=== PATIENT | female | born 1945 | race Caucasian/White ===

== ENCOUNTER → 2016-07-29 | Outpatient (CLI) | payer MEDICARE, OTHER ==
[~2016-07-29] MED LIST: AGM875T PO; ALN70T PO; ASP81TEC PO; BISO5TAB8 PO; CALC1CAP21 PO; CALC600T19 PO; CARB25TA2 PO; CEFU500T5 PO; CHOL400C8 PO; CHOL400T43 GT; CLOP75TA PO; CYAN100053 IJ; FLDR.1T PO; GABA-488 PO; HCT25T PO; HCTZ12.5T PO; HYDR-1231 PO; HYDR-34 PO; HYDR30CR87 RC; IBUP-15 PO; IRB150T PO; KCL20TCR PO; LD2JL30 EXT; LVT.05T PO; METO-270 PO; METO-272 PO; METO25TA PO; OMEP20CA12 PO; OMEP20TA7 PO; PANT20TA3 PO; PANT40TA2 PO; POTASSIUM PO; PRAV10TA23 PO; SERT50TA9 PO; TRAM50TA2 PO; VIT B12; provastatin
--- OUTSIDE RECORDS SUMMARY | 2016-07-29 13:55 | XMS REPORT | Continuity of Care Document ---
Author Author [facility] Organization [facility] Address Unknown Phone Unavailable Care Team Providers Care Pharmacist'S Aide Name Role Phone NO, LOCAL PHYSICIAN PCP Unavailable Insurance Providers Payer Name Policy Number Subscriber Name Relationship Wps Medicare [id number] Darrin Roe 18 Self / Same As Patient [employer] [id number] Darrin Roe 18 Self / Same As Patient Advance Directives Directive Response Recorded Date/Time Advance Directives No 10/26/14 3:15pm Health Care Power of [place] No 10/26/14 3:15pm Organ Donor No 10/26/14 3:15pm Resuscitation Status Full Code 10/26/14 3:15pm Problems Medical Problems Problem Onset Date Status Near syncope Unknown Active Near syncope Unknown Active Medications Medication Dose Route Sig Days/Qty Instructions Order Date Discontinued Date Status Irbesartan 150 Mg PO DAILY 01/06/12 10/26/14 Discontinued Hydrochlorothiazide 25 Mg PO DAILY 01/06/12 01/15/13 Discontinued Levothyroxine Sodium (Levothroid) 50 Mcg PO DAILY 01/06/12 Active Omeprazole 20 Mg PO BEDTIME 01/06/12 Active [provastatin] 10 01/06/12 12/21/12 Discontinued Clopidogrel Bisulfate 75 Mg PO ROCIO TIM FR @ 0600 01/06/12 Active Aspirin 81 Mg PO DAILY 01/06/12 Active Calcium Carbonate/Vitamin D3 1 Cap PO DAILY 01/06/12 10/26/14 Discontinued Cholecalciferol (Vitamin D3) 400 Unit PO DAILY 12/21/12 Active Pravastatin Sodium 10 Mg PO DAILY 12/21/12 Active Alendronate Sodium 70 Mg PO EVERY FRIDAY MORNING 12/21/12 Active Fludrocortisone Acetate 0.1 Mg PO EVERY OTHER DAY 12/22/12 Active [Potassium] 1 Tab PO DAILY 01/10/13 01/15/13 Discontinued Potassium Chloride 20 Mg PO DAILY 01/15/13 10/26/14 Discontinued Bisoprolol Fumarate 2.5 Mg PO BEDTIME 01/15/13 10/26/14 Discontinued Hydrochlorothiazide 12.5 Mg PO DAILY 01/15/13 10/26/14 Discontinued Ibuprofen 600 Mg PO TID WITH MEALS 02/10/13 10/26/14 Discontinued [Vit B12] TWICE MONTHLY 10/26/14 10/26/14 Discontinued Calcium Carbonate 600 Mg PO DAILY 10/26/14 Active Metoprolol Succinate (Toprol Xl) 25 Mg PO TWICE A DAY 10/26/14 Active Cyanocobalamin (Vitamin B 12 Injecting) 1,000 Mcg IJ Q2W @ 1700 10/26 Active Sertraline Hcl 50 Mg PO DAILY 10/26/14 Active Pantoprazole Sod 40 Mg PO DAILY 30 Days 10/27/14 Active Hc Acetate/Pramoxine Hcl 30 Gm RC DAILY PRN HEMORRHOIDS 10 Days Active Social History Social History Problem Response Recorded Date/Time Alcohol Use Denies Use 10/26/2014 3:15pm Recreational Drug Use No 10/26/2014 3:15pm Recent Foreign Travel No 02/10/2013 8:44pm Recent Infectious Disease Exposure No 02/10/2013 8:44pm Hospitalization with Isolation Denies 02/10/2013 8:44pm Smoking Status Never a Smoker 10/26/2014 3:15pm Do you dip or chew tobacco? No 10/26/2014 3:15pm Query Response Start Date Stop Date Smoking Status Never a Smoker Hospital Discharge Instructions Patient Instructions Physician Instructions Plan of Care/Instructions/FU: fu with tn in 4-5 days [phone] Activity as Tolerated: Yes Discharge Diet: Low Sodium Diet Return to The Hospital For: severe bleeding Plan of Care/Instructions/FU: fu at clinic 4-[address] Robertson 1 week Activity as Tolerated: Yes Discharge Diet: No Restrictions, Low Sodium Diet Return to The Hospital For: severe bleeding Care Plan Patient Instructions:: fu at clinic 4-[address] Robertson 1 week Plan of Care Discharge Date 10/27/14 4:10pm Disposition 30 STILL A PATIENT Instructions/Education Provided EGD-ESOPHAGOGASTRODUODENOSCOPY Colonoscopy (DC) Hemorrhoids (GEN) Prescriptions See Medications Section Referrals (Unspecified) Reason(s) for Referral: Status changed from Active to Cancelled. ROSENDO ROBERTSON MD (Unspecified) 11/01/14 Address: [address] [place] [phone] Reason(s) for Referral: 4:00 NIKKI HDZ (Unspecified) 11/01/14 Address: [place] [address] Reason(s) for Referral: 2:00 Additional Instructions/Education FOLLOW UP FRIDAY WITH NELDA ON SATURDAY NOVEMBER 01, 2014 AT 2:[address] ROBERTSON NOVEMBER 01Friday AT 4:00 CHANGE OMEPRAZOLE TO 40MG DAILY INSTEAD OF PROTONIX Functional Status Query Response Date Recorded Comprehension Ability Understands Concepts October 27, 2014 9:00am Allergies, Adverse Reactions, Alerts Allergen Type Severity Reaction Status Last Updated Levofloxacin Allergy Unknown Active 10/26/14 Immunizations Name Given Type Date of Pneumonia Vaccine 03/19/10 Historical Date of Influenza Vaccine 03/16/14 Historical Hepatitis A No Historical Hepatitis B No Historical Tetanus Booster (TDap) Unknown Historical Vital Signs Acute Vital Signs Vital Response Date/Time Temperature (Fahrenheit) 97.6 degrees F (97.6 - 99.5) Temperature (Calculated Celsius) 36.53171 degrees C (36.4 - 37.5) Temperature Source Tympanic Pulse Rate (adult) 67 bpm (60 - 90) Respiratory Rate 18 bpm (12 - 24) O2 Sat by Pulse Oximetry 97 % (88 - 100) Blood Pressure 147/76 mm Hg Pain Pain Intensity 0 Height (Feet) 5 feet Height (Inches) 3.00 inches Height (Calculated Centimeters) 160.073949 cm Weight (Pounds) 174 pounds Weight (Ounces) 6.0 oz Weight (Calculated Grams) 34680.170 gm Weight (Calculated Kilograms) 79.093665 kilograms Calculated BMI 30.82 Results Laboratory Results Test Name Result Units Flags Reference Collection Date/Time Result Date/ Time Comments White Blood Count 5.1 10^3/uL 4.3-11.0 10/27/2014 4:40am 10/27/2014 4: 54am Red Blood Count 4.58 10^6/uL 4.35-5.85 10/27/2014 4:4010/27/2014 4: 54am Hemoglobin 13.5 G/DL 11.5-16.0 10/27/2014 4:4010/27/2014 4:54am Hematocrit 42 % 35-52 10/27/2014 4:4010/27/2014 4:54am Mean Corpuscular Volume 91 FL 80-99 10/27/2014 4:4010/27/2014 4: 54am Mean Corpuscular Hemoglobin 30 PG 25-34 10/27/2014 4:4010/27/2014 4: 54am Mean Corpuscular Hemoglobin Concent 32 G/DL 32-36 10/27/2014 4:40 4:54am Red Cell Distribution Width 13.3 % 10.0-14.5 10/27/2014 4:402014 4:54am Platelet Count 211 10^3/uL 130-400 10/27/2014 4:4010/27/2014 4:54am Mean Platelet Volume 10.0 FL 7.4-10.4 10/27/2014 4:4010/27/2014 4: 54am Neutrophils (%) (Auto) 51 % 42-75 10/27/2014 4:4010/27/2014 4:54am Lymphocytes (%) (Auto) 28 % 12-44 10/27/2014 4:4010/27/2014 4:54am Monocytes (%) (Auto) 14 % H 0-12 10/27/2014 4:4010/27/2014 4:54am Eosinophils (%) (Auto) 6 % 0-10 10/27/2014 4:4010/27/2014 4:54am Basophils (%) (Auto) 1 % 0-10 10/27/2014 4:4010/27/2014 4:54am Neutrophils # (Auto) 2.6 X 10^3 1.8-7.8 10/27/2014 4:40am 10/27/2014 4: 54am Lymphocytes # (Auto) 1.4 X 10^3 1.0-4.0 10/27/2014 4:40am 10/27/2014 4: 54am Monocytes # (Auto) 0.7 X 10^3 0.0-1.0 10/27/2014 4:40am 10/27/2014 4: 54am Eosinophils # (Auto) 0.3 10^3/uL 0.0-0.3 10/27/2014 4:40am 10/27/2014 4 :54am Basophils # (Auto) 0.1 10^3/uL 0.0-0.1 10/27/2014 4:40am 10/27/2014 4: 54am Prothrombin Time 11.9 SEC L 12.2-14.7 10/26/2014 11:30am 10/26/2014 11: 54am INR Comment 0.9 0.8-1.4 10/26/2014 11:30am 10/26/2014 11:54am INTERPRETIVE DATA SUGGESTED THERAPEUTIC RANGE FOR INR'S: VENOUS THROMBOSIS, PULMONARY EMBOLISM, OR PREVENTION OF SYSTEMIC EMBOLISM (EG. IN ATRIAL FIBRILLATION): 2.0 - 3.0 MECHANICAL PROSTHETIC HEART VALVES: 2.5 - 3.5* *NOTE: INR'S UP TO 4.5 MAY BE NECESSARY IN SELECTED GROUPS OF HIGH RISK PATIENTS. [employer] [place] [employer] PH[employer]ICIANS CONSENSUS CONFERENCE ON ANTITHROMBOTIC THERAPY (2000). Activated Partial Thromboplast Time 27 SEC 24-35 10/26/2014 11:30am 11:54am Sodium Level 142 MMOL/L 135-145 10/27/2014 4:40am 10/27/2014 5:14am Potassium Level 4.1 MMOL/L 3.6-5.0 10/27/2014 4:40am 10/27/2014 5:14am Chloride Level 108 MMOL/L H 98-107 10/27/2014 4:40am 10/27/2014 5:14am Carbon Dioxide Level 25 MMOL/L 21-32 10/27/2014 4:40am 10/27/2014 5: 14am Blood Urea Nitrogen 12 MG/DL 7-18 10/27/2014 4:40am 10/27/2014 5:14am Creatinine 1.00 MG/DL 0.60-1.30 10/27/2014 4:40am 10/27/2014 5:14am BUN/Creatinine Ratio 12 10/27/2014 4:40am 10/27/2014 5:14am Estimat Glomerular Filtration Rate 55 10/27/2014 4:40am 10/27/2014 5:14am GFR INTERPRETIVE DATA UNITS FOR ESTIMATED GFR (eGFR): mL/min/1.73 M2 REFERENCE RANGE FOR ESTIMATED GFR (eGFR) eGFR NORMAL eGFR >60 MODERATELY DECREASED eGFR 30-59 SEVERLY DECREASED eGFR 15-29 KIDNEY FAILURE <15 (OR DIALYSIS) Glucose Level 105 MG/DL 70-105 10/27/2014 4:40am 10/27/2014 5:14am Calcium Level 8.5 MG/DL 8.5-10.1 10/27/2014 4:40am 10/27/2014 5:14am Magnesium Level 2.0 MG/DL 1.8-2.4 10/26/2014 11:30am 10/26/2014 12: 03pm Total Bilirubin 0.7 MG/DL 0.1-1.0 10/27/2014 4:40am 10/27/2014 5:14am Alkaline Phosphatase 69 U/L 40-136 10/27/2014 4:40am 10/27/2014 5:14am Aspartate Amino Transf (AST/SGOT) 18 U/L 5-34 10/27/2014 4:40am 2014 5:14am Alanine Aminotransferase (ALT/SGPT) 19 U/L 0-55 10/27/2014 4:40am 10/27 5:14am Total Protein 6.0 G/DL L 6.4-8.2 10/27/2014 4:40am 10/27/2014 5:14am Albumin 3.7 G/DL 3.2-4.5 10/27/2014 4:40am 10/27/2014 5:14am Amylase Level 90 U/L 25-125 10/26/2014 11:30am 10/26/2014 12:03pm Lipase 41 U/L 8-78 10/26/2014 11:30am 10/26/2014 12:03pm Procedures Procedure Status Date Provider(s) Esophagogastroduodenoscopy (EGD) with dilation completed 10/27/14 ROSENDO ROBERTSON MD Proctoscopy completed 10/27/14 ROSENDO ROBERTSON MD Encounters Encounter Location Date/Time Discharged Inpatient Via [facility] 10/26/14 2:29pm Registered Recurring Via [facility] 10/21/14 9:49am
--- NOTE | 2016-07-29 14:40 | Diagnostic Imaging Report ---
PA and lateral views of the chest. INDICATION: Cough. Dyspnea. COMPARISON: 03/21/2014. FINDINGS: The lungs are hyperinflated and clear. The heart size is normal. No effusion or pneumothorax. The mediastinum and floyd appear unremarkable. Pacemaker is seen with two cardiac leads. IMPRESSION: Hyperinflated clear lungs. Dictated by: Dictated on workstation # [id number]
== END ==
LOC: RAD 13:50
PROVIDERS: ATTEND Nurse Practitioner Family
DX: R05 Cough (principal); R06.00 Dyspnea, unspecified
CPT/HCPCS: 71020

== ENCOUNTER → 2016-08-21 | Outpatient (CLI) | payer MEDICARE, OTHER ==
[~2016-08-21] MED LIST changes: +RT-ALBUTEROL SULF 2.5 MG/3 ML PRE-MIX VIAL INH ONE
--- OUTSIDE RECORDS SUMMARY | 2016-08-21 14:05 | XMS REPORT | Continuity of Care Document ---
Author Author [facility] Organization [facility] Address Unknown Phone Unavailable Care Team Providers Care Director Of Admissions Name Role Phone NO, LOCAL PHYSICIAN PCP Unavailable Insurance Providers Payer Name Policy Number Subscriber Name Relationship Wps Medicare [id number] Darrin Roe 18 Self / Same As Patient [employer] [id number] Darrin Roe 18 Self / Same As Patient Advance Directives Directive Response Recorded Date/Time Advance Directives No 10/26/14 3:15pm Health Care Power of Technician Support Engineer No 10/26/14 3:15pm Organ Donor No 10/26/14 [...] Physician Instructions Plan of Care/Instructions/FU: fu with dc in 4-5 days [phone] Activity as Tolerated: Yes Discharge Diet: Low [...] ROSENDO ROBERTSON MD (Unspecified) 11/01/14 Address: [address] [place] [phone] Reason(s) for Referral: 4:00 NIKKI HDZ (Unspecified) 11/01/14 Address: [place] [address] Reason(s) for Referral: 2:00 Additional Instructions/Education FOLLOW [...] F (97.6 - 99.5) Temperature (Calculated Celsius) 36.71519 degrees C (36.4 - 37.5) Temperature Source Tympanic Pulse Rate (adult) 67 bpm (60 - 90) Respiratory Rate 18 bpm (12 - 24) O2 Sat by Pulse Oximetry 97 % (88 - 100) Blood Pressure 147/76 mm Hg Pain Pain Intensity 0 Height (Feet) 5 feet Height (Inches) 3.00 inches Height (Calculated Centimeters) 160.005249 cm Weight (Pounds) 174 pounds Weight (Ounces) 6.0 oz Weight (Calculated Grams) 76576.170 gm Weight (Calculated Kilograms) 79.856816 kilograms Calculated BMI 30.82 Results Laboratory Results [...] SELECTED GROUPS OF HIGH RISK PATIENTS. [employer] [place] [employer] CONSENSUS CONFERENCE ON [...] Encounters Encounter Location Date/Time Discharged Inpatient Via [facility] 10/26/14 2:29pm Registered Recurring Via [facility] 10/21/14 9:49am
== END ==
LOC: RT 14:01
PROVIDERS: ATTEND Family Medicine
DX: R06.02 Shortness of breath (principal); R05 Cough
CPT/HCPCS: 94060; 94640; 94726; 94729

== ENCOUNTER 2016-09-24 05:44 | Outpatient (CLI) | payer MEDICARE, OTHER ==
[~2016-09-24] VITALS: Ht 160 cm; Wt 82.6 kg
[~2016-09-24 05:44] MED LIST changes: -CARB25TA2 PO; -METO-272 PO; -PANT20TA3 PO; -RT-ALBUTEROL SULF 2.5 MG/3 ML PRE-MIX VIAL INH ONE
[2016-09-24] MEDS ORDERED: METO-272 PO (13:01)
[2016-09-24] MEDS ORDERED: CARB25TA2 PO (13:01)
[2016-09-24] MEDS ORDERED: PANT20TA3 PO (13:01)
== END 2016-09-24 13:04 ==
LOC: PREOP 05:44
PROVIDERS: ATTEND Internal Medicine
DX: Z01.818 Encounter for other preprocedural examination (principal); Z12.11 Encounter for screening for malignant neoplasm of colon

== ENCOUNTER 2016-09-27 07:22 | Day surgery (SDC) | payer MEDICARE, OTHER ==
[~2016-09-27] VITALS: Ht 160 cm; Wt 82.6 kg
[~2016-09-27 07:22] MED LIST changes: +CARB25TA2 PO; +METO-272 PO; +PANT20TA3 PO
[2016-09-27 07:40] VITALS: BP 159/73
--- NOTE | 2016-09-27 07:51 | HISTORY AND PHYSICAL ---
DICTATING PHYSICIAN: Dr. Dahl DATE OF ADMISSION: 09/27/2016 Mrs. Kate is a 70-year-old white female referred by Dr. Gaines for colonoscopy for evaluation of diarrhea. She reports a 3 week history of rather abrupt onset diarrhea. She reports 7 to 8 watery stools per day. She has had some lower abdominal cramping with this. She denies any associated blood. She has not been on any associated antibiotics. She reportedly had stool cultures obtain and C. difficile studies that were negative. She has finished 6 days of a 10 day course of Flagyl 500 mg t.i.d. and has not noted any improvement. She denies chills or fever. She initially had some nocturnal stool, but as of late it has been predominantly daytime and worse after meals. She does not have a past history of diarrhea. She is not aware of any family history for inflammatory bowel disease. She believes she has lost several pounds of weight over the last 3 weeks. She denies any travel history. Her comes with her and he has not had any similar problems. She is not aware of any one else that she has been exposed to with history of diarrhea. PAST MEDICAL HISTORY: 1. Significant for coronary artery disease. She underwent a right coronary stent placement in 2003. She underwent repeat cardiac catheterization for syncope evaluation in 2012. Coronary arteries and right coronary stent were all widely patent. 2. Her syncope was felt to be vasodepressor in etiology with a positive tilt table test. 3. She has a history of hypothyroidism on replacement. 4. Has a history of reflux on PPI therapy in the form of pantoprazole. 5. She also has a history of osteoporosis. 6. Hyperlipidemia. 7. She also has a pacemaker placement for bradyarrhythmia. This predated metoprolol. MEDICATIONS ON ADMISSION INCLUDE: 1. L-thyroxine 50 mcg daily. 2. Pantoprazole 20 mg daily. 3. Sertraline 50 mg daily. 4. Alendronate 70 mg weekly. 5. B12 100 mcg every other week. 6. Pravastatin 10 mg daily. 7. Clopidogrel 75 mg 3 times weekly. 8. 81 mg aspirin daily. 9. Vitamin D 4000 units daily. 10. Calcium 600 mg daily. 11. She had recently tried hyoscyamine, which did not help her diarrhea. SOCIAL HISTORY: She is retired with no past smoking or drinking history. FAMILY HISTORY: Noncontributory. PHYSICAL EXAMINATION: Reveals an overweight white female, who appears fatigued. Her blood pressure was 156/84 with a heart rate is 72 and regular. HEENT EXAMINATION: Unremarkable. NECK: Revealed no JVD, adenopathy or bruits. CHEST: Clear. CV: Revealed a regular rate and rhythm without murmur, S3 or S4. ABDOMEN: Soft, supple without masses, organomegaly. She had some mild epigastric and left lower quadrant discomfort to palpation without rebound or guarding. The abdomen was soft. No abdominal bruits are noted. EXTREMITIES: Reveal no cyanosis, clubbing, or edema. ASSESSMENT: For further evaluation of a 3 week history of diarrhea the patient is set-up for colonoscopy on the . She will hold aspirin and Plavix. She was given Lomotil 2.5 mg to take on a p.r.n. basis in the interim, considering negative stool cultures including C. diff. toxin. Her electronic medical record was reviewed. 45 minutes of care time was spent by myself today, with another 15 to 20 minutes of staff time in setting up colonoscopy and discussing prep instructions with split dose Colyte with the patient today. I thank you for the referral of this pleasant lady. Sincerely, Jabari Dahl Job ID: [id number] Dictated Date: 09/19/2016 20:30:00 Operations Lead Date: 09/20/2016 07:42:26/za
[2016-09-27] MEDS ORDERED: LIDOCAINE JELLY 2% (XYLOCAINE) 5 ML TUBE MM PRN (08:00)
[2016-09-27] MEDS ORDERED: FLUMAZENIL (ROMAZICON) 0.1 MG/ML 5 ML VIAL INJ PRN (08:00)
[2016-09-27] MEDS ORDERED: 1/2 NS IV SOLUTION 1,000 ML IV PRN (08:00)
[2016-09-27] MEDS ORDERED: NALOXONE 0.4 MG/ML 1 ML (NARCAN) VIAL IVP PRN (08:00)
--- NOTE | 2016-09-27 08:01 | Pre-Op Note & Conscious Sedat ---
Pre-Operative Progress Note H&P Reviewed The H&P was reviewed, patient examined and no changes noted. Date H&P Reviewed: Sep 27, 2016 Time H&P Reviewed: 08:00 Conscious Sedation Pre-Proced ASA Class: 2 Airway Mallampati Classification: (grand traverse appropriate class) I. II. III, IV Lungs Heart ASA score ASA 1: a normal healthy patient ASA 2: a patient with a mild systemic disease (mid diabetes, controlled hypertension, obesity ASA 3: a patient with a severe systemic disease that limits activity (angina , COPD, prior Myocardial infarction) ASA 4: a patient with an incapacitating disease that is a constant threat to life (CHF, renal failure) ASA 5: a moribund patient not expected to survive 24 hrs. (ruptured aneurysm) ASA 6: a declared brain patient whose organs are being harvested. For emergent operations, add the letter E after the classification Grade 2 Sedation Plan: Analgesia, Amnesia, Plan communicated to team members, Discussed options with patient/fam, Discussed risks with patient/fam Note The patient is an appropriate candidate to undergo the planned procedure, sedation, and anesthesia. The patient immediately re-assessed prior to indication. MARKUS PALUMBO MD Sep 27, 2016 08:01
[2016-09-27] MEDS ORDERED: fentaNYL INJECTION 100 MCG/2 ML AMP ONE ×2 (09:14→09:15)
[2016-09-27] MEDS ORDERED: MIDAZOLAM 2 MG/2 ML (VERSED) VIAL ONE ×2 (09:15)
[2016-09-27] MEDS ORDERED: LIDOCAINE JELLY 2% (XYLOCAINE) 5 ML TUBE ONE (09:16)
[2016-09-27] MEDS: fentaNYL INJECTION 100 MCG/2 ML AMP IVP PRN ×4 (09:19→09:33)
[2016-09-27] MEDS: MIDAZOLAM 2 MG/2 ML (VERSED) VIAL IVP PRN ×2 (09:20→09:31)
[2016-09-27 10:20] VITALS: BP 147/79
[2016-09-27 10:50] VITALS: BP 157/75
[2016-09-27 11:00] VITALS: BP 157/75
--- NOTE | 2016-09-30 12:51 | OPERATIVE REPORT ---
PROCEDURE PHYSICIAN: MARKUS PALUMBO DATE OF PROCEDURE: 09/27/2016 INDICATION FOR THE PROCEDURE: Screening colonoscopy. The patient has been experiencing some diarrhea over the past 3 weeks but had been set up for screening colonoscopy. PROCEDURE: The patient was placed in the left lateral decubitus position. Prior to undergoing colonoscopy, digital rectal evaluation was performed. Anal sphincter tone was normal and the perianal reflex was intact. Digital evaluation was compatible with an anterior rectocele. No other abnormalities were noted to digital inspection of the anal canal or distal rectal vault. The colonoscope was then inserted into the rectum and direct visualization, advanced to be cecum. Photographic documentation was obtained. A careful inspection was made as the colonoscope was withdrawn. FINDINGS: The patient exhibited evidence for pancolitis. There was no involvement of the terminal ileum. No skip areas were noted in the colon. There was no evidence for diverticular disease and no evidence for neoplasia was present. Patchy areas of whitish mucus was noted on top of diffusely edematous, erythematous base with loss of vascular markings throughout the entire colon. Biopsies from the ascending colon and several rectal biopsies were obtained. A/P pancolitis was present, with rather abrupt onset would favor an infectious etiology. Stool affluent was sent for enteric pathogen and C. difficile toxin studies. If stool cultures and C. difficile studies are negative and pathology is consistent with inflammatory bowel disease, we will initiate prednisone and recommend GI referral to discuss and initiate prednisone sparing medication. If infectious disease is apparent, we will initiate appropriate antibiotic therapy. I thank you for the referral of this pleasant lady. Currently she denies chills, fever, arthralgia, or myalgia. She has been having some occasional mild night sweats. She does not appear to be septic and has been maintaining adequate fluid and nutritional status. Job ID: [id number] Dictated Date: 09/27/2016 11:13:07 Diving Judge Date: 09/30/2016 12:42:48 / ilemilie
== END 2016-09-27 11:00 | disposition home or self-care (01) ==
LOC: ENDO 07:22
PROVIDERS: ATTEND Internal Medicine
DX: Z12.11 Encounter for screening for malignant neoplasm of colon (principal); K52.9 Noninfective gastroenteritis and colitis, unspecified
CPT/HCPCS: 87045; 87046; 87324; 87449; 88305

== ENCOUNTER 2016-10-11 08:50 | Outpatient (RCR) | payer MEDICARE, OTHER | END 2017-01-08 | disposition home or self-care (01) | LOC: LAB 08:50 | PROVIDERS: ATTEND Internal Medicine | DX: R19.7 Diarrhea, unspecified (principal) | CPT/HCPCS: 87045; 87046; 87324; 87449 ==

== ENCOUNTER → 2017-12-22 | Outpatient (CLI) | payer MEDICARE, OTHER ==
[~2017-12-22] MED LIST changes: +ALEN70TA47 PO; +ASPI-983 PO; +BETA15CR37 TP; +CALC600T80 PO; +CHOL400C9 PO; +CLOP75TA69 PO; +CNC1KV IJ; +IPRA30SP NS; +LEVO50TA6 PO; -METO-270 PO; -METO-272 PO; +METO-370 PO; +METO-387 PO; +METO-395 PO; +PRAV10TA PO; +PRD10T PO
--- NOTE | 2017-12-22 14:10 | Diagnostic Imaging Report ---
PROCEDURE: US left lower extremity venous. TECHNIQUE: Multiple real-time grayscale images were obtained over the left lower extremity in various projections. Additional duplex Doppler and color Doppler images were also obtained. INDICATION: Left leg edema. FINDINGS: There is no evidence of a left lower extremity DVT. Left lower extremity deep venous system shows normal compressibility with normal response to augmentation and Valsalva. No fluid collection or mass is seen. IMPRESSION: No evidence of left lower extremity DVT. Dictated by: Dictated on workstation # [id number]
== END ==
LOC: RAD 13:35
PROVIDERS: ATTEND Internal Medicine Cardiovascular Disease
DX: I25.10 Atherosclerotic heart disease of native coronary artery without angina pectoris (principal); I10 Essential (primary) hypertension; R55 Syncope and collapse; R60.0 Localized edema; M79.662 Pain in left lower leg; Z95.0 Presence of cardiac pacemaker

== ENCOUNTER → 2018-04-28 | Outpatient (CLI) | payer MEDICARE, OTHER ==
--- NOTE | 2018-04-28 14:05 | Diagnostic Imaging Report ---
INDICATION: Routine screening. COMPARISON: 04/25/2017 and 03/18/2016. TECHNIQUE: 2D and 3D bilateral screening mammography was performed with CAD. FINDINGS: Both breasts are heterogeneously dense, limiting the sensitivity of mammography. No dominant mass or malignant appearing microcalcifications are seen. The axillae are unremarkable. Benign calcifications are identified bilaterally. IMPRESSION: No mammographic features suspicious for malignancy are identified. ACR BI-RADS Category 2: Benign findings. Result letter will be mailed to the patient. Note: At least 10% of breast cancer is not imaged by mammography. Dictated by: Dictated on workstation # [id number]
== END ==
LOC: RAD 10:39
PROVIDERS: ATTEND Nurse Practitioner Family
DX: Z12.31 Encounter for screening mammogram for malignant neoplasm of breast (principal)
CPT/HCPCS: 77067

== ENCOUNTER → 2018-08-31 | Outpatient (CLI) | payer MEDICARE, OTHER ==
[~2018-08-31] MED LIST changes: -ALEN70TA47 PO; +ALEN70TA5 PO
--- NOTE | 2018-08-31 16:52 | Diagnostic Imaging Report ---
INDICATION: Low back pain. Possible injury. COMPARISON: 05/27/2016. FINDINGS: Frontal and lateral radiographic views of the lumbar spine were obtained. Evaluation of the static alignment demonstrates slight, stable grade 1 anterolisthesis at L3-L4. There is no evidence of jumped facets. The vertebral body heights are maintained. There is no evidence of acute fracture. Mild multilevel degenerative changes are noted. Note is also made of moderate calcified aortic atherosclerosis. The included small bowel loops are nondistended. IMPRESSION: 1. No radiographic evidence of acute fracture or dislocation in the lumbar spine. 2. Slight grade 1 anterolisthesis at L3-4 with mild multilevel degenerative changes. Dictated by: Dictated on workstation # [id number]
== END ==
LOC: RAD 16:26
PROVIDERS: ATTEND Nurse Practitioner Family
DX: M47.816 Spondylosis without myelopathy or radiculopathy, lumbar region (principal)
CPT/HCPCS: 72100

== ENCOUNTER 2018-12-24 13:37 | Outpatient (RCR) | payer MEDICARE, OTHER | END 2019-02-02 12:55 | disposition home or self-care (01) | PROVIDERS: ATTEND Nurse Practitioner Family | DX: M79.89 Other specified soft tissue disorders (principal) ==

== ENCOUNTER → 2019-01-28 | Outpatient (CLI) | payer MEDICARE, OTHER ==
--- NOTE | 2019-01-28 10:55 | Diagnostic Imaging Report ---
PROCEDURE: US Renal Bilateral. TECHNIQUE: Multiple real-time grayscale images were obtained over the kidneys in various projections bilaterally. INDICATION: Left renal mass on outside CT. COMPARISON: No prior CT or prior report is available for comparison. FINDINGS: Right kidney measures 7.4 x 4.5 x 4.4 cm and the left kidney measures 8.2 x 4.6 x 4.5 cm. Cortical thickness and echogenicity appears normal. There is a cyst in the left kidney superiorly and laterally measuring 2.8 x 2.5 x 2.0 cm. No internal vascularity is seen. There are no calculi or hydronephrosis identified. Urinary bladder is unremarkable. IMPRESSION: Left renal cyst. No other significant abnormality is detected. Dictated by: Dictated on workstation # [id number]
== END ==
LOC: RAD 09:31
PROVIDERS: ATTEND Nurse Practitioner Family
DX: N28.1 Cyst of kidney, acquired (principal)
CPT/HCPCS: 76770

== ENCOUNTER → 2019-05-21 | Outpatient (CLI) | payer MEDICARE, OTHER ==
[~2019-05-21] MED LIST changes: +BETA15CR14 TP; -BETA15CR37 TP; -METO-370 PO; -METO-387 PO; -METO-395 PO; +METO50TA7 PO; +MTP100TCR PO; +MTP25TSR PO; -TRAM50TA2 PO; +TRM50T PO
--- NOTE | 2019-05-24 08:49 | Diagnostic Imaging Report ---
INDICATION: Screening The current study was also evaluated with a Computer Aided Detection (CAD) system. 3-D Tomographic imaging was also performed. Comparison made with prior examination 04/28/2018, 04/25/2017 and 03/18/2016. FINDINGS: There are scattered fibroglandular densities bilaterally. There are vascular and benign type calcifications. There is no new dominant mass, spiculated lesion or suspicious calcination identified. Skin and nipples and axilla are unremarkable. IMPRESSION: Category 2 benign. ACR BI-RADS Category 2: Benign findings. Result letter will be mailed to the patient. Note: At least 10% of breast cancer is not imaged by mammography. Dictated by: Dictated on workstation # [id number]
== END ==
LOC: RAD 07:36
PROVIDERS: ATTEND Nurse Practitioner Family
DX: Z12.31 Encounter for screening mammogram for malignant neoplasm of breast (principal)
CPT/HCPCS: 77067

== ENCOUNTER → 2020-03-07 | Outpatient (CLI) | payer MEDICARE, OTHER ==
[~2020-03-07] VITALS: Ht 160 cm; Wt 85.0 kg
[~2020-03-07] MED LIST changes: +ASPI-1238 PO; -ASPI-983 PO; +CATHETER FLUSH 10 ML SYR IV PRN; +PANT20TA18 PO; -PANT20TA3 PO; +REGADENOSON 0.4 MG/5 ML SYR (LEXISCAN) IV ONE
[2020-03-07 08:54] VITALS: BP 151/91
--- NOTE | 2020-03-07 13:07 | STRESS TEST ---
DATE OF SERVICE: 03/07/2020 RESTING AND POST REGADENOSON TECHNETIUM-99M TETROFOSMIN SPECT CT IMAGING ORDERING PHYSICIAN: Dr. Anthony. PRIMARY PHYSICIAN: Dr. Gaines. CLINICAL DIAGNOSIS: Coronary artery disease. Baseline images were carried out after injection of 10.22 mCi of technetium-99m Tetrofosmin. This was followed by 0.4 mg regadenoson and 33 mCi of technetium-99m Tetrofosmin for stress imaging. The patient tolerated the procedure well. The electrocardiogram showed sinus rhythm at baseline and it did not change significantly with regadenoson infusion. The patient noted mild shortness of breath following regadenoson infusion, which resolved in a few minutes. Review of images at rest and following stress does not indicate any distinct perfusion defects consistent with significant myocardial ischemia or infarction. Gated images show normal global left ventricular systolic function with normal regional wall motion. Left ventricular ejection fraction is calculated to be 73%. Left ventricular end diastolic volume is 46 mL. TID is absent (0.99). CONCLUSIONS: 1. No evidence of any significant myocardial ischemia or infarction on this study. 2. Normal regional wall motion. 3. Normal global left ventricular systolic function with a calculated ejection fraction of 73%. Job ID: [id number] DocumentID: [id number] Dictated Date: 03/07/2020 11:36:13 Locker Room Clerk Date: 03/07/2020 13:07:33 Dictated By: ANA ANTHONY MD, MA, FACP, FACC,
== END ==
LOC: CARD 08:15
PROVIDERS: ATTEND Internal Medicine Cardiovascular Disease
DX: I25.10 Atherosclerotic heart disease of native coronary artery without angina pectoris (principal); I65.29 Occlusion and stenosis of unspecified carotid artery; E78.5 Hyperlipidemia, unspecified; I10 Essential (primary) hypertension; G47.33 Obstructive sleep apnea (adult) (pediatric); R73.01 Impaired fasting glucose; R51 Headache; Z95.0 Presence of cardiac pacemaker
CPT/HCPCS: 78452; 93017; A9502

== ENCOUNTER → 2020-05-25 | Outpatient (CLI) | payer MEDICARE, OTHER ==
[~2020-05-25] MED LIST changes: -ALEN70TA5 PO; +ALEN70TA69 PO; -CATHETER FLUSH 10 ML SYR IV PRN; -REGADENOSON 0.4 MG/5 ML SYR (LEXISCAN) IV ONE
--- NOTE | 2020-05-25 11:57 | Diagnostic Imaging Report ---
INDICATION: Routine screening. Comparison is made with prior mammogram from 05/21/2019 and 04/28/2018. 2-D and 3-D bilateral screening mammography was performed with CAD. Both breasts are heterogeneously dense, limiting the sensitivity of mammography. Scattered benign parenchymal and vascular calcifications are noted. No mass or malignant appearing microcalcifications are seen. Axillae are unremarkable. IMPRESSION: BI-RADS Category 2 No mammographic features suspicious for malignancy are identified. ACR BI-RADS Category 2: Benign findings. Result letter will be mailed to the patient. Note: At least 10% of breast cancer is not imaged by mammography. Dictated by: Dictated on workstation # [id number]
== END ==
LOC: RAD 10:30
PROVIDERS: ATTEND Nurse Practitioner Family
DX: Z12.31 Encounter for screening mammogram for malignant neoplasm of breast (principal)
CPT/HCPCS: 77063; 77067

== ENCOUNTER 2020-07-04 22:16 | Observation (INO) | payer MEDICARE, OTHER ==
[~2020-07-04] VITALS: Ht 160 cm; Wt 86.9 kg
[~2020-07-04 22:16] MED LIST changes: -ALEN70TA69 PO; +ALEN70TA80 PO
[2020-07-04] MEDS ORDERED: ASPIRIN 81 MG CHEW (CHILDREN'S ASA) PO ONE (22:30)
[2020-07-04] MEDS ORDERED: NITROGLYCERIN 0.4 MG SL TABS BTL 25'S SL PRN (22:30)
--- NOTE | 2020-07-04 22:33 | ED Chest Pain ---
General Chief Complaint: Chest Pain Stated Complaint: SEVERE CHEST PAIN Nursing Triage Note: TO ED VIA POV AND TO ROOM 5 WITH C/O LEFT SIDE CP THAT STARTED APPROX 1H PATTERN FILER WHILE LAYING DOWN. Nursing Sepsis Screen: No Definite Risk Source: patient Exam Limitations: no limitations History of Present Illness Date Seen by Provider: Jul 04, 2020 Time Seen by Provider: 22:16 Initial Comments Patient presents ER by private conveyance from home with her significant other and daughter in chief complaint she is having severe chest pain that is now rati ng a 2 out of 10 substernal with paresthesias in her right arm. She has never had pain like this before. She has stents in her heart. She is had to have stents in her biliary tree that were removed years ago. She quit smoking over a decade ago. She has high blood pressure, high cholesterol and borderline diabetes. She is followed by Dr. Gaines's office and Dr. Anthony is her data conversion operator. She has a pacemaker. She denies any palpitations or syncope. She is not having any nausea fever chills cough, diarrhea, loss of sense of taste and/or smell. Symptoms started approximately 9:00, 1 hour prior to arrival while she was laying in bed doing nothing exertional. They are not made worse by laying flat or sitting up. They are not made worse by exertion. She does have a history of GERD and takes medicines for it. She has had her gallbladder out. Cardiac catheterization by Dr. Blevins in 2017 demonstrating mild coronary artery disease with widely patent stent in the mid right coronary artery, EF of 65% Allergies and Home Medications Allergies Coded Allergies: levofloxacin (Verified Allergy, Unknown, 10/26/14) Home Medications Alendronate Sodium 70 Mg Tablet, 70 MG PO Landin, (Reported) Aspirin 81 Mg Tablet.dr, 81 MG PO DAILY, (Reported) Betamethasone/Propylene Glyc 15 Gm Cream..g., TP BID, (Reported) Calcium Carbonate 600 Mg Tablet, 600 MG PO DAILY, (Reported) Cholecalciferol (Vitamin D3) 400 Unit Capsule, 400 UNIT PO DAILY, (Reported) Clopidogrel Bisulfate 75 Mg Tablet, 75 MG PO MoWeFr, (Reported) Cyanocobalamin 1,000 Mcg/Ml Inj, 1,000 MCG IJ EVERY 2 WEEKS, (Reported) Ipratropium [place] 30 Ml [place], 1-2 SPRAYS NS TID PRN for DRAINAGE, (Reported) Levothyroxine Sodium 50 Mcg Tablet, 50 MCG PO DAILY, (Reported) Metoprolol Succinate 100 Mg Tab.er.24h, 100 MG PO BID, (Reported) Pantoprazole Sodium 20 Mg Tablet.dr, 20 MG PO HS, (Reported) Pravastatin Sodium 10 Mg Tablet, 10 MG PO DAILY, (Reported) Prednisone 10 Mg Tab, PO UD, (Reported) 60MG DAY 1 50MG DAY 2 40MG DAY 3 30MG DAY 4 20MG DAY 5 10MG DAY 6 LAST DAY TODAY 04-08-17 Sertraline HCl 50 Mg Tablet, 50 MG PO DAILY, (Reported) Patient Home Medication List Home Medication List Reviewed: Yes Review of Systems Review of Systems Constitutional: No chills, No diaphoresis EENTM: No Blurred Vision, No Double Vision Respiratory: Denies Cough, Denies Orthopnea Cardiovascular: See HPI, Chest Pain; Denies Palpitations Gastrointestinal: Denies Abdominal Pain, Denies Nausea Genitourinary: Denies Burning, Denies Discharge Musculoskeletal: No back pain, No joint pain All Other Systems Reviewed Negative Unless Noted: Yes Past Aqxlcol-Totspu-Dkfzew Hx Patient Social History Alcohol Use: Denies Use Smoking Status: Former Smoker Former Smoker, Quit: Sep 24, 1986 Recent Infectious Disease Expo: No Recent Hopitalizations: No Immunizations Up To Date Tetanus Booster (TDap): Unknown Date of Pneumonia Vaccine: Mar 19, 2010 Date of Influenza Vaccine: Feb 24, 2017 Seasonal Allergies Seasonal Allergies: No Past Medical History Surgeries: Yes (HEMORRHOID SURGERY, LEFT KNEE REPLACEMENT) Cardiac, Coronary Stent, Gallbladder, Hysterectomy, Joint Replacement, Orthopedic, Pacemaker Respiratory: Yes Sleep Apnea, COPD Currently Using CPAP: Yes Cardiac: Yes ( STENT, [employer] PACEMAKER) Coronary Artery Disease, High Cholesterol, Hypertension, Syncope Neurological: No 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 Disorders: No Female 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 Disorders: Endometriosis [employer] History: Hysterectomy Gastrointestinal: Yes Gastroesophageal Reflux Musculoskeletal: Yes (dropped foot) Degenerate Disk Disease, Osteoporosis, Arthritis, Chronic Back Pain Endocrine: Yes Hypothyroidsim, Diabetes, Non-Insulin dep Cancer: No Psychosocial: No Integumentary: No Blood Disorders: No Adverse Reaction/Blood Tranf: No Physical Exam Vital Signs Vital Signs - First Documented 07/04/20 22:21 Temp 36.5 Pulse 83 Resp 22 B/P (MAP) 154/76 (102) O2 Delivery Room Air Capillary Refill : Less Than 3 Seconds Height, Weight, BMI Height: 5'3.00" Weight: 182lbs. 0.0oz. 82.384995at; 33.00 BMI Method:Stated General Appearance: No Apparent Distress, WD/WN HEENT: PERRL/EOMI, Pharynx Normal, Moist Mucous Membranes Neck: Full Range of Motion, Normal Inspection Respiratory: Chest Non Tender, Lungs Clear, Normal Breath Sounds, No Accessory Muscle Use, No Respiratory Distress Cardiovascular: Regular Rate, Rhythm, Normal Peripheral Pulses, Other (1+ bipedal edema) Gastrointestinal: Normal Bowel Sounds, No Organomegaly Extremity: Normal Capillary Refill, Normal Range of Motion, Non Tender, No Calf Tenderness Neurologic/Psychiatric: Alert, Oriented x3, Other (Anxious affect) Skin: Normal Color, Warm/Dry Progress/Results/Core Measures Results/Orders Lab Results Laboratory Tests Test 07/04/20 22:25 Range/Units White Blood Count 8.0 4.3-11.0 10^3/uL Red Blood Count 4.46 3.80-5.11 10^6/uL Hemoglobin 13.4 11.5-16.0 g/dL Hematocrit 42 35-52 % Mean Corpuscular Volume 94 80-99 fL Mean Corpuscular Hemoglobin 30 25-34 pg Mean Corpuscular Hemoglobin Concent 32 32-36 g/dL Red Cell Distribution Width 12.7 10.0-14.5 % Platelet Count 246 130-400 10^3/uL Mean Platelet Volume 10.2 9.0-12.2 fL Immature Granulocyte % (Auto) 0 % Neutrophils (%) (Auto) 53 42-75 % Lymphocytes (%) (Auto) 29 12-44 % Monocytes (%) (Auto) 13 H 0-12 % Eosinophils (%) (Auto) 4 0-10 % Basophils (%) (Auto) 1 0-10 % Neutrophils # (Auto) 4.2 1.8-7.8 10^3/uL Lymphocytes # (Auto) 2.3 1.0-4.0 10^3/uL Monocytes # (Auto) 1.1 H 0.0-1.0 10^3/uL Eosinophils # (Auto) 0.3 0.0-0.3 10^3/uL Basophils # (Auto) 0.1 0.0-0.1 10^3/uL Immature Granulocyte # (Auto) 0.0 0.0-0.1 10^3/uL Prothrombin Time 12.3 12.2-14.7 SEC INR Comment 0.9 0.8-1.4 Activated Partial Thromboplast Time 27 24-35 SEC Sodium Level 139 135-145 MMOL/L Potassium Level 4.2 3.6-5.0 MMOL/L Chloride Level 103 98-107 MMOL/L Carbon Dioxide Level 23 21-32 MMOL/L Anion Gap 13 5-14 MMOL/L Blood Urea Nitrogen 23 H 7-18 MG/DL Creatinine 1.24 0.60-1.30 MG/DL Estimat Glomerular Filtration Rate 42 BUN/Creatinine Ratio 19 Glucose Level 120 H 70-105 MG/DL Calcium Level 8.9 8.5-10.1 MG/DL Corrected Calcium 8.8 8.5-10.1 MG/DL Magnesium Level 2.2 1.6-2.4 MG/DL Total Bilirubin 0.3 0.1-1.0 MG/DL Aspartate Amino Transf (AST/SGOT) 18 5-34 U/L Alanine Aminotransferase (ALT/SGPT) 21 0-55 U/L Alkaline Phosphatase 91 40-136 U/L Myoglobin 67.2 10.0-92.0 NG/ML Troponin I < 0.028 <0.028 NG/ML B-Type Natriuretic Peptide 33.0 <100.0 PG/ML Total Protein 7.0 6.4-8.2 GM/DL Albumin 4.1 3.2-4.5 GM/DL Lipase 50 8-78 U/L My Orders Orders - TYSHAWN MOCK Ekg Tracing (07/04/20 22:19) Continuous Ekg Monitoring (07/04/20 22:19) Cbc With Automated Diff (07/04/20 22:30) Magnesium (07/04/20 22:30) Chest 1 View, Ap/Pa Only (07/04/20 22:30) Comprehensive Metabolic Panel (07/04/20 22:30) Myoglobin Serum (07/04/20 22:30) Protime With Inr (07/04/20 22:30) Partial Thromboplastin Time (07/04/20 22:30) O2 (07/04/20 22:30) Lipid Panel (07/05/20 06:00) Ed Iv/Invasive Line Start (07/04/20 22:30) Lipase (07/04/20 22:30) BNP (07/04/20 22:30) Nitroglycerin 0.4 Mg Btl 25's (Nitrostat (07/04/20 22:30) Aspirin Chewable Tablet (Baby Aspirin Ch (07/04/20 22:30) Troponin I (07/04/20 22:25) Medications Given in ED Current Medications Medications Dose Ordered Sig/Kofi Route Start Time Stop Time Status Last Admin Dose Admin Aspirin 324 mg ONCE ONCE PO 07/04/20 22:30 07/04/20 22:31 DC 07/04/20 22:36 324 MG Nitroglycerin 0.4 mg UD PRN SL 07/04/20 22:30 07/04/20 22:38 0.4 MG Vital Signs/I&O 07/04/20 22:21 Temp 36.5 Pulse 83 Resp 22 B/P (MAP) 154/76 (102) O2 Delivery Room Air Blood Pressure Mean: 102 Progress Progress Note #1: Time: 22:41 Progress Note Aspirin and nitroglycerin. Initial EKG normal sinus rhythm. Could be GERD versus coronary disease versus other. No evidence of infection on history or clinical exam Progress Note #2: Time: 23:11 Progress Note Patient still has anxious affect but is claiming her pain has resolved with a single dose of nitroglycerin. Heart score is 5 points with a negative troponin and normal EKG but because of her age and risk factors we recommend observation stay. Initial ECG Impression Date: Jul 04, 2020 Initial ECG Impression Time: 22:20 Initial ECG Rate: 84 Initial ECG Rhythm: Normal Sinus Initial ECG Intervals: Normal Initial ECG Impression: Normal Initial ECG Comparisson: No Previous ECG Available Comment Normal sinus rhythm without clinically relevant ST elevation or depression. Diagnostic Imaging Diagonstic Imaging: Xray Plain Films/CT/US/NM/MRI: chest Reviewed: Reviewed by Me Departure Communication (Admissions) Time/Spoke to Admitting Phy: 23:20 Dr. Gaines agrees to observe the patient for unstable angina with consultation to cardiology. Time/Spoke to Consulting Phy: 23:20 Discussed the case with Dr. Blevins and he agrees to consult on the case. Impression Primary Impression: Unstable angina Disposition: ADMITTED INPATIENT Condition: Stable Admissions Decision to Admit Reason: Admit from ER (General) Decision to Admit/Date: Jul 04, 2020 Time/Decision to Admit Time: 23:02 Departure-Patient Inst. Referrals: LANIE GAINES MD (PCP/Family) Primary Care Physician TYSHAWN MOCK Jul 04, 2020 22:33
[2020-07-04 22:36] LABS: BASOPHILS # (AUTO) 0.1 10^3/uL (0.0-0.1); BASOPHILS % (AUTO) 1 % (0-10); EOSINOPHILS # (AUTO) 0.3 10^3/uL (0.0-0.3); EOSINOPHILS % (AUTO) 4 % (0-10); HEMATOCRIT 42 % (35-52); HEMOGLOBIN 13.4 g/dL (11.5-16.0); LYMPHOCYTES # (AUTO) 2.3 10^3/uL (1.0-4.0); LYMPHOCYTES % (AUTO) 29 % (12-44); MEAN CORPUSCULAR HEMOGLOBIN 30 pg (25-34); MEAN CORPUSCULAR HGB CONC 32 g/dL (32-36); MEAN CORPUSCULAR VOLUME 94 fL (80-99); MEAN PLATELET VOLUME 10.2 fL (9.0-12.2); MONOCYTES # (AUTO) 1.1 10^3/uL (0.0-1.0); MONOCYTES % (AUTO) 13 % (0-12); NEUTROPHILS # (AUTO) 4.2 10^3/uL (1.8-7.8); NEUTROPHILS % (AUTO) 53 % (42-75); PLATELET COUNT 246 10^3/uL (130-400)
[2020-07-04 22:41] LABS: ALBUMIN 4.1 GM/DL (3.2-4.5)
[2020-07-04 22:42] LABS: CHLORIDE 103 MMOL/L (98-107); POTASSIUM 4.2 MMOL/L (3.6-5.0); SODIUM 139 MMOL/L (135-145)
[2020-07-04 22:43] LABS: CALCIUM 8.9 MG/DL (8.5-10.1)
[2020-07-04 22:44] LABS: GLUCOSE 120 MG/DL (70-105)
[2020-07-04 22:45] LABS: CARBON DIOXIDE 23 MMOL/L (21-32); INR 0.9 (0.8-1.4); PROTHROMBIN TIME PATIENT 12.3 SEC (12.2-14.7)
[2020-07-04 22:46] LABS: BILIRUBIN,TOTAL 0.3 MG/DL (0.1-1.0)
[2020-07-04 22:47] LABS: ALKALINE PHOSPHATASE 91 U/L (40-136); CREATININE SERUM 1.24 MG/DL (0.60-1.30); GFR ESTIMATED 42
[2020-07-04 22:48] LABS: BUN/CREATININE RATIO 19
[2020-07-04 22:50] LABS: ALANINE AMINOTRANSFERASE 21 U/L (0-55); MAGNESIUM 2.2 MG/DL (1.6-2.4)
[2020-07-04 22:51] LABS: LIPASE 50 U/L (8-78)
--- NOTE | 2020-07-04 23:25 | NUR ---
DR. MOCK SPOKE WITH PT DAUGHTER AND UPDATED ON STATUS AND PENDING ADMIT TO MEDICAL UNIT. DAUGHTER JERRY ([phone]) WILL BE POINT OF CONTACT.
[2020-07-05] VITALS (11 sets, daily range): BP systolic 83–138; BP diastolic 42–75
[2020-07-05] MEDS ORDERED: ANTACID SUSP 30 ML UDC (MYLANTA) PO PRN (01:00)
[2020-07-05] MEDS ORDERED: morphine INJ 4 MG/ML 1 ML (VIAL/SYRINGE) IV PRN (01:00)
[2020-07-05] MEDS ORDERED: ACETAMINOPHEN 500 MG TAB (TYLENOL) PO PRN (01:00)
[2020-07-05] MEDS ORDERED: NITROGLYCERIN 0.4 MG SL TABS BTL 25'S SL PRN (01:00)
[2020-07-05] MEDS ORDERED: ONDANSETRON 4 MG/2 ML (SDV) Z0FRAN IVP PRN (01:00)
--- NOTE | 2020-07-05 03:58 | NUR ---
At 12:55, DARRIN TABARES admitted to room 421-1, with an admitting diagnosis of angia/chest pain , on 07/04/20 from [facility] ED via stretcher, accompanied by staff.DARRIN TABARES introduced to surroundings, call light, bed controls, phone, TV, temperature control, lights, meal times, smoking policy, visitor policy, side rail policy, bathrooms and showers. Patient Rights given to patient in the handbook. DARRIN TABARES verbalizes understanding that [facility] is not responsible for the loss or damage to any personal effects or valuables that are kept in the patients posession during their hospitalization.
--- NOTE | 2020-07-05 05:16 | Diagnostic Imaging Report ---
CHEST 1 VIEW, AP/PA ONLY Indication: Chest pain. Comparison: 07/29/2016 Findings: No focal airspace disease in the visualized lungs. Please note that the posterior lower lobes are poorly evaluated by portable radiography. Hazy opacities in the medial aspect right lung base are stable and likely due to prominent mediastinal fat. No pleural effusion or pneumothorax. Normal cardiomediastinal silhouette. Stable left pectoral transvenous pacemaker. Impression: 1. No acute cardiopulmonary process by portable radiography. Dictated by: Dictated on workstation # [id number]
[2020-07-05 05:19] LABS: BASOPHILS # (AUTO) 0.1 10^3/uL (0.0-0.1); BASOPHILS % (AUTO) 1 % (0-10); EOSINOPHILS # (AUTO) 0.3 10^3/uL (0.0-0.3); EOSINOPHILS % (AUTO) 4 % (0-10); HEMATOCRIT 40 % (35-52); HEMOGLOBIN 12.6 g/dL (11.5-16.0); LYMPHOCYTES # (AUTO) 2.3 10^3/uL (1.0-4.0); LYMPHOCYTES % (AUTO) 31 % (12-44); MEAN CORPUSCULAR HEMOGLOBIN 30 pg (25-34); MEAN CORPUSCULAR HGB CONC 32 g/dL (32-36); MEAN CORPUSCULAR VOLUME 93 fL (80-99); MEAN PLATELET VOLUME 10.5 fL (9.0-12.2); MONOCYTES # (AUTO) 1.1 10^3/uL (0.0-1.0); MONOCYTES % (AUTO) 14 % (0-12); NEUTROPHILS # (AUTO) 3.6 10^3/uL (1.8-7.8); NEUTROPHILS % (AUTO) 50 % (42-75); PLATELET COUNT 221 10^3/uL (130-400); WHITE BLOOD COUNT 7.3 10^3/uL (4.3-11.0)
[2020-07-05 05:41] LABS: ALBUMIN 3.8 GM/DL (3.2-4.5); CHLORIDE 106 MMOL/L (98-107); POTASSIUM 4.1 MMOL/L (3.6-5.0); SODIUM 138 MMOL/L (135-145)
[2020-07-05 05:42] LABS: CALCIUM 8.5 MG/DL (8.5-10.1)
[2020-07-05 05:43] LABS: TOTAL PROTEIN 6.3 GM/DL (6.4-8.2); TRIGLYCERIDES 141 MG/DL (<150); VLDL CHOLESTEROL 28 MG/DL (5-40)
[2020-07-05 05:44] LABS: CARBON DIOXIDE 22 MMOL/L (21-32); GLUCOSE 119 MG/DL (70-105)
[2020-07-05 05:45] LABS: BILIRUBIN,TOTAL 0.3 MG/DL (0.1-1.0)
[2020-07-05 05:47] LABS: ALKALINE PHOSPHATASE 75 U/L (40-136); CREATININE SERUM 1.11 MG/DL (0.60-1.30); GFR ESTIMATED 48
[2020-07-05 05:48] LABS: BUN/CREATININE RATIO 21; CHOLESTEROL 156 MG/DL (< 200)
[2020-07-05 05:49] LABS: HDL CHOLESTEROL 43 MG/DL (40-60)
[2020-07-05 05:50] LABS: ALANINE AMINOTRANSFERASE 20 U/L (0-55)
--- NOTE | 2020-07-05 07:59 | Consultation-Cardiology ---
HPI-Cardiology Cardiology Consultation: Date of Consultation 07/05/20 Date of Admission Attending Physician Lanie Gaines MD Admitting Physician Lanie Gaines MD Consulting Physician ALIE CELAYA Review of Systems-Cardiology All Other Systems Reviewed Negative Unless Noted: Yes IRQ-Wmkgov-Zatjsj Hx Patient Social History Smoking Status: Former Smoker Former smoker/When Quit: Jan 14, 1995 Have you traveled recently?: No Alcohol Use?: No Pt feels they are or have been: No Immunizations Up To Date Tetanus Booster (TDap): Unknown Date of Pneumonia Vaccine: Mar 19, 2010 Date of Influenza Vaccine: May 05, 2020 Past Medical History PMH As described under Assessment. Allergies and Home Medications Allergies Coded Allergies: levofloxacin (Verified Allergy, Unknown, 10/26/14) Home Medications Alendronate Sodium 70 Mg Tablet, 70 MG PO Landin, (Reported) Aspirin 81 Mg Tablet.dr, 81 MG PO DAILY, (Reported) Calcium Carbonate/Vitamin D3 1 Each Tablet, 1 EACH PO DAILY, (Reported) Clopidogrel Bisulfate 75 Mg Tablet, 75 MG PO MoWeFr, (Reported) Cyanocobalamin 1,000 Mcg/Ml Inj, 1,000 MCG IJ EVERY 2 WEEKS, (Reported) TAKES EVERY OTHER WEEK ON MONDAYS Doxazosin Mesylate 4 Mg Tablet, 8 MG PO DAILY, (Reported) TAKES 2 (4MG) TABLETS Doxazosin Mesylate 4 Mg Tablet, 4 MG PO HS, (Reported) Furosemide 40 Mg Tablet, 40 MG PO DAILY PRN for FLUID RETENTION, (Reported) Ipratropium [place] 30 Ml [place], 1-2 SPRAYS NS TID PRN for DRAINAGE, (Reported) Levothyroxine Sodium 50 Mcg Tablet, 50 MCG PO DAILY, (Reported) Metoprolol Succinate 100 Mg Tab.er.24h, 100 MG PO BID, (Reported) Nitroglycerin 0.4 Mg Tab.subl, 0.4 MG SL UD PRN for CHEST PAIN (ANGINA) Prescribed by: LANIE GAINES on 07/05/20 1304 Pantoprazole Sodium 20 Mg Tablet.dr, 20 MG PO HS, (Reported) Peg 400/Hypromellose/Glycerin 15 Ml Drops, 1 DROP OU BID, (Reported) Potassium Chloride 10 Meq Capsule.er, 10 MEQ PO DAILY, (Reported) Pravastatin Sodium 10 Mg Tablet, 10 MG PO DAILY, (Reported) Sertraline HCl 50 Mg Tablet, 50 MG PO DAILY, (Reported) Physical Exam-Cardiology Physical Exam Vital Signs/I&O Capillary Refill : Less Than 3 Seconds Data Review Labs Radiology NAME: DARRIN TABARES MED REC#: [id number] PT STATUS: ADM Jayleen : 1945 PHYSICIAN: TYSHAWN MOCK MD ADMIT DATE: 07/04/20 Signed Date of Exam:07/04/20 CHEST 1 VIEW, AP/PA ONLY CHEST 1 VIEW, AP/PA ONLY Indication: Chest pain. Comparison: 07/29/2016 Findings: No focal airspace disease in the visualized lungs. Please note that the posterior lower lobes are poorly evaluated by portable radiography. Hazy opacities in the medial aspect right lung base are stable and likely due to prominent mediastinal fat. No pleural effusion or pneumothorax. Normal cardiomediastinal silhouette. Stable left pectoral transvenous pacemaker. Impression: 1. No acute cardiopulmonary process by portable radiography. Dictated by: Dictated on workstation # [id number] Dict: 07/05/2014 Trans: 07/05/20 0515 [facility] [id number] Interpreted by: STEPHANI GAXIOLA MD Electronically signed by: STEPHANI GAXIOLA MD 07/05/20 0515 A/P-Cardiology Assessment/Admission Diagnosis Chest pain of undetermined etiology Ac diastolic CHF in Mar 2020, currently controlled Labile hypertension Neurocardiogenic syncope, as determined by a positive tilt table study. Rate drop response on her pacemaker did not prevent symptoms; it was turned off on 04/04/17 and base rate raised to 70 ppm; no near-syncope since One brief episode of WCT on recent pacemaker interrogation of 03/25/17 that led to card cath of 04/08/17 (see below) Intermittent advanced atrio-ventricular block leading to syncope, treated with dual chamber pacemaker implantation with no subsequent recurrence of eda syncope. Pacemaker functioning normally on interrogation of 05/26/19 Coronary artery disease with a history of right coronary stenting in 2004. - Card cath of 04/08/17 showed ,mod CAD and a widely patent stent in the mid RCA, LVEF 65%, mild to mod elev of LVEDP. MPI of Mar 07, 2020 show no evidence of ischemia or infarction. Normal regional wall motion abnormality. LVEF 73% Less than 40% R ICA stenosis and approx 60% L ICA stenosis, per carotid u/s of 02/28/[address] Rcoha in [place] and evaluation with a neurologist at [facility] and testing at [facility] at [place] did not indicate any significant neurologic issues Borderline diabetes mellitus, diet controlled. Borderline hyperlipidemia being treated with statin therapy. 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 This has resulted in chronic intermittent mild liver enzyme elevation Endoscopy (Dr Calix in [place], [place]) of 01/09/18: gastic polyps (resected), normal duodenal bulb and 2nd part of duodenum, diverticulosis of the colon. In Mar 2019, she underwent ERCP and biliary/pancreatic sphincterotomies (temporary stenting was removed a few days later) Sleep apnea syndrome for which she has been on C-PAP therapy. Hypothyroidism being treated with thyroid replacement therapy Chronic back pain Chronic bilateral leg swelling, likely due to venous insuff, stable, more on L. Venous Duplex of L leg on 12.22.17 negative for DVT L knee replacement and surgery x 3 in or around [address] [place]; L tarsal bone fracture managed by Dr Serafin Lopez renal cyst on renal u/s of 01/28/19, followed by PCP Panendoscopy by Dr Yasmany Calix at [facility] in Jan 2019, details unavailable, pt states she was told she had gastroparesis Intolerance to hydralazine ALIE REYES Jul 05, 2020 07:59
--- NOTE | 2020-07-05 08:52 | History & Physical ---
History of Present Illness History of Present Illness Reason for visit/HPI cancel - see short stay summary Date of Admission Jul 04, 2020 at 23:25 Time Seen by a Provider: 08:50 I consulted on this patient on 07/05/20 08:52 Attending Physician Lanie Gaines MD Admitting Physician Lanie Gaines MD Consult Allergies and Home Medications Allergies Coded Allergies: levofloxacin (Verified Allergy, Unknown, 10/26/14) Home Medications Alendronate Sodium 70 Mg Tablet, 70 MG PO Landin, (Reported) Aspirin 81 Mg Tablet.dr, 81 MG PO DAILY, (Reported) Calcium Carbonate/Vitamin D3 1 Each Tablet, 1 EACH PO DAILY, (Reported) Clopidogrel Bisulfate 75 Mg Tablet, 75 MG PO MoWeFr, (Reported) Cyanocobalamin 1,000 Mcg/Ml Inj, 1,000 MCG IJ EVERY 2 WEEKS, (Reported) TAKES EVERY OTHER WEEK ON MONDAYS Doxazosin Mesylate 4 Mg Tablet, 8 MG PO DAILY, (Reported) TAKES 2 (4MG) TABLETS Doxazosin Mesylate 4 Mg Tablet, 4 MG PO HS, (Reported) Furosemide 40 Mg Tablet, 40 MG PO DAILY PRN for FLUID RETENTION, (Reported) Ipratropium [place] 30 Ml [place], 1-2 SPRAYS NS TID PRN for DRAINAGE, (Reported) Levothyroxine Sodium 50 Mcg Tablet, 50 MCG PO DAILY, (Reported) Metoprolol Succinate 100 Mg Tab.er.24h, 100 MG PO BID, (Reported) Nitroglycerin 0.4 Mg Tab.subl, 0.4 MG SL UD PRN for CHEST PAIN (ANGINA) Prescribed by: LANIE GAINES on 07/05/20 1304 Pantoprazole Sodium 20 Mg Tablet.dr, 20 MG PO HS, (Reported) Peg 400/Hypromellose/Glycerin 15 Ml Drops, 1 DROP OU BID, (Reported) Potassium Chloride 10 Meq Capsule.er, 10 MEQ PO DAILY, (Reported) Pravastatin Sodium 10 Mg Tablet, 10 MG PO DAILY, (Reported) Sertraline HCl 50 Mg Tablet, 50 MG PO DAILY, (Reported) Patient Home Medication List Home Medication List Reviewed: Yes Past Jzbnfjg-Kdptzo-Scjaxg Hx Past Med/Social Hx: Reviewed Nursing Past Med/Soc Hx Patient Social History Alcohol Use: Denies Use Recreational Drug Use: No Smoking Status: Former Smoker Former Smoker, Quit: Sep 24, 1986 Recent Foreign Travel: No Contact w/other who traveled: No Recent Hopitalizations: No Recent Infectious Disease Expo: No Immunizations Up To Date Tetanus Booster (TDap): Unknown Date of Pneumonia Vaccine: Mar 19, 2010 Date of Influenza Vaccine: May 05, 2020 Seasonal Allergies Seasonal Allergies: No Past Medical History Surgeries: Cardiac, Coronary Stent, Gallbladder, Hysterectomy, Joint Replacement, Orthopedic, Pacemaker Currently Using CPAP: Yes Cardiac: Coronary Artery Disease, High Cholesterol, Hypertension, Syncope 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: No Female 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 Disorders: Endometriosis Hysterectomy Gastrointestinal: Gastroesophageal Reflux Musculoskeletal: Degenerate Disk Disease, Osteoporosis, Arthritis, Chronic Back Pain Endocrine: Hypothyroidsim, Diabetes, Non-Insulin dep History of Blood Disorders: No Adverse Reaction to Blood Claire: No Review of Systems ROS-Unable to Obtain: cancel - see short stay summary Constitutional: see HPI Physical Exam Vital Signs Vital Signs - First Documented 07/04/20 07/05/20 22:21 00:28 Temp 36.5 Pulse 83 Resp 22 B/P (MAP) 154/76 (102) Pulse Ox 93 O2 Delivery Room Air Capillary Refill : Less Than 3 Seconds Height, Weight, BMI Height: 5'3.00" Weight: 182lbs. 0.0oz. 82.357082nt; 33.82 BMI Method:Stated General Appearance: No Apparent Distress, WD/WN Assessment/Plan Assessment and Plan cancel - see short stay summary Admission Diagnosis cancel - see short stay summary Admission Status: Observation LANIE GAINES MD Jul 05, 2020 08:52
[2020-07-05] MEDS ORDERED: ASPIRIN E.C. 81 MG (ECOTRIN) TAB PO SCH (09:00)
[2020-07-05] MEDS ORDERED: ENOXAPARIN 40 MG/0.4 ML (LOVENOX) SYR SC SCH (09:00)
--- NOTE | 2020-07-05 09:27 | Consultation-Cardiology ---
HPI-Cardiology Cardiology Consultation: Date of Consultation 07/05/20 Time Seen by a Provider: 08:45 Date of Admission Attending Physician Lanie Gaines MD Admitting Physician Lanie Gaines MD Consulting Physician Dr. 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 Patient states she was laying down while watching the news and falling asleep when she felt a sudden sharp L sided chest pain rated at 10/10. Patient states the pain originated just under the breast and radiated to her L shoulder blade prompting her to the ER. Chest pain coincided with tingling in the R arm and mild shortness of breath; denies noticing any dizziness/lightheadedness, nausea, abdominal pain, palpitations or vision changes. She states the pain reduced to a 2/10 by the time they arrived at the ER and again lowered to 0/10 upon administration of Aspirin and NTG (total tie of episode about 20-25 mins). EKG and troponin were both negative on arrival. No exacerbating or alleviating factors reported, no recent travel or sick contacts, patient states she has been taking all her medication for her HTN, HLD, GERD as well as her Aspirin and Metoprolol. Patient denies any pain currently. She also states she has been feeling more out of breath over the last few months, as also noted by her physical therapist but otherwise no other recent changes. Last cardiac catherization on 04/08/17 showed moderate CAD, patent stent in RCA (placed 2004), mild-mod elevation of LVEDP, normal LVEF. Carotid US on 02/28/20 showed R ICA with <40% stenosis and L ICA with approximately 60% stenosis. MPI of 03/07/20 showed no ischemia or infarction. Review of Systems-Cardiology Review of Systems Constitutional: No fever, No lightheadedness Eyes: No blurred vision, No photophobia Ears/Nose/Throat: No chronic hearing loss, No epistaxis Respiratory: shortness of breath (resolved); No wheezing Cardiovascular: chest pain (resolved), edema (chronic, mild, nonpitting over both lower extremities); No lightheadedness, No palpitations, No syncope Gastrointestinal: No abdomen distended, No abdominal pain, No nausea/vomiting/diarrhea Genitourinary: No dysuria, No hematuria, No incontinence, No pain Musculoskeletal: back pain (chronic); No neck pain Skin: No dryness; other (chronic skin changes over lower extremities, likely from edema) Psychiatric/Neurological: tingling (in right arm during episode, resolved); No headache, No focal weakness, No syncope Hematologic: No anemia, No swollen glands All Other Systems Reviewed Negative Unless Noted: Yes [id number] Hx Patient Social History Marrital Status: Smoking Status: Former Smoker Former smoker/When Quit: Jan 14, 1995 Have you traveled recently?: No Alcohol Use?: No Pt feels they are or have been: No Immunizations Up To Date Tetanus Booster (TDap): Unknown Date of Pneumonia Vaccine: Mar 19, 2010 Date of Influenza Vaccine: May 05, 2020 Past Medical History PMH As described under Assessment. Family Medical History Family Medical History: extensive history of varios cancers on mother's side, father had lung CA. Allergies and Home Medications Allergies Coded Allergies: levofloxacin (Verified Allergy, Unknown, 10/26/14) Home Medications Alendronate Sodium 70 Mg Tablet, 70 MG PO [place], (Reported) Aspirin 81 Mg Tablet.dr, 81 MG PO DAILY, (Reported) Calcium Carbonate/Vitamin D3 1 Each Tablet, 1 EACH PO DAILY, (Reported) Clopidogrel Bisulfate 75 Mg Tablet, 75 MG PO MoWeFr, (Reported) Cyanocobalamin 1,000 Mcg/Ml Inj, 1,000 MCG IJ EVERY 2 WEEKS, (Reported) TAKES EVERY OTHER WEEK ON MONDAYS Doxazosin Mesylate 4 Mg Tablet, 8 MG PO DAILY, (Reported) TAKES 2 (4MG) TABLETS Doxazosin Mesylate 4 Mg Tablet, 4 MG PO HS, (Reported) Furosemide 40 Mg Tablet, 40 MG PO DAILY PRN for FLUID RETENTION, (Reported) Ipratropium [place] 30 Ml [place], 1-2 SPRAYS NS TID PRN for DRAINAGE, (Reported) Levothyroxine Sodium 50 Mcg Tablet, 50 MCG PO DAILY, (Reported) Metoprolol Succinate 100 Mg Tab.er.24h, 100 MG PO BID, (Reported) Nitroglycerin 0.4 Mg Tab.subl, 0.4 MG SL UD PRN for CHEST PAIN (ANG[place]) Prescribed by: LANIE GAINES on 07/05/20 1304 Pantoprazole Sodium 20 Mg Tablet.dr, 20 MG PO HS, (Reported) Peg 400/Hypromellose/Glycerin 15 Ml Drops, 1 DROP OU BID, (Reported) Potassium Chloride 10 Meq Capsule.er, 10 MEQ PO DAILY, (Reported) Pravastatin Sodium 10 Mg Tablet, 10 MG PO DAILY, (Reported) Sertraline HCl 50 Mg Tablet, 50 MG PO DAILY, (Reported) Patient Home Medication List Home Medication List Reviewed: Yes Physical Exam-Cardiology Physical Exam Vital Signs/I&O 07/05/20 07/05/20 07/05/20 07/05/20 02:54 03:40 04:40 08:00 Temp 36.6 Pulse 74 76 75 77 Resp 18 18 18 20 B/P (MAP) 83/42 (56) 97/52 (67) 111/75 (87) 127/58 (81) Pulse Ox 92 93 94 95 O2 Delivery Room Air Room Air Room Air Room Air 07/05/20 08:29 Pulse Ox 91 O2 Delivery Room Air Capillary Refill : Less Than 3 Seconds Constitutional: appears stated age, AAO x 3; No apparent distress; well- developed, well-nourished HEENT: No scleral icterus (R), No scleral icterus (L), No photophobia; hearing is well preserved, oral hygience is good Neck: non-tender, full range of motion, normal inspection; No lymphadenopathy (R), No lymphadenopathy (L); carotid pulses are 2 + bilaterally Respiratory: No accessory muscle use, No respiratory distress, No chest tender; chest expansion is symmetric, lungs clear to auscultation; No rhonchi, No wheezing Cardiovascular: regular rate-rhythm; No diastolic murmur, No systolic murmur; other (moderate tenderness to palpation over upper sternum, though patient says this is different from the pain yesterday) Gastrointestinal: tender (mild tenderness on deep palpation of epigastric region), soft, round; No distended, No pulsatile mass Extremities: normal range of motion, non-tender, pedal edema; No calf ten derness Neurologic/Psychiatric: alert, normal mood/affect, oriented x 3; No aphasia, No facial droop Skin: No damp, No ecchymosis; other (chronic changes over bilateral lower extremities) Data Review Labs Laboratory Tests 07/04/20 22:25: White Blood Count 8.0, Red Blood Count 4.46, Hemoglobin 13.4, Hematocrit 42, Mean Corpuscular Volume 94, Mean Corpuscular Hemoglobin 30, Mean Corpuscular Hemoglobin Concent 32, Red Cell Distribution Width 12.7, Platelet Count 246, Mean Platelet Volume 10.2, Immature Granulocyte % (Auto) 0, Neutrophils (%) (Auto) 53, Lymphocytes (%) (Auto) 29, Monocytes (%) (Auto) 13H, Eosinophils (%) (Auto) 4, Basophils (%) (Auto) 1, Neutrophils # (Auto) 4.2, Lymphocytes # (Auto) 2.3, Monocytes # (Auto) 1.1H, Eosinophils # (Auto) 0.3, Basophils # (Auto) 0.1, Immature Granulocyte # (Auto) 0.0, Prothrombin Time 12.3, INR Comment 0.9, Activated Partial Thromboplast Time 27, Sodium Level 139, Potassium Level 4.2, Chloride Level 103, Carbon Dioxide Level 23, Anion Gap 13, Blood Urea Nitrogen 23H, Creatinine 1.24, Estimat Glomerular Filtration Rate 42, BUN/Creatinine Ratio 19, Glucose Level 120H, Calcium Level 8.9, Corrected Calcium 8.8, Magnesium Level 2.2, Total Bilirubin 0.3, Aspartate Amino Transf (AST/SGOT) 18, Alanine Aminotransferase (ALT/SGPT) 21, Alkaline Phosphatase 91, Myoglobin 67.2, Troponin I < 0.028, B-Type Natriuretic Peptide 33.0, Total Protein 7.0, Albumin 4.1, Lipase 50 07/05/20 05:00: White Blood Count 7.3, Red Blood Count 4.27, Hemoglobin 12.6, Hematocrit 40, Mean Corpuscular Volume 93, Mean Corpuscular Hemoglobin 30, Mean Corpuscular Hemoglobin Concent 32, Red Cell Distribution Width 12.7, Platelet Count 221, Mean Platelet Volume 10.5, Immature Granulocyte % (Auto) 0, Neutrophils (%) (Auto) 50, Lymphocytes (%) (Auto) 31, Monocytes (%) (Auto) 14H, Eosinophils (%) (Auto) 4, Basophils (%) (Auto) 1, Neutrophils # (Auto) 3.6, Lymphocytes # (Auto) 2.3, Monocytes # (Auto) 1.1H, Eosinophils # (Auto) 0.3, Basophils # (Auto) 0.1, Immature Granulocyte # (Auto) 0.0, Sodium Level 138, Potassium Level 4.1, Chloride Level 106, Carbon Dioxide Level 22, Anion Gap 10, Blood Urea Nitrogen 23H, Creatinine 1.11, Estimat Glomerular Filtration Rate 48, BUN/Creatinine Ratio 21, Glucose Level 119H, Calcium Level 8.5, Corrected Calcium 8.7, Total Bilirubin 0.3, Aspartate Amino Transf (AST/SGOT) 20, Alanine Aminotransferase (ALT/SGPT) 20, Alkaline Phosphatase 75, Troponin I < 0.028, Total Protein 6.3L, Albumin 3.8, Triglycerides Level 141, Cholesterol Level 156, LDL Cholesterol Direct 90, VLDL Cholesterol 28, HDL Cholesterol 43 07/05/20 05:17: Glucometer 112H 07/05/20 11:03: Troponin I < 0.028 A/P-Cardiology Assessment/Admission Diagnosis Acute -L sided Chest pain of undetermined etiology Chronic -CAD -CHF -HTN -DM -hypothyroidism -sleep apnea -Hx Neurocardiogenic syncope with cardioinhibitory response -Hx Intermittent advanced atrio-ventricular block leading to syncope -Carotid artery disease (US on 02/27) --L ICA <40% stenosis --R ICA 60% stenosis -LE venous insufficiency -Chronic idiopathic granulomatous hepatitis -gastric polyps -Chronic back pain -L knee replacement -L tarsal bone fracture managed by Dr Betancourt -L renal cyst on renal u/s of 01/28/19, followed by PCP -Panendoscopy by Dr Yasmany Calix at [facility] in Jan 2019, details unavailable, pt states she was told she had gastroparesis -Intolerance to hydralazine Discussion and Recomendations -Cardiac workup for acute L sided Chest pain of undetermined etiology -negative ECG -negative troponin -total duration of chest pain (constant) greater then 20 mins -repeat troponins negative -currently resolved -normal recent stress test in February 2020 -nonpathologic cardiac catheterization in 2016 -Maintain outpatient medications -follow up outpatient with Dr. Anthony -return for persisting or worsening symptoms -Chronic Cardiac management --CAD --CHF --HTN --Carotid artery disease (US on 02/27) -continue with current medication -Neurocardiogenic syncope with cardioinhibitory response -intermittent advanced atrio-ventricular block leading to syncope -stable with pacemaker -Other Chronic issues --DM -diet controlled --hypothyroidism -on Levothyroxine --sleep apnea -on CPAP --One brief episode of WCT on recent pacemaker interrogation --venous insufficiency --Chronic idiopathic granulomatous hepatitis --gastric polyps --Chronic back pain, receiving PT --L knee replacement by Dr Betancourt --L tarsal bone fracture managed by Dr Betancourt --L renal cyst on renal u/s of 01/28/19, followed by PCP Physician Assessment Physician Assessment I interviewed and examined the patient Our findings are outlined above Our plan is outline above Outpt f/u is advised ABY PATRICK MED STUDENT Jul 05, 2020 09:27 ESTEBAN ANTHONY MD FACP FAC CCDS Jul 05, 2020 14:01
[2020-07-05] MEDS ORDERED: LEVO-129 PO (12:23)
[2020-07-05] MEDS ORDERED: POTA10CA43 PO (12:23)
[2020-07-05] MEDS ORDERED: PEG15DRO9 OU (12:23)
[2020-07-05] MEDS ORDERED: DOXA4TAB2 PO ×2 (12:23)
[2020-07-05] MEDS ORDERED: FURO40TA4 PO (12:23)
[2020-07-05] MEDS ORDERED: CALC-880 PO (12:23)
--- NOTE | 2020-07-05 12:27 | NUR ---
I SPOKE WITH THE PATIENT AND WENT THROUGH THE EXTERNAL MED HISTORY TO COMPLETE THIS MED REC. OTC: ASPIRIN CALCIUM WITH VITAMIN D VISINE EYE DROPS
[2020-07-05] MEDS ORDERED: NITR0.4T42 SL (13:04)
--- NOTE | 2020-07-05 13:07 | Discharge Inst-Simple/Standard ---
Discharge Inst-Standard Reconcile Patient Problems Problems Reviewed?: Yes Discharge Medications New, Converted or Re-Newed RX: Transmitted to Pharmacy Patient Instructions/Follow Up Plan of Care/Instructions/FU: 1-2 wk follow up with [address]. burgos 1 wk follow up with [facility] Activity as Tolerated: Yes Discharge Diet: Avoid Fatty Foods Health Concerns: hypertension, hyperlipidemia, coronary artery disease Return to The Hospital For: any recurrent chest pain, shortness of breath, or concern for lifethreatening illness or injury Medication List: Active Scripts Active Nitroglycerin 0.4 Mg Tab.subl 0.4 Mg SL UD PRN Reported Calcium 500 + Vit D 400 Tablet (Calcium Carbonate/Vitamin D3) 1 Each Tablet 1 Each PO DAILY Visine Dry Eye Relief Drop (Peg 400/Hypromellose/Glycerin) 15 Ml Drops 1 Drop OU BID Euthyrox (Levothyroxine Sodium) 50 Mcg Tablet 50 Mcg PO DAILY Furosemide 40 Mg Tablet 40 Mg PO DAILY PRN Potassium Chloride 10 Meq Capsule.er 10 Meq PO DAILY Doxazosin Mesylate 4 Mg Tablet 4 Mg PO HS Doxazosin Mesylate 4 Mg Tablet 8 Mg PO DAILY TAKES 2 (4MG) TABLETS Ipratropium [place] 30 Ml [place] 1-2 Sprays NS TID PRN Aspirin EC (Aspirin) 81 Mg Tablet.dr 81 Mg PO DAILY Plavix (Clopidogrel Bisulfate) 75 Mg Tablet 75 Mg PO MOWEFR Metoprolol Succinate 100 Mg Tab.er.24h 100 Mg PO BID Sertraline HCl 50 Mg Tablet 50 Mg PO DAILY Cyanocobalamin Injection (Cyanocobalamin) 1,000 Mcg/Ml Inj 1,000 Mcg IJ EVERY 2 WEEKS TAKES EVERY OTHER WEEK ON MONDAYS Alendronate Sodium 70 Mg Tablet 70 Mg PO [place] Pravastatin Sodium 10 Mg Tablet 10 Mg PO DAILY Pantoprazole Sodium 20 Mg Tablet.dr 20 Mg PO HS Lab results: Laboratory Tests Test 07/04/20 22:25 07/05/20 05:00 07/05/20 05:17 07/05/20 11:03 Range/Units White Blood Count 8.0 7.3 4.3-11.0 10^3/uL Red Blood Count 4.46 4.27 3.80-5.11 10^6/uL Hemoglobin 13.4 12.6 11.5-16.0 g/dL Hematocrit 42 40 35-52 % Mean Corpuscular Volume 94 93 80-99 fL Mean Corpuscular Hemoglobin 30 30 25-34 pg Mean Corpuscular Hemoglobin Concent 32 32 32-36 g/dL Red Cell Distribution Width 12.7 12.7 10.0-14.5 % Platelet Count 246 221 130-400 10^3/uL Mean Platelet Volume 10.2 10.5 9.0-12.2 fL Immature Granulocyte % (Auto) 0 0 % Neutrophils (%) (Auto) 53 50 42-75 % Lymphocytes (%) (Auto) 29 31 12-44 % Monocytes (%) (Auto) 13 H 14 H 0-12 % Eosinophils (%) (Auto) 4 4 0-10 % Basophils (%) (Auto) 1 1 0-10 % Neutrophils # (Auto) 4.2 3.6 1.8-7.8 10^3/uL Lymphocytes # (Auto) 2.3 2.3 1.0-4.0 10^3/uL Monocytes # (Auto) 1.1 H 1.1 H 0.0-1.0 10^3/uL Eosinophils # (Auto) 0.3 0.3 0.0-0.3 10^3/uL Basophils # (Auto) 0.1 0.1 0.0-0.1 10^3/uL Immature Granulocyte # (Auto) 0.0 0.0 0.0-0.1 10^3/uL Prothrombin Time 12.3 12.2-14.7 SEC INR Comment 0.9 0.8-1.4 Activated Partial Thromboplast Time 27 24-35 SEC Sodium Level 139 138 135-145 MMOL/L Potassium Level 4.2 4.1 3.6-5.0 MMOL/L Chloride Level 103 106 98-107 MMOL/L Carbon Dioxide Level 23 22 21-32 MMOL/L Anion Gap 13 10 5-14 MMOL/L Blood Urea Nitrogen 23 H 23 H 7-18 MG/DL Creatinine 1.24 1.11 0.60-1.30 MG/DL Estimat Glomerular Filtration Rate 42 48 BUN/Creatinine Ratio 19 21 Glucose Level 120 H 119 H 70-105 MG/DL Calcium Level 8.9 8.5 8.5-10.1 MG/DL Corrected Calcium 8.8 8.7 8.5-10.1 MG/DL Magnesium Level 2.2 1.6-2.4 MG/DL Total Bilirubin 0.3 0.3 0.1-1.0 MG/DL Aspartate Amino Transf (AST/SGOT) 18 20 5-34 U/L Alanine Aminotransferase (ALT/SGPT) 21 20 0-55 U/L Alkaline Phosphatase 91 75 40-136 U/L Myoglobin 67.2 10.0-92.0 NG/ML Troponin I < 0.028 < 0.028 < 0.028 <0.028 NG/ML B-Type Natriuretic Peptide 33.0 <100.0 PG/ML Total Protein 7.0 6.3 L 6.4-8.2 GM/DL Albumin 4.1 3.8 3.2-4.5 GM/DL Lipase 50 8-78 U/L Triglycerides Level 141 <150 MG/DL Cholesterol Level 156 < 200 MG/DL LDL Cholesterol Direct 90 1-129 MG/DL VLDL Cholesterol 28 5-40 MG/DL HDL Cholesterol 43 40-60 MG/DL Glucometer 112 H 70-110 MG/DL My orders: Orders - LANIE JACKSON MD Aspirin Enteric Coated Tablet (Ecotrin T (07/05/20 09:00) Nitroglycerin 0.4 Mg Btl 25's (Nitrostat (07/05/20 01:00) Morphine Injection (Morphine Injection (07/05/20 01:00) Ondansetron Injection (Zofran Injectio (07/05/20 01:00) Acetaminophen Tablet (Tylenol Tablet) (07/05/20 01:00) Antacid Suspension (Mylanta Suspension (07/05/20 01:00) Enoxaparin Injection (Lovenox Injection) (07/05/20 09:00) Admission Order(Inpt,Obs,Sdc) (07/05/20 00:50) Code/Resuscitation (07/05/20 00:50) Sequential Compression Device Q4H (07/05/20 00:50) Initiate Admission Nursing Pro .admission (07/05/20 00:50) Isolation Central Supply Req (07/05/20 00:50) Telemetry (07/05/20 00:50) Telemetry Nursing Assessment ( (07/05/20 00:50) Vital Signs: Every 4 Hours (Or (07/05/20 00:50) Nothing By Mouth (07/05/20 Breakfast) Activity As Ordered (07/05/20 00:50) Cbc With Automated Diff (07/05/20 05:00) Comprehensive Metabolic Panel (07/05/20 05:00) Troponin I (07/05/20 05:00) Troponin I (07/05/20 11:00) Vital Signs: Chest Pain ([place] (07/05/20 00:50) Notify Physician: Vital Signs (07/05/20 00:50) Bedrest For 3 Hours (07/05/20 00:50) Rt Request For Service (07/05/20 00:50) Accucheck Achs ACHS (07/05/20 00:50) Bipap (Bilevel) Set Up (07/05/20 00:50) Consult Cardiology (07/05/20 00:50) Ekg-Prn For Chest Pain Or Rhyt (07/05/20 01:20) Ekg Tracing (07/05/20 06:00) Ekg Tracing (07/06/20 06:00) Ekg Tracing (07/07/20 06:00) Ekg Tracing (07/08/20 06:00) Ekg Tracing (07/09/20 06:00) Ekg Tracing (07/10/20 06:00) Ekg Tracing (07/05/20 01:45) Lipid Panel (07/05/20 05:00) Heart Healthy (07/05/20 Lunch) Attending Discharge Inpt/Inobs (07/05/20 13:05) LANIE JACKSON MD Jul 05, 2020 13:07
--- NOTE | 2020-07-05 13:08 | Short Stay Summary ---
History of Present Illness History of Present Illness Reason for visit/HPI PT IS A 74 Y/O FEMALE WITH ACUTE ONSET OF CHEST PAIN STARTING IN LEFT CHEST AND RADIATING TO LEFT SHOULDER AND THEN HAVING TINGLING IN RIGHT ARM WITH SHORTNESS OF BREATH. SHE PRESENTED TO THE ER, AND WAS HAVING 0/10 PAIN AFTER TAKING ASA AND NITRO. SHE ALSO NOTES PROGRESSIVE SHORTNESS OF BREATH OVER THE PAST FEW MONTHS. SHE HAS AN EXTENSIVE HX OF CHF, HTN, CORONARY ARTERY DISEASE, CAROTID DISEASE, AND AV BLOCK. 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 Date of Admission Jul 04, 2020 at 23:25 Date of Discharge 07/05/2020 Time Seen by Provider: 13:00 Attending Physician Lanie Gaines MD Admitting Physician Lanie Gaines MD Consult cardiology Allergies and Home Medications Allergies Coded Allergies: levofloxacin (Verified Allergy, Unknown, 10/26/14) Home Medications Alendronate Sodium 70 Mg Tablet, 70 MG PO [place], (Reported) Aspirin 81 Mg Tablet.dr, 81 MG PO DAILY, (Reported) Calcium Carbonate/Vitamin D3 1 Each Tablet, 1 EACH PO DAILY, (Reported) Clopidogrel Bisulfate 75 Mg Tablet, 75 MG PO MoWeFr, (Reported) Cyanocobalamin 1,000 Mcg/Ml Inj, 1,000 MCG IJ EVERY 2 WEEKS, (Reported) TAKES EVERY OTHER WEEK ON MONDAYS Doxazosin Mesylate 4 Mg Tablet, 8 MG PO DAILY, (Reported) TAKES 2 (4MG) TABLETS Doxazosin Mesylate 4 Mg Tablet, 4 MG PO HS, (Reported) Furosemide 40 Mg Tablet, 40 MG PO DAILY PRN for FLUID RETENTION, (Reported) Ipratropium [place] 30 Ml [place], 1-2 SPRAYS NS TID PRN for DRAINAGE, (Reported) Levothyroxine Sodium 50 Mcg Tablet, 50 MCG PO DAILY, (Reported) Metoprolol Succinate 100 Mg Tab.er.24h, 100 MG PO BID, (Reported) Nitroglycerin 0.4 Mg Tab.subl, 0.4 MG SL UD PRN for CHEST PAIN (ANGINA) Prescribed by: LANIE GAINES on 07/05/20 1304 Pantoprazole Sodium 20 Mg Tablet.dr, 20 MG PO HS, (Reported) Peg 400/Hypromellose/Glycerin 15 Ml Drops, 1 DROP OU BID, (Reported) Potassium Chloride 10 Meq Capsule.er, 10 MEQ PO DAILY, (Reported) Pravastatin Sodium 10 Mg Tablet, 10 MG PO DAILY, (Reported) Sertraline HCl 50 Mg Tablet, 50 MG PO DAILY, (Reported) Patient Home Medication List Home Medication List Reviewed: Yes Past Cdzmnsa-Egnzsk-Yigjhz Hx Patient Social History Marrital Status: Living Status: LIVES AT HOME WITH SPOUSE Employed/Student: retired Smoking Status: Former Smoker Former Smoker, Quit: Sep 24, 1986 2nd Hand Smoke Exposure: No Recent Hopitalizations: No Have you traveled recently?: No Alcohol Use?: No Pt feels they are or have been: No Immunizations Up To Date Tetanus Booster (TDap): Unknown Date of Pneumonia Vaccine: Mar 19, 2010 Date of Influenza Vaccine: May 05, 2020 Seasonal Allergies Seasonal Allergies: No Surgeries Yes (HEMORRHOID SURGERY, LEFT KNEE REPLACEMENT) Cardiac, Coronary Stent, Gallbladder, Hysterectomy, Joint Replacement, Orthopedic, Pacemaker Respiratory Yes Currently Using CPAP: Yes Cardiovascular Yes ( STENT, [employer] PACEMAKER) Coronary Artery Disease, High Cholesterol, Hypertension, Syncope Neurological No 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 System : No Hx 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 Disorders: No 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 Disorders: 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 Genitourinary No Gastrointestinal Yes Gastroesophageal Reflux Musculoskeletal Yes (dropped foot) Degenerate Disk Disease, Osteoporosis, Arthritis, Chronic Back Pain Endocrine History of Endocrine Disorders: Yes Endocrine Disorders: Hypothyroidsim, Diabetes, Non-Insulin dep HEENT History of HEENT Disorders: No Loss of Vision: Denies Hearing Impairment: Hard of Hearing Cancer No Psychosocial History of Psychiatric Problem: No Integumentary History of Skin or Integumenta: No Blood Transfusions History of Blood Disorders: No Adverse Reaction to a Blood Tr: No Reviewed Nursing Assessment Reviewed/Agree w Nursing PMH: Yes Family Medical History Significant Family History: Heart Disease, Hypertension Review of Systems Constitutional: No chills, No fever, No malaise, No weakness EENTM: No hoarseness, No throat pain Respiratory: No cough; dyspnea on exertion, short of breath Cardiovascular: chest pain, Hx of Intervention, vascular heart diseas Gastrointestinal: No abdominal pain, No constipation, No diarrhea, No nausea, No vomiting Genitourinary: no symptoms reported Musculoskeletal: muscle weakness Skin: no symptoms reported Psychiatric/Neurological: Denies Anxiety, Denies Depressed All Other Systems Reviewed Negative Unless Noted: Yes Physical Exam Vital Signs Vital Signs - First Documented 07/04/20 07/05/20 22:21 00:28 Temp 36.5 Pulse 83 Resp 22 B/P (MAP) 154/76 (102) Pulse Ox 93 O2 Delivery Room Air Capillary Refill : Less Than 3 Seconds Height, Weight, BMI Height: 5'3.00" Weight: 182lbs. 0.0oz. 82.986130om; 33.82 BMI Method:Stated General Appearance: No Apparent Distress, WD/WN Eyes: Bilateral Eye Normal Inspection, Bilateral Eye PERRL, Bilateral Eye EOMI HEENT: PERRL/EOMI, Normal ENT Inspection, Pharynx Normal Neck: Full Range of Motion, Normal Inspection, Non Tender, Supple Respiratory: Chest Non Tender, Lungs Clear, Normal Breath Sounds, No Accessory Muscle Use, No Respiratory Distress Cardiovascular: Regular Rate, Rhythm, Normal Peripheral Pulses Gastrointestinal: Normal Bowel Sounds, No Organomegaly, No Pulsatile Mass, Non Tender, Soft Rectal: Deferred Back: Normal Inspection Extremity: Normal Capillary Refill, Normal Range of Motion, Non Tender, No Calf Tenderness Neurologic/Psychiatric: Alert, Oriented x3, No Motor/Sensory Deficits, Normal 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, 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 Norm as Tested Skin: Normal Color, Warm/Dry Lymphatic: No Adenopathy Short Stay Diagnosis Discharge Diagnosis-Short Stay Admission Diagnosis: CHEST PAIN HYPERTENSION HYPERLIPIDEMIA CORONARY ARTERY DISEASE CONGESTIVE HEART FAILURE - CHRONIC SYSTOLIC DIABETES MELLITUS HYPOTHRYOIDISM GERD Final Discharge Diagnosis: CHEST PAIN HYPERTENSION HYPERLIPIDEMIA CORONARY ARTERY DISEASE CONGESTIVE HEART FAILURE - CHRONIC SYSTOLIC DIABETES MELLITUS HYPOTHRYOIDISM GERD Conclusion Labs Laboratory Tests 07/04/20 22:25: White Blood Count 8.0, Red Blood Count 4.46, Hemoglobin 13.4, Hematocrit 42, Mean Corpuscular Volume 94, Mean Corpuscular Hemoglobin 30, Mean Corpuscular Hemoglobin Concent 32, Red Cell Distribution Width 12.7, Platelet Count 246, Mean Platelet Volume 10.2, Immature Granulocyte % (Auto) 0, Neutrophils (%) (Auto) 53, Lymphocytes (%) (Auto) 29, Monocytes (%) (Auto) 13H, Eosinophils (%) (Auto) 4, Basophils (%) (Auto) 1, Neutrophils # (Auto) 4.2, Lymphocytes # (Auto) 2.3, Monocytes # (Auto) 1.1H, Eosinophils # (Auto) 0.3, Basophils # (Auto) 0.1, Immature Granulocyte # (Auto) 0.0, Prothrombin Time 12.3, INR Comment 0.9, Activated Partial Thromboplast Time 27, Sodium Level 139, Potassium Level 4.2, Chloride Level 103, Carbon Dioxide Level 23, Anion Gap 13, Blood Urea Nitrogen 23H, Creatinine 1.24, Estimat Glomerular Filtration Rate 42, BUN/Creatinine Ratio 19, Glucose Level 120H, Calcium Level 8.9, Corrected Calcium 8.8, Magnesium Level 2.2, Total Bilirubin 0.3, Aspartate Amino Transf (AST/SGOT) 18, Alanine Aminotransferase (ALT/SGPT) 21, Alkaline Phosphatase 91, Myoglobin 67.2, Troponin I < 0.028, B-Type Natriuretic Peptide 33.0, Total Protein 7.0, Albumin 4.1, Lipase 50 07/05/20 05:00: White Blood Count 7.3, Red Blood Count 4.27, Hemoglobin 12.6, Hematocrit 40, Mean Corpuscular Volume 93, Mean Corpuscular Hemoglobin 30, Mean Corpuscular Hemoglobin Concent 32, Red Cell Distribution Width 12.7, Platelet Count 221, Mean Platelet Volume 10.5, Immature Granulocyte % (Auto) 0, Neutrophils (%) (Auto) 50, Lymphocytes (%) (Auto) 31, Monocytes (%) (Auto) 14H, Eosinophils (%) (Auto) 4, Basophils (%) (Auto) 1, Neutrophils # (Auto) 3.6, Lymphocytes # (Auto) 2.3, Monocytes # (Auto) 1.1H, Eosinophils # (Auto) 0.3, Basophils # (Auto) 0.1, Immature Granulocyte # (Auto) 0.0, Sodium Level 138, Potassium Level 4.1, Chloride Level 106, Carbon Dioxide Level 22, Anion Gap 10, Blood Urea Nitrogen 23H, Creatinine 1.11, Estimat Glomerular Filtration Rate 48, BUN/Creatinine Ratio 21, Glucose Level 119H, Calcium Level 8.5, Corrected Calcium 8.7, Total Bilirubin 0.3, Aspartate Amino Transf (AST/SGOT) 20, Alanine Aminotransferase (ALT/SGPT) 20, Alkaline Phosphatase 75, Troponin I < 0.028, Total Protein 6.3L, Albumin 3.8, Triglycerides Level 141, Cholesterol Level 156, LDL Cholesterol Direct 90, VLDL Cholesterol 28, HDL Cholesterol 43 07/05/20 05:17: Glucometer 112H 07/05/20 11:03: Troponin I < 0.028 Conclusion/Plan CHEST PAIN - NONCARDIAC CARDIAC WORK-UP NEGATIVE, 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 HYPERTENSION - STABLE, MONITOR SYMPTOMS OUTPATIENT. HYPERLIPIDEMIA - STABLE, CONTINUE HOME REGIMEN CORONARY ARTERY DISEASE CONGESTIVE HEART FAILURE - CHRONIC SYSTOLIC DIABETES MELLITUS - RESUME HOME REGIMEN HYPOTHRYOIDISM - RESUMED HOME REGIMEN GERD - AVOID ACIDIC FOODS, RESUME PANTOPRAZOLE. LANIE GAINES MD Jul 05, 2020 13:08
--- NOTE | 2020-07-05 13:51 | NUR ---
RD ASSESSMENT PMHx: COPD; CAD; hypercholesterolemia; HTN; GERD; hypothyroidism; DM; PT INTERACTION: Pt was awake and pleasant during nutrition consult for MST score. Pt states current appetite is so-so. Note no meals have been recorded per chart review. Pt states following a regular diet at home, and has no issues with chewing/swallowing food. Pt states no recent issues with n/v/c/d, and that her last BM was 07/03. Note pt not currently on bowel regimen per chart review. Pt states current DM management is pretty good, and that she has been told she is borderline DM. Note unable to determine recent HbA1c, per chart review. Pt states some recent wt gain: "It's been a steady incline recently." Note recent 4# wt gain x4mon, per chart review. Upon visual assessment, pt appears to be well-nourished with no visible signs of muscle/fat wasting, and a BMI of 33.9 (obese class I BMI for age). Given wt hx, PO intake, and visual assessment, pt does not meet criteria for malnutrition per ASPEN guidelines. Est. kcal needs: 1085-6688 kcal | 15-20 kcal/kg Est. Pro needs: 70-87 g Pro | 0.8-1.0 g Pro/kg PES STATEMENT: Inadequate oral intake (NI-2.1) related to loss of appetite, as evidenced by pt interview. INTERVENTION: Continue with current diet order of Heart Healthy diet. Pt may benefit from nutrition supplementation if PO intake declines. Offered diet education on DM management, but pt declined at this time. May attempt to offer again prior to discharge. Will continue to follow and reassess as pt needs, intake, and status change. Deandre HOLLOWAY, MS RD LD [phone] cell
== END 2020-07-05 13:05 | disposition home or self-care (01) ==
LOC: EDUNIT# 22:16 → ER 22:18 → 4TH 23:25
PROVIDERS: ADMIT Family Medicine; ATTEND Family Medicine
DX: R07.9 Chest pain, unspecified (principal); I25.110 Atherosclerotic heart disease of native coronary artery with unstable angina pectoris; I11.0 Hypertensive heart disease with heart failure; I50.22 Chronic systolic (congestive) heart failure; E11.9 Type 2 diabetes mellitus without complications; E03.9 Hypothyroidism, unspecified; K21.9 Gastro-esophageal reflux disease without esophagitis; E78.00 Pure hypercholesterolemia, unspecified; G89.29 Other chronic pain; M19.90 Unspecified osteoarthritis, unspecified site; J45.909 Unspecified asthma, uncomplicated; G47.30 Sleep apnea, unspecified; Z79.82 Long term (current) use of aspirin; Z79.899 Other long term (current) drug therapy; Z88.1 Allergy status to other antibiotic agents; Z87.891 Personal history of nicotine dependence; Z90.710 Acquired absence of both cervix and uterus; Z95.0 Presence of cardiac pacemaker
CPT/HCPCS: 71045; 80053 ×2; 80061; 82962; 83690; 83735; 83874; 83880; 84484 ×2; 85025 ×2; 85610; 85730; 93005 ×2; 94760; 99284; G0378; 36415

== ENCOUNTER → 2020-07-25 | Outpatient (CLI) | payer MEDICARE, OTHER ==
[~2020-07-25] MED LIST changes: +CALC-880 PO; +DOXA4TAB2 PO; +FURO40TA4 PO; +LEVO-129 PO; +NITR0.4T42 SL; +PEG15DRO9 OU; +POTA10CA43 PO
--- NOTE | 2020-07-25 10:07 | Diagnostic Imaging Report ---
INDICATION: Pain COMPARISON: Imaging from the same date and radiographs of the chest dated 07/29/2016 TECHNIQUE: 3 radiographs of the thoracic spine dated 07/25/2020. FINDINGS: Surgical clips are present overlying the right upper quadrant of the abdomen. Pacer leads are partially visualized with the battery pack overlying the left chest. Alignment of the thoracic spine is well maintained. Vertebral body heights are well-maintained. Mild multilevel disc space height loss without severe disc space height loss. Multilevel small anterior osteophytes. No acute fracture. No large volume pleural effusion. IMPRESSION: No acute osseous abnormality with mild degenerative changes throughout the thoracic spine. Dictated by: Dictated on workstation # [id number]
--- NOTE | 2020-07-25 10:07 | Diagnostic Imaging Report ---
INDICATION: Back pain. COMPARISON: Imaging from the same date as well as from 08/31/2018. TECHNIQUE: Three radiographs of the lumbar spine dated 07/25/2020. FINDINGS: Surgical clips are present overlying the right upper quadrant of the abdomen. Five lumbar type vertebral bodies are present. The sacroiliac joints are intact. Mild degenerative changes of the pubic symphysis. Stable 4 mm anterolisthesis of L3 on L4. No new anterolisthesis or retrolisthesis. Besides endplate degenerative changes, vertebral body heights are well-maintained. Mild disc space height loss at L3-L4 and L5-S1. Multilevel small anterior osteophytes. No acute fracture. Advanced vascular calcifications. Scattered facet joint degenerative changes. Pacer leads are partially visualized. IMPRESSION: No acute osseous abnormality with mild multilevel degenerative changes as described above. Additional postsurgical and chronic findings. Dictated by: Dictated on workstation # [id number]
--- NOTE | 2020-07-25 10:08 | Diagnostic Imaging Report ---
INDICATION: Pain COMPARISON: Imaging from the same date as well as 08/31/2018 TECHNIQUE: 3 radiographs of the sacroiliac joints dated 07/25/2020 FINDINGS: No acute fracture. Bilateral sacroiliac joints are intact. No significant erosive changes. No suspicious radiopaque foreign body. IMPRESSION: No acute osseous abnormality. Dictated by: Dictated on workstation # [id number]
--- NOTE | 2020-07-25 10:34 | Diagnostic Imaging Report ---
INDICATION: Neck pain. COMPARISON: None FINDINGS: Frontal, lateral, and open-mouth radiographic views of the cervical spine were obtained. Evaluation of the static alignment shows slight grade 1 anterolisthesis at C4-C5 and C6-C7. There is also slight grade 1 retrolisthesis at C5-C6. There is no evidence of jumped facets. Open-mouth view demonstrates normal C1-C2 alignment. Vertebral body heights are maintained. There is no acute fracture. There are [id number] multilevel degenerative changes consistent with intervertebral disc height loss with endplate sclerosis as well as anterior and posterior osteophyte formations, greatest at C5-C6 and C6-C7. There is also multilevel facet arthropathy. Included soft tissue structures are unremarkable. No unexpected radiopaque foreign bodies are seen. IMPRESSION: 1. No acute fracture or dislocation of the cervical spine. 2. [id number]-[id number] multilevel degenerative changes. Dictated by: Dictated on workstation # [id number]
== END ==
LOC: RAD 09:14
PROVIDERS: ATTEND Family Medicine
DX: M47.812 Spondylosis without myelopathy or radiculopathy, cervical region (principal); M47.814 Spondylosis without myelopathy or radiculopathy, thoracic region; M47.816 Spondylosis without myelopathy or radiculopathy, lumbar region; M47.817 Spondylosis without myelopathy or radiculopathy, lumbosacral region; M25.78 Osteophyte, vertebrae; M43.16 Spondylolisthesis, lumbar region
CPT/HCPCS: 72040; 72072; 72100; 72202

== ENCOUNTER → 2020-07-28 | Outpatient (CLI) | payer MEDICARE, OTHER ==
[~2020-07-28] MED LIST changes: +SERT-413 PO
--- NOTE | 2020-07-28 10:19 | Diagnostic Imaging Report ---
PROCEDURE: CT head and neck without contrast. TECHNIQUE: Contiguous axial images were obtained from the skull base through the vertex. Noncontrast axial images were then obtained of the soft tissue of the neck. Auto Exposure Controls were utilized during the CT exam to meet ALARA standards for radiation dose reduction. INDICATION: Headache, left-sided neck pain. CT HEAD: There is no mass, shift of the midline or hemorrhage to suggest an acute intracranial abnormality. The ventricles are not abnormally dilated and stable in size when compared to the prior exam of 01/18/2015. The left middle cerebral artery does seem somewhat hyperdense compared to the right but this finding is no different than on the prior exam. The mild cortical atrophy seen previously is again evident and has not progressed. The bone windows show no sign of a fracture or for destructive lesion. The orbits are symmetrical and within normal limits. There is mucosal thickening of the right ethmoid and sphenoid sinuses consistent with sinusitis. The sinuses are otherwise generally clear. IMPRESSION: 1. There is no evidence for an acute intracranial abnormality. 2. If clinical concern regarding an underlying abnormality persists, then a short-term (24-hour) follow-up CT head exam would be recommended. The patient does have a pacemaker in place and this would preclude further evaluation by MRI. CT of the neck: The previous CT cervical spine exam of 01/18/2017 noted fairly severe degenerative disc and bony disease at C5-C6. There did appear to be mild central stenosis at this level as well as narrowing of the neural foramen on the right. Those findings are again evident on this exam and do not seem to have changed significantly. However, there has been some further worsening of the degenerative disc and bony disease at the C6-C7 level. There is still no evidence for a high-grade central stenosis or any significant neural foraminal narrowing at C6-C7, however. There is no high-grade stenosis at the C4-C5 level but there is neural foraminal narrowing on the right at this level also. There is no fracture or acute bony abnormality appreciated. There is no sign of retropharyngeal edema. The parotid and submandibular glands are generally unremarkable. The thyroid gland was partially obscured by streak artifact and difficult to assess. There is no definite abnormality noted. There is no mass or abscess involving the neck. There is atherosclerotic plaque involving both carotid bifurcations, particularly on the left. There may be a hemodynamically significant stenosis in this area. I would recommend carotid Doppler exam be performed for further study. There is scar formation in both lung apices but there is no acute abnormality identified. IMPRESSION: 1. There is no mass or adenopathy identified. There is no sign of an acute abnormality of either. 2. The degenerative disc and bony disease at C6-C7 has progressed somewhat since the prior exam. However, there is still no sign of a high-grade central stenosis at this level. There is no acute bony abnormality noted either. 3. There is atherosclerotic disease involving both carotid systems and there may be a hemodynamically significant stenosis of the carotid bifurcation on the left. Ultrasound would be recommended for further study. Dictated by: Dictated on workstation # [id number]
--- NOTE | 2020-07-28 10:19 | Diagnostic Imaging Report ---
INDICATION: Renal cyst follow-up. EXAMINATION: Bilateral renal sonography performed in routine fashion and compared to the prior study of 01/28/2019. FINDINGS: The right kidney measured 8.9 x 5.1 x 4.7 cm. The right kidney showed no hydronephrosis or focal lesion. The left kidney measured 8.7 x 4.2 x 5.1 cm. The left kidney showed a cyst in the superior pole exophytically measuring 2.8 x 2.4 x 2.5 cm. There is a smaller cyst in the inferior pole measuring 1.1 x 1.1 x 0.8 cm. The urinary bladder appeared unremarkable. Ureteral jets could not be visualized. IMPRESSION: There are two cysts in the left kidney as described above, the largest cyst is stable in size compared to the prior study. The smaller cyst was not appreciated on the prior study. The study is otherwise unremarkable. Dictated by: Dictated on workstation # [id number]
== END ==
LOC: RAD 08:47
PROVIDERS: ATTEND Family Medicine
DX: N28.1 Cyst of kidney, acquired (principal); M21.371 Foot drop, right foot; M50.323 Other cervical disc degeneration at C6-C7 level; I65.23 Occlusion and stenosis of bilateral carotid arteries
CPT/HCPCS: 70450; 70490; 76770

== ENCOUNTER 2020-08-10 08:31 | Outpatient (RCR) | payer MEDICARE, OTHER | END 2020-08-31 | disposition home or self-care (01) | PROVIDERS: ATTEND Nurse Practitioner Family | DX: M54.16 Radiculopathy, lumbar region (principal); Z95.0 Presence of cardiac pacemaker ==

== ENCOUNTER 2020-10-03 11:00 | Day surgery (SDC) | payer MEDICARE, OTHER ==
[~2020-10-03] VITALS: Ht 160 cm; Wt 88.8 kg
[2020-10-03] VITALS (13 sets, daily range): BP systolic 99–158; BP diastolic 50–77
[2020-10-03 09:25] LABS: HEMOGLOBIN 13.9 g/dL (11.5-16.0); MEAN PLATELET VOLUME 9.9 fL (9.0-12.2); WHITE BLOOD COUNT 7.3 10^3/uL (4.3-11.0)
[2020-10-03 09:42] LABS: ALBUMIN 4.3 GM/DL (3.2-4.5); BILIRUBIN,TOTAL 0.6 MG/DL (0.1-1.0); CREATININE SERUM 1.03 MG/DL (0.60-1.30); INR 0.9 (0.8-1.4); POTASSIUM 4.2 MMOL/L (3.6-5.0)
[~2020-10-03 11:00] MED LIST changes: +CPAP; +HEParin (CATH LAB) 2,000 ML IV ONE; +LIDOCAINE 1% INJ 20 ML 20 ML VIAL ONE; +NS IV 1000 ML 1,000 ML IV SCH; +PANT40TA52 PO
[2020-10-03] MEDS ORDERED: fentaNYL INJ 100 MCG/2 ML AMP ONE ×2 (11:53→16:14)
[2020-10-03] MEDS ORDERED: MIDAZOLAM 5 MG/5 ML (VERSED) VIAL ONE (11:53)
[2020-10-03] MEDS ORDERED: HEParin 1000 UNIT/ML (10ML VIAL) FOR BOLUS ONE (12:39)
[2020-10-03] MEDS ORDERED: NITRO DRIP 25000 MCG/D5W 250 ML IV ONE (13:01)
[2020-10-03] MEDS ORDERED: ASPIRIN 81 MG CHEW (CHILDREN'S ASA) ONE (13:19)
[2020-10-03] MEDS ORDERED: CLOPIDOGREL 300 MG (PLAVIX) TABLET PO ONE (13:19)
--- NOTE | 2020-10-03 13:37 | Cardiac Procedure Note-CS/ASA ---
Pre-Procedure Note Pre-Op Procedure Note H&P Reviewed The H&P was reviewed, patient examined and no changes noted. Date H&P Reviewed: Oct 03, 2020 Time H&P Reviewed: 11:45 Conscious Sedation Pre-Proced Time 11:45 ASA Score 3 For ASA 3 and 4: Consider anesthesia and medical clearance. Also, for patients with a history of failed moderate sedation consider anesthesia. Airway Lungs Heart ASA score ASA 1: a normal healthy patient ASA 2: a patient with a mild systemic disease (mid diabetes, controlled hypertension, obesity ASA 3: a patient with a severe systemic disease that limits activity (angina, COPD, prior Myocardial infarction) ASA 4: a patient with an incapacitating disease that is a constant threat to life (CHF, renal failure) ASA 5: a moribund patient not expected to survive 24 hrs. (ruptured aneurysm) ASA 6: a declared brain- patient whose organs are being harvested. For emergent operations, add the letter E after the classification Mallampati Classification Grade 3 Sedation Plan Analgesia, Amnesia, Plan communicated to team members, Discussed options with patient/fam, Discussed risks with patient/fam The patient is an appropriate candidate to undergo the planned procedure, sedation, and anesthesia. The patient immediately re-assessed prior to indication. ANA NEBWY MD FACP FAC CCDS Oct 03, 2020 13:37
[2020-10-03] MEDS ORDERED: FUROSEMIDE 40 MG (LASIX) TAB PO PRN (13:45)
[2020-10-03] MEDS ORDERED: PATIENT MAY USE OWN MEDS, ALL PO SCH (13:45)
[2020-10-03] MEDS ORDERED: NITROGLYCERIN 0.4 MG SL TABS BTL 25'S SL PRN (13:45)
[2020-10-03] MEDS ORDERED: IPRATROPIUM BROMIDE NS PRN (13:45)
[2020-10-03] MEDS ORDERED: ACETAMINOPHEN 325 MG TABLET PO PRN (13:45)
[2020-10-03] MEDS ORDERED: NS IV 1000 ML 1,000 ML IV SCH (13:45)
[2020-10-03] MEDS ORDERED: ATROPINE INJECTION 1 MG/10 ML SYR (ABBOTT) ONE (16:14)
[2020-10-03] MEDS ORDERED: ATROPINE INJ 0.4 MG/ML SDV ONE (16:17)
--- NOTE | 2020-10-03 18:16 | OPERATIVE REPORT ---
DATE OF SERVICE: 10/03/2020 PERIPHERAL ANGIOGRAPHY AND INTERVENTION REPORT HISTORY OF PRESENT ILLNESS: The patient is a 74-year-old lady, who has been experiencing right leg claudication. Noninvasive workup indicated significant disease in the right leg. Accordingly, peripheral angiography and possible ad hoc intervention were recommended and informed consent was obtained. DESCRIPTION OF PROCEDURE: She was brought to the cardiac catheterization laboratory in a fasting state. The left groin was prepared and draped in the usual sterile fashion. Lidocaine 1% was used for local anesthesia. Modified Seldinger technique was used to advance a 5-Malawian sheath into the left femoral artery. We used a pigtail catheter placed at the level of L1 to carry out abdominal aortic angiography. The pigtail was then pulled back to just above the aortoiliac bifurcation and bilateral leg artery angiography was performed down to the level of the ankles. Subsequently, we carried out selective angiography of the left superficial femoral artery. We used a crossover catheter to advance a 0.035 inch wire into the right superficial femoral and then exchanged the catheter and the sheath for a long 6-Malawian sheath, the tip of which was placed in the right common femoral. This allowed selective angiography of the right superficial femoral vein. We then advanced a Storq wire across the lesions in the right superficial femoral and the tip was placed in the distal vessel in the leg. We then carried out balloon angioplasty with [place] 35 balloon (4 x 250 mm). This improved multiple stenoses in the right superficial femoral from up to 90% to less than 50%. Flow throughout the vessel was normal. She tolerated the procedure well. She received 6000 units of intravenous heparin during the procedure. At the end of the procedure, the long sheath was replaced with a 6-Malawian short sheath and sutured in place and the patient was transferred to the floor for manual sheath removal. ABDOMINAL AORTIC ANGIOGRAPHY: Abdominal aortic angiography did not indicate abdominal aortic stenosis or aneurysm. Renal arteries are identified and do not exhibit significant stenosis. The aortoiliac bifurcation is intact. BILATERAL LEG ARTERY ANGIOGRAPHY: Bilateral leg artery angiography indicates that the arterial caliber is generally small on the right side down than the left side. The right superficial femoral artery had multiple stenoses up to 90%, to which successful balloon angioplasty was carried out. Other than this, there did not appear to be significant disease of the arterial system of either leg. There is a 3-vessel runoff in both legs. CONCLUSIONS: Multiple up to 90% stenosis of the right superficial femoral artery to which successful balloon angioplasty was carried out. Job ID: [id number] DocumentID: [id number] Dictated Date: 10/03/2020 13:26:40 Wallet Assembler Date: 10/03/2020 18:15:58 Dictated By: ANA NEWBY MD, MA, FACP, FACC,
[2020-10-03] MEDS ORDERED: doxAzosin 4 MG (CARDURA) TAB PO SCH (21:00)
[2020-10-03] MEDS ORDERED: SIMvastatin 10 MG (ZOCOR) TAB PO SCH (21:00)
[2020-10-03] MEDS: meTOprolol SUCCINATE 100 MG (TOPROL XL) TAB PO SCH (21:17)
[2020-10-03] MEDS: ARTIFICAL TEARS 0.4 ML UNIT DOSE (REFRESH PLUS) OU SCH (21:18)
[2020-10-04 02:55] LABS: HEMOGLOBIN 12.4 g/dL (11.5-16.0); WHITE BLOOD COUNT 7.5 10^3/uL (4.3-11.0)
[2020-10-04 03:10] LABS: POTASSIUM 3.7 MMOL/L (3.6-5.0)
[2020-10-04 03:12] LABS: CALCIUM 7.8 MG/DL (8.5-10.1)
[2020-10-04 03:16] LABS: CREATININE SERUM 0.94 MG/DL (0.60-1.30)
[2020-10-04 04:31] VITALS: BP 147/77
[2020-10-04] MEDS ORDERED: CALCIUM CARB + VIT D 600 MG (CALCARB + D) TAB PO SCH (08:00)
[2020-10-04] MEDS ORDERED: KCL 10 MEQ TAB (MICRO K) PO SCH (08:00)
--- NOTE | 2020-10-04 08:02 | Progress Note - Cardiology ---
Cardiology SOAP Progress Note Objective: I&O/Vital Signs 10/03/20 10/03/20 10/04/20 10/04/20 22:44 23:00 00:00 01:00 Pulse 70 76 70 Resp 10 11 B/P (MAP) 128/53 (78) Pulse Ox 97 95 95 O2 Delivery Room Air Room Air Room Air 10/04/20 10/04/20 10/04/20 10/04/20 01:10 02:44 04:31 06:33 Pulse 70 72 74 Resp 11 11 B/P (MAP) 147/77 (100) Pulse Ox 95 97 95 O2 Delivery Room Air Room Air O2 Flow Rate 21.00 10/04/20 10/04/20 10/04/20 07:40 08:00 08:00 Temp 36.9 Pulse 81 Resp 20 B/P (MAP) Pulse Ox 95 O2 Delivery Room Air Room Air Weight (Pounds): 182 Weight (Ounces): 0.0 Weight (Calculated Kilograms): 82.616393 Constitutional: AAO x 3, well-developed, well-nourished Respiratory: No accessory muscle use, No respiratory distress; chest expansion is symmetric, chest is bilaterally symmetric, lungs clear to auscultation Cardiovascular: regular rate-rhythm; No JVD; S1 and S2 Gastrointestional: No tender; soft, round Extremities: no lower extremity edema bilateral Neurologic/Psychiatric: grossly intact (moves all extremities) Skin: No rash on exposed areas, No ulcerations on exposed areas Results/Procedures: Labs Laboratory Tests 10/04/20 02:20: White Blood Count 7.5, Red Blood Count 4.33, Hemoglobin 12.4, Hematocrit 40, Mean Corpuscular Volume 92, Mean Corpuscular Hemoglobin 29, Mean Corpuscular Hemoglobin Concent 31L, Red Cell Distribution Width 12.5, Platelet Count 216, Mean Platelet Volume 10.0, Sodium Level 139, Potassium Level 3.7, Chloride Level 108H, Carbon Dioxide Level 19L, Anion Gap 12, Blood Urea Nitrogen 18, Creatinine 0.94, Estimat Glomerular Filtration Rate 58, BUN/Creatinine Ratio 19, Glucose Level 98, Calcium Level 7.8L Microbiology 10/03/20 MRSA Screen - Final, Complete MRSA not isolated A/P: Assessment: Severe PAD on the right and mild on the left per segmental pressures of 3-- - Multiple up to 90% stenosis of the right superficial femoral artery to which successful balloon angioplasty was carried ou on 10-03-20 Bilateral leg swelling, more on R, likely related to venous insufficiency; w/o any evidence DVT on venous duplex at [facility] on 08/22/20, per patient report. Has prior h/o more swelling on the L and there was no DVT in it on testing in 2017 Symptoms of leg claudication Ac diastolic CHF in Mar 2020, currently controlled Labile hypertension Neurocardiogenic syncope, as determined by a positive tilt table study. Rate drop response on her pacemaker did not prevent symptoms; it was turned off on 04/04/17 and base rate raised to 70 ppm; no near-syncope since One brief episode of WCT on recent pacemaker interrogation of 03/25/17 that led to card cath of 04/08/17 (see below) Intermittent advanced atrio-ventricular block leading to syncope, treated with dual chamber pacemaker implantation with no subsequent recurrence of eda syncope. Pacemaker functioning normally on interrogation of 05/26/19 Coronary artery disease - history of right coronary stenting in 2004. - Card cath of 04/08/17 showed ,mod CAD and a widely patent stent in the mid RCA, LVEF 65%, mild to mod elev of LVEDP. - MPI of Mar 07, 2020 show no evidence of ischemia or infarction. Normal regional wall motion abnormality. LVEF 73% Less than 40% R ICA stenosis and approx 60% L ICA stenosis, per carotid u/s of 02/28/[address] Aj reyes Siler and evaluation with a neurologist at [facility] and testing at [facility] at [place] did not indicate any significant neurologic issues Borderline diabetes mellitus, diet controlled. Borderline hyperlipidemia being treated with statin therapy. 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 This has resulted in chronic intermittent mild liver enzyme elevation Endoscopy (Dr Calix in [place], [place]) of 01/09/18: gastic polyps (resected), normal duodenal bulb and 2nd part of duodenum, diverticulosis of the colon. In Mar 2019, she underwent ERCP and biliary/pancreatic sphincterotomies (temporary stenting was removed a few days later) Sleep apnea syndrome for which she has been on C-PAP therapy. Hypothyroidism being treated with thyroid replacement therapy Chronic back pain L knee replacement and surgery x 3 in or around [address] Mansfield; L tarsal bone fracture managed by Dr Serafin Lopez renal cyst on renal u/s of 01/28/19, followed by PCP Panendoscopy by Dr Yasmany Calix at [facility] in Jan 2019, details unavailable, pt states she was told she had gastroparesis Intolerance to hydralazine Plan: S/P successful peripheral intervention OK to discharge home today Increase Plavix to daily Continue other home medications Out pt f/u appt in 3-4 weeks ALIE REYES [facility] Oct 04, 2020 08:02
[2020-10-04] MEDS: ARTIFICAL TEARS 0.4 ML UNIT DOSE (REFRESH PLUS) OU SCH (08:53)
[2020-10-04] MEDS: meTOprolol SUCCINATE 100 MG (TOPROL XL) TAB PO SCH (08:55)
[2020-10-04] MEDS ORDERED: SERTRALINE 50 MG (ZOLOFT) TABLET PO SCH (09:00)
[2020-10-04] MEDS ORDERED: doxAzosin 4 MG (CARDURA) TAB PO SCH (09:00)
[2020-10-04] MEDS ORDERED: LEVOTHYROXINE 50 MCG (LEVOTHROID) TAB PO SCH (09:00)
[2020-10-04] MEDS ORDERED: PANTOPRAZOLE 40 MG (PROTONIX) TAB PO SCH (09:00)
[2020-10-04] MEDS ORDERED: ASPIRIN E.C. 81 MG (ECOTRIN) TAB PO SCH (09:00)
[2020-10-04] MEDS ORDERED: CLOPIDOGREL 75 MG (PLAVIX) TABLET PO SCH (09:00)
--- NOTE | 2020-10-04 09:17 | Discharge Inst-Cardiology ---
Discharge Inst-Cardiac Discharge Medications New Medications: Clopidogrel Bisulfate (Clopidogrel) 75 Mg Tablet 75 MG PO DAILY, #90 TAB 3 Refills Continued Medications: Alendronate Sodium (Alendronate Sodium) 70 Mg Tablet 70 MG PO [place], TAB Aspirin (Aspirin EC) 81 Mg Tablet.dr 81 MG PO DAILY, TAB Calcium Carbonate/Vitamin D3 (Calcium 500 + Vit D 400 Tablet) 1 Each Tablet 1 EACH PO DAILY, TAB [Cpap] () HS Cyanocobalamin (Cyanocobalamin Injection) 1,000 Mcg/Ml Inj 1000 MCG IJ EVERY 2 WEEKS, VIAL TAKES EVERY OTHER WEEK ON MONDAYS Doxazosin Mesylate (Doxazosin Mesylate) 4 Mg Tablet 8 MG PO DAILY, TAB TAKES 2 (4MG) TABLETS Doxazosin Mesylate (Doxazosin Mesylate) 4 Mg Tablet 4 MG PO HS, TAB Furosemide (Furosemide) 40 Mg Tablet 40 MG PO DAILY PRN for FLUID RETENTION Ipratropium [place] (Ipratropium [place]) 30 Ml [place] 1-2 SPRAYS NS TID PRN for DRAINAGE, SPRAY Levothyroxine Sodium (Euthyrox) 50 Mcg Tablet 50 MCG PO DAILY, TAB Metoprolol Succinate (Metoprolol Succinate) 100 Mg Tab.er.24h 100 MG PO BID, TAB Nitroglycerin (Nitroglycerin) 0.4 Mg Tab.subl 0.4 MG SL UD PRN for CHEST PAIN (ANGINA), #1 B 3 Refills Pantoprazole Sodium (Pantoprazole Sodium) 40 Mg Tablet.dr 40 MG PO DAILY, TAB Peg 400/Hypromellose/Glycerin (Visine Dry Eye Relief Drop) 15 Ml Drops 1 DROP OU BID, DROPS Potassium Chloride (Potassium Chloride) 10 Meq Capsule.er 10 MEQ PO DAILY, CAP Pravastatin Sodium (Pravastatin Sodium) 10 Mg Tablet 10 MG PO DAILY, TAB Sertraline HCl (Sertraline HCl) 50 Mg Tablet 50 MG PO DAILY, TAB Discontinued Medications: Clopidogrel Bisulfate (Plavix) 75 Mg Tablet 75 MG PO MoWeFr, TAB Patient Instructions Patient Instructions: Please schedule follow up appointment to see Dr. Anthony in 2-3 weeks ALIE REYES Oct 04, 2020 09:17
[2020-10-04] MEDS ORDERED: CLOP75TA28 PO (09:37)
--- NOTE | 2020-10-04 16:43 | Progress Note - Cardiology ---
Cardiology SOAP Progress Note Subjective: No cp or palp or syncope No shortness of breath at rest No n/v/d No groin or leg discomfort Objective: I&O/Vital Signs 10/04/20 10/04/20 10/04/20 10/04/20 06:33 07:40 08:00 08:00 Temp 36.9 Pulse 74 81 Resp 20 B/P (MAP) Pulse Ox 95 O2 Delivery Room Air Room Air 10/04/20 10:40 B/P (MAP) Weight (Pounds): 182 Weight (Ounces): 0.0 Weight (Calculated Kilograms): 82.095242 Constitutional: AAO x 3, well-developed, well-nourished Respiratory: No accessory muscle use, No respiratory distress; chest expansion is symmetric, chest is bilaterally symmetric, lungs clear to auscultation Cardiovascular: regular rate-rhythm; No JVD; S1 and S2 Gastrointestional: No tender; soft, round Extremities: no lower extremity edema bilateral Neurologic/Psychiatric: grossly intact (moves all extremities) Skin: No rash on exposed areas, No ulcerations on exposed areas Results/Procedures: Labs Laboratory Tests 10/04/20 02:20: White Blood Count 7.5, Red Blood Count 4.33, Hemoglobin 12.4, Hematocrit 40, Mean Corpuscular Volume 92, Mean Corpuscular Hemoglobin 29, Mean Corpuscular Hemoglobin Concent 31L, Red Cell Distribution Width 12.5, Platelet Count 216, Mean Platelet Volume 10.0, Sodium Level 139, Potassium Level 3.7, Chloride Level 108H, Carbon Dioxide Level 19L, Anion Gap 12, Blood Urea Nitrogen 18, Creatinine 0.94, Estimat Glomerular Filtration Rate 58, BUN/Creatinine Ratio 19, Glucose Level 98, Calcium Level 7.8L Microbiology 10/03/20 MRSA Screen - Final, Complete MRSA not isolated Laboratory Tests 10/03/20 09:14 10/04/20 02:20 A/P: Assessment: PAD - Segmental pressures of 09-04-20: severe PAD on the right and mild on the left - Multiple up to 90% stenosis of the right superficial femoral artery to which successful balloon angioplasty was carried ou on 10-03-20 Bilateral leg swelling, more on R, likely related to venous insufficiency; w/o any evidence DVT on venous duplex at [facility] on 08/22/20, per patient report. Has prior h/o more swelling on the L and there was no DVT in it on testing in 2018 Ac diastolic CHF in Mar 2020, currently controlled Labile hypertension Neurocardiogenic syncope, as determined by a positive tilt table study. Rate drop response on her pacemaker did not prevent symptoms; it was turned off on 04/04/17 and base rate raised to 70 ppm; no near-syncope since One brief episode of WCT on recent pacemaker interrogation of 03/25/17 that led to card cath of 04/08/17 (see below) Intermittent advanced atrio-ventricular block leading to syncope, treated with dual chamber pacemaker implantation with no subsequent recurrence of eda syncope. Pacemaker functioning normally on interrogation of 05/26/19 Coronary artery disease - history of right coronary stenting in 2004. - Card cath of 04/08/17 showed ,mod CAD and a widely patent stent in the mid RCA, LVEF 65%, mild to mod elev of LVEDP. - MPI of Mar 07, 2020 show no evidence of ischemia or infarction. Normal regional wall motion abnormality. LVEF 73% Less than 40% R ICA stenosis and approx 60% L ICA stenosis, per carotid u/s of 02/28/[address] Rocha in [place] and evaluation with a neurologist at [facility] and testing at [facility] at [place] did not indicate any significant neurologic issues Borderline diabetes mellitus, diet controlled. Borderline hyperlipidemia being treated with statin therapy. 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 This has resulted in chronic intermittent mild liver enzyme elevation Endoscopy (Dr Calix in [place], [place]) of 01/09/18: gastic polyps (resected), normal duodenal bulb and 2nd part of duodenum, diverticulosis of the colon. In Mar 2019, she underwent ERCP and biliary/pancreatic sphincterotomies (temporary stenting was removed a few days later) Sleep apnea syndrome for which she has been on C-PAP therapy. Hypothyroidism being treated with thyroid replacement therapy Chronic back pain L knee replacement and surgery x 3 in or around [address] Mansfield; L tarsal yu ne fracture managed by Dr Betancourt L renal cyst on renal u/s of 01/28/19, followed by PCP Panendoscopy by Dr Yasmany Calix at [facility] in Jan 2019, details unavailable, pt states she was told she had gastroparesis Intolerance to hydralazine Plan: I discussed with her in detail the finding of peripheral angio and the interventions undertaken OK to discharge home today Increase Plavix to daily Continue other home medications Out pt f/u appt in 3-4 weeks ANA NEWBY MD FACP FAC [facility] Oct 04, 2020 16:43
[2020-10-08] MEDS ORDERED: NON-FORMULARY MEDICATION 1 EA EA (Alendronate Sodium 70 MG) PO SCH (13:45)
== END 2020-10-04 10:43 | disposition home or self-care (01) ==
LOC: CATH 11:00 → ICU 13:48 → CATH 10-04 10:43
PROVIDERS: ATTEND Internal Medicine Cardiovascular Disease
DX: I70.201 Unspecified atherosclerosis of native arteries of extremities, right leg (principal); E03.9 Hypothyroidism, unspecified; G47.33 Obstructive sleep apnea (adult) (pediatric); I65.23 Occlusion and stenosis of bilateral carotid arteries; E78.2 Mixed hyperlipidemia; I11.0 Hypertensive heart disease with heart failure; I50.30 Unspecified diastolic (congestive) heart failure; G89.29 Other chronic pain; M54.9 Dorsalgia, unspecified; E66.9 Obesity, unspecified; Z68.34 Body mass index [BMI] 34.0-34.9, adult; Z79.82 Long term (current) use of aspirin; Z79.899 Other long term (current) drug therapy; Z88.8 Allergy status to other drugs, medicaments and biological substances; Z88.1 Allergy status to other antibiotic agents; Z79.890 Hormone replacement therapy; Z87.891 Personal history of nicotine dependence; Z80.9 Family history of malignant neoplasm, unspecified; Z83.3 Family history of diabetes mellitus
CPT/HCPCS: 36415; 75625; 75716; 80048; 80053; 80061; 85027; 85610; 85730; 87081; 93005; 94660

== ENCOUNTER → 2021-06-05 | Outpatient (CLI) | payer MEDICARE, OTHER ==
[~2021-06-05] MED LIST changes: +CLOP75TA28 PO; -HEParin (CATH LAB) 2,000 ML IV ONE; -LIDOCAINE 1% INJ 20 ML 20 ML VIAL ONE; -NS IV 1000 ML 1,000 ML IV SCH
--- NOTE | 2021-06-05 13:19 | Diagnostic Imaging Report ---
INDICATION: Routine screening. Comparison is made with prior mammogram from 05/25/2020 and 05/21/2019. 2-D and 3-D bilateral screening mammography was performed with CAD. Both breasts are heterogeneously dense, limiting the sensitivity of mammography. Both breasts demonstrate a fibronodular parenchymal pattern. This appears stable. No dominant mass or malignant-appearing microcalcifications are seen. Axillae are unremarkable. IMPRESSION: No mammographic features suspicious for malignancy are identified. BI-RADS Category 2 ACR BI-RADS Category 2: Benign findings. Result letter will be mailed to the patient. Note: At least 10% of breast cancer is not imaged by mammography. Dictated by: Dictated on workstation # [id number]
== END ==
LOC: RAD 10:30
PROVIDERS: ATTEND Family Medicine
DX: Z12.31 Encounter for screening mammogram for malignant neoplasm of breast (principal)
CPT/HCPCS: 77063; 77067

== ENCOUNTER → 2021-08-06 | Outpatient (CLI) | payer MEDICARE, OTHER ==
--- NOTE | 2021-08-06 19:14 | Diagnostic Imaging Report ---
CLINICAL INDICATION: Follow-up renal cysts. EXAM: Ultrasound of both kidneys. COMPARISON: Ultrasound of both kidneys dated 07/28/2020. FINDINGS: There is a 3.0 cm x 3.0 cm x 2.9 cm simple-appearing cyst involving the upper portion of the left kidney. Previously, this cyst measured 2.8 cm x 2.4 cm x 2.5 cm. There is a 1.8 cm x 0.8 cm x 1.4 cm cystic structure involving the inferior aspect of left kidney. Previously, this cystic structure measured 1.1 cm x 1.1 cm x 0.8 cm. Both kidneys are normal in size, shape, echogenicity and cortical thickness without hydronephrosis, stones, or focal lesions with the right and left kidneys measuring 7.4 cm and 8.9 cm in their craniocaudal dimensions, respectively. The right and left kidneys previously measured 8.9 cm and 8.7 cm. The bladder is decompressed with no gross abnormalities visualized. The right ureteral jet is seen. The left ureteral jet is not visualized. IMPRESSION: 1: There is interval increased size of the left renal cystic structures. 2: There is no hydronephrosis. Dictated by: Dictated on workstation # [id number]
== END ==
LOC: RAD 11:45
PROVIDERS: ATTEND Family Medicine
DX: N28.1 Cyst of kidney, acquired (principal)
CPT/HCPCS: 76770

== ENCOUNTER → 2021-08-23 | Outpatient (CLI) | payer MEDICARE, OTHER ==
--- NOTE | 2021-08-23 16:39 | Diagnostic Imaging Report ---
INDICATION: Right leg pain. Right leg venous Doppler study was performed in the routine fashion with color flow Doppler and waveform analysis. FINDINGS: The right common femoral vein, superficial femoral vein, popliteal vein and visualized portion of the tibial veins show normal compressibility and venous flow patterns. There is normal augmentation. IMPRESSION: No evidence of deep vein thrombosis of the major veins of the right leg. Dictated by: Dictated on workstation # [id number]
== END ==
LOC: RAD 15:15
PROVIDERS: ATTEND Nurse Practitioner Family
DX: M79.604 Pain in right leg (principal); R22.41 Localized swelling, mass and lump, right lower limb

== ENCOUNTER → 2021-08-28 | Outpatient (CLI) | payer MEDICARE, OTHER ==
[~2021-08-28] MED LIST changes: +CATHETER FLUSH 10 ML SYR IV PRN; +HOLD METFORMIN - RECEIVED CONTRAST 20 ML VIAL IV SCH; +IOHEXOL 350 MG/ML 150 ML (OMNIPAQUE 350) VIAL IV ONE; +NS 100 ML (IVPB) BAG IV ONE
[2021-08-28 09:21] LABS: CALCIUM 8.9 MG/DL (8.5-10.1); CREATININE SERUM 1.13 MG/DL (0.60-1.30); POTASSIUM 4.3 MMOL/L (3.6-5.0)
--- NOTE | 2021-08-28 13:29 | Diagnostic Imaging Report ---
INDICATION: Atherosclerotic vascular disease with intermittent claudication of the bilateral lower extremities. FINDINGS: There is diffuse calcified greater than soft plaque throughout the abdominal aorta without focal aortic stenosis. There is moderate calcified plaque in the short right common iliac which probably bifurcates. The left common iliac shows mild non-stenosing calcified plaque. The bilateral external iliacs show mild distal calcified plaques without hemodynamically significant stenosis. The major hypogastric branch is unremarkable. Right leg: Mixed soft and hard plaque in the right common femoral artery narrow the lumen by about 50%. The right SFA is severely diseased and occludes proximally with multiple short segment reconstitutions throughout its length. There is good flow in the widely patent right popliteal artery. There is patent three-vessel runoff on the right through the ankle. Left leg: Mild non-stenosing plaque in the left common femoral is present. The profunda is widely patent. The left SFA shows very minimal scattered plaque without significant stenosis. The distal SFA and popliteal proximally are obscured from visualization by knee replacement artifact. The common tibioperoneal trunk is widely patent. There is two-vessel runoff through the ankle via the peroneal and posterior tibial. The celiac, superior mesenteric, and inferior mesenteric arteries are patent and show mild non-stenosing calcified plaques. The renal arteries bilaterally are patent. There are no findings of abdominopelvic solid or hollow visceral end organ ischemia. There are simple renal cortical cysts. There is no hydronephrosis. There is a ventral supraumbilical fatty abdominal wall hernia, noninflamed. The liver, spleen, adrenals, and pancreas are unremarkable. There is no bowel, biliary, or urinary tract obstruction. There is no ascites, abscess, hematoma, or acute fluid collection. No aneurysm, adenopathy, or mass. IMPRESSION: 1. Severe disease with multiple segmental occlusions throughout the right SFA; however, widely patent three-vessel runoff to the right ankle is present. 2. Partially obscured distal left SFA and popliteal with two-vessel runoff to the ankle. 3. Diffuse aortic atherosclerosis without abdominopelvic hemodynamically significant stenosis, aneurysm, or mesenteric end organ ischemia. 4. Noninflamed diverticulosis, benign hepatic cyst, and supraumbilical fatty abdominal wall hernia. Dictated by: Dictated on workstation # [id number]
== END ==
LOC: RAD 09:45
PROVIDERS: ATTEND Nurse Practitioner Family
DX: I70.213 Atherosclerosis of native arteries of extremities with intermittent claudication, bilateral legs (principal); K57.30 Diverticulosis of large intestine without perforation or abscess without bleeding; K76.89 Other specified diseases of liver; K43.9 Ventral hernia without obstruction or gangrene
CPT/HCPCS: 36415; 75635; 80048

== ENCOUNTER → 2021-09-10 | Outpatient (CLI) | payer MEDICARE, OTHER ==
[~2021-09-10] MED LIST changes: +CALC-823 PO; -CATHETER FLUSH 10 ML SYR IV PRN; -HOLD METFORMIN - RECEIVED CONTRAST 20 ML VIAL IV SCH; -IOHEXOL 350 MG/ML 150 ML (OMNIPAQUE 350) VIAL IV ONE; -NS 100 ML (IVPB) BAG IV ONE; +POLY30DR6 OU; +ROHTO EYE OU
--- NOTE | 2021-09-10 14:16 | Diagnostic Imaging Report ---
PROCEDURE: US right lower extremity venous. TECHNIQUE: Multiple real-time grayscale images were obtained over the right lower extremity in various projections. Additional spectral analysis and color Doppler duplex images were also obtained. INDICATION: Right large extremity swelling. There is no evidence of right lower extremity DVT. Right lower extremity deep venous system shows normal compressibility with normal response to augmentation and Valsalva. No fluid collection or mass is detected. IMPRESSION: No evidence of right lower extremity DVT. Dictated by: Dictated on workstation # [id number]
== END ==
LOC: RAD 13:30
PROVIDERS: ATTEND Nurse Practitioner Family
DX: M79.89 Other specified soft tissue disorders (principal)

== ENCOUNTER 2021-10-13 20:55 | Emergency (ER) | payer MEDICARE, OTHER ==
[~2021-10-13 20:55] MED LIST changes: +OMEP20TA56 PO; -OMEP20TA7 PO
--- NOTE | 2021-10-13 21:26 | ED Fall/Injury ---
General Chief Complaint: Trauma-Non Activation Stated Complaint: FALL/NECK AND HEAD PAIN Source: patient History of Present Illness Date Seen by Provider: Oct 13, 2021 Time Seen by Provider: 21:09 Initial Comments Patient to the ER by private conveyance with her significant other and chief complaint that just prior to arrival she had a fall walking across the threshold she tripped. She struck the right frontal forehead and is now having pain in the left neck apply. No tingling or numbness weakness. No pain in her foot. She did take 800 of ibuprofen prior to coming in. She is on Plavix but no blood thinners. She has a history of peripheral arterial disease known to cardiology. Last oral intake was 0 tonight fluids and she ate at noon. Pertinent history of hypertension, hyperlipidemia, GERD with coronary catheterization in 2016 demonstrating moderate CAD and a stent in the RCA from 2004. Mild to moderate elevation of the left ventricular end-diastolic pressure and normal EF. Hypothyroidism, sleep apnea, chronic idiopathic granulomatous hepatitis, gastric polyps, history of heart failure. Allergies and Home Medications Allergies Coded Allergies: levofloxacin (Verified Allergy, Unknown, 10/26/14) ramipril (Verified Allergy, Unknown, 09/04/21) Patient Home Medication List Home Medication List Reviewed: Yes Alendronate Sodium (Alendronate Sodium) 70 Mg Tablet, 70 MG PO [place], (Reported) Entered as Reported by: ELLIS FLORES on 04/08/17 0832 Aspirin (Aspirin EC) 81 Mg Tablet.dr, 81 MG PO DAILY, (Reported) Entered as Reported by: ELLIS FLORES on 04/08/17 0841 Calcium Carbonate (Calcium) 500 Mg Tablet, 500 MG PO DAILY, (Reported) Entered as Reported by: SHAY KING on 09/04/21 0843 Clopidogrel Bisulfate (Clopidogrel) 75 Mg Tablet, 75 MG PO DAILY, (Reported) Entered as Reported by: SHAY KING on 09/04/21 0843 Cyanocobalamin (Cyanocobalamin Injection) 1,000 Mcg/Ml Inj, 1,000 MCG IJ EVERY 2 WEEKS, (Reported) Entered as Reported by: ELLIS FLORES on 04/08/17 0832 Doxazosin Mesylate (Doxazosin Mesylate) 4 Mg Tablet, 4 MG PO BID, (Reported) Entered as Reported by: SHAY KING on 07/05/20 1223 Furosemide (Furosemide) 40 Mg Tablet, 40 MG PO DAILY, (Reported) Entered as Reported by: SHAY KING on 07/05/20 1223 Ipratropium [place] (Ipratropium [place]) 30 Ml [place], 1-2 SPRAYS NS TID PRN for CONGESTION, (Reported) Entered as Reported by: ELLIS FLORES on 04/08/17 0859 Levothyroxine Sodium (Euthyrox) 50 Mcg Tablet, 50 MCG PO DAILY, (Reported) Entered as Reported by: SHAY KING on 07/05/20 1223 Metoprolol Succinate (Metoprolol Succinate) 100 Mg Tab.er.24h, 100 MG PO BID, (Reported) Entered as Reported by: ELLIS FLORES on 04/08/17 0841 Pantoprazole Sodium (Pantoprazole Sodium) 20 Mg Tablet.dr, 20 MG PO DAILY, (Reported) Entered as Reported by: SHAY KING on 09/04/21 0843 Polyethylene Glycol 400 (Visine Dry Eye Relief) 30 Ml Drops, 1 DROP OU PRN PRN for DRY EYES, (Reported) Entered as Reported by: SHAY KING on 09/04/21 0843 Potassium Chloride (Potassium Chloride) 10 Meq Capsule.er, 10 MEQ PO DAILY, (Reported) Entered as Reported by: SHAY KING on 07/05/20 1223 Pravastatin Sodium (Pravastatin Sodium) 10 Mg Tablet, 10 MG PO DAILY, (Reported) Entered as Reported by: ELLIS FLORES on 04/08/17 0832 Sertraline HCl (Sertraline HCl) 50 Mg Tablet, 50 MG PO DAILY, (Reported) Entered as Reported by: ELLIS FLORES on 04/08/17 0832 [[place] Eye Drops] , 1 DROP OU DAILY, (Reported) Entered as Reported by: SHAY KING on 09/04/21 0843 Review of Systems Review of Systems Constitutional: No chills, No diaphoresis Eyes: Denies Blindness, Denies Drainage Ears, Nose, Mouth, Throat: denies ear pain, denies ear discharge Respiratory: No cough, No short of breath Cardiovascular: No chest pain, No edema Gastrointestinal: No abdominal pain, No nausea Genitourinary: No discharge, No dysuria Musculoskeletal: No back pain, No joint pain Skin: No pruritus, No rash All Other Systems Reviewed Negative Unless Noted: Yes Past Hwgjdkq-Zpviaq-Wenxmo Hx Patient Social History Tobacco Use?: No Use of E-Cig and/or Vaping dev: No Substance use?: No Immunizations Up To Date Tetanus Booster (TDap): Unknown First/Initial COVID19 Vaccinat: UNKNOWN DATE BUT DID RECEIVE VACCINE Second COVID19 Vaccination Ruben: UNKNOWN DATE BUT DID RECEIVE VACCINE Seasonal Allergies Seasonal Allergies: No Past Medical History Surgeries: Yes (HEMORRHOID SURGERY, LEFT KNEE REPLACEMENT) Gallbladder, Hysterectomy, Orthopedic, Pacemaker Respiratory: Yes (SOA) Sleep Apnea Currently Using CPAP: Yes Currently Using BIPAP: No Cardiac: Yes High Cholesterol, Hypertension, Syncope Neurological: No 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 Disorders: No Female 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 Disorders: Endometriosis [employer] History: Hysterectomy Genitourinary: No Kidney Infection Gastrointestinal: Yes Diverticulosis, Hiatal Hernia Musculoskeletal: Yes (dropped foot) Degenerate Disk Disease, Osteoporosis, Arthritis, Chronic Back Pain Endocrine: Yes Hypothyroidsim, Diabetes, Non-Insulin dep Cancer: No Psychosocial: No Integumentary: No Blood Disorders: Yes Adverse Reaction/Blood Tranf: No Physical Exam Vital Signs Vital Signs - First Documented 10/13/21 21:09 Temp 36.4 Pulse 71 Resp 16 B/P (MAP) 162/81 (108) Pulse Ox 98 O2 Delivery Room Air Capillary Refill : Height, Weight, BMI Height: 5'3.00" Weight: 182lbs. 0.0oz. [id number]; 32.70 BMI Method:Stated General Appearance: WD/WN, mild distress HEENT: PERRL/EOMI, pharynx normal Neck: full range of motion, supple, normal inspection, tender midline (C1-C2-C3 tender to palpation) Cardiovascular: normal peripheral pulses, regular rate, rhythm Respiratory: no respiratory distress, no accessory muscle use Gastrointestinal: normal bowel sounds, non tender, soft Neurologic/Psychiatric: alert, normal mood/affect, oriented x 3 Progress/Results/Core Measures Results/Orders Lab Results Laboratory Tests Test 10/13/21 21:40 10/14/21 00:05 Range/Units White Blood Count 8.2 4.3-11.0 10^3/uL Red Blood Count 4.66 3.80-5.11 10^6/uL Hemoglobin 13.7 11.5-16.0 g/dL Hematocrit 42 35-52 % Mean Corpuscular Volume 91 80-99 fL Mean Corpuscular Hemoglobin 29 25-34 pg Mean Corpuscular Hemoglobin Concent 32 32-36 g/dL Red Cell Distribution Width 13.2 10.0-14.5 % Platelet Count 224 130-400 10^3/uL Mean Platelet Volume 10.0 9.0-12.2 fL Immature Granulocyte % (Auto) 1 % Neutrophils (%) (Auto) 62 42-75 % Lymphocytes (%) (Auto) 21 12-44 % Monocytes (%) (Auto) 11 0-12 % Eosinophils (%) (Auto) 4 0-10 % Basophils (%) (Auto) 1 0-10 % Neutrophils # (Auto) 5.1 1.8-7.8 10^3/uL Lymphocytes # (Auto) 1.7 1.0-4.0 10^3/uL Monocytes # (Auto) 0.9 0.0-1.0 10^3/uL Eosinophils # (Auto) 0.3 0.0-0.3 10^3/uL Basophils # (Auto) 0.1 0.0-0.1 10^3/uL Immature Granulocyte # (Auto) 0.0 0.0-0.1 10^3/uL Sodium Level 139 135-145 MMOL/L Potassium Level 3.6 3.6-5.0 MMOL/L Chloride Level 101 98-107 MMOL/L Carbon Dioxide Level 21 21-32 MMOL/L Anion Gap 17 H 5-14 MMOL/L Blood Urea Nitrogen 23 H 7-18 MG/DL Creatinine 1.16 0.60-1.30 MG/DL Estimat Glomerular Filtration Rate 49 BUN/Creatinine Ratio 20 Glucose Level 129 H 70-105 MG/DL Calcium Level 8.9 8.5-10.1 MG/DL Urine Color YELLOW Urine Clarity CLEAR Urine pH 5.0 5-9 Urine Specific [place] 1.025 H 1.016-1.022 Urine Protein NEGATIVE NEGATIVE Urine Glucose (UA) NEGATIVE NEGATIVE Urine Ketones NEGATIVE NEGATIVE Urine Nitrite NEGATIVE NEGATIVE Urine Bilirubin NEGATIVE NEGATIVE Urine Urobilinogen 0.2 < = 1.0 MG/DL Urine Leukocyte Esterase NEGATIVE NEGATIVE Urine RBC (Auto) NEGATIVE NEGATIVE Urine RBC NONE /HPF Urine WBC NONE /HPF Urine Squamous Epithelial Cells 2-5 /HPF Urine Crystals NONE /LPF Urine Bacteria NEGATIVE /HPF Urine Casts PRESENT /LPF Urine Hyaline Casts 0-2 H /LPF Urine Mucus SMALL H /LPF Urine Culture Indicated NO My Orders Orders - TYSHAWN MAXWELL Cbc With Automated Diff (10/13/21 21:19) Basic Metabolic Panel (10/13/21 21:19) Fentanyl Inj (Sublimaze Injection) (10/13/21 21:30) Ed Iv/Invasive Line Start (10/13/21 21:19) Ct Head/Cervical Spine Wo (10/13/21 21:19) Dipht,Pertuss(Acell),Tet Adult (Boostrix (10/13/21 23:00) Fentanyl Inj (Sublimaze Injection) (10/13/21 23:00) Ed Iv/Invasive Line Start (10/13/21 23:30) Ns Iv 1000 Ml (Sodium Chloride 0.9%) (10/13/21 23:30) [place] Cath (10/14/21 00:13) Ua Culture If Indicated (10/14/21 00:13) Morphine Injection (Morphine Injection (10/14/21 00:43) Medications Given in ED Current Medications Medications Dose Ordered Sig/Kofi Route Start Time Stop Time Status Last Admin Dose Admin Diphtheria/ Tetanus/Acell Pertussis 0.5 ml ONCE ONCE IM 10/13/21 23:00 10/13/21 23:01 DC 10/13/21 22:57 0.5 ML Fentanyl Citrate 25 mcg ONCE ONCE IVP 10/13/21 21:30 10/13/21 21:31 DC 10/13/21 21:41 25 MCG Fentanyl Citrate 50 mcg ONCE ONCE IVP 10/13/21 23:00 10/13/21 23:01 DC 10/13/21 22:56 50 MCG Vital Signs/I&O 10/13/21 21:09 Temp 36.4 Pulse 71 Resp 16 B/P (MAP) 162/81 (108) Pulse Ox 98 O2 Delivery Room Air Progress Progress Note #1: Time: 21:25 Progress Note C-collar placed promptly. CT of the head and C-spine. Basic labs and 25 mcg of fentanyl Progress Note #2: Time: 22:25 Progress Note Holding cervical spine and traction and alignment we rearranged the collar and this gave her more comfort. The 25 mg of fentanyl has helped as well. She does have fractures in the dens and a Angus fracture that are new not malaligned. We do not have MRI available at this time. We have called [facility] and paged the neurosurgeon on-call. Progress Note #3: Time: 23:30 Progress Note We will give the patient a liter of fluids and keep her n.p.o. or waiting to hear back from neurosurgery. She feels very parched. Progress Note #4: Time: 00:33 Progress Note We have called [facility] 3 times total and each time they say they have paged and called the neurosurgeon but she is not answering. Family really wants the patient to go to [place]. We will discuss the possibility of going to a different neurosurgeon. Progress Note #5: Time: 00:59 Progress Note Patient and family are willing to wait they really want to go to [place] if p ossible. We called and spoke to Annalise, automotive alignment specialist and she is trying the neurosurgeon again. Dr Morris: Discussed the case images were clouded over and she feels the case is too complex and that the patient should go to [place] given her age and complexity. The patient is only put out about 100 cc of clear yellow urine so we will put her on another liter through her IV. Diagnostic Imaging Diagonstic Imaging: CT Plain Films/CT/US/NM/MRI: c-spine, head Comments [facility], [place] NAME: DARRIN TABARES [facility] REC#: [id number] PT STATUS: REG ER : 1945 PHYSICIAN: TYSHAWN MAXWELL MD ADMIT DATE: 10/13/21/ER Signed Date of Exam:10/13/21 CT HEAD/CERVICAL SPINE WO PROCEDURE: CT head and CT cervical spine without contrast. TECHNIQUE: Multiple contiguous axial images were obtained through the brain and cervical spine without the use of intravenous contrast. Sagittal and coronal reformations through the cervical spine were then performed. Auto Exposure Controls were utilized during the CT exam to meet ALARA standards for radiation dose reduction. INDICATION: Fall. Head and neck pain. COMPARISON: 07/28/2020. FINDINGS: CT HEAD: No large acute territorial ischemia, mass or hemorrhage. No midline shift or mass effect. The ventricles, cortical sulci and basilar cisterns are patent and unremarkable. The calvarium is intact. The visualized paranasal sinuses are clear. CT CERVICAL SPINE: Acute fracture is seen involving the C1 vertebral body involving the anterior arch at the midline and two fractures involving the posterior arch just posterior to the lateral masses of C1. A type II dens fracture is also present. No significant malalignment is seen. No other acute fractures are seen in the cervical spine. The included lung apices are clear. Soft tissues of the neck are unremarkable. IMPRESSION: 1. No hemorrhage or focal intra-axial mass. No CT evidence of large acute territorial ischemia. 2. Angus fracture involving the C1 vertebral body and type II dens fracture at C2. No malalignment is identified. Consider MRI of the cervical spine to further evaluate. Findings were called to the emergency Department and discussed with Dr. Maxwell at 10:05 PM on 10/13/[address] Blaise Burrell. Dictated by: Dictated on workstation # [id number] Dict: 10/13/212199 Trans: 10/13/212209 [facility] [id number] Interpreted by: BLAISE BURRELL DO Electronically signed by: BLAISE BURRELL DO 10/13/212209 Reviewed: Reviewed by Me Departure Impression Primary Impression: Status post fall Additional Impressions: Closed dens fracture Qualified Codes: S12.100A - Unspecified displaced fracture of second cervical vertebra, initial encounter for closed fracture Closed Angus fracture Qualified Codes: S12.01XA - Stable burst fracture of first cervical vertebra, initial encounter for closed fracture Disposition: 02 XFER SHT-TRM HOSP Condition: Stable Transfer Transfer Reason: Exceeds level of care (No neurosurgery.) Time Spoke to Accepting Phy: 01:20 Transfer Progress Notes 0105: [facility]: Diamond triage. 0120: Dr. Soriano accepts the patient directly to the neuro unit at [facility]. Transfer Facility: [facility] Method of Transfer: EMS Departure-Patient Inst. Referrals: LANIE JACKSON MD (PCP/Family) Primary Care Physician Copy Copies To 1: LANIE JACKSON MD, TITUS J Oct 13, 2021 21:26
[2021-10-13] MEDS ORDERED: fentaNYL INJ 100 MCG/2 ML AMP IVP ONE ×2 (21:30→23:00)
[2021-10-13 21:53] LABS: BASOPHILS # (AUTO) 0.1 10^3/uL (0.0-0.1); BASOPHILS % (AUTO) 1 % (0-10); EOSINOPHILS # (AUTO) 0.3 10^3/uL (0.0-0.3); EOSINOPHILS % (AUTO) 4 % (0-10); HEMATOCRIT 42 % (35-52); HEMOGLOBIN 13.7 g/dL (11.5-16.0); LYMPHOCYTES # (AUTO) 1.7 10^3/uL (1.0-4.0); LYMPHOCYTES % (AUTO) 21 % (12-44); MEAN CORPUSCULAR HEMOGLOBIN 29 pg (25-34); MEAN CORPUSCULAR HGB CONC 32 g/dL (32-36); MEAN CORPUSCULAR VOLUME 91 fL (80-99); MONOCYTES # (AUTO) 0.9 10^3/uL (0.0-1.0); MONOCYTES % (AUTO) 11 % (0-12); NEUTROPHILS # (AUTO) 5.1 10^3/uL (1.8-7.8); NEUTROPHILS % (AUTO) 62 % (42-75); PLATELET COUNT 224 10^3/uL (130-400); WHITE BLOOD COUNT 8.2 10^3/uL (4.3-11.0)
[2021-10-13 22:08] LABS: POTASSIUM 3.6 MMOL/L (3.6-5.0)
[2021-10-13 22:09] LABS: CALCIUM 8.9 MG/DL (8.5-10.1)
--- NOTE | 2021-10-13 22:09 | Diagnostic Imaging Report ---
PROCEDURE: CT head and CT cervical spine without contrast. TECHNIQUE: Multiple contiguous axial images were obtained through the brain and cervical spine without the use of intravenous contrast. Sagittal and coronal reformations through the cervical spine were then performed. Auto Exposure Controls were utilized during the CT exam to meet ALARA standards for radiation dose reduction. INDICATION: Fall. Head and neck pain. COMPARISON: 07/28/2020. FINDINGS: CT HEAD: No large acute territorial ischemia, mass or hemorrhage. No midline shift or mass effect. The ventricles, cortical sulci and basilar cisterns are patent and unremarkable. The calvarium is intact. The visualized paranasal sinuses are clear. CT CERVICAL SPINE: Acute fracture is seen involving the C1 vertebral body involving the anterior arch at the midline and two fractures involving the posterior arch just posterior to the lateral masses of C1. A type II dens fracture is also present. No significant malalignment is seen. No other acute fractures are seen in the cervical spine. The included lung apices are clear. Soft tissues of the neck are unremarkable. IMPRESSION: 1. No hemorrhage or focal intra-axial mass. No CT evidence of large acute territorial ischemia. 2. Angus fracture involving the C1 vertebral body and type II dens fracture at C2. No malalignment is identified. Consider MRI of the cervical spine to further evaluate. Findings were called to the emergency Department and discussed with Dr. Maxwell at 10:05 PM on 10/13/[address] Mumtaz Burrell. Dictated by: Dictated on workstation # [id number]
[2021-10-13 22:14] LABS: CREATININE SERUM 1.16 MG/DL (0.60-1.30)
[2021-10-13] MEDS ORDERED: TETANUS,DIPTH,PERTUSS P/F (BOOSTRIX) 0.5 ML VIAL IM ONE (23:00)
[2021-10-13] MEDS ORDERED: NS IV 1000 ML 1,000 ML IV SCH (23:30)
[2021-10-14 00:20] LABS: BILIRUBIN,URINE NEGATIVE (NEGATIVE); CLARITY,URINE CLEAR; COLOR,URINE YELLOW; GLUCOSE, URINE (UA) NEGATIVE (NEGATIVE); KETONES,URINE NEGATIVE (NEGATIVE); LEUKOCYTE ESTERASE ,URINE NEGATIVE (NEGATIVE); NITRITE,URINE NEGATIVE (NEGATIVE); PROTEIN,URINE NEGATIVE (NEGATIVE)
[2021-10-14 00:30] LABS: BACTERIA,URINE NEGATIVE /HPF; HYALINE CASTS, URINE 0-2 /LPF
[2021-10-14] MEDS ORDERED: morphine INJ 10 MG/ML 1ML (SYR OR VIAL) IVP STA ×2 (00:43→02:05)
[2021-10-14] MEDS ORDERED: NS IV 1000 ML 1,000 ML IV SCH (01:45)
[2021-10-14 02:20] VITALS: BP 149/75
== END 2021-10-14 02:20 | disposition short-term general hospital (02) ==
LOC: EDUNIT# 20:55 → ER 20:56
DX: S12.01XA Stable burst fracture of first cervical vertebra, initial encounter for closed fracture (principal); S12.110A Anterior displaced Type II dens fracture, initial encounter for closed fracture; I25.10 Atherosclerotic heart disease of native coronary artery without angina pectoris; Z23 Encounter for immunization; Z79.02 Long term (current) use of antithrombotics/antiplatelets; W01.0XXA Fall on same level from slipping, tripping and stumbling without subsequent striking against object, initial encounter
CPT/HCPCS: 36415; 51702; 70450; 72125; 80048; 81000; 85025; 90715

== ENCOUNTER 2021-10-19 12:35 | Inpatient (IN) | payer MEDICARE, OTHER ==
[~2021-10-19] VITALS: Ht 160 cm; Wt 87.6 kg
[~2021-10-19 12:35] MED LIST changes: +ACET-2267 PO; +ACETAMINOPHEN 325 MG TABLET PO PRN; +ALPRAZolam 0.25 MG (XANAX) TAB PO PRN; +BISA10SU8 RC; +BISACODYL 10 MG SUPP (DULCOLAX) PR PRN; +BISACODYL 10 MG SUPP (DULCOLAX) RC PRN; +CALCIUM CARBONATE 500 MG (TUMS) TAB.CHEW PO PRN; +CYCL1DRO OU; +DOCU100C37 PO; +DOCUSATE SODIUM 100 MG (COLACE) CAP PO PRN; +FLEET ENEMA ADULT 1 EA BTL PR PRN; +GABA-486 PO; +LACTULOSE SYRUP 10GM/15ML (ENULOSE) 30ML UDC PO PRN; +LOPERAMIDE 2 MG (IMODIUM) TABLET PO PRN; +MAGNESIUM HYDROXIDE PO PRN; +MELATONIN 3 MG TABLET PO PRN; +METH-732 PO; +MOM10U PO; +NALO4SPR NS; +NALOXONE HCL 4 MG NS PRN; +NON-FORMULARY MEDICATION 1 EA EA (Cyclosporine (Restasis) 1 EACH) OU PRN; +NON-FORMULARY MEDICATION 1 EA EA (Ipratropium Bromide 2 SPRAYS) NS PRN; +ONDANSETRON 4 MG (ZOFRAN) ORAL DISSOLVE TAB PO PRN; +OXYC-473 PO; +POLY17PO6 PO; +PROP10DR3 OP; +SENN-109 PO; +SENNA W/DOCUSATE (SENOKOT S) TABLET PO PRN; +diphenhydrAMINE 25 MG TAB (BENADRYL) PO PRN; +guaiFENesin/CODEINE (ROBITUSSIN AC) 10ML UDC PO PRN
--- NOTE | 2021-10-19 12:39 | PM&R Post Admission Assessment ---
PM&R HP Date of Visit: October 19, 2021 Time of Visit: 13:00 History of Present Illness CC: Debility following C1, C2 cervical spine fracture HPI: This is a 75 yr old female with a history of peripheral artery disease on Aspirin and Plavix. She has CAD and DAVID. With syncope status post ICD placement in the past. A pt of Dr. Anthony and Dr. Gaines as primary. She presented to the in-patient rehab from following cervical spine surgery due to instability of Angus and dens fracture, after suffering that from a fall. She had an uncomplicated surgery on 10/17/21. Which stabilized the fracture of the second cervical spine vertebrae. She has a history of pacemaker placement with ICD 9. Had peripheral artery disease status post endovascular reperfusion, 8 days prior to the fall. She is currently doing well. She is stable. Goal will be to initiate aggressive therapy in order to return back home. She does remain in a halo cervical spine brace. Past Knjiggo-Sawanb-Eojgny Hx Past Med/Social Hx: Reviewed Nursing Past Med/Soc Hx, Reviewed and Corrections made Patient Social History Marrital Status: Employed/Student: retired Smoking Status: Former Smoker Former Smoker, Quit: Sep 24, 1986 Type Used: Cigarettes Recent Hopitalizations: No Immunizations Up To Date Tetanus Booster (TDap): Unknown Date of Pneumonia Vaccine: Oct 03, 2014 Date of Influenza Vaccine: Mar 06, 2020 Seasonal Allergies Seasonal Allergies: No Past Medical History Surgeries: Gallbladder, Hysterectomy, Orthopedic, Pacemaker Respiratory: Sleep Apnea Currently Using CPAP: Yes Currently Using BIPAP: No Cardiac: Coronary Artery Disease, High Cholesterol, Hypertension, Irregular Heartbeat, Peripheral Vascular, Syncope 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: No Female 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 Disorders: Endometriosis Hysterectomy Genitourinary: Kidney Infection Gastrointestinal: Diverticulosis, Hiatal Hernia Musculoskeletal: Degenerate Disk Disease, Osteoporosis, Arthritis, Chronic Back Pain Endocrine: Hypothyroidsim, Diabetes, Non-Insulin dep History of Blood Disorders: Yes Adverse Reaction to Blood Claire: No PM&R Allergy/Meds/Data Review Allergies Coded Allergies: levofloxacin (Verified Allergy, Unknown, 10/26/14) ramipril (Verified Allergy, Unknown, 09/04/21) Home Medications Scheduled Acetaminophen (Tylenol Extra Strength), 1,000 MG PO Q6H, (Reported) Alendronate Sodium (Alendronate Sodium), 70 MG PO Landin, (Reported) Aspirin (Aspirin EC), 81 MG PO DAILY, (Reported) Calcium Carbonate/Vitamin D3 (Calcium 600 + Vit D 400 Softgl), 1 EACH PO DAILY, (Reported) Clopidogrel Bisulfate (Clopidogrel), 75 MG PO DAILY, (Reported) Cyanocobalamin (Cyanocobalamin Injection), 1,000 MCG IJ EVERY 2 WEEKS, (Reported) Docusate Sodium (Docusate Sodium), 100 MG PO BID, (Reported) Doxazosin Mesylate (Doxazosin Mesylate), 4 MG PO BID, (Reported) Furosemide (Furosemide), 40 MG PO DAILY, (Reported) Gabapentin (Gabapentin), 200 MG PO Q8H, (Reported) Levothyroxine Sodium (Euthyrox), 50 MCG PO DAILY, (Reported) Methocarbamol (Methocarbamol), 750 MG PO BID, (Reported) Metoprolol Succinate (Metoprolol Succinate), 100 MG PO BID, (Reported) Pantoprazole Sodium (Pantoprazole Sodium), 20 MG PO DAILY, (Reported) Polyethylene Glycol 3350 (Miralax), 17 GM PO BID, (Reported) Potassium Chloride (Potassium Chloride), 10 MEQ PO DAILY, (Reported) Pravastatin Sodium (Pravastatin Sodium), 10 MG PO DAILY, (Reported) Propylene Glycol (Systane Balance), 1 DROP OP HS, (Reported) Sertraline HCl (Sertraline HCl), 50 MG PO DAILY, (Reported) [Rohto Eye Drops], 1 DROP OU DAILY, (Reported) Scheduled PRN Bisacodyl (Bisacodyl), 10 MG RC DAILY PRN for CONSTIPATION-5TH LINE, (Reported) Cyclosporine (Restasis), 1 EACH OU BID PRN for DRY EYES, (Reported) Ipratropium Prospect (Ipratropium Prospect), 1-2 SPRAYS NS TID PRN for CONGESTION, (Reported) Magnesium Hydroxide (Milk of Magnesia), 10 ML PO DAILY PRN for HEARTBURN, (Repo rted) Naloxone HCl (Narcan), 4 MG NS UD PRN for OD OVERDOSE, (Reported) Oxycodone HCl (Roxicodone), 5-10 MG PO Q4H PRN for PAIN-SEVERE (8-10), (Reported) Sennosides/Docusate Sodium (Senna-S Tablet), 1 EACH PO DAILY PRN for CONSTIPATION-1ST LINE, (Reported) Discontinued Medications Calcium Carbonate (Calcium), 500 MG PO DAILY, (Reported) Discontinued Reason: Prescription changed Polyethylene Glycol 400 (Visine Dry Eye Relief), 1 DROP OU PRN PRN for DRY EYES, (Reported) Discontinued Reason: Prescription changed Current Medications Current Medications Reviewed Review of Systems Constitutional: see HPI, malaise, weakness EENTM: no symptoms reported Respiratory: no symptoms reported Cardiovascular: no symptoms reported Gastrointestinal: no symptoms reported Genitourinary: no symptoms reported Musculoskeletal: neck pain Skin: no symptoms reported Psychiatric/Neurological: Anxiety All Other Systems Reviewed Negative Unless Noted: Yes Physical Exam Physical Exam Vital Signs Capillary Refill : Height, Weight, BMI Height: 5'3.00" Weight: 182lbs. 0.0oz. [id number]; 32.70 BMI Method:Stated General Appearance: No Apparent Distress, WD/WN, Chronically ill Eyes: Bilateral Eye Normal Inspection, Bilateral Eye PERRL HEENT: PERRL/EOMI, Normal ENT Inspection, Pharynx Normal Neck: Limited Range of Motion, Other (In halo neck brace) Respiratory: Chest Non Tender, Lungs Clear, Normal Breath Sounds, No Accessory Muscle Use, No Respiratory Distress Cardiovascular: Regular Rate, Rhythm, No Edema, No Gallop, No JVD, No Murmur, Normal Peripheral Pulses Gastrointestinal: Normal Bowel Sounds, No Organomegaly, No Pulsatile Mass, Non Tender, Soft Back: Normal Inspection, No CVA Tenderness, No Vertebral Tenderness Extremity: Normal Capillary Refill, Normal Inspection, Normal Range of Motion, Non Tender, No Calf Tenderness, No Pedal Edema Neurologic/Psychiatric: Alert, Oriented x3, No Motor/Sensory Deficits, Normal Mood/Affect, Abnormal Gait Skin: Normal Color, Warm/Dry Lymphatic: No Adenopathy PM&R Medical Assessment & Plan REHAB/MEDICAL ASSESSMENT AND PLAN: REHAB IMPAIRMENT GROUP: C1-C2 fracture ETIOLOGIC DIAGNOSIS: C1-C2 fracture The comorbidities that impact the patients function and/or functional outcome by: Halo neck brace limiting range of motion, fall risk REHAB PLAN: The patient is being admitted to our comprehensive inpatient rehabilitation fac ili and can tolerate the intensity of service consisting of at least: 180 minutes of therapy a day, 5 out of 7 days a week Rehab treatment will consist of: PT and OT will focus on regaining function with use of assistive devices during halo neck brace in order to regain independence to return back to independent living The patient/family has a good understanding of our discharge process and will benefit from an interdisciplinary inpatient rehabilitation program. The patient has potential to make improvement and is in need of at least two of the following multidisciplinary therapies including but not limited to physical, occupational, speech, and prosthetics and orthotics. Additionally the patient will need services from respiratory, nutritional services, wound care, psychology, etc. (Customize this to each patient). Given the patients complex condition and risk of further medical complications, rehabilitation services cannot be safely or effectively provided at a lower level of care such as a senior living facility. BARRIERS TO DISCHARGE: Halo neck brace ESTIMATED LOS: 7 days DISPOSITION: Home with RELEVANT CHANGES SINCE PREADMISSION SCREENING: I have compared the patients medical and functional status at the time of the preadmission screening and there are: no changes PROGNOSIS: Good REHABILITATION GOALS: 1. PT and OT will focus on regaining function with use of assistive devices during halo neck brace in order to regain independence to return back to inde pendent living All the above goals were reviewed with the patient and he/she is in agreement. By signing this document, I acknowledge that I have personally performed a full physical examination on this patient within 24 hours of [facility] and have determined the patient to be able to tolerate the above course of treatment at an intensive level for a reasonable period of time. I will be completing a detailed individualized Plan of Care for this patient by day #4 of the patients stay based upon the Preadmission Screen, the Post-Admission Evaluation, and the therapy evaluations. Admission Dx/Comorbidities: (1) Closed Angus fracture Status: Acute ICD Codes: S12.01XA - Stable burst fracture of first cervical vertebra, initial encounter for closed fracture (2) Closed dens fracture Status: Acute ICD Codes: S12.100A - Unspecified displaced fracture of second cervical vertebra, initial encounter for closed fracture (3) CAD (coronary artery disease) ICD Codes: I25.10 - Atherosclerotic heart disease of [place] coronary artery without angina pectoris (4) PVD (peripheral vascular disease) ICD Codes: I73.9 - Peripheral vascular disease, unspecified (5) Hypothyroidism ICD Codes: E03.9 - Hypothyroidism, unspecified (6) Diabetes ICD Codes: E11.9 - Type 2 diabetes mellitus without complications (7) ICD (implantable cardioverter-defibrillator) in place ICD Codes: Z95.810 - Presence of automatic (implantable) cardiac defibrillator (8) DAVID on CPAP ICD Codes: G47.33 - Obstructive sleep apnea (adult) (pediatric); Z99.89 - Dependence on other enabling machines and devices (9) Former smoker ICD Codes: Z87.891 - Personal history of nicotine dependence (10) Carotid stenosis ICD Codes: I65.29 - Occlusion and stenosis of unspecified carotid artery (11) Hypertension ICD Codes: I10 - Essential (primary) hypertension (12) Sick sinus syndrome ICD Codes: I49.5 - Sick sinus syndrome (13) Pacemaker ICD Codes: Z95.0 - Presence of cardiac pacemaker (14) B12 deficiency ICD Codes: E53.8 - Deficiency of other specified B group vitamins (15) GERD (gastroesophageal reflux disease) ICD Codes: K21.9 - Gastro-esophageal reflux disease without esophagitis (16) Emphysema lung ICD Codes: J43.9 - Emphysema, unspecified (17) Status post fall Status: Acute ICD Codes: Z91.89 - Other specified personal risk factors, not elsewhere classified (18) PVD (peripheral vascular disease) ICD Codes: I73.9 - Peripheral vascular disease, unspecified Assessment/Plan Assessment and Plan Assess & Plan/Chief Complaint Assessment: Closed C1-C2 fracture status post surgical stabilization now in halo neck brace Status post fall CAD PVD recent reperfusion ICD/pacemaker placement managed by Dr. Anthony Diabetes Hypothyroidism Hypertension B12 deficiency DAVID on CPAP GERD Emphysema Carotid stenosis Plan: Pain control Home meds Rehab protocol Cardiology consultation ITZEL MARRERO DO October 19, 2021 12:39
[2021-10-19 13:13] VITALS: BP 163/73
[2021-10-19] MEDS ORDERED: MILK OF MAGNESIA 400 MG/5 ML 30 ML UDC PO PRN (13:15)
[2021-10-19] MEDS ORDERED: ARTIFICAL TEARS 0.4 ML UNIT DOSE (REFRESH PLUS) OU PRN (13:15)
[2021-10-19] MEDS ORDERED: NALOXONE 0.4 MG/ML 1 ML (NARCAN) VIAL IV PRN (13:30)
--- NOTE | 2021-10-19 14:11 | ST Cognitive Linguistic Eval ---
Speech Evaluation-General Medical Diagnosis Cervical Spine Fracture Onset Date: October 19, 2021 Therapy Diagnosis Therapy Diagnosis: Intact Neurocognitive Skills Precautions Precautions: Fall Precautions/Isolations: Fall Prevention, Standard Precautions Referral Referring Physician: Dr. Billie Alcala Reason for Referral: Evaluation/Treatment Medical History Current History The patient is a 75 year-old female with a past medical history of high cholesterol, HTN, and diabetes, who presented to [facility] following a fall which resulted in a C1 anterior/posterior arch and type II odontoid fracture of the cervical spine. Reviewed History: Yes Speech PLF-Current Status Prior Level of Function The patient denied prior or current concerns with her speech, language or cognition. Subjective The patient was seated upright at the edge of bed, awake and alert upon entrance to her room by the clinician. The patient greeted the clinician appropriately and was agreeable to participation in the cognitive assessment. Language Eval: Auditory Comprehends Simple Yes/No Ques: Functional Indent/Objects Multiple Mcgarry: Functional Ident/Pics in Multiple Mcgarry: Functional Follows 1-Step Commands: Functional Follows Complex Directions: Functional Follows General Conversations: Functional Language Eval: Verbal Language Completes Spontaneous Greeting: Functional Produces Auto, Serial Info: Functional Imitates Simple Words/Phrases: Functional Word Finding: Functional Requests Basic Needs: Functional States Basic Personal Info: Functional Expresses Complex Ideas: Functional Language Evaluation: Reading Follows Simple Written Direct: Functional Language Evaluation: Writing Writes to Simple Dictation: Functional Cognitive Patient Orientation The patient was independently oriented to self, location, month, day of week, date, and year. Objective Cognitive Domain Attention: WNL Memory: WNL Problem Solving: Functional Executive Functions: WNL Visuospatial Skills: WNL Composite Severity Rating: WNL Clock Drawing Severity Rating: WNL Objective Formal/Standardized Tests [facility] Mental Status Exam Results The patient demonstrated a result of +30/30 on the SLUMS correlating to neurocognitive skills within normal limits. Oral Motor/Speech Production The patient does not display dysarthria or apraxia of speech at this time. The patient is 100% intelligible in known and unknown contexts. Impression The patient demonstrated neurocognitive skills within normal limits. Speech Patient Assess Expression of Ideas/Wants: Expression (4) Understanding Verbal Content: Understands (4) Brief Interview-Mental Status: Yes Repetition of Three Words: Three (3) Temporal Orientation: Year: Correct (3) Temporal Orientation: Month: Accurate within 5 days(2) Temporal Orientation: Day: Correct (1) Recall : Wear to say "Sock": Yes, no cue required (2) Recall : Color: Yes, no cue required (2) Recall : Bed: Yes, no cue required (2) Memory/Recall Ability: Current season, Location of own room, Staff names and faces, That he or she is in a hsp/hsp unit Speech-Plan Treatment Plan Speech Therapy Treatment Plan: Discontinue ST Treatment Duration: October 19, 2021 Frequency: 1 time per week Estimated Hrs Per Day: .5 hour per day Rehab Potential: Good Pt/Family Agrees to Plan: Yes Safety Risks/Education Teaching Recipient: Patient, Family Teaching Methods: Discussion Response to Teaching: Verbalize Understanding Education Topics Provided: Results of SLUMS Time Speech Therapy Time In: 12:40 Speech Therapy Time Out: 13:10 Total Billed Time: 30 Billed Treatment Time 1, AMBER MAGANA ELIZABETH ST October 19, 2021 14:11
[2021-10-19] MEDS: ENOXAPARIN 40 MG/0.4 ML (LOVENOX) SYR SC SCH (14:33)
[2021-10-19] MEDS: GABAPENTIN 100 MG (NEURONTIN) CAP PO SCH ×2 (14:33→21:21)
--- NOTE | 2021-10-19 14:36 | Occupational Therapy Eval ---
OT Evaluation-General/PLF Medical Diagnosis Admission Date October 19, 2021 at 12:35 Medical Diagnosis: Cervical Spine Fracture Onset Date: October 19, 2021 Therapy Diagnosis Therapy Diagnosis: reduced adl status Height/Weight Height (Feet): 5 Height (Inches): 3.00 Weight (Pounds): 182 Weight (Ounces): 0.0 Precautions Precautions/Isolations: Fall Prevention, Standard Precautions Weight Bear Status Weight Bearing Restriction: Non Weight Bearing (L 3rd finger, stack splint in place. ) Referral Physician: Fredrick Referral Reason: Evaluation/Treatment Medical History Pertinent Medical History: CAD, Fractures (pre-existing decreased ankle ROM from multiple fractures ), GERD, HTN Additional Medical History 10/17/21 pt underwent placement of HALO Current History Pt experienced a fall resulting in C1/2 fracture. placement of HALO performed on 10/17/21. Per patient, she lives with spouse in a single story home. Pt was indep with adls and her spouse performs the IADLs. She was using a cane prior to admission but also owns a FWW. Pt has an AFO for R ankle instability/foot drop but does not wear it. Foot catching is cause of fall. Reviewed History: Yes Social History Home: Single Level Current Living Status: Spouse ADL-Prior Level of Function SCALE: Activities may be completed with or without assistive devices. 4-Sxexdmmsma-dstzkmj completes the activity by him/herself with no assistance fr om a helper. 5-Set-up or Clean-up Assistance-helper sets up or cleans up; patient completes activity. Katy assists only prior to or following the activity. 4-Supervision or Touching Assistance-helper provides verbal cues and/or touching/steadying and/or contact guard assistance as patient completes activity. Assistance may be provided throughout the activity or intermittently. 3-Partial/Moderate Assistance-helper does LESS THAN HALF the effort. Katy lifts, holds or supports trunk or limbs, but provides less than half the effort. 2-Substantial/Maximal Assistance-helper does MORE THAN HALF the effort. Katy lifts or holds trunk or limbs and provides more than half the effort. 5-Gwhvxvwsl-ybpojs does ALL the effort. Patient does none of the effort to complete the activity. Or, the assistance of 2 or more helpers is required for the patient to complete the activity. If activity was not attempted, code reason: 7-Patient Refused. 9-Not Applicable-not attempted and the patient did not perform the activity before the current illness, exacerbation or injury. 10-Not Attempted due to Environmental Limitations-(lack of equipment, weather restraints, etc.). 88-Not Attempted due to Medical Conditions or Safety Concerns. Self Care: Independent Functional Cognition: Needed Some Help DME/Equipment: Bath Chair, Shower Drive Self: No OT Current Status Subjective Pt reports discomfort/fatigue in neck from weight of HALO. Agreeable to eval. Co-treat with PT for part of session secondary to high fall risk, poor ankle instability, poor balance, and fatigue. Appearance Pt left sitting in recliner, all needs within reach, family in the room. Mental Status/Objective Patient Orientation: Person, Place, Situation Current Glasses/Contacts: Yes Hearing Aids: No Hand Dominance: Right Upper Extremity ROM Bilateral shoulders to 90 degrees with HALO Elbow-distally WNL. L 3rd finger in stack splint Upper Extremity Strength Not tested due to recent cervical fracture. ADL-Treatment Eating (QC): 5 Oral Hygiene (QC): 7 Shower/Bathe Self (QC): 3 Upper Body Dressing (QC): 2 Lower Body Dressing (QC): 3 On/Off Footwear (QC): 3 Toileting Hygiene (QC): 3 Pt sitting EOB at therapy arrival. Good sitting balance exhibited. Sponge bath completed seated EOB. Assist needed to wash posterior shoulders due to reduced shoulder ROM secondary to HALO. Due to impaired COG with halo, pt unable to bend at waist without loosing balance. Due to weakness, pt needs assist to lift/cross foot over contralateral knee. Once in figure 4 position, pt able to maintain in order to wash foot. Cues for correct hand placement when transferring to standing. CGA-Min a to stand, steadying assist needed once upright as pt washed jennifer area and buttocks. Max a needed to don shirt over and around HALO. Education to family on clothing that may be more appropriate. Again, assist needed to lift LE's as pt threaded foot into clothing. She was able to stand and pull clothing up to waist with steadying assistance. Pt is very slow with all adls needing extensive amount of time to complete. Per family, pt usually takes a long time to get ready in the morning. Pt could benefit from instruction on adaptive equipment for energy conservation and to improve independence in task. Pt ambulated around unit with min a and use of walker. Pt often dragging R foot, needing cues to last picker at hip and to flex knee. Family reports that multiple falls have occurred because of pt's refusal to wear AFO. Pt has even reported a fall in the shower because of R foot drop. Family also states pt has a tendency to circumduct her RLE vs lifting at hip and flexing knee. Education OT Patient Education: Correct positioning, Energy conservation, Modified ADL techniques, Purpose of tx/functional activities, Reviewed precautions, Rehab process, Safety issues, Transfer techniques, Use of adapted equipment Teaching Recipient: Patient, Family Teaching Methods: Demonstration, Discussion Response to Teaching: Verbalize Understanding, Return Demonstration, Reinforcem ent Needed OT Short Term Goals Short Term Goals Time Frame: October 29, 2021 Eatin Oral hygiene: 5 Toileting hygiene: 4 Shower/bathe self: 4 Upper body dressin Lower body dressin Putting on/taking off footwear: 4 OT Stone Derrickman And Rigger Goals Long-Term Goals Time Frame: November 07, 2021 Eating (QC): 6 Oral Hygiene (QC): 6 Toileting Hygiene (QC): 6 Shower/Bathe Self (QC): 5 Upper Body Dressing (QC): 5 Lower Body Dressing (QC): 5 On/Off Footwear (QC): 6 1=Demonstrate adherence to instructed precautions during ADL tasks. 2=Patient will verbalize/demonstrate understanding of assistive devices/modifications for ADL. 3=Patient will improve strength/tolerance for activity to enable patient to perform ADL's. OT Education/Plan Problem List/Assessment Assessment: Decreased Activ Tolerance, Decreased Safety Aware, Decreased UE Strength Discharge Recommendations Plan/Recommendations: Continue POC Therapy Discharge Recommendati: Post Acute OT Treatment Plan/Plan of Care Treatment,Training & Education: Yes Patient would benefit from OT for education, treatment and training to promote independence in ADL's, mobility, safety and/or upper extremity function for ADL's. Plan of Care: ADL Retraining, Cognitive Retraining, Functional Mobility, Group Exercise/Act as Ind, Orthotic Fitting/Training, UE Funct Exercise/Act Treatment Duration: November 07, 2021 Frequency: At least 5 of 7 days/Wk (IRF) Estimated Hrs Per Day: 1.5 hours per day (75-90 min/day ) Agreement: Yes Rehab Potential: Good Time/GCodes Start Time: 13:20 Stop Time: 14:35 Total Time Billed (hr/min): 75 Billed Treatment Time 1 visit EVM (10 min) ADL x3 (50 min) FA (15 min) Sulema Samson OT October 19, 2021 14:36
--- NOTE | 2021-10-19 14:42 | Physical Therapy Evaluation ---
PT Evaluation-General Medical Diagnosis Admission Date October 19, 2021 at 12:35 Medical Diagnosis: Cervical Spine Fracture Onset Date: October 19, 2021 Therapy Diagnosis Therapy Diagnosis: impaired mobility, strength, endurance Height/Weight Height (Feet): 5 Height (Inches): 3.00 Weight (Pounds): 182 Weight (Ounces): 0.0 Precautions Precautions/Isolations: Fall Prevention, Standard Precautions Weight Bear Status Patient NWB on left 3rd digit Referral Physician: Billie Alcala DO Reason for Referral: Evaluation/Treatment Medical History Additional Medical History Past Medical History Surgeries: Gallbladder, Hysterectomy, Orthopedic, Pacemaker Currently Using CPAP: Yes Currently Using BIPAP: No Cardiac: High Cholesterol, Hypertension, Syncope 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: No Female 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 Disorders: Endometriosis Hysterectomy Genitourinary: Kidney Infection Gastrointestinal: Diverticulosis, Hiatal Hernia Musculoskeletal: Degenerate Disk Disease, Osteoporosis, Arthritis, Chronic Back Pain Endocrine: Hypothyroidsim, Diabetes, Non-Insulin dep Reviewed History: Yes Social History Home: Single Level Current Living Status: Spouse Entry Into Home: Stairs Without Railing PT Steps Into Home: 2 Prior Prior Level of Function SCALE: Activities may be completed with or without assistive devices. 1-Fbmmzkobgf-bpjvxqk completes the activity by him/herself with no assistance from a helper. 5-Set-up or Clean-up Assistance-helper sets up or cleans up; patient completes activity. [place] assists only prior to or following the activity. 4-Supervision or Touching Assistance-helper provides verbal cues and/or touching/steadying and/or contact guard assistance as patient completes activ ity. Assistance may be provided throughout the activity or intermittently. 3-Partial/Moderate Assistance-helper does LESS THAN HALF the effort. [place] lifts, holds or supports trunk or limbs, but provides less than half the effort. 2-Substantial/Maximal Assistance-helper does MORE THAN HALF the effort. [place] lifts or holds trunk or limbs and provides more than half the effort. 7-Mydclgxho-dmcdlx does ALL the effort. Patient does none of the effort to complete the activity. Or, the assistance of 2 or more helpers is required for the patient to complete the activity. If activity was not attempted, code reason: 7-Patient Refused. 9-Not Applicable-not attempted and the patient did not perform the activity before the current illness, exacerbation or injury. 10-Not Attempted due to Environmental Limitations-(lack of equipment, weather restraints, etc.). 88-Not Attempted due to Medical Conditions or Safety Concerns. Bed Mobility: 6 Transfers (B,C,W/C): 6 Gait: 6 Stairs: 6 Indoor Mobility (Ambulation): Independent Stairs: Independent Patient says she used a SPC occasionally. PT Evaluation-Current Subjective Patient sitting EOB pre tx, agrees to PT, has no complaints of pain. Will be co-treating with OT due to poor patient mobility, strength, endurance, pain with activity, coordinate UE and LE with activity, safety and reduce risk of falls. Pt/Family Goals to be independent at home Objective Patient Orientation: Person, Place, Situation halo ROM/Strength ROM Lower Extremities WNL Strength Lower Extremities LLE (hip flexion 3/5, knee flexion 4-/5, knee extension 4/5, dorsiflexion 4/5), RLE (hip flexion 3/5, knee flexion 3+/5, knee extension 4/5, dorsiflexion 1/5) Sensory Vision: Functional Hearing: Functional Sensation Right Lower Extremit: Intact Sensation Left Lower Extremity: Intact Transfers Roll Left & Right (QC): 3 Sit to Lying (QC): 3 Lying to Sitting/Side of Bed(Q: 3 Sit to Stand (QC): 4 Chair/Xyc-ep-Zmgav Xfer(QC): 4 Toilet Transfer (QC): 4 Car Transfer (QC): 4 Patient performs rolling and supine <-> sit with mod assist, sit <-> stand and transfers with CGA, car transfer CGA. Patient needs occasional cues for safety and positioning. Gait Does the Patient Walk?: Yes Mode of Locomotion: Walk Anticipated Mode of Locomotion: Walk Walk 10 feet (QC): 4 Walk 50 ft with 2 Turns(QC): 4 Walk 150 ft (QC): 88 Walking 10ft/uneven surface-QC: 4 Distance: 100'x2 Gait Assistive Device: FWW Comments/Gait Description Patient can ambulate 100' with a rolling walker with CGA (including 50' with at least 2 turns of 90 degrees and 10' over an uneven surface). Patient has a little unsteadiness but no LOB, she has right foot drop (used to wear an AFO but doesn't now), has a steppage gait, hip hike on the right side. Wheelchair Training Does the Pt Use a Wheelchair?: No Wheel 50 ft with 2 turns (QC): 9 Wheel 150 ft (QC): 9 Stairs #of Steps: 1 1 Step (curb) (QC): 4 4 Steps (QC): 88 12 Steps (QC): 88 Walking Assistive Device: Walker Patient can go up an down 1 step using a rolling walker with CGA, cues for foot placement, she can be a little impulsive with this. Balance Sitting Static: Normal Sitting Dynamic: Normal Standing Static: Good Standing Dynamic: Fair Picking up an Object (QC): 4 (CGA using grocery store bagger) Treatment PT performed bed mobility and transfers ambulation, stair training, standing and positioning during bathing and dressing, OT performed bathing, dressing, UE positioning and safety during activity. Assessment/Needs Patient in recliner post tx with nurse call, phone, tray, all needs met. Patient has impaired mobility, strength, endurance. She needs mod assist for supine <-> sit but is just CGA for ambulation and transfers. Rehab Potential: Fair PT Short Term Goals Short Term Goals Time Frame: October 26, 2021 Roll Left & Right: 3 (Jaxon) Sit to lyin (Jaxon) Lying to sitting on side of be: 3 (Jaxon) Sit to stand: 4 (SBA) Chair/zcj-xj-ewxfp transfer: 4 (SBA) Walk 10 feet: 4 (SBA) Walk 50 feet with two turns: 4 (SBA) Walk 150 feet: 4 (SBA) PT Senior Living Goals Senior Living Goals PT Senior Living Goals Time Frame: November 09, 2021 Roll Left & Right (QC): 4 Sit to Lying (QC): 4 Lying-Sitting on Side/Bed(QC): 4 Sit to Stand (QC): 6 Chair/Fim-lp-Uczdt Xfer(QC): 6 Toilet Transfer (QC): 6 Car Transfer (QC): 6 Does the Patient Walk: Yes Walk 10 feet (QC): 6 Walk 50ft with 2 Turns (QC): 6 Walk 150 ft (QC): 6 Walking 10ft on Uneven Surface: 6 1 Step (curb) (QC): 4 4 Steps (QC): 4 12 Steps (QC): 88 Picking up an Object (QC): 6 Wheel 50 feet with 2 turns (QC: 9 Wheel 150 feet: 9 PT Plan Problem List Problem List: Activity Tolerance, Functional Strength, Safety, Balance, Gait, Transfer, Bed Mobility, ROM Treatment/Plan Treatment Plan: Continue Plan of Care Treatment Plan: Bed Mobility, Education, Functional Activity Wolfgang, Functional Strength, Group Therapy, Gait, Safety, Therapeutic Exercise, Transfers Treatment Duration: November 09, 2021 Frequency: At least 5 of 7 days/Wk (IRF) Estimated Hrs Per Day: 1.5 hours per day Patient and/or Family Agrees t: Yes Safety Risks/Education Patient Education: Gait Training, Transfer Techniques, Steps, Correct Positio scottie, Safety Issues Teaching Recipient: Patient Teaching Methods: Demonstration, Discussion Response to Teaching: Reinforcement Needed Discharge Recommendations Plan Patient will perform bed mobility and transfer training, balance and endurance training, functional strengthening, stair training, gait training, and education, to improve functional mobility and independence at home. Therapy Discharge Recommendati: Home & Family, Post Acute PT Time/GCodes Time In: 1310 Time Out: 1435 Total Billed Treatment Time: 75 Total Billed Treatment 1 visit EVM 10' FA 65' PT eval from [id number], OT eval from [id number], co-treat from [id number] FLORIAN TOSCANO PT October 19, 2021 14:42
[2021-10-19] MEDS: DOCUSATE SODIUM 100 MG (COLACE) CAP PO SCH (19:56)
[2021-10-19] MEDS: polyethylene glycoL POWDER 17 GM (MIRALAX) PACK PO SCH (19:56)
[2021-10-19] MEDS: SENNA W/DOCUSATE (SENOKOT S) TABLET PO SCH (19:57)
[2021-10-19 20:04] VITALS: BP 166/86
[2021-10-19] MEDS: METHOCARBAMOL 750 MG (ROBAXIN) TAB PO SCH (20:55)
[2021-10-19] MEDS: doxAzosin 4 MG (CARDURA) TAB PO SCH (20:55)
[2021-10-19] MEDS: meTOprolol SUCCINATE 100 MG (TOPROL XL) TAB PO SCH (20:55)
[2021-10-19] MEDS: ARTIFICAL TEARS 0.4 ML UNIT DOSE (REFRESH PLUS) OU SCH (20:56)
[2021-10-19] MEDS ORDERED: DOCUSATE SODIUM 100 MG (COLACE) CAP PO SCH (21:00)
[2021-10-19] MEDS ORDERED: NON-FORMULARY MEDICATION 1 EA EA (Propylene Glycol (Systane Balance) 1 DROP) OP SCH (21:00)
[2021-10-19] MEDS ORDERED: polyethylene glycoL POWDER 17 GM (MIRALAX) PACK PO SCH (21:00)
[2021-10-20 06:22] LABS: BASOPHILS # (AUTO) 0.1 10^3/uL (0.0-0.1); BASOPHILS % (AUTO) 1 % (0-10); EOSINOPHILS # (AUTO) 0.3 10^3/uL (0.0-0.3); EOSINOPHILS % (AUTO) 5 % (0-10); HEMATOCRIT 42 % (35-52); HEMOGLOBIN 13.4 g/dL (11.5-16.0); LYMPHOCYTES # (AUTO) 1.6 10^3/uL (1.0-4.0); LYMPHOCYTES % (AUTO) 23 % (12-44); MEAN CORPUSCULAR HEMOGLOBIN 29 pg (25-34); MEAN CORPUSCULAR HGB CONC 32 g/dL (32-36); MEAN CORPUSCULAR VOLUME 91 fL (80-99); MONOCYTES # (AUTO) 0.8 10^3/uL (0.0-1.0); MONOCYTES % (AUTO) 12 % (0-12); NEUTROPHILS % (AUTO) 59 % (42-75); PLATELET COUNT 230 10^3/uL (130-400); WHITE BLOOD COUNT 6.8 10^3/uL (4.3-11.0)
[2021-10-20 06:26] LABS: CALCIUM 9.4 MG/DL (8.5-10.1)
[2021-10-20] MEDS: KCL 10 MEQ TAB (MICRO K) PO SCH (06:26)
[2021-10-20] MEDS: LEVOTHYROXINE 50 MCG (LEVOTHROID) TAB PO SCH (06:26)
[2021-10-20] MEDS: GABAPENTIN 100 MG (NEURONTIN) CAP PO SCH ×3 (06:26→22:14)
[2021-10-20 06:28] LABS: TOTAL PROTEIN 6.9 GM/DL (6.4-8.2)
[2021-10-20 06:30] LABS: BILIRUBIN,TOTAL 0.5 MG/DL (0.1-1.0)
[2021-10-20 06:31] LABS: CREATININE SERUM 1.03 MG/DL (0.60-1.30)
--- NOTE | 2021-10-20 06:41 | PM&R Progress Note ---
Subjective HPI/CC On Admission Date Seen by Provider: October 20, 2021 Time Seen by Provider: 11:00 Subjective/Events-last exam 10/20/2021: Patient doing well Pain is controlled Labs reviewed Eating and drinking well Bowel function normal Will be in a halo for total of 4 months Review of Systems Musculoskeletal: neck pain Objective Exam Vital Signs Vital Signs Date Time Temp Pulse Resp B/P (MAP) Pulse Ox O2 Delivery O2 Flow Rate FiO2 10/20/21 23:10 79 133/79 (97) 10/20/21 21:04 95 Room Air 10/20/21 19:34 36.8 16 Capillary Refill : General Appearance: No Apparent Distress, WD/WN, Chronically ill HEENT: PERRL/EOMI, Normal ENT Inspection, Pharynx Normal Neck: Limited Range of Motion, Other (In halo neck brace) Respiratory: Chest Non Tender, Lungs Clear, Normal Breath Sounds, No Accessory Muscle Use, No Respiratory Distress Cardiovascular: Regular Rate, Rhythm, No Edema, No Gallop, No JVD, No Murmur, Normal Peripheral Pulses Gastrointestinal: Normal Bowel Sounds, No Organomegaly, No Pulsatile Mass, Non Tender, Soft Back: Normal Inspection, No CVA Tenderness, No Vertebral Tenderness Extremity: Normal Capillary Refill, Normal Inspection, Normal Range of Motion, Non Tender, No Calf Tenderness, No Pedal Edema Neurologic/Psychiatric: Alert, Oriented x3, No Motor/Sensory Deficits, Normal Mood/Affect, Abnormal Gait Skin: Normal Color, Warm/Dry Lymphatic: No Adenopathy Results/Procedures Lab Patient resulted labs reviewed. FIM Transfers Therapy Code Descriptions/Definitions Functional [place] Measure: 0=Not Assessed/NA 4=Minimal Assistance 1=Total Assistance 5=Supervision or Setup 2=Maximal Assistance 6=Modified [place] 3=Moderate Assistance 7=Complete IndependenceSCALE: Activities may be completed with or without assistive devices. 3-Fybrmifbno-nzthtys completes the activity by him/herself with no assistance from a helper. 5-Set-up or Clean-up Assistance-helper sets up or cleans up; patient completes activity. [place] assists only prior to or following the activity. 4-Supervision or Touching Assistance-helper provides verbal cues and/or touching/steadying and/or contact guard assistance as patient completes activity. Assistance may be provided throughout the activity or intermittently. 3-Partial/Moderate Assistance-helper does LESS THAN HALF the effort. [place] lifts, holds or supports trunk or limbs, but provides less than half the effort. 2-Substantial/Maximal Assistance-helper does MORE THAN HALF the effort. [place] lifts or holds trunk or limbs and provides more than half the effort. 4-Yshiuprmy-khzfov does ALL the effort. Patient does none of the effort to complete the activity. Or, the assistance of 2 or more helpers is required for the patient to complete the activity. If activity was not attempted, code reason: 7-Patient Refused. 9-Not Applicable-not attempted and the patient did not perform the activity before the current illness, exacerbation or injury. 10-Not Attempted due to Environmental Limitations-(lack of equipment, weather restraints, etc.). 88-Not Attempted due to Medical Conditions or Safety Concerns. Roll Left to Right (QC): 3 Sit to Lying (QC): 3 Sit to Stand (QC): 4 Chair/Rmw-mx-Eqqdi Xfer(QC): 4 Car Transfer (QC): 4 Gait Training Does the Patient Walk?: Yes Walk 10 feet (QC): 4 Walk 50 ft with 2 Turns(QC): 4 Walk 150 ft (QC): 88 Walking 10ft/uneven surface-QC: 4 Gait Assistive Device: FWW Wheelchair Training Does the Pt Use a Wheelchair?: No Wheel 50 ft with 2 turns (QC): 9 Wheel 150 ft (QC): 9 Stair Training #of Steps: 1 1 Step (curb) (QC): 4 4 Steps (QC): 88 12 Steps (QC): 88 Balance Picking up an Object (QC): 4 (CGA using call center dispatcher) ADL-Treatment Eating (QC): 5 Oral Hygiene (QC): 7 Shower/Bathe Self (QC): 3 Upper Body Dressing (QC): 2 Lower Body Dressing (QC): 3 On/Off Footwear (QC): 3 Toileting Hygiene (QC): 3 Assessment/Plan Assessment and Plan Assess & Plan/Chief Complaint Assessment: Closed C1-C2 fracture status post surgical stabilization now in halo neck brace Status post fall CAD PVD recent reperfusion ICD/pacemaker placement managed by Dr. Anthony Diabetes Hypothyroidism Hypertension B12 deficiency DAVID on CPAP GERD Emphysema Carotid stenosis Plan: Pain control Home meds Rehab protocol Cardiology consultation 10/20/2021: Supportive care Pain control (1) Closed Angus fracture Status: Acute (2) Closed dens fracture Status: Acute (3) CAD (coronary artery disease) (4) PVD (peripheral vascular disease) (5) Hypothyroidism (6) Diabetes (7) ICD (implantable cardioverter-defibrillator) in place (8) DAVID on CPAP (9) Former smoker (10) Carotid stenosis (11) Hypertension (12) Sick sinus syndrome (13) Pacemaker (14) B12 deficiency (15) GERD (gastroesophageal reflux disease) (16) Emphysema lung (17) Status post fall Status: Acute (18) PVD (peripheral vascular disease) ITZEL MARRERO DO October 20, 2021 06:41
[2021-10-20 07:26] VITALS: BP 153/73
--- NOTE | 2021-10-20 08:25 | Physical Therapy Daily Note ---
PT Daily Note-Current Subjective Upon arrival, pt was seated in recliner. Pt agrees to PT. Pain Comment: Pt reports pain, but not rated. Mental Status Patient Orientation: Person, Place, Time, Situation, Normal For Age Transfers SCALE: Activities may be completed with or without assistive devices. 9-Yeofjlmviq-qnlmjzb completes the activity by him/herself with no assistance from a helper. 5-Set-up or Clean-up Assistance-helper sets up or cleans up; patient completes activity. [place] assists only prior to or following the activity. 4-Supervision or Touching Assistance-helper provides verbal cues and/or touc sukh/steadying and/or contact guard assistance as patient completes activity. Assistance may be provided throughout the activity or intermittently. 3-Partial/Moderate Assistance-helper does LESS THAN HALF the effort. [place] lifts, holds or supports trunk or limbs, but provides less than half the effort. 2-Substantial/Maximal Assistance-helper does MORE THAN HALF the effort. [place] lifts or holds trunk or limbs and provides more than half the effort. 2-Upxuzikkj-xhzzvb does ALL the effort. Patient does none of the effort to complete the activity. Or, the assistance of 2 or more helpers is required for the patient to complete the activity. If activity was not attempted, code reason: 7-Patient Refused. 9-Not Applicable-not attempted and the patient did not perform the activity before the current illness, exacerbation or injury. 10-Not Attempted due to Environmental Limitations-(lack of equipment, weather restraints, etc.). 88-Not Attempted due to Medical Conditions or Safety Concerns. Weight Bearing Patient NWB on left 3rd digit Gait Training Does the Patient Walk?: No and Walking Goal IS indicated Exercises Seated Therapy Exercises: Ankle pumps (2x 15 reps and 20 reps), Long arc quads (2x 20 rep & 15 rep), Hip flexion (15x), Hamstring Curls (15x), Hip abd/add (15x) Treatments Pt performed and completed all seated Exs as listed above. During tx session pts and dietary arrives. Pt was seated in recliner with call light and tray in reach, and all needs were met. As PT exits pts room, pts was still present. Assessment Current Status: Good Progress Pt would benefit from continued PT to improve on strength. PT Short Term Goals Short Term Goals Time Frame: October 26, 2021 Roll Left & Right: 3 (Jaxon) Sit to lyin (Jaxon) Lying to sitting on side of be: 3 (Jaxon) Sit to stand: 4 (SBA) Chair/yno-zh-lvqih transfer: 4 (SBA) Walk 10 feet: 4 (SBA) Walk 50 feet with two turns: 4 (SBA) Walk 150 feet: 4 (SBA) PT Veterinary Livestock Inspector Goals Veterinary Livestock Inspector Goals PT Mcfp Goals Time Frame: November 09, 2021 Roll Left & Right (QC): 4 Sit to Lying (QC): 4 Lying-Sitting on Side/Bed(QC): 4 Sit to Stand (QC): 6 Chair/Fss-ip-Jczjy Xfer(QC): 6 Toilet Transfer (QC): 6 Car Transfer (QC): 6 Does the Patient Walk: Yes Walk 10 feet (QC): 6 Walk 50ft with 2 Turns (QC): 6 Walk 150 ft (QC): 6 Walking 10ft on Uneven Surface: 6 1 Step (curb) (QC): 4 4 Steps (QC): 4 12 Steps (QC): 88 Picking up an Object (QC): 6 Wheel 50 feet with 2 turns (QC: 9 Wheel 150 feet: 9 PT Plan Problem List Problem List: Functional Strength Treatment/Plan Treatment Plan: Continue Plan of Care Treatment Plan: Bed Mobility, Education, Functional Activity Wolfgang, Functional Strength, Group Therapy, Gait, Safety, Therapeutic Exercise, Transfers Treatment Duration: November 09, 2021 Frequency: At least 5 of 7 days/Wk (IRF) Estimated Hrs Per Day: 1.5 hours per day Patient and/or Family Agrees t: Yes Time/GCodes Time In: 805 Time Out: 815 Total Billed Treatment Time: 15 Total Billed Treatment 1, EX (15) ODILON DONALD PTA October 20, 2021 08:25
[2021-10-20] MEDS: FUROSEMIDE 40 MG (LASIX) TAB PO SCH (08:28)
[2021-10-20] MEDS: CALCIUM CARB + VIT D 600 MG (CALCARB + D) TAB PO SCH (08:29)
[2021-10-20] MEDS: SERTRALINE 50 MG (ZOLOFT) TABLET PO SCH (08:29)
[2021-10-20] MEDS: PANTOPRAZOLE 20 MG TABLET (PROTONIX) PO SCH (08:29)
[2021-10-20] MEDS: ASPIRIN E.C. 81 MG (ECOTRIN) TAB PO SCH (08:29)
[2021-10-20] MEDS: CLOPIDOGREL 75 MG (PLAVIX) TABLET PO SCH (08:29)
[2021-10-20] MEDS: doxAzosin 4 MG (CARDURA) TAB PO SCH ×2 (08:29→21:01)
[2021-10-20] MEDS: METHOCARBAMOL 750 MG (ROBAXIN) TAB PO SCH ×2 (08:29→21:01)
[2021-10-20] MEDS: meTOprolol SUCCINATE 100 MG (TOPROL XL) TAB PO SCH ×2 (08:29→21:01)
[2021-10-20] MEDS: DOCUSATE SODIUM 100 MG (COLACE) CAP PO SCH ×2 (08:30→21:01)
[2021-10-20] MEDS: SENNA W/DOCUSATE (SENOKOT S) TABLET PO SCH ×2 (08:30→21:02)
[2021-10-20] MEDS: polyethylene glycoL POWDER 17 GM (MIRALAX) PACK PO SCH ×2 (08:30→21:02)
[2021-10-20] MEDS: AtorvaSTATin TABLET 10 MG TABLET PO SCH (08:30)
[2021-10-20] MEDS ORDERED: NON-FORMULARY MEDICATION 1 EA EA (Calcium Carbonate/Vitamin D3 (Calcium 600 + Vit D 400 So PO SCH (09:00)
[2021-10-20] MEDS ORDERED: NON-FORMULARY MEDICATION 1 EA EA (Potassium Chloride 10 MEQ) PO SCH (09:00)
[2021-10-20] MEDS ORDERED: ROHTO EYE OU SCH (09:00)
[2021-10-20] MEDS ORDERED: NON-FORMULARY MEDICATION 1 EA EA (Pravastatin Sodium 10 MG) PO SCH (09:00)
[2021-10-20] MEDS: ENOXAPARIN 40 MG/0.4 ML (LOVENOX) SYR SC SCH (12:43)
--- NOTE | 2021-10-20 12:48 | Consultation-Cardiology ---
HPI-Cardiology Cardiology Consultation: Date of Consultation 10/20/21 Date of Admission 10/19/21 Attending Physician Billie Alcala DO Admitting Physician Radha Gaines MD Consulting Physician ALEXANDRIA SANTANA JR, MD HPI: Time Seen by a Provider: 12:46 Chief Complaint: REASON FOR CONSULTATION: Cardiac evaluation due to extensive cardiac history. I had the pleasure of seeing Jocelyn on the inpatient physical rehabilitation unit at [facility] in [place], [place] today. She has an extensive past cardiac history including coronary artery disease with previous stents, peripheral arterial disease with previous interventions, chronic heart failure with preserved ejection fraction, complete heart block status post permanent pacemaker as well as several other issues. Last Friday she was walking into her house and tripped due to her right foot drop and fell to the floor. She hit her head on the wall on the way down and fractured her cervical spine. On the advice of her daughter who is an RN, she came to our emergency room for further evaluation. She was found to have the cervical fracture. She was transferred to [facility] where she underwent operative repair earlier this week. She was then transferred to our facility for inpatient rehabilitation. Because of her multiple cardiac conditions, a cardiology consultation was requested. She denies chest discomfort, dyspnea, paroxysmal nocturnal dyspnea, orthopnea, palpitations, syncope, or ankle edema. She does have chronic lightheaded spells. Certain portions of this document may have been dictated utilizing voice recognition technology. Inherent to this technology, typographical and grammatical errors may exist. As much as I am diligent to identify and correct these mistakes, some errors may remain in the document. Review of Systems-Cardiology Review of Systems Other comments Review of 10 organ systems is as per the history of present illness, otherwise negative. All Other Systems Reviewed Negative Unless Noted: Yes [id number]-[id number] Hx Patient Social History Marrital Status: Employed/Student: retired Smoking Status: Former Smoker Former smoker/When Quit: Jan 14, 1995 Have you traveled recently?: No Alcohol Use?: No Pt feels they are or have been: No Immunizations Up To Date Tetanus Booster (TDap): Unknown Date of Pneumonia Vaccine: Oct 03, 2014 Date of Influenza Vaccine: Mar 06, 2020 Past Medical History PMH As described under Assessment. Family Medical History Family Medical History: extensive history of varios cancers on mother's side, father had lung CA. Allergies and Home Medications Allergies Coded Allergies: levofloxacin (Verified Allergy, Unknown, 10/26/14) ramipril (Verified Allergy, Unknown, 09/04/21) Patient Home Medication List Home Medication List Reviewed: Yes Acetaminophen (Tylenol Extra Strength) 500 Mg Tablet, 1,000 MG PO Q6H, (Reported) Entered as Reported by: DENISE TORREZ on 10/19/211150 Last Action: Held Alendronate Sodium (Alendronate Sodium) 70 Mg Tablet, 70 MG PO [place], (Reported) Entered as Reported by: ELLIS FLORES on 04/08/17831 Last Action: Converted Aspirin (Aspirin EC) 81 Mg Tablet.dr, 81 MG PO DAILY, (Reported) Entered as Reported by: ELLIS FLORES on 04/08/17840 Last Action: Continued Bisacodyl (Bisacodyl) 10 Mg Supp.rect, 10 MG RC DAILY PRN for CONSTIPATION-5TH LINE, (Reported) Entered as Reported by: DENISE TORREZ on 10/19/211150 Last Action: Continued Calcium Carbonate/Vitamin D3 (Calcium 600 + Vit D 400 Softgl) 600 Mg Calcium-10 Mcg (400 Unit) Capsule, 1 EACH PO DAILY, (Reported) Entered as Reported by: DENISE TORREZ on 10/19/211150 Last Action: Converted Clopidogrel Bisulfate (Clopidogrel) 75 Mg Tablet, 75 MG PO DAILY, (Reported) Entered as Reported by: SHAY KING on 09/04/21 0843 Last Action: Continued Cyanocobalamin (Cyanocobalamin Injection) 1,000 Mcg/Ml Inj, 1,000 MCG IJ EVERY 2 WEEKS, (Reported) Entered as Reported by: ELLIS FLOERS on 04/08/17831 Last Action: Continued Cyclosporine (Restasis) 0.05 % [place], 1 EACH OU BID PRN for DRY EYES, (Reported) Entered as Reported by: DENISE TORREZ on 10/19/211150 Last Action: Converted Docusate Sodium (Docusate Sodium) 100 Mg Capsule, 100 MG PO BID, (Reported) Entered as Reported by: DENISE TORREZ on 10/19/211150 Last Action: Continued Doxazosin Mesylate (Doxazosin Mesylate) 4 Mg Tablet, 4 MG PO BID, (Reported) Entered as Reported by: SHAY KING on 07/05/201222 Last Action: Continued Furosemide (Furosemide) 40 Mg Tablet, 40 MG PO DAILY, (Reported) Entered as Reported by: SHAY KING on 07/05/201222 Last Action: Continued Gabapentin (Gabapentin) 100 Mg Capsule, 200 MG PO Q8H, (Reported) Entered as Reported by: DENISE TORREZ on 10/19/211150 Last Action: Continued Ipratropium [place] (Ipratropium [place]) 30 Ml [place], 1-2 SPRAYS NS TID PRN for CONGESTION, (Reported) Entered as Reported by: ELLIS FLORES on 04/08/17 0859 Last Action: Converted Levothyroxine Sodium (Euthyrox) 50 Mcg Tablet, 50 MCG PO DAILY, (Reported) Entered as Reported by: SHAY KING on 07/05/201222 Last Action: Continued Magnesium Hydroxide (Milk of Magnesia) 2,400 Mg/10 Ml Oral.susp, 10 ML PO DAILY PRN for HEARTBURN, (Reported) Entered as Reported by: DENISE TORREZ on 10/19/211150 Last Action: Converted Methocarbamol (Methocarbamol) 750 Mg Tablet, 750 MG PO BID, (Reported) Entered as Reported by: DENISE TORREZ on 10/19/211150 Last Action: Continued Metoprolol Succinate (Metoprolol Succinate) 100 Mg Tab.er.24h, 100 MG PO BID, (Reported) Entered as Reported by: ELLIS FLORES on 04/08/17 0841 Last Action: Continued Naloxone HCl (Narcan) 4 Mg/Actuation [place], 4 MG NS UD PRN for OD OVERDOSE, (Reported) Entered as Reported by: EDNISE TORREZ on 10/19/211150 Last Action: Converted Oxycodone HCl (Roxicodone) 5 Mg Tablet, 5-10 MG PO Q4H PRN for PAIN-SEVERE (8- 10), (Reported) Entered as Reported by: DENISE TORREZ on 10/19/211150 Last Action: Continued Pantoprazole Sodium (Pantoprazole Sodium) 20 Mg Tablet.dr, 20 MG PO DAILY, (Reported) Entered as Reported by: SHAY KING on 09/04/21 0843 Last Action: Continued Polyethylene Glycol 3350 (Miralax) 17 Gram Powd.pack, 17 GM PO BID, (Reported) Entered as Reported by: DENISE TORREZ on 10/19/211150 Last Action: Continued Potassium Chloride (Potassium Chloride) 10 Meq Capsule.er, 10 MEQ PO DAILY, (Reported) Entered as Reported by: SHAY KING on 07/05/20 1223 Last Action: Converted Pravastatin Sodium (Pravastatin Sodium) 10 Mg Tablet, 10 MG PO DAILY, (Reported) Entered as Reported by: ELLIS FLORES on 04/08/17831 Last Action: Converted Propylene Glycol (Systane Balance) 0.6 % Drops, 1 DROP OP HS, (Reported) Entered as Reported by: DENISE TORREZ on 10/19/211150 Last Action: Converted Sennosides/Docusate Sodium (Senna-S Tablet) 8.6 Mg-50 Mg Tablet, 1 EACH PO DAILY PRN for CONSTIPATION-1ST LINE, (Reported) Entered as Reported by: DENISE TORREZ on 10/19/211150 Last Action: Continued Sertraline HCl (Sertraline HCl) 50 Mg Tablet, 50 MG PO DAILY, (Reported) Entered as Reported by: ELLIS FLORES on 04/08/17831 Last Action: Continued [[place] Eye Drops] , 1 DROP OU DAILY, (Reported) Entered as Reported by: SHAY KING on 09/04/21842 Last Action: Converted Discontinued Medications Calcium Carbonate (Calcium) 500 Mg Tablet, 500 MG PO DAILY, (Reported) Discontinued Reason: Prescription changed Entered as Reported by: SHAY KING on 09/04/21842 Polyethylene Glycol 400 (Visine Dry Eye Relief) 30 Ml Drops, 1 DROP OU PRN PRN for DRY EYES, (Reported) Discontinued Reason: Prescription changed Entered as Reported by: SHAY KING on 09/04/21842 Exam Vital Signs Vital Signs Date Time Temp Pulse Resp B/P (MAP) Pulse Ox O2 Delivery O2 Flow Rate FiO2 10/20/21 08:33 Room Air 10/20/21 07:26 36.5 71 20 153/73 (99) 93 Physical Exam General: Alert. No acute distress. Well nourished and appears stated age. She is in a halo. Eye: Extraocular movements are intact. Conjunctivae are clear. There are no xanthelasma. HENT: Normocephalic. Atraumatic. Carotid pulsations 2/2 without bruits. Neck: Jugular venous pressure does not appear elevated. No thyromegaly appreciated. Respiratory: Lungs are clear to auscultation. Respirations are non-labored. Breath sounds are equal. Symmetrical chest wall expansion. Cardiovascular: Normal rate. Regular rhythm. No murmur. No gallop. Point of maximal impulse is not appear displaced. Good pulses equal in all extremities. No edema. Gastrointestinal: Soft. Normal bowel sounds. Skin: Skin turgor is normal. There is no pallor. Musculoskeletal: No kyphosis or scoliosis appreciated. Neurologic: Alert and oriented to person, place, time. Cranial nerves 3-12 appear grossly intact. The patient has good motor tone strength in the upper and lower extremities bilaterally. Psychiatric: Cooperative. Appropriate mood & affect. Labs Laboratory Tests Test 10/20/21 05:45 Range/Units White Blood Count 6.8 4.3-11.0 10^3/uL Red Blood Count 4.56 3.80-5.11 10^6/uL Hemoglobin 13.4 11.5-16.0 g/dL Hematocrit 42 35-52 % Mean Corpuscular Volume 91 80-99 fL Mean Corpuscular Hemoglobin 29 25-34 pg Mean Corpuscular Hemoglobin Concent 32 32-36 g/dL Red Cell Distribution Width 12.9 10.0-14.5 % Platelet Count 230 130-400 10^3/uL Mean Platelet Volume 10.0 9.0-12.2 fL Immature Granulocyte % (Auto) 0 % Neutrophils (%) (Auto) 59 42-75 % Lymphocytes (%) (Auto) 23 12-44 % Monocytes (%) (Auto) 12 0-12 % Eosinophils (%) (Auto) 5 0-10 % Basophils (%) (Auto) 1 0-10 % Neutrophils # (Auto) 4.0 1.8-7.8 10^3/uL Lymphocytes # (Auto) 1.6 1.0-4.0 10^3/uL Monocytes # (Auto) 0.8 0.0-1.0 10^3/uL Eosinophils # (Auto) 0.3 0.0-0.3 10^3/uL Basophils # (Auto) 0.1 0.0-0.1 10^3/uL Immature Granulocyte # (Auto) 0.0 0.0-0.1 10^3/uL Sodium Level 137 135-145 MMOL/L Potassium Level 4.0 3.6-5.0 MMOL/L Chloride Level 100 98-107 MMOL/L Carbon Dioxide Level 22 21-32 MMOL/L Anion Gap 15 H 5-14 MMOL/L Blood Urea Nitrogen 16 7-18 MG/DL Creatinine 1.03 0.60-1.30 MG/DL Estimat Glomerular Filtration Rate 56 BUN/Creatinine Ratio 16 Glucose Level 109 H 70-105 MG/DL Calcium Level 9.4 8.5-10.1 MG/DL Corrected Calcium 9.4 8.5-10.1 MG/DL Total Bilirubin 0.5 0.1-1.0 MG/DL Aspartate Amino Transf (AST/SGOT) 33 5-34 U/L Alanine Aminotransferase (ALT/SGPT) 45 0-55 U/L Alkaline Phosphatase 106 40-136 U/L Total Protein 6.9 6.4-8.2 GM/DL Albumin 4.0 3.2-4.5 GM/DL Diagnosis/Problems Diagnosis/Problems (1) Coronary artery disease without angina pectoris Assessment & Plan: She is not having any angina at this point in time. She should continue on aspirin, clopidogrel, beta-effie and statin medication. She is on extended duration dual antiplatelet therapy due to multiple previous coronary and peripheral interventions. (2) Chronic heart failure with preserved ejection fraction (HFpEF) Assessment & Plan: She seems to be euvolemic at this point in time. Continue oral furosemide. (3) Peripheral arterial disease Assessment & Plan: She had a recent peripheral intervention with balloon angioplasty to a subtotally occluded right superficial femoral artery. She is asymptomatic at this point in time although her mobility is somewhat limited due to her recent cervical fracture. (4) Complete heart block Assessment & Plan: She has a permanent pacemaker in place that appears to be functioning normally. She does not have a defibrillator. (5) Primary hypertension Assessment & Plan: Continue metoprolol and doxazosin. (6) Mixed hyperlipidemia Assessment & Plan: Continue atorvastatin. (7) Cardiac pacemaker in situ Assessment & Plan: The device appears to be functioning normally and she is monitored by her remote pacemaker monitoring team in the office. ALEXANDRIA SANTANA JR, MD October 20, 2021 12:48
[2021-10-20 19:34] VITALS: BP 174/80
[2021-10-20] MEDS: ARTIFICAL TEARS 0.4 ML UNIT DOSE (REFRESH PLUS) OU SCH (21:00)
[2021-10-20 23:10] VITALS: BP 133/79
[2021-10-21] MEDS: LEVOTHYROXINE 50 MCG (LEVOTHROID) TAB PO SCH (06:30)
[2021-10-21] MEDS: KCL 10 MEQ TAB (MICRO K) PO SCH (06:30)
[2021-10-21] MEDS: GABAPENTIN 100 MG (NEURONTIN) CAP PO SCH ×3 (06:30→22:14)
--- NOTE | 2021-10-21 07:03 | PM&R Progress Note ---
Subjective HPI/CC On Admission Date Seen by Provider: October 21, 2021 Time Seen by Provider: 11:00 Subjective/Events-last exam 10/21/2021: Patient doing well Pain is well controlled No falls Checked meds and labs 10/20/2021: Patient doing well Pain is controlled Labs reviewed Eating and drinking well Bowel function normal Will be in a halo for total of 4 months Review of Systems General: Fatigue, Malaise Musculoskeletal: neck pain Objective Exam Vital Signs Vital Signs Date Time Temp Pulse Resp B/P (MAP) Pulse Ox O2 Delivery O2 Flow Rate FiO2 10/21/21 20:53 94 Room Air 10/21/21 20:00 36.2 80 16 125/60 (81) Capillary Refill : General Appearance: No Apparent Distress, WD/WN, Chronically ill HEENT: PERRL/EOMI, Normal ENT Inspection, Pharynx Normal Neck: Limited Range of Motion, Other (In halo neck brace) Respiratory: Chest Non Tender, Lungs Clear, Normal Breath Sounds, No Accessory Muscle Use, No Respiratory Distress Cardiovascular: Regular Rate, Rhythm, No Edema, No Gallop, No JVD, No Murmur, Normal Peripheral Pulses Gastrointestinal: Normal Bowel Sounds, No Organomegaly, No Pulsatile Mass, Non Tender, Soft Back: Normal Inspection, No CVA Tenderness, No Vertebral Tenderness Extremity: Normal Capillary Refill, Normal Inspection, Normal Range of Motion, Non Tender, No Calf Tenderness, No Pedal Edema Neurologic/Psychiatric: Alert, Oriented x3, No Motor/Sensory Deficits, Normal Mood/Affect, Abnormal Gait Skin: Normal Color, Warm/Dry Lymphatic: No Adenopathy Results/Procedures Lab Patient resulted labs reviewed. FIM Transfers Therapy Code Descriptions/Definitions Functional [place] Measure: 0=Not Assessed/NA 4=Minimal Assistance 1=Total Assistance 5=Supervision or Setup 2=Maximal Assistance 6=Modified [place] 3=Moderate Assistance 7=Complete IndependenceSCALE: Activities may be completed with or without assistive devices. 4-Btxtkysmrh-fccpodl completes the activity by him/herself with no assistance from a helper. 5-Set-up or Clean-up Assistance-helper sets up or cleans up; patient completes activity. [place] assists only prior to or following the activity. 4-Supervision or Touching Assistance-helper provides verbal cues and/or touching/steadying and/or contact guard assistance as patient completes activity. Assistance may be provided throughout the activity or intermittently. 3-Partial/Moderate Assistance-helper does LESS THAN HALF the effort. [place] lifts, holds or supports trunk or limbs, but provides less than half the effort. 2-Substantial/Maximal Assistance-helper does MORE THAN HALF the effort. [place] lifts or holds trunk or limbs and provides more than half the effort. 1-Ppdjmzfra-ivkdhq does ALL the effort. Patient does none of the effort to co mplete the activity. Or, the assistance of 2 or more helpers is required for the patient to complete the activity. If activity was not attempted, code reason: 7-Patient Refused. 9-Not Applicable-not attempted and the patient did not perform the activity before the current illness, exacerbation or injury. 10-Not Attempted due to Environmental Limitations-(lack of equipment, weather restraints, etc.). 88-Not Attempted due to Medical Conditions or Safety Concerns. Roll Left to Right (QC): 3 Sit to Lying (QC): 3 Sit to Stand (QC): 4 Chair/Jnb-xz-Hhwwu Xfer(QC): 4 Car Transfer (QC): 4 Gait Training Does the Patient Walk?: No and Walking Goal IS indicated Walk 10 feet (QC): 4 Walk 50 ft with 2 Turns(QC): 4 Walk 150 ft (QC): 88 Walking 10ft/uneven surface-QC: 4 Gait Assistive Device: FWW Wheelchair Training Does the Pt Use a Wheelchair?: No Wheel 50 ft with 2 turns (QC): 9 Wheel 150 ft (QC): 9 Stair Training #of Steps: 1 1 Step (curb) (QC): 4 4 Steps (QC): 88 12 Steps (QC): 88 Balance Picking up an Object (QC): 4 (CGA using physical therapy professor) ADL-Treatment Eating (QC): 5 Oral Hygiene (QC): 7 Shower/Bathe Self (QC): 3 Upper Body Dressing (QC): 2 Lower Body Dressing (QC): 3 On/Off Footwear (QC): 3 Toileting Hygiene (QC): 3 Assessment/Plan Assessment and Plan Assess & Plan/Chief Complaint Assessment: Closed C1-C2 fracture status post surgical stabilization now in halo neck brace Status post fall CAD PVD recent reperfusion ICD/pacemaker placement managed by Dr. Anthony Diabetes Hypothyroidism Hypertension B12 deficiency DAVID on CPAP GERD Emphysema Carotid stenosis Plan: Pain control Home meds Rehab protocol Cardiology consultation 10/20/2021: Supportive care Pain control 10/21/2021: Supportive care Monitor closely (1) Coronary artery disease without angina pectoris Assessment & Plan: She is not having any angina at this point in time. She should continue on aspirin, clopidogrel, beta-effie and statin medication. She is on extended duration dual antiplatelet therapy due to multiple previous coronary and peripheral interventions. (2) Chronic heart failure with preserved ejection fraction (HFpEF) Assessment & Plan: She seems to be euvolemic at this point in time. Continue oral furosemide. (3) Peripheral arterial disease Assessment & Plan: She had a recent peripheral intervention with balloon angioplasty to a subtotally occluded right superficial femoral artery. She is asymptomatic at this point in time although her mobility is somewhat limited due to her recent cervical fracture. (4) Complete heart block Assessment & Plan: She has a permanent pacemaker in place that appears to be functioning normally. She does not have a defibrillator. (5) Primary hypertension Assessment & Plan: Continue metoprolol and doxazosin. (6) Mixed hyperlipidemia Assessment & Plan: Continue atorvastatin. (7) Cardiac pacemaker in situ Assessment & Plan: The device appears to be functioning normally and she is monitored by her remote pacemaker monitoring team in the office. ITZEL MARRERO DO October 21, 2021 07:03
--- NOTE | 2021-10-21 07:03 | Individualized Plan of Care ---
Individualized Plan of Care Rehab Nursing IPOC Order Admission Date October 19, 2021 at 12:35 Current Orders Orders Admission Order(Inpt,Obs,Sdc) (10/19/21 11:52) Vital Signs: Per Unit Policy ( 08,16,00 (10/19/21 11:52) Byron Auguste (10/19/21 11:52) Sequential Compression Device (10/19/21 11:52) Suture Gauger-Inpt Rehab Con (10/19/21 11:52) Rehab Nursing Orders-Ipoc (10/19/21 11:52) Physical Therapy Rehab Orders (10/19/21 11:52) Occupational Therapy Rehab Ord (10/19/21 11:52) Speech Therapy Rehab Orders (10/19/21:52) Cbc With Automated Diff (10/20/21 06:00) Comprehensive Metabolic Panel (10/20/21 06:00) Precautions (Aru) (10/19/21 11:52) Weekly Weight WEEK (10/19/21:52) Rehab-Intensity Of Therapy (10/19/21 11:52) Initiate Admission Nursing Pro .admission (10/19/21 11:52) Alprazolam Tablet (Xanax Tablet) (10/19/21 12:00) Calcium Carbonate Chew Tablet (Antacid C (10/19/21 12:00) Diphenhydramine Tablet (Benadryl Tablet) (10/19/21 12:00) Docusate Sodium Capsule (Colace Capsule) (10/19/21 21:00) Docusate Sodium Capsule (Colace Capsule) (10/19/21 12:00) Bisacodyl Suppository (Dulcolax Supposit (10/19/21 12:00) Lactulose Oral Solution (Enulose Oral So (10/19/21 12:00) Na Phos/Na Biphos Enema (Fleet Enema Percy (10/19/21 12:00) Guaifenesin/Codeine Syrup (Robitussin Ac (10/19/21 12:00) Loperamide Tablet (Imodium Tablet) (10/19/21 12:00) Melatonin Tablet (Melatonin Tablet) (10/19/21 12:00) Polyethylene Glycol Powder Pkt (Miralax (5/6/22 21:00) Ondansetron Oral Dissolve Tab (Zofran (10/19/21 12:00) Senna S Tablet (Senokot S Tablet) (10/19/21 21:00) Acetaminophen Tablet/Caplet (Tylenol T (10/19/21 12:00) Code/Resuscitation (10/19/21 11:52) Initiate Admission Nursing Pro .admission (10/19/21 11:52) Aspirin Enteric Coated Tablet (Ecotrin T (10/20/21 09:00) Bisacodyl Suppository (Dulcolax Supposit (10/19/21 12:30) Clopidogrel Tablet (Plavix Tablet) (10/20/21 09:00) Docusate Sodium Capsule (Colace Capsule) (10/19/21 21:00) Doxazosin Tablet (Cardura Tablet) (10/19/21 21:00) Furosemide Tablet (Lasix Tablet) (10/20/21 09:00) Gabapentin Capsule/Tablet (Neurontin Cap (10/19/21 14:00) Levothyroxine Tablet (Synthroid Tablet) (10/20/21 06:30) Methocarbamol Tablet (Robaxin Tablet) (10/19/21 21:00) Metoprolol Succinate (Xl) Tab (Toprol Xl (10/19/21 21:00) Oxycodone Immediate Rel Tablet (Oxyir Ta (10/19/21 12:30) Pantoprazole Tablet (Protonix Tablet) (10/20/21 09:00) Polyethylene Glycol Powder Pkt (Miralax (10/19/21 21:00) Senna S Tablet (Senokot S Tablet) (10/19/21 12:30) Sertraline Tablet (Zoloft Tablet) (10/20/21 09:00) (Nf) Alendronate Sodium (10/21/21 12:30) (Nf) Calcium Carbonate/Vitamin D3 (Calci (10/20/21 09:00) (Nf) Cyclosporine (Restasis) (10/19/21 12:30) (Nf) Ipratropium [place] (10/19/21 12:30) (Nf) Magnesium Hydroxide (Milk Of Magnes (10/19/21 12:30) (Nf) Naloxone Hcl (Narcan) (10/19/21 12:30) (Nf) Potassium Chloride (10/20/21 09:00) (Nf) Pravastatin Sodium (10/20/21 09:00) (Nf) Propylene Glycol (Systane Balance) (10/19/21 21:00) (Nf) [[place] Eye Drops] (10/20/21 09:00) Enoxaparin Injection (Lovenox Injection) (10/19/21 12:30) Admission Arrival Bed Request (10/19/21 12:40) Potassium Chloride (Tablet) (Klor Con Ta (10/20/21 07:00) Calcium Carbonate W/Vitamin D3 (Calcarb (10/20/21 08:00) Magnesium Hydroxide Oral Susp (Mom Oral (10/19/21 13:15) Atorvastatin Tablet (Lipitor Tablet) (10/20/21 09:00) Carboxymethylcell Ophth Soln (Refresh Pl (10/19/21 13:15) Carboxymethylcell Ophth Soln (Refresh Pl (10/19/21 21:00) Naloxone Injection (Narcan Injection) (10/19/21 13:30) Patient Visit (10/19/21 ) Speech Sound Lang Comp (10/19/21 ) Treat. Speech/Lang/Voice (10/19/21 ) Patient Visit (10/19/21 ) Pt Eval Moderate Complexity (10/19/21 ) Functional Activities, Ea 15 (10/19/21 ) Consult Cardiology (10/19/21 17:35) General/Regular (10/20/21 Breakfast) Patient Visit (10/20/21 ) Exercise Therap, Ea 15 Min (10/20/21 ) Cyanocobalamin Injection (Vitamin B-12 I (10/21/21 09:00) Rehab Nursing Orders: Ongoing Assess. of Cognitive Status, Ongoing Assess. of Function Status, Bladder Management, Bladder Scan, Bladder Training, Bowel Management, Bowel Training, Disease Management & Educaiton, DVT Prophylaxis, Fall Prevention, Fluid/Electrolyte/Nutrition Mgmt, Infection Prevention, Medication Management & Education, Management of Risks & Complications, Management of Skin Intergrity, Nutrition Management, Pain Management, Patient/Family Support, Safety Management, Wound Management Intensity of Therapy to be met Patient to be seen: Min.3h per day/5 of 7d PT IPOC Problem List: Functional Strength Treatment Plan: Continue Plan of Care Bed Mobility, Education, Functional Activity Wolfgang, Functional Strength, Group Therapy, Gait, Safety, Therapeutic Exercise, Transfers Treatment Duration: November 09, 2021 Frequency: At least 5 of 7 days/Wk (IRF) Estimated Hrs Per Day: 1.5 hours per day OT IPOC Problems: Decreased Activ Tolerance, Decreased Safety Aware, Decreased UE Strength OT Treatment, Training and Edu: Yes Plan of Care: ADL Retraining, Cognitive Retraining, Functional Mobility, Group Exercise/Act as Ind, Orthotic Fitting/Training, UE Funct Exercise/Act Treatment Duration: November 07, 2021 Frequency: At least 5 of 7 days/Wk (IRF) Estimated Hrs Per Day: 1.5 hours per day (75-90 min/day ) ST IPOC Speech Therapy Treatment Plan: Discontinue ST Treatment Duration: October 19, 2021 Frequency: 1 time per week Estimated Hrs Per Day: .5 hour per day Suture Gauger/Case Mgmt Suture Gauger/Case Managemen: Discharge Planning Dietitian/Physicist Acoustics Dietitian/Physicist Acoust[place] to monitor nutritional status and make changes and/or recommendations as needed and work with speech pathology on dietary upgrades as the occur. Physician IPOC Medical Issues being managed closely and that require the 24 hour availability of a physician: Recent C1-C2 cervical spine fracture requiring repair and halo neck brace will require close monitoring for any decompensation at high risk for neurological complication Medical Issues: Bowel/Bladder Function, DVT Prophylaxis, Falls Precautions, Fluid/Electrolyte/Nutrition Balance, Infection Protection, Pain Management, Wound Care Brief Synthesis of Preadmission Screen, Post-Admission Evaluation, and Therapy Evaluations: PT and OT will focus on regaining independent ADLs with use of assistive devices in order to accommodate halo neck brace in order to return back home Medical Prognosis: Good Anticipated Length of Stay: 10 days ITZEL MARRERO DO October 21, 2021 07:03
[2021-10-21 07:04] VITALS: BP 144/83
[2021-10-21] MEDS ORDERED: CYANOCOBALAMIN INJ 1000 MCG/ML IJ SCH (09:00)
[2021-10-21] MEDS: SERTRALINE 50 MG (ZOLOFT) TABLET PO SCH (09:39)
[2021-10-21] MEDS: CALCIUM CARB + VIT D 600 MG (CALCARB + D) TAB PO SCH (09:39)
[2021-10-21] MEDS: polyethylene glycoL POWDER 17 GM (MIRALAX) PACK PO SCH ×2 (09:39→21:21)
[2021-10-21] MEDS: ASPIRIN E.C. 81 MG (ECOTRIN) TAB PO SCH (09:39)
[2021-10-21] MEDS: PANTOPRAZOLE 20 MG TABLET (PROTONIX) PO SCH (09:39)
[2021-10-21] MEDS: CLOPIDOGREL 75 MG (PLAVIX) TABLET PO SCH (09:39)
[2021-10-21] MEDS: FUROSEMIDE 40 MG (LASIX) TAB PO SCH (09:40)
[2021-10-21] MEDS: doxAzosin 4 MG (CARDURA) TAB PO SCH ×2 (09:40→20:51)
[2021-10-21] MEDS: SENNA W/DOCUSATE (SENOKOT S) TABLET PO SCH ×2 (09:40→21:21)
[2021-10-21] MEDS: meTOprolol SUCCINATE 100 MG (TOPROL XL) TAB PO SCH ×2 (09:40→20:51)
[2021-10-21] MEDS: METHOCARBAMOL 750 MG (ROBAXIN) TAB PO SCH ×2 (09:40→20:52)
[2021-10-21] MEDS: AtorvaSTATin TABLET 10 MG TABLET PO SCH (09:40)
[2021-10-21] MEDS: DOCUSATE SODIUM 100 MG (COLACE) CAP PO SCH ×2 (09:44→20:52)
[2021-10-21] MEDS ORDERED: NON-FORMULARY MEDICATION 1 EA EA (Alendronate Sodium 70 MG) PO SCH (12:30)
[2021-10-21] MEDS: ENOXAPARIN 40 MG/0.4 ML (LOVENOX) SYR SC SCH (13:05)
[2021-10-21 20:00] VITALS: BP 125/60
[2021-10-21] MEDS: ARTIFICAL TEARS 0.4 ML UNIT DOSE (REFRESH PLUS) OU SCH (20:51)
--- NOTE | 2021-10-22 05:51 | PM&R Progress Note ---
Subjective HPI/CC On Admission Date Seen by Provider: October 22, 2021 Time Seen by Provider: 09:30 Subjective/Events-last exam 10/22/2021: Patient doing really well No concerns Pain is well controlled Checked meds and labs Right leg improved 10/21/2021: Patient doing well Pain is well controlled No falls Checked meds and labs 10/20/2021: Patient doing well Pain is controlled Labs reviewed Eating and drinking well Bowel function normal Will be in a halo for total of 4 months Review of Systems General: Fatigue, Malaise Musculoskeletal: leg pain Neurological: Weakness, Incoordination Objective Exam Vital Signs Vital Signs Date Time Temp Pulse Resp B/P (MAP) Pulse Ox O2 Delivery O2 Flow Rate FiO2 10/22/21 20:10 Room Air 10/22/21 19:48 36.4 89 16 145/72 (96) 95 Capillary Refill : General Appearance: No Apparent Distress, WD/WN, Chronically ill HEENT: PERRL/EOMI, Normal ENT Inspection, Pharynx Normal Neck: Limited Range of Motion, Other (In halo neck brace) Respiratory: Chest Non Tender, Lungs Clear, Normal Breath Sounds, No Accessory Muscle Use, No Respiratory Distress Cardiovascular: Regular Rate, Rhythm, No Edema, No Gallop, No JVD, No Murmur, Normal Peripheral Pulses Gastrointestinal: Normal Bowel Sounds, No Organomegaly, No Pulsatile Mass, Non Tender, Soft Back: Normal Inspection, No CVA Tenderness, No Vertebral Tenderness Extremity: Normal Capillary Refill, Normal Inspection, Normal Range of Motion, Non Tender, No Calf Tenderness, No Pedal Edema Neurologic/Psychiatric: Alert, Oriented x3, No Motor/Sensory Deficits, Normal Mood/Affect, Abnormal Gait Skin: Normal Color, Warm/Dry Lymphatic: No Adenopathy Results/Procedures Lab Patient resulted labs reviewed. FIM Transfers Therapy Code Descriptions/Definitions Functional [place] Measure: 0=Not Assessed/NA 4=Minimal Assistance 1=Total Assistance 5=Supervision or Setup 2=Maximal Assistance 6=Modified [place]ell 3=Moderate Assistance 7=Complete IndependenceSCALE: Activities may be completed with or without assistive devices. 5-Jorhsqxjek-fpmecfs completes the activity by him/herself with no assistance from a helper. 5-Set-up or Clean-up Assistance-helper sets up or cleans up; patient completes activity. [place] assists only prior to or following the activity. 4-Supervision or Touching Assistance-helper provides verbal cues and/or touching/steadying and/or contact guard assistance as patient completes activity. Assistance may be provided throughout the activity or intermittently. 3-Partial/Moderate Assistance-helper does LESS THAN HALF the effort. [place] lift s, holds or supports trunk or limbs, but provides less than half the effort. 2-Substantial/Maximal Assistance-helper does MORE THAN HALF the effort. [place] lifts or holds trunk or limbs and provides more than half the effort. 1-Urrbtlfhs-qkebus does ALL the effort. Patient does none of the effort to complete the activity. Or, the assistance of 2 or more helpers is required for the patient to complete the activity. If activity was not attempted, code reason: 7-Patient Refused. 9-Not Applicable-not attempted and the patient did not perform the activity before the current illness, exacerbation or injury. 10-Not Attempted due to Environmental Limitations-(lack of equipment, weather restraints, etc.). 88-Not Attempted due to Medical Conditions or Safety Concerns. Roll Left to Right (QC): 3 Sit to Lying (QC): 3 Sit to Stand (QC): 4 Chair/Bxl-ds-Nsjtx Xfer(QC): 4 Car Transfer (QC): 4 Gait Training Does the Patient Walk?: No and Walking Goal IS indicated Walk 10 feet (QC): 4 Walk 50 ft with 2 Turns(QC): 4 Walk 150 ft (QC): 88 Walking 10ft/uneven surface-QC: 4 Gait Assistive Device: FWW Wheelchair Training Does the Pt Use a Wheelchair?: No Wheel 50 ft with 2 turns (QC): 9 Wheel 150 ft (QC): 9 Stair Training #of Steps: 1 1 Step (curb) (QC): 4 4 Steps (QC): 88 12 Steps (QC): 88 Balance Picking up an Object (QC): 4 (CGA using newspaper stuffer) ADL-Treatment Eating (QC): 5 Oral Hygiene (QC): 7 Shower/Bathe Self (QC): 3 Upper Body Dressing (QC): 2 Lower Body Dressing (QC): 3 On/Off Footwear (QC): 3 Toileting Hygiene (QC): 3 Assessment/Plan Assessment and Plan Assess & Plan/Chief Complaint Assessment: Closed C1-C2 fracture status post surgical stabilization now in halo neck brace Status post fall CAD PVD recent reperfusion ICD/pacemaker placement managed by Dr. Anthony Diabetes Hypothyroidism Hypertension B12 deficiency DAVID on CPAP GERD Emphysema Carotid stenosis Plan: Pain control Home meds Rehab protocol Cardiology consultation 10/20/2021: Supportive care Pain control 10/21/2021: Supportive care Monitor closely 10/22/2021: Supportive care Pain control (1) Coronary artery disease without angina pectoris Assessment & Plan: She is not having any angina at this point in time. She should continue on aspirin, clopidogrel, beta-effie and statin medication. She is on extended duration dual antiplatelet therapy due to multiple previous coronary and peripheral interventions. (2) Chronic heart failure with preserved ejection fraction (HFpEF) Assessment & Plan: She seems to be euvolemic at this point in time. Continue oral furosemide. (3) Peripheral arterial disease Assessment & Plan: She had a recent peripheral intervention with balloon angioplasty to a subtotally occluded right superficial femoral artery. She is asymptomatic at this point in time although her mobility is somewhat limited due to her recent cervical fracture. (4) Complete heart block Assessment & Plan: She has a permanent pacemaker in place that appears to be functioning normally. She does not have a defibrillator. (5) Primary hypertension Assessment & Plan: Continue metoprolol and doxazosin. (6) Mixed hyperlipidemia Assessment & Plan: Continue atorvastatin. (7) Cardiac pacemaker in situ Assessment & Plan: The device appears to be functioning normally and she is monitored by her remote pacemaker monitoring team in the office. ITZEL MARRERO DO October 22, 2021 05:51
[2021-10-22] MEDS: LEVOTHYROXINE 50 MCG (LEVOTHROID) TAB PO SCH (06:11)
[2021-10-22] MEDS: GABAPENTIN 100 MG (NEURONTIN) CAP PO SCH ×3 (06:11→20:57)
[2021-10-22] MEDS: KCL 10 MEQ TAB (MICRO K) PO SCH (06:11)
[2021-10-22 07:25] VITALS: BP 139/63
[2021-10-22] MEDS: AtorvaSTATin TABLET 10 MG TABLET PO SCH (08:05)
[2021-10-22] MEDS: doxAzosin 4 MG (CARDURA) TAB PO SCH ×2 (08:05→20:57)
[2021-10-22] MEDS: PANTOPRAZOLE 20 MG TABLET (PROTONIX) PO SCH (08:05)
[2021-10-22] MEDS: SERTRALINE 50 MG (ZOLOFT) TABLET PO SCH (08:05)
[2021-10-22] MEDS: METHOCARBAMOL 750 MG (ROBAXIN) TAB PO SCH ×2 (08:05→20:57)
[2021-10-22] MEDS: meTOprolol SUCCINATE 100 MG (TOPROL XL) TAB PO SCH ×2 (08:05→20:57)
[2021-10-22] MEDS: FUROSEMIDE 40 MG (LASIX) TAB PO SCH (08:06)
[2021-10-22] MEDS: DOCUSATE SODIUM 100 MG (COLACE) CAP PO SCH ×2 (08:06→20:57)
[2021-10-22] MEDS: CALCIUM CARB + VIT D 600 MG (CALCARB + D) TAB PO SCH (08:06)
[2021-10-22] MEDS: CLOPIDOGREL 75 MG (PLAVIX) TABLET PO SCH (08:06)
[2021-10-22] MEDS: ASPIRIN E.C. 81 MG (ECOTRIN) TAB PO SCH (08:06)
[2021-10-22] MEDS: SENNA W/DOCUSATE (SENOKOT S) TABLET PO SCH ×2 (09:00→19:23)
[2021-10-22] MEDS: polyethylene glycoL POWDER 17 GM (MIRALAX) PACK PO SCH ×2 (09:00→19:21)
--- NOTE | 2021-10-22 10:30 | Occupational Ther Daily Note ---
OT Current Status-Daily Note Subjective Pt motivated to try and find the best method for donning clothing with a HALO. Appearance Pt left sitting in recliner, all needs within reach. Mental Status/Objective Patient Orientation: Person, Place, Situation Attachments: IV ADL-Treatment Therapy Code Descriptions/Definitions Functional Riley Measure: 0=Not Assessed/NA 4=Minimal Assistance 1=Total Assistance 5=Supervision or Setup 2=Maximal Assistance 6=Modified Riley 3=Moderate Assistance 7=Complete IndependenceSCALE: Activities may be completed with or without assistive devices. 0-Ayexbnosgs-glukgmz completes the activity by him/herself with no assistance from a helper. 5-Set-up or Clean-up Assistance-helper sets up or cleans up; patient completes activity. [place] assists only prior to or following the activity. 4-Supervision or Touching Assistance-helper provides verbal cues and/or touching/steadying and/or contact guard assistance as patient completes activity. Assistance may be provided throughout the activity or intermittently. 3-Partial/Moderate Assistance-helper does LESS THAN HALF the effort. [place] lifts, holds or supports trunk or limbs, but provides less than half the effort. 2-Substantial/Maximal Assistance-helper does MORE THAN HALF the effort. [place] lifts or holds trunk or limbs and provides more than half the effort. 8-Qgwnzwfcn-vhloyv does ALL the effort. Patient does none of the effort to complete the activity. Or, the assistance of 2 or more helpers is required for the patient to complete the activity. If activity was not attempted, code reason: 7-Patient Refused. 9-Not Applicable-not attempted and the patient did not perform the activity before the current illness, exacerbation or injury. 10-Not Attempted due to Environmental Limitations-(lack of equipment, weather restraints, etc.). 88-Not Attempted due to Medical Conditions or Safety Concerns. Eating (QC): 5 Oral Hygiene (QC): 4 Shower/Bathe Self (QC): 4 Upper Body Dressing (QC): 3 Lower Body Dressing (QC): 3 On/Off Footwear: 3 Toileting Hygiene (QC): 4 Toilet Transfer (QC): 4 Sponge bath/shower performed partially in sitting/standing. Pt sat to wash bilateral arms and breast.Due to difficulty reaching upper shoulders, OT issued and instructed pt on use of LHS to wash posterior shoulders and LE's to reduce bending and altering COG. Post instruction, pt able to complete without assist. Chest not addressed secondary to HALO brace. She stood to wash jennifer area/buttocks, intermittent single UE support on grab bar. Pt also utilized hand held shower to wash Lower body only in order to keep HALO dry. Clothing donned seated on shower bench. Initially, pt attempted to don shirt overhead but had difficulty getting shirt around HALO. OT instructed pt to don feet first and bring over hips similar to donning a dress. Pt was able to get it over her hips but then needed assist to slide arms into sleeves. Pt reports that she wants to learn a method so that she can don clothing overhead vs Legs first. Later in session, pt practiced donning shirt overhead x4. OT instructed pt on use of dressing stick to assist in pulling shirt over back of HALO bars as well as had pt sit in front of a full length mirror in order to see what she was doing. Initially, pt needed min a for correct use/problem solving of dressing stick. Last 3 attempts, pt able to don with SBA and extra time. Attempt at using securities teller to assist in donning LB clothing, yet pt having a difficult time due to inability to flex neck and look to see what she was doing. Min a needed to lift and cross R foot over contralateral knee in order to thread foot through clothing. Close supervision as she stood to don clothing up to waist. She stood to brush teeth, close supervision for safety with balance. Education OT Patient Education: Correct positioning, Energy conservation, Modified ADL techniques, Progress toward Goal/Update tx plan, Purpose of tx/functional activities, Rehab process, Safety issues, Transfer techniques, Use of adapted equipment Teaching Recipient: Patient Teaching Methods: Demonstration, Discussion Response to Teaching: Verbalize Understanding, Return Demonstration, Reinforcement Needed OT Short Term Goals Short Term Goals Time Frame: October 29, 2021 Eatin Oral hygiene: 5 Toileting hygiene: 4 Shower/bathe self: 4 Upper body dressin Lower body dressin Putting on/taking off footwear: 4 OT Chcf Goals Chcf Goals Time Frame: November 07, 2021 Eating (QC): 6 Oral Hygiene (QC): 6 Toileting Hygiene (QC): 6 Shower/Bathe Self (QC): 5 Upper Body Dressing (QC): 5 Lower Body Dressing (QC): 5 On/Off Footwear (QC): 6 1=Demonstrate adherence to instructed precautions during ADL tasks. 2=Patient will verbalize/demonstrate understanding of assistive devices/modifications for ADL. 3=Patient will improve strength/tolerance for activity to enable patient to perform ADL's. OT Education/Plan Problem List/Assessment Assessment: Decreased Activ Tolerance, Decreased Safety Aware, Decreased UE Strength, Impaired Funct Balance, Impaired I ADL's, Impaired Self-Care Skills, Restricted Funct UE ROM Discharge Recommendations Plan/Recommendations: Continue POC Treatment Plan/Plan of Care Treatment,Training & Education: Yes Patient would benefit from OT for education, treatment and training to promote independence in ADL's, mobility, safety and/or upper extremity function for ADL's. Plan of Care: ADL Retraining, Cognitive Retraining, Functional Mobility, Group Exercise/Act as Ind, Orthotic Fitting/Training, UE Funct Exercise/Act Treatment Duration: November 07, 2021 Frequency: At least 5 of 7 days/Wk (IRF) Estimated Hrs Per Day: 1.5 hours per day (75-90 min/day ) Agreement: Yes Rehab Potential: Fair Time/GCodes Start Time: 08:55 Stop Time: 10:25 Total Time Billed (hr/min): 90 Billed Treatment Time 1 visit ADL x5 (70 min) FA (20 min) Sulema Samson OT October 22, 2021 10:30
--- NOTE | 2021-10-22 12:15 | Physical Therapy Daily Note ---
PT Daily Note-Current Subjective Patient was in chair upon entry and agreeable to PT. Patient had no new complaints. Pain Numeric Pain Scale: 0-No Pain Mental Status Patient Orientation: Person, Place, Time, Situation Transfers SCALE: Activities may be completed with or without assistive devices. 3-Ztscgxfszc-pohufli completes the activity by him/herself with no assistance from a helper. 5-Set-up or Clean-up Assistance-helper sets up or cleans up; patient completes activity. [place] assists only prior to or following the activity. 4-Supervision or Touching Assistance-helper provides verbal cues and/or touch ing/steadying and/or contact guard assistance as patient completes activity. Assistance may be provided throughout the activity or intermittently. 3-Partial/Moderate Assistance-helper does LESS THAN HALF the effort. [place] lifts, holds or supports trunk or limbs, but provides less than half the effort. 2-Substantial/Maximal Assistance-helper does MORE THAN HALF the effort. [place] lifts or holds trunk or limbs and provides more than half the effort. 9-Mzbnthnpt-mlssqb does ALL the effort. Patient does none of the effort to complete the activity. Or, the assistance of 2 or more helpers is required for the patient to complete the activity. If activity was not attempted, code reason: 7-Patient Refused. 9-Not Applicable-not attempted and the patient did not perform the activity before the current illness, exacerbation or injury. 10-Not Attempted due to Environmental Limitations-(lack of equipment, weather restraints, etc.). 88-Not Attempted due to Medical Conditions or Safety Concerns. Sit to Stand (QC): 4 Weight Bearing Right Lower Extremity: Right Full Weight Bearing Left Lower Extremity: Left Full Weight Bearing Patient NWB on left 3rd digit Gait Training Does the Patient Walk?: Yes Distance: 400', 100' Walk 10 feet (QC): 4 Walk 50 ft with 2 Turns(QC): 4 Walk 150 ft (QC): 4 Gait Assistive Device: FWW Patient's gait was unsteady at first, secondary to foot drop on the R. Step through gait pattern. weight of halo may have made weight shifting slightly off balance. Exercises NuStep Minutes: 15 NuStep Workload: 5 Treatments Ambulation, LE strengthening and endurance. Assessment Current Status: Good Progress Patient would benefit with an AFO or foot orthotic to help with R foot drop. Patient's R foot had a tendency to roll outwards during Nustep, and could not keep heel on foot pad due to lack of DF. Towel rolls were used underneath foot to correct for these malalignments. Patient was left in recliner with call light, tray, and all needs met. PT Short Term Goals Short Term Goals Time Frame: October 26, 2021 Roll Left & Right: 3 (Jaxon) Sit to lyin (Jaxon) Lying to sitting on side of be: 3 (Jaxon) Sit to stand: 4 (SBA) Chair/brc-bx-fzser transfer: 4 (SBA) Walk 10 feet: 4 (SBA) Walk 50 feet with two turns: 4 (SBA) Walk 150 feet: 4 (SBA) PT Fisher Goals Fisher Goals PT Fisher Goals Time Frame: November 09, 2021 Roll Left & Right (QC): 4 Sit to Lying (QC): 4 Lying-Sitting on Side/Bed(QC): 4 Sit to Stand (QC): 6 Chair/Ukw-fr-Momqf Xfer(QC): 6 Toilet Transfer (QC): 6 Car Transfer (QC): 6 Does the Patient Walk: Yes Walk 10 feet (QC): 6 Walk 50ft with 2 Turns (QC): 6 Walk 150 ft (QC): 6 Walking 10ft on Uneven Surface: 6 1 Step (curb) (QC): 4 4 Steps (QC): 4 12 Steps (QC): 88 Picking up an Object (QC): 6 Wheel 50 feet with 2 turns (QC: 9 Wheel 150 feet: 9 PT Plan Problem List Problem List: Activity Tolerance, Functional Strength, Safety, Balance, Gait, Transfer, Bed Mobility, ROM Treatment/Plan Treatment Plan: Continue Plan of Care Treatment Plan: Bed Mobility, Education, Functional Activity Wolfgang, Functional Strength, Group Therapy, Gait, Safety, Therapeutic Exercise, Transfers Treatment Duration: November 09, 2021 Frequency: At least 5 of 7 days/Wk (IRF) Estimated Hrs Per Day: 1.5 hours per day Patient and/or Family Agrees t: Yes Safety Risks/Education Patient Education: Gait Training, Transfer Techniques, Reviewed Precautions, Correct Positioning, Safety Issues Teaching Recipient: Patient Teaching Methods: Discussion Response to Teaching: Verbalize Understanding, Return Demonstration Time/GCodes Time In: 1130 Time Out: 1215 Total Billed Treatment Time: 45 Total Billed Treatment 1 visit EX 15min GT 30min FLORIAN TOSCANO PT October 22, 2021 12:15
[2021-10-22] MEDS: ENOXAPARIN 40 MG/0.4 ML (LOVENOX) SYR SC SCH (13:20)
--- NOTE | 2021-10-22 13:25 | Progress Note - Cardiology ---
Cardiology SOAP Progress Note Subjective: Sitting up at the bedside No c/o CP, SOB, palpitations Cervical halo in place Objective: I&O/Vital Signs 10/22/21 10/22/21 10/23/21 19:48 20:10 07:42 Temp 36.4 36.2 Pulse 89 77 Resp 16 18 B/P (MAP) 145/72 (96) 157/70 (99) Pulse Ox 95 91 O2 Delivery Room Air Room Air Room Air Weight (Pounds): 182 Weight (Ounces): 0.0 Weight (Calculated Kilograms): 82.990654 Constitutional: AAO x 3, well-developed, well-nourished, other (Cervial halo brace in place) Respiratory: No accessory muscle use, No respiratory distress; chest expansion is symmetric, chest is bilaterally symmetric, lungs clear to auscultation Cardiovascular: regular rate-rhythm, S1 and S2 Gastrointestional: No tender; soft Extremities: no lower extremity edema bilateral Neurologic/Psychiatric: other (moves all extremities) Skin: No rash on exposed areas, No ulcerations on exposed areas A/P: Assessment: S/P non-syncopal fall in late September 2021 resulting in C1, C2 cervical spine fracture - S/P surgical intervention at [facility] currently in a cervical halo brace PAD - Segmental pressures of August 2020: severe PAD on the right and mild on the left - Multiple up to 90% stenosis of the right superficial femoral artery to which successful balloon angioplasty was carried out on 10-03-20 - Recurrent R leg claudication and seg pressure s of August 2021 showed considerable L lower limb disease - CTA with runoffs of 08-28-21 showed Severe disease with multiple segmental occlusions throughout the right SFA; however, widely patent three-vessel runoff to the right ankle is present. Partially obscured distal left SFA and popliteal with two-vessel runoff to the ankle. Diffuse aortic atherosclerosis without abdominopelvic hemodynamically significant stenosis, aneurysm, or mesenteric end organ ischemia. - Noninflamed diverticulosis, benign hepatic cyst, and supraumbilical fatty abdominal wall hernia - advised f/u with PCP - Peripheral angiogram of 09-04-21: Successful balloon angioplasty of the right superficial femoral artery with reduction of stenosis from 99% to less than 20% residual. Chronic, bilateral leg swelling likely related to venous insuff Ac diastolic CHF in Mar 2020 - currently controlled Labile hypertension Neurocardiogenic syncope - as determined by a positive tilt table study. - Rate drop response on her pacemaker did not prevent symptoms; it was turned off on 04/04/17 and base rate raised to 70 bpm - Symptoms of near syncope have returned in December 2020 Intermittent advanced atrio-ventricular block leading to syncope - treated with dual chamber pacemaker implantation with no subsequent recurrence of eda syncope - One brief episode of WCT on recent pacemaker interrogation of 03/25/17 that led to card cath of 04/08/17 (see below) - Pacemaker functioning normally on interrogation of 08-31-21 Coronary artery disease - history of right coronary stenting in 2004. - Card cath of 04/08/17 showed ,mod CAD and a widely patent stent in the mid RCA, LVEF 65%, mild to mod elev of LVEDP. - MPI of Mar 07, 2020 show no evidence of ischemia or infarction. Normal regional wall motion abnormality. LVEF 73% Carotid dz: - Less than 40% R ICA stenosis and approx 60% L ICA stenosis, per carotid u/s of 02/28/[address] Rocha in [place] and evaluation with a neurologist at [facility] and testing at [facility] at [place] did not indicate any significant neurologic issues Borderline diabetes mellitus, - diet controlled. Borderline hyperlipidemia - being treated with statin therapy.- followed by PCP Chronic idiopathic granulomatous hepatitis - on liver biopsy carried out at [facility] several years ago. - This has resulted in chronic intermittent mild liver enzyme elevation Sleep apnea syndrome - for which she has been on C-PAP therapy. Hypothyroidism - being treated with thyroid replacement therapy Chronic back pain - managed by PCP Orthopedic procedures: - L knee replacement and surgery x 3 in or around [address] Mans[place]; - L tarsal bone fracture managed by Dr Betancourt L renal cyst - on renal u/s of 01/28/19, - followed by PCP Gastric procedures: - Endoscopy (Dr Calix in [place], [place]) of 01/09/18: gastic polyps (resected), normal duodenal bulb and 2nd part of duodenum, diverticulosis of the colon. - In Mar 2019, she underwent ERCP and biliary/pancreatic sphincterotomies (temporary stenting was removed a few days later) - Panendoscopy by Dr Yasmany Calix at [facility] in Jan 2019, details unavailable, pt states she was told she had gastroparesis Medication intolerance: - Intolerance to hydralazine Plan: Management of cervical halo brace per Dr. Alcala Continue current medication regimen including ASA and Plavix Monitor lab from time to time We have reviewed Dr. Boothe note from the weekend ALIE REYES October 22, 2021 13:25
--- NOTE | 2021-10-22 14:39 | Physical Therapy Daily Note ---
PT Daily Note-Current Subjective Patient in recliner upon entering with no new complaints. Pain Numeric Pain Scale: 0-No Pain Mental Status Patient Orientation: Person, Place, Time, Situation HALO Transfers SCALE: Activities may be completed with or without assistive devices. 4-Immvspgmwp-znfvbgn completes the activity by him/herself with no assistance from a helper. 5-Set-up or Clean-up Assistance-helper sets up or cleans up; patient completes activity. [place] assists only prior to or following the activity. 4-Supervision or Touching Assistance-helper provides verbal cues and/or touching/steadying and/or contact guard assistance as patient completes activity. Assistance may be provided throughout the activity or intermittently. 3-Partial/Moderate Assistance-helper does LESS THAN HALF the effort. [place] lifts, holds or supports trunk or limbs, but provides less than half the effort. 2-Substantial/Maximal Assistance-helper does MORE THAN HALF the effort. [place] lifts or holds trunk or limbs and provides more than half the effort. 1-Amrfnpokr-bzkoua does ALL the effort. Patient does none of the effort to complete the activity. Or, the assistance of 2 or more helpers is required for the patient to complete the activity. If activity was not attempted, code reason: 7-Patient Refused. 9-Not Applicable-not attempted and the patient did not perform the activity before the current illness, exacerbation or injury. 10-Not Attempted due to Environmental Limitations-(lack of equipment, weather restraints, etc.). 88-Not Attempted due to Medical Conditions or Safety Concerns. Sit to Stand (QC): 4 Weight Bearing Right Lower Extremity: Right Full Weight Bearing Left Lower Extremity: Left Full Weight Bearing Patient NWB on left 3rd digit Gait Training Does the Patient Walk?: Yes Distance: 400', 100' Walk 10 feet (QC): 4 Walk 50 ft with 2 Turns(QC): 4 Walk 150 ft (QC): 4 Gait Assistive Device: FWW CGA. Patient had better foot clearance than this morning. Instructed family to bring proper shoes to fit AFO tomorrow. Exercises Standing: Heel/toe raises, Marching (Tap foot on 4inch block ), Mini squats, Side steps (25ftx2) Standing Reps: 30 Walking in parallel bars while holding a ball with both hands. Treatments Ambulation, walking balance, LE strengthening. Assessment Current Status: Good Progress Patients has decent strength with LE exercises, but R side presents weaker than the left. Patients ambulation is smoother but foot drop and inversion of the foot is still present. Patient was left in chair with call light, tray, and all needs met. PT Short Term Goals Short Term Goals Time Frame: October 26, 2021 Roll Left & Right: 3 (Jaxon) Sit to lyin (Jaxon) Lying to sitting on side of be: 3 (Jaxon) Sit to stand: 4 (SBA) Chair/rgv-yb-fzqdr transfer: 4 (SBA) Walk 10 feet: 4 (SBA) Walk 50 feet with two turns: 4 (SBA) Walk 150 feet: 4 (SBA) PT [employer] Assistant Goals Usp Goals PT Usp Goals Time Frame: November 09, 2021 Roll Left & Right (QC): 4 Sit to Lying (QC): 4 Lying-Sitting on Side/Bed(QC): 4 Sit to Stand (QC): 6 Chair/Yqb-dj-Bgmsg Xfer(QC): 6 Toilet Transfer (QC): 6 Car Transfer (QC): 6 Does the Patient Walk: Yes Walk 10 feet (QC): 6 Walk 50ft with 2 Turns (QC): 6 Walk 150 ft (QC): 6 Walking 10ft on Uneven Surface: 6 1 Step (curb) (QC): 4 4 Steps (QC): 4 12 Steps (QC): 88 Picking up an Object (QC): 6 Wheel 50 feet with 2 turns (QC: 9 Wheel 150 feet: 9 PT Plan Problem List Problem List: Activity Tolerance, Functional Strength, Safety, Balance, Gait, Transfer, Bed Mobility, ROM Treatment/Plan Treatment Plan: Continue Plan of Care Treatment Plan: Bed Mobility, Education, Functional Activity Wolfgang, Functional Strength, Group Therapy, Gait, Safety, Therapeutic Exercise, Transfers Treatment Duration: November 09, 2021 Frequency: At least 5 of 7 days/Wk (IRF) Estimated Hrs Per Day: 1.5 hours per day Patient and/or Family Agrees t: Yes Safety Risks/Education Patient Education: Gait Training, Transfer Techniques, Reviewed Precautions, Correct Positioning, Safety Issues Teaching Recipient: Patient Teaching Methods: Demonstration, Discussion Response to Teaching: Verbalize Understanding, Return Demonstration Time/GCodes Time In: 1400 Time Out: 1445 Total Billed Treatment Time: 45 Total Billed Treatment 1 visit GT 20min EX 15min NM 10min FLORIAN TOSCANO PT October 22, 2021 14:39
--- NOTE | 2021-10-22 16:53 | Progress Note - Cardiology ---
Cardiology SOAP Progress Note Subjective: Gen malaise and weakness present No cp or palp or syncope No shortness of breath Chronic, mild, bilat leg weakness Chronic, mild to mod, intermittent leg swelling Objective: I&O/Vital Signs 10/22/21 10/22/21 07:25 09:00 Temp 36.2 Pulse 70 Resp 16 B/P (MAP) 139/63 (88) Pulse Ox 91 O2 Delivery Room Air Room Air Weight (Pounds): 182 Weight (Ounces): 0.0 Weight (Calculated Kilograms): 82.422853 Constitutional: AAO x 3, well-developed, well-nourished, other (head and neck fixed in a halo brade) Respiratory: chest expansion is symmetric, chest is bilaterally symmetric, lungs clear to auscultation Cardiovascular: regular rate-rhythm, S1 and S2 Gastrointestional: soft; No tenderness; audible bowel sounds Extremities: swelling (mild, bilat leg swelling); No clubbing, No cyanosis Neurologic/Psychiatric: other (moves all limbs equally) Skin: No rash on exposed areas, No ulcerations on exposed areas A/P: Assessment: S/P non-syncopal fall in late September 2021 resulting in C1, C2 cervical spine fracture - S/P surgical intervention at [facility] currently in a cervical halo brace PAD - Segmental pressures of August 2020: severe PAD on the right and mild on the left - Multiple up to 90% stenosis of the right superficial femoral artery to which successful balloon angioplasty was carried out on 10-03-20 - Recurrent R leg claudication and seg pressure s of August 2021 showed considerable L lower limb disease - CTA with runoffs of 08-28-21 showed Severe disease with multiple segmental occlusions throughout the right SFA; however, widely patent three-vessel runoff to the right ankle is present. Partially obscured distal left SFA and popliteal with two-vessel runoff to the ankle. Diffuse aortic atherosclerosis without abdominopelvic hemodynamically significant stenosis, aneurysm, or mesenteric end organ ischemia. - Noninflamed diverticulosis, benign hepatic cyst, and supraumbilical fatty abdominal wall hernia - advised f/u with PCP - Peripheral angiogram of 09-04-21: Successful balloon angioplasty of the right superficial femoral artery with reduction of stenosis from 99% to less than 20% residual. Chronic, bilateral leg swelling likely related to venous insuff Ac diastolic CHF in Mar 2020 - currently controlled Labile hypertension Neurocardiogenic syncope - as determined by a positive tilt table study. - Rate drop response on her pacemaker did not prevent symptoms; it was turned off on 04/04/17 and base rate raised to 70 bpm - Symptoms of near syncope have returned in December 2020 Intermittent advanced atrio-ventricular block leading to syncope - treated with dual chamber pacemaker implantation with no subsequent recurrence of eda syncope - One brief episode of WCT on recent pacemaker interrogation of 03/25/17 that led to card cath of 04/08/17 (see below) - Pacemaker functioning normally on interrogation of 08-31-21 Coronary artery disease - history of right coronary stenting in 2004. - Card cath of 04/08/17 showed ,mod CAD and a widely patent stent in the mid RCA, LVEF 65%, mild to mod elev of LVEDP. - MPI of Mar 07, 2020 show no evidence of ischemia or infarction. Normal regional wall motion abnormality. LVEF 73% Carotid dz: - Less than 40% R ICA stenosis and approx 60% L ICA stenosis, per carotid u/s of 02/28/[address] Rocha in [place] and evaluation with a neurologist at [facility] and testing at [facility] at [place] did not indicate any significant neurologic issues Borderline diabetes mellitus, - diet controlled. Borderline hyperlipidemia - being treated with statin therapy.- followed by PCP Chronic idiopathic granulomatous hepatitis - on liver biopsy carried out at [facility] several years ago. - This has resulted in chronic intermittent mild liver enzyme elevation Sleep apnea syndrome - for which she has been on C-PAP therapy. Hypothyroidism - being treated with thyroid replacement therapy Chronic back pain - managed by PCP Orthopedic procedures: - L knee replacement and surgery x 3 in or around [address] Mansfield; - L tarsal bone fracture managed by Dr Betancourt L renal cyst - on renal u/s of 01/28/19, - followed by PCP Gastric procedures: - Endoscopy (Dr Calix in [place], [place]) of 01/09/18: gastic polyps (resected), norm al duodenal bulb and 2nd part of duodenum, diverticulosis of the colon. - In Mar 2019, she underwent ERCP and biliary/pancreatic sphincterotomies (temporary stenting was removed a few days later) - Panendoscopy by Dr Yasmany Calix at [facility] in Jan 2019, details unavailable, pt states she was told she had gastroparesis Medication intolerance: - Intolerance to hydralazine Plan: Management of cervical halo brace per Dr. Alcala Continue current medication regimen including ASA and Plavix Monitor lab from time to time I interviewed and examined her, reviewed her records, and answered her questions ANA NEWBY MD FACP FAC CCDS October 22, 2021 16:53
[2021-10-22 19:48] VITALS: BP 145/72
[2021-10-22] MEDS: ARTIFICAL TEARS 0.4 ML UNIT DOSE (REFRESH PLUS) OU SCH (20:58)
--- NOTE | 2021-10-23 06:06 | PM&R Progress Note ---
Subjective HPI/CC On Admission Date Seen by Provider: October 23, 2021 Time Seen by Provider: 09:30 Subjective/Events-last exam 10/23/2021: Patient ambulating well Participating in all therapy No pain reported right now No falls 10/22/2021: Patient doing really well No concerns Pain is well controlled Checked meds and labs Right leg improved 10/21/2021: Patient doing well Pain is well controlled No falls Checked meds and labs 10/20/2021: Patient doing well Pain is controlled Labs reviewed Eating and drinking well Bowel function normal Will be in a halo for total of 4 months Review of Systems General: Fatigue, Malaise Objective Exam Vital Signs Vital Signs Date Time Temp Pulse Resp B/P (MAP) Pulse Ox O2 Delivery O2 Flow Rate FiO2 10/23/21 20:10 Room Air 10/23/21 19:35 36.3 82 20 111/70 (84) 94 Capillary Refill : General Appearance: No Apparent Distress, WD/WN, Chronically ill HEENT: PERRL/EOMI, Normal ENT Inspection, Pharynx Normal Neck: Limited Range of Motion, Other (In halo neck brace) Respiratory: Chest Non Tender, Lungs Clear, Normal Breath Sounds, No Accessory Muscle Use, No Respiratory Distress Cardiovascular: Regular Rate, Rhythm, No Edema, No Gallop, No JVD, No Murmur, Normal Peripheral Pulses Gastrointestinal: Normal Bowel Sounds, No Organomegaly, No Pulsatile Mass, Non Tender, Soft Back: Normal Inspection, No CVA Tenderness, No Vertebral Tenderness Extremity: Normal Capillary Refill, Normal Inspection, Normal Range of Motion, Non Tender, No Calf Tenderness, No Pedal Edema Neurologic/Psychiatric: Alert, Oriented x3, No Motor/Sensory Deficits, Normal Mood/Affect, Abnormal Gait Skin: Normal Color, Warm/Dry Lymphatic: No Adenopathy Results/Procedures Lab Patient resulted labs reviewed. FIM Transfers Therapy Code Descriptions/Definitions Functional [place] Measure: 0=Not Assessed/NA 4=Minimal Assistance 1=Total Assistance 5=Supervision or Setup 2=Maximal Assistance 6=Modified [place] 3=Moderate Assistance 7=Complete IndependenceSCALE: Activities may be completed with or without assistive devices. 4-Yaensqeqgi-nbssfkn completes the activity by him/herself with no assistance from a helper. 5-Set-up or Clean-up Assistance-helper sets up or cleans up; patient completes activity. [place] assists only prior to or following the activity. 4-Supervision or Touching Assistance-helper provides verbal cues and/or touching/steadying and/or contact guard assistance as patient completes activity. Assistance may be provided throughout the activity or intermittently. 3-Partial/Moderate Assistance-helper does LESS THAN HALF the effort. [place] lifts, holds or supports trunk or limbs, but provides less than half the effort. 2-Substantial/Maximal Assistance-helper does MORE THAN HALF the effort. [place] lifts or holds trunk or limbs and provides more than half the effort. 1-Extxavyeh-mdydls does ALL the effort. Patient does none of the effort to complete the activity. Or, the assistance of 2 or more helpers is required for the patient to complete the activity. If activity was not attempted, code reason: 7-Patient Refused. 9-Not Applicable-not attempted and the patient did not perform the activity before the current illness, exacerbation or injury. 10-Not Attempted due to Environmental Limitations-(lack of equipment, weather restraints, etc.). 88-Not Attempted due to Medical Conditions or Safety Concerns. Roll Left to Right (QC): 3 Sit to Lying (QC): 3 Sit to Stand (QC): 4 Chair/Glj-xj-Xjqql Xfer(QC): 4 Car Transfer (QC): 4 Gait Training Does the Patient Walk?: Yes Distance: 400', 100' Walk 10 feet (QC): 4 Walk 50 ft with 2 Turns(QC): 4 Walk 150 ft (QC): 4 Walking 10ft/uneven surface-QC: 4 Gait Assistive Device: FWW Wheelchair Training Does the Pt Use a Wheelchair?: No Wheel 50 ft with 2 turns (QC): 9 Wheel 150 ft (QC): 9 Stair Training #of Steps: 1 1 Step (curb) (QC): 4 4 Steps (QC): 88 12 Steps (QC): 88 Balance Picking up an Object (QC): 4 (CGA using twill cutter) ADL-Treatment Eating (QC): 5 Oral Hygiene (QC): 4 Shower/Bathe Self (QC): 4 Upper Body Dressing (QC): 3 Lower Body Dressing (QC): 3 On/Off Footwear (QC): 3 Toileting Hygiene (QC): 4 Toilet Transfer (QC): 4 Assessment/Plan Assessment and Plan Assess & Plan/Chief Complaint Assessment: Closed C1-C2 fracture status post surgical stabilization now in halo neck brace Status post fall CAD PVD recent reperfusion ICD/pacemaker placement managed by Dr. Anthony Diabetes Hypothyroidism Hypertension B12 deficiency DAVID on CPAP GERD Emphysema Carotid stenosis Plan: Pain control Home meds Rehab protocol Cardiology consultation 10/20/2021: Supportive care Pain control 10/21/2021: Supportive care Monitor closely 10/22/2021: Supportive care Pain control 10/23/2021: Supportive care Aggressive therapy (1) Coronary artery disease without angina pectoris Assessment & Plan: She is not having any angina at this point in time. She should continue on aspirin, clopidogrel, beta-effie and statin medication. She is on extended duration dual antiplatelet therapy due to multiple previous coronary and peripheral interventions. (2) Chronic heart failure with preserved ejection fraction (HFpEF) Assessment & Plan: She seems to be euvolemic at this point in time. Continue oral furosemide. (3) Peripheral arterial disease Assessment & Plan: She had a recent peripheral intervention with balloon angioplasty to a subtotally occluded right superficial femoral artery. She is asymptomatic at this point in time although her mobility is somewhat limited due to her recent cervical fracture. (4) Complete heart block Assessment & Plan: She has a permanent pacemaker in place that appears to be functioning normally. She does not have a defibrillator. (5) Primary hypertension Assessment & Plan: Continue metoprolol and doxazosin. (6) Mixed hyperlipidemia Assessment & Plan: Continue atorvastatin. (7) Cardiac pacemaker in situ Assessment & Plan: The device appears to be functioning normally and she is monitored by her remote pacemaker monitoring team in the office. ITZEL MARRERO DO October 23, 2021 06:06
[2021-10-23] MEDS: KCL 10 MEQ TAB (MICRO K) PO SCH (06:51)
[2021-10-23] MEDS: GABAPENTIN 100 MG (NEURONTIN) CAP PO SCH ×3 (06:51→21:10)
[2021-10-23] MEDS: LEVOTHYROXINE 50 MCG (LEVOTHROID) TAB PO SCH (06:51)
[2021-10-23 07:42] VITALS: BP 157/70
[2021-10-23] MEDS: SERTRALINE 50 MG (ZOLOFT) TABLET PO SCH (08:52)
[2021-10-23] MEDS: CLOPIDOGREL 75 MG (PLAVIX) TABLET PO SCH (08:52)
[2021-10-23] MEDS: PANTOPRAZOLE 20 MG TABLET (PROTONIX) PO SCH (08:52)
[2021-10-23] MEDS: FUROSEMIDE 40 MG (LASIX) TAB PO SCH (08:52)
[2021-10-23] MEDS: CALCIUM CARB + VIT D 600 MG (CALCARB + D) TAB PO SCH (08:52)
[2021-10-23] MEDS: meTOprolol SUCCINATE 100 MG (TOPROL XL) TAB PO SCH ×2 (08:52→21:11)
[2021-10-23] MEDS: doxAzosin 4 MG (CARDURA) TAB PO SCH ×2 (08:52→21:11)
[2021-10-23] MEDS: ASPIRIN E.C. 81 MG (ECOTRIN) TAB PO SCH (08:52)
[2021-10-23] MEDS: AtorvaSTATin TABLET 10 MG TABLET PO SCH (08:52)
[2021-10-23] MEDS: METHOCARBAMOL 750 MG (ROBAXIN) TAB PO SCH ×2 (08:52→21:10)
--- NOTE | 2021-10-23 08:58 | Physical Therapy Daily Note ---
PT Daily Note-Current Subjective Patient was in room and had just finished breakfast. Patient needed to get dressed, and did so with husbands help. She reports no other complaints today. Needed assist donning her AFO and shoes. Pain Location: No Pain Reported Mental Status Patient Orientation: Person, Place, Time, Situation HALO Transfers SCALE: Activities may be completed with or without assistive devices. 0-Hevkvdnuae-kgzuzcx completes the activity by him/herself with no assistance f rom a helper. 5-Set-up or Clean-up Assistance-helper sets up or cleans up; patient completes activity. [place] assists only prior to or following the activity. 4-Supervision or Touching Assistance-helper provides verbal cues and/or touching/steadying and/or contact guard assistance as patient completes activity. Assistance may be provided throughout the activity or intermittently. 3-Partial/Moderate Assistance-helper does LESS THAN HALF the effort. [place] lifts, holds or supports trunk or limbs, but provides less than half the effort. 2-Substantial/Maximal Assistance-helper does MORE THAN HALF the effort. [place] lifts or holds trunk or limbs and provides more than half the effort. 0-Smksnfhxq-clfpjg does ALL the effort. Patient does none of the effort to complete the activity. Or, the assistance of 2 or more helpers is required for the patient to complete the activity. If activity was not attempted, code reason: 7-Patient Refused. 9-Not Applicable-not attempted and the patient did not perform the activity before the current illness, exacerbation or injury. 10-Not Attempted due to Environmental Limitations-(lack of equipment, weather restraints, etc.). 88-Not Attempted due to Medical Conditions or Safety Concerns. Sit to Stand (QC): 4 Weight Bearing Right Lower Extremity: Right Full Weight Bearing Left Lower Extremity: Left Full Weight Bearing Patient NWB on left 3rd digit Gait Training Does the Patient Walk?: Yes Distance: 400', 100' Walk 10 feet (QC): 4 Walk 50 ft with 2 Turns(QC): 4 Walk 150 ft (QC): 4 Gait Assistive Device: FWW Plantar flexion-stop AFO on R foot. Normal step through pattern. HALO collar prevents her from being able to look down at her feet. Foot still drags occasionally and caused a few instances of tripping even with AFO. Stair Training Stair Training: Handrails/: 2 handrails #of Steps: 8 1 Step (curb) (QC): 4 4 Steps (QC): 4 Stairs: Pattern: Step to cues for foot placement Exercises Standing: Sit to Stand Standing Reps: 30 NuStep Minutes: 15 NuStep Workload: 5 Treatments Ambulation, LE strengthening Assessment Current Status: Good Progress Patient performed well today, demonstrates good strength with exercises, but still some unsteadiness with ambulating especially with R foot drop and the weight of the HALO. Patient was left in chair with call light, tray, and all needs met. PT Short Term Goals Short Term Goals Time Frame: October 26, 2021 Roll Left & Right: 3 (Jaxon) Sit to lyin (Jaxon) Lying to sitting on side of be: 3 (Jaxon) Sit to stand: 4 (SBA) Chair/dpn-gp-leqlb transfer: 4 (SBA) Walk 10 feet: 4 (SBA) Walk 50 feet with two turns: 4 (SBA) Walk 150 feet: 4 (SBA) PT Loss Prevention Analyst Goals Care Home Goals PT Loss Prevention Analyst Goals Time Frame: November 09, 2021 Roll Left & Right (QC): 4 Sit to Lying (QC): 4 Lying-Sitting on Side/Bed(QC): 4 Sit to Stand (QC): 6 Chair/Haz-ho-Qpubc Xfer(QC): 6 Toilet Transfer (QC): 6 Car Transfer (QC): 6 Does the Patient Walk: Yes Walk 10 feet (QC): 6 Walk 50ft with 2 Turns (QC): 6 Walk 150 ft (QC): 6 Walking 10ft on Uneven Surface: 6 1 Step (curb) (QC): 4 4 Steps (QC): 4 12 Steps (QC): 88 Picking up an Object (QC): 6 Wheel 50 feet with 2 turns (QC: 9 Wheel 150 feet: 9 PT Plan Problem List Problem List: Activity Tolerance, Functional Strength, Safety, Balance, Gait, Bed Mobility, ROM Treatment/Plan Treatment Plan: Continue Plan of Care Treatment Plan: Bed Mobility, Education, Functional Activity Wolfgang, Functional Strength, Group Therapy, Gait, Safety, Therapeutic Exercise, Transfers Treatment Duration: November 09, 2021 Frequency: At least 5 of 7 days/Wk (IRF) Estimated Hrs Per Day: 1.5 hours per day Patient and/or Family Agrees t: Yes Safety Risks/Education Patient Education: Gait Training, Transfer Techniques, Steps, Reviewed Precautions, Correct Positioning, Safety Issues Teaching Recipient: Patient Teaching Methods: Discussion Response to Teaching: Verbalize Understanding, Return Demonstration Time/GCodes Time In: 0800 Time Out: 899 Total Billed Treatment Time: 60 Total Billed Treatment 1 visit EX 20min FA 40min FLORIAN TOSCANO PT October 23, 2021 08:58
[2021-10-23] MEDS: SENNA W/DOCUSATE (SENOKOT S) TABLET PO SCH ×2 (09:26→19:37)
[2021-10-23] MEDS: DOCUSATE SODIUM 100 MG (COLACE) CAP PO SCH ×2 (09:26→22:17)
[2021-10-23] MEDS: polyethylene glycoL POWDER 17 GM (MIRALAX) PACK PO SCH ×2 (09:26→19:36)
--- NOTE | 2021-10-23 11:03 | Occupational Ther Daily Note ---
OT Current Status-Daily Note Subjective Pt excited about getting to have hair washed today. Appearance Pt left sitting in recliner, all needs within reach. Mental Status/Objective Patient Orientation: Person, Place, Situation Attachments: Other-See Comments (HALO brace) ADL-Treatment Therapy Code Descriptions/Definitions Functional [place] Measure: 0=Not Assessed/NA 4=Minimal Assistance 1=Total Assistance 5=Supervision or Setup 2=Maximal Assistance 6=Modified [place] 3=Moderate Assistance 7=Complete IndependenceSCALE: Activities may be completed with or without assistive devices. 0-Xlbbdrdrgr-bpnlxlh completes the activity by him/herself with no assistance from a helper. 5-Set-up or Clean-up Assistance-helper sets up or cleans up; patient completes activity. [place] assists only prior to or following the activity. 4-Supervision or Touching Assistance-helper provides verbal cues and/or touching/steadying and/or contact guard assistance as patient completes activity. Assistance may be provided throughout the activity or intermittently. 3-Partial/Moderate Assistance-helper does LESS THAN HALF the effort. [place] lifts, holds or supports trunk or limbs, but provides less than half the effort. 2-Substantial/Maximal Assistance-helper does MORE THAN HALF the effort. [place] lifts or holds trunk or limbs and provides more than half the effort. 1-Bjhcsntag-zuqlim does ALL the effort. Patient does none of the effort to complete the activity. Or, the assistance of 2 or more helpers is required for the patient to complete the activity. If activity was not attempted, code reason: 7-Patient Refused. 9-Not Applicable-not attempted and the patient did not perform the activity before the current illness, exacerbation or injury. 10-Not Attempted due to Environmental Limitations-(lack of equipment, weather restraints, etc.). 88-Not Attempted due to Medical Conditions or Safety Concerns. Eating (QC): 6 Oral Hygiene (QC): 6 Shower/Bathe Self (QC): 5 Upper Body Dressing (QC): 4 Lower Body Dressing (QC): 4 On/Off Footwear: 4 Toileting Hygiene (QC): 6 Toilet Transfer (QC): 4 Education provided on different methods to wash hair with HALO brace; Importance of keeping vest dry. While supine (with head slightly off edge of bed), OT washed pt's hair. Pt tolerated well. Brace/vest C/D/I post task. Sponge bath performed in shower. Good recall on use of LHS to wash posterior shoulder and LE's. Set up only. She sat to don clothing. Extra time and min cues on use of dressing stick when donning shirt over head/brace, but no physical assistance required. Pt requested to try chaplaincy again when donning LB clothing this date. She was able to place clothing onto floor, thread feet through and then use chaplaincy to pull up to thighs. Supervision for safety as she stood to pull clothing up to waist. She stood to brush teeth, no unsteadiness or safety concerns observed. Education OT Patient Education: Correct positioning, Energy conservation, Modified ADL techniques, Progress toward Goal/Update tx plan, Purpose of tx/functional activities, Reviewed precautions Teaching Recipient: Patient Teaching Methods: Demonstration, Discussion Response to Teaching: Verbalize Understanding, Return Demonstration OT Short Term Goals Short Term Goals Time Frame: October 29, 2021 Eatin Oral hygiene: 5 Toileting hygiene: 4 Shower/bathe self: 4 Upper body dressin Lower body dressin Putting on/taking off footwear: 4 OT Carbon Lamp Cleaner Goals Intermediate Goals Time Frame: November 07, 2021 Eating (QC): 6 Oral Hygiene (QC): 6 Toileting Hygiene (QC): 6 Shower/Bathe Self (QC): 5 Upper Body Dressing (QC): 5 Lower Body Dressing (QC): 5 On/Off Footwear (QC): 6 1=Demonstrate adherence to instructed precautions during ADL tasks. 2=Patient will verbalize/demonstrate understanding of assistive devices/modifications for ADL. 3=Patient will improve strength/tolerance for activity to enable patient to perform ADL's. OT Education/Plan Problem List/Assessment Assessment: Decreased Activ Tolerance, Decreased UE Strength, Impaired Funct Balance, Impaired I ADL's, Restricted Funct UE ROM Discharge Recommendations Plan/Recommendations: Continue POC Treatment Plan/Plan of Care Treatment,Training & Education: Yes Patient would benefit from OT for education, treatment and training to promote independence in ADL's, mobility, safety and/or upper extremity function for ADL's. Plan of Care: ADL Retraining, Cognitive Retraining, Functional Mobility, Group Exercise/Act as Ind, Orthotic Fitting/Training, UE Funct Exercise/Act Treatment Duration: November 07, 2021 Frequency: At least 5 of 7 days/Wk (IRF) Estimated Hrs Per Day: 1.5 hours per day (75-90 min/day ) Agreement: Yes Rehab Potential: Fair Time/GCodes Start Time: 09:30 Stop Time: 11:00 Total Time Billed (hr/min): 90 Billed Treatment Time 1 visit ADL x6 Sulema Samson OT October 23, 2021 11:03
[2021-10-23] MEDS: ENOXAPARIN 40 MG/0.4 ML (LOVENOX) SYR SC SCH (12:49)
--- NOTE | 2021-10-23 13:57 | Physical Therapy Daily Note ---
PT Daily Note-Current Subjective Patient was in chair upon entering and agreeable to PT. No new complaints. Friend was present during tx. Pain Location: No Pain Reported Mental Status Patient Orientation: Person, Place, Situation Transfers SCALE: Activities may be completed with or without assistive devices. 7-Pladawfbjr-eoyyuia completes the activity by him/herself with no assistance from a helper. 5-Set-up or Clean-up Assistance-helper sets up or cleans up; patient completes activity. [place] assists only prior to or following the activity. 4-Supervision or Touching Assistance-helper provides verbal cues and/or touching/steadying and/or contact guard assistance as patient completes activity. Assistance may be provided throughout the activity or intermittently. 3-Partial/Moderate Assistance-helper does LESS THAN HALF the effort. [place] lifts, holds or supports trunk or limbs, but provides less than half the effort. 2-Substantial/Maximal Assistance-helper does MORE THAN HALF the effort. [place] lifts or holds trunk or limbs and provides more than half the effort. 0-Mstfxyshy-apxqgi does ALL the effort. Patient does none of the effort to complete the activity. Or, the assistance of 2 or more helpers is required for the patient to complete the activity. If activity was not attempted, code reason: 7-Patient Refused. 9-Not Applicable-not attempted and the patient did not perform the activity before the current illness, exacerbation or injury. 10-Not Attempted due to Environmental Limitations-(lack of equipment, weather restraints, etc.). 88-Not Attempted due to Medical Conditions or Safety Concerns. Sit to Stand (QC): 4 Weight Bearing Right Lower Extremity: Right Full Weight Bearing Left Lower Extremity: Left Full Weight Bearing Patient NWB on left 3rd digit Gait Training Distance: 400', 100' Walk 10 feet (QC): 4 Walk 50 ft with 2 Turns(QC): 4 Walk 150 ft (QC): 4 Gait Assistive Device: FWW AFO was not used due to toe pain and tightness it caused. Pt foot clearance was better than this morning. May try RIYA wrap tomorrow. Wheelchair Training Does the Pt Use a Wheelchair?: No Exercises Standing: Heel/toe raises (x15), Marching (x20), Mini squats (x15), Step-ups (and side step-ups. ) Standing Reps: 10 (Each leg) Treatments ambulation, LE strengthening. Assessment Current Status: Good Progress Patient showed good strength with LE exercises. R foot had trouble clearing the box during step-ups and caused unsteadiness. Patient left in chair with call light, tray, and all needs met. PT Short Term Goals Short Term Goals Time Frame: October 26, 2021 Roll Left & Right: 3 (Jaxon) Sit to lyin (Jaxon) Lying to sitting on side of be: 3 (Jaxon) Sit to stand: 4 (SBA) Chair/euh-qv-qbvwb transfer: 4 (SBA) Walk 10 feet: 4 (SBA) Walk 50 feet with two turns: 4 (SBA) Walk 150 feet: 4 (SBA) PT Solution Spec Goals Solution Spec Goals PT Penitentiary Goals Time Frame: November 09, 2021 Roll Left & Right (QC): 4 Sit to Lying (QC): 4 Lying-Sitting on Side/Bed(QC): 4 Sit to Stand (QC): 6 Chair/Hlw-lv-Vuqxy Xfer(QC): 6 Toilet Transfer (QC): 6 Car Transfer (QC): 6 Does the Patient Walk: Yes Walk 10 feet (QC): 6 Walk 50ft with 2 Turns (QC): 6 Walk 150 ft (QC): 6 Walking 10ft on Uneven Surface: 6 1 Step (curb) (QC): 4 4 Steps (QC): 4 12 Steps (QC): 88 Picking up an Object (QC): 6 Wheel 50 feet with 2 turns (QC: 9 Wheel 150 feet: 9 PT Plan Problem List Problem List: Activity Tolerance, Functional Strength, Safety, Balance, Gait, Transfer, Bed Mobility, ROM Treatment/Plan Treatment Plan: Continue Plan of Care Treatment Plan: Bed Mobility, Education, Functional Activity Wolfgang, Functional Strength, Group Therapy, Gait, Safety, Therapeutic Exercise, Transfers Treatment Duration: November 09, 2021 Frequency: At least 5 of 7 days/Wk (IRF) Estimated Hrs Per Day: 1.5 hours per day Patient and/or Family Agrees t: Yes Safety Risks/Education Patient Education: Gait Training, Transfer Techniques, Reviewed Precautions, Correct Positioning, Safety Issues Teaching Recipient: Patient Teaching Methods: Demonstration, Discussion Response to Teaching: Verbalize Understanding, Return Demonstration Time/GCodes Time In: 1330 Time Out: 1400 Total Billed Treatment Time: 30 Total Billed Treatment 1 visit FA 15min EX 15min FLORIAN TOSCANO PT October 23, 2021 13:57
--- NOTE | 2021-10-23 17:29 | Progress Note - Cardiology ---
Cardiology SOAP Progress Note Subjective: No cp or palp or syncope or shortness of breath Gen weakness as before No n/v/d Objective: I&O/Vital Signs 10/23/21 10/23/21 07:42 08:48 Temp 36.2 Pulse 77 Resp 18 B/P (MAP) 157/70 (99) Pulse Ox 91 O2 Delivery Room Air Room Air Weight (Pounds): 182 Weight (Ounces): 0.0 Weight (Calculated Kilograms): 82.582355 Constitutional: AAO x 3, well-developed, well-nourished, other (head and neck fixed in a halo brade) Respiratory: chest expansion is symmetric, chest is bilaterally symmetric, lungs clear to auscultation Cardiovascular: regular rate-rhythm, S1 and S2 Gastrointestional: soft; No tenderness; audible bowel sounds Extremities: swelling (mild, bilat leg swelling); No clubbing, No cyanosis Neurologic/Psychiatric: other (moves all limbs equally) Skin: No rash on exposed areas, No ulcerations on exposed areas A/P: Assessment: S/P non-syncopal fall in late September 2021 resulting in C1, C2 cervical spine fracture - S/P surgical intervention at [facility] currently in a cervical halo brace PAD - Segmental pressures of August 2020: severe PAD on the right and mild on the left - Multiple up to 90% stenosis of the right superficial femoral artery to which successful balloon angioplasty was carried out on 10-03-20 - Recurrent R leg claudication and seg pressure s of August 2021 showed considerable L lower limb disease - CTA with runoffs of 08-28-21 showed Severe disease with multiple segmental occlusions throughout the right SFA; however, widely patent three-vessel runoff to the right ankle is present. Partially obscured distal left SFA and popliteal with two-vessel runoff to the ankle. Diffuse aortic atherosclerosis without abdominopelvic hemodynamically significant stenosis, aneurysm, or mesenteric end organ ischemia. - Noninflamed diverticulosis, benign hepatic cyst, and supraumbilical fatty abdominal wall hernia - advised f/u with PCP - Peripheral angiogram of 09-04-21: Successful balloon angioplasty of the right superficial femoral artery with reduction of stenosis from 99% to less than 20% residual. Chronic, bilateral leg swelling likely related to venous insuff Ac diastolic CHF in Mar 2020 - currently controlled Labile hypertension Neurocardiogenic syncope - as determined by a positive tilt table study. - Rate drop response on her pacemaker did not prevent symptoms; it was turned off on 04/04/17 and base rate raised to 70 bpm - Symptoms of near syncope have returned in December 2020 Intermittent advanced atrio-ventricular block leading to syncope - treated with dual chamber pacemaker implantation with no subsequent recurrence of eda syncope - One brief episode of WCT on recent pacemaker interrogation of 03/25/17 that led to card cath of 04/08/17 (see below) - Pacemaker functioning normally on interrogation of - Coronary artery disease - history of right coronary stenting in 2004. - Card cath of 04/08/17 showed ,mod CAD and a widely patent stent in the mid RCA, LVEF 65%, mild to mod elev of LVEDP. - MPI of Mar 07, 2020 show no evidence of ischemia or infarction. Normal regional wall motion abnormality. LVEF 73% Carotid dz: - Less than 40% R ICA stenosis and approx 60% L ICA stenosis, per carotid u/s of 02/28/[address] Rocha in [place] and evaluation with a neurologist at [facility] and testing at [facility] at [place] did not indicate any significant neurologic issues Borderline diabetes mellitus, - diet controlled. Borderline hyperlipidemia - being treated with statin therapy.- followed by PCP Chronic idiopathic granulomatous hepatitis - on liver biopsy carried out at [facility] several years ago. - This has resulted in chronic intermittent mild liver enzyme elevation Sleep apnea syndrome - for which she has been on C-PAP therapy. Hypothyroidism - being treated with thyroid replacement therapy Chronic back pain - managed by PCP Orthopedic procedures: - L knee replacement and surgery x 3 in or around [address] Mansfield; - L tarsal bone fracture managed by Dr Betancourt L renal cyst - on renal u/s of 01/28/19, - followed by PCP Gastric procedures: - Endoscopy (Dr Calix in [place], [place]) of 01/09/18: gastic polyps (resected), normal duodenal bulb and 2nd part of duodenum, diverticulosis of the colon. - In Mar 2019, she underwent ERCP and biliary/pancreatic sphincterotomies (temporary stenting was removed a few days later) - Panendoscopy by Dr Yasmany Calix at [facility] in Jan 2019, details unavailable, pt states she was told she had gastroparesis Medication intolerance: - Intolerance to hydralazine Plan: Continue current cardiac regimen Monitor labs from time to time ANA NEWBY MD FACP FAC CCDS October 23, 2021 17:29
[2021-10-23 19:35] VITALS: BP 111/70
[2021-10-23] MEDS: ARTIFICAL TEARS 0.4 ML UNIT DOSE (REFRESH PLUS) OU SCH (22:17)
--- NOTE | 2021-10-24 06:10 | PM&R Progress Note ---
Subjective HPI/CC On Admission Date Seen by Provider: October 24, 2021 Time Seen by Provider: 09:30 Subjective/Events-last exam 10/24/21: Pt is doing pretty well Nasal congestion will be managed with Dr. Biswas will see her She has had a broken nose several times Discharged planned on Friday10/23/2021: Patient ambulating well Participating in all therapy No pain reported right now No falls 10/22/2021: Patient doing really well No concerns Pain is well controlled Checked meds and labs Right leg improved 10/21/2021: Patient doing well Pain is well controlled No falls Checked meds and labs 10/20/2021: Patient doing well Pain is controlled Labs reviewed Eating and drinking well Bowel function normal Will be in a halo for total of 4 months Review of Systems General: Fatigue, Malaise Musculoskeletal: neck pain Objective Exam Vital Signs Vital Signs Date Time Temp Pulse Resp B/P (MAP) Pulse Ox O2 Delivery O2 Flow Rate FiO2 10/24/21 21:00 Room Air 10/24/21 20:00 36.3 74 18 160/69 (99) 95 Capillary Refill : General Appearance: No Apparent Distress, WD/WN, Chronically ill HEENT: PERRL/EOMI, Normal ENT Inspection, Pharynx Normal Neck: Limited Range of Motion, Other (In halo neck brace) Respiratory: Chest Non Tender, Lungs Clear, Normal Breath Sounds, No Accessory Muscle Use, No Respiratory Distress Cardiovascular: Regular Rate, Rhythm, No Edema, No Gallop, No JVD, No Murmur, Normal Peripheral Pulses Gastrointestinal: Normal Bowel Sounds, No Organomegaly, No Pulsatile Mass, Non Tender, Soft Back: Normal Inspection, No CVA Tenderness, No Vertebral Tenderness Extremity: Normal Capillary Refill, Normal Inspection, Normal Range of Motion, Non Tender, No Calf Tenderness, No Pedal Edema Neurologic/Psychiatric: Alert, Oriented x3, No Motor/Sensory Deficits, Normal Mood/Affect, Abnormal Gait Skin: Normal Color, Warm/Dry Lymphatic: No Adenopathy Results/Procedures Lab Patient resulted labs reviewed. FIM Transfers Therapy Code Descriptions/Definitions Functional [place] Measure: 0=Not Assessed/NA 4=Minimal Assistance 1=Total Assistance 5=Supervision or Setup 2=Maximal Assistance 6=Modified [place] 3=Moderate Assistance 7=Complete IndependenceSCALE: Activities may be completed with or without assistive devices. 8-Gdrfhyrxhn-kdhmtxf completes the activity by him/herself with no assistance from a helper. 5-Set-up or Clean-up Assistance-helper sets up or cleans up; patient completes activity. [place] assists only prior to or following the activity. 4-Supervision or Touching Assistance-helper provides verbal cues and/or touching/steadying and/or contact guard assistance as patient completes activity. Assistance may be provided throughout the activity or intermittently. 3-Partial/Moderate Assistance-helper does LESS THAN HALF the effort. [place] lifts, holds or supports trunk or limbs, but provides less than half the effort. 2-Substantial/Maximal Assistance-helper does MORE THAN HALF the effort. [place] lifts or holds trunk or limbs and provides more than half the effort. 2-Jktfmlgbj-avvbgv does ALL the effort. Patient does none of the effort to complete the activity. Or, the assistance of 2 or more helpers is required for the patient to complete the activity. If activity was not attempted, code reason: 7-Patient Refused. 9-Not Applicable-not attempted and the patient did not perform the activity before the current illness, exacerbation or injury. 10-Not Attempted due to Environmental Limitations-(lack of equipment, weather restraints, etc.). 88-Not Attempted due to Medical Conditions or Safety Concerns. Roll Left to Right (QC): 3 Sit to Lying (QC): 3 Sit to Stand (QC): 4 Chair/Nve-pm-Noslo Xfer(QC): 4 Car Transfer (QC): 4 Gait Training Does the Patient Walk?: Yes Distance: 400', 100' Walk 10 feet (QC): 4 Walk 50 ft with 2 Turns(QC): 4 Walk 150 ft (QC): 4 Walking 10ft/uneven surface-QC: 4 Gait Assistive Device: FWW Wheelchair Training Does the Pt Use a Wheelchair?: No Wheel 50 ft with 2 turns (QC): 9 Wheel 150 ft (QC): 9 Type of Wheelchair: N/A Stair Training Stair Training: Handrails/: 2 handrails #of Steps: 8 1 Step (curb) (QC): 4 4 Steps (QC): 4 12 Steps (QC): 88 Stairs: Pattern: Step to Balance Picking up an Object (QC): 4 (CGA using ham doctor) ADL-Treatment Eating (QC): 6 Oral Hygiene (QC): 6 Shower/Bathe Self (QC): 5 Upper Body Dressing (QC): 4 Lower Body Dressing (QC): 4 On/Off Footwear (QC): 4 Toileting Hygiene (QC): 6 Toilet Transfer (QC): 4 Assessment/Plan Assessment and Plan Assess & Plan/Chief Complaint Assessment: Closed C1-C2 fracture status post surgical stabilization now in halo neck brace Status post fall CAD PVD recent reperfusion ICD/pacemaker placement managed by Dr. Anthony Diabetes Hypothyroidism Hypertension B12 deficiency DAVID on CPAP GERD Emphysema Carotid stenosis Plan: Pain control Home meds Rehab protocol Cardiology consultation 10/20/2021: Supportive care Pain control 10/21/2021: Supportive care Monitor closely 10/22/2021: Supportive care Pain control 10/23/2021: Supportive care Aggressive therapy 10/24/21: Monitor pain (1) Spinal cord injury (2) Traumatic closed fracture of C1 vertebra with minimal displacement (3) Foot drop, right (4) Coronary artery disease without angina pectoris Assessment & Plan: She is not having any angina at this point in time. She should continue on aspirin, clopidogrel, beta-effie and statin medication. She is on extended duration dual antiplatelet therapy due to multiple previous coronary and peripheral interventions. (5) Chronic heart failure with preserved ejection fraction (HFpEF) Assessment & Plan: She seems to be euvolemic at this point in time. Continue oral furosemide. (6) Peripheral arterial disease Assessment & Plan: She had a recent peripheral intervention with balloon angioplasty to a subtotally occluded right superficial femoral artery. She is asymptomatic at this point in time although her mobility is somewhat limited due to her recent cervical fracture. (7) Complete heart block Assessment & Plan: She has a permanent pacemaker in place that appears to be functioning normally. She does not have a defibrillator. (8) Primary hypertension Assessment & Plan: Continue metoprolol and doxazosin. (9) Mixed hyperlipidemia Assessment & Plan: Continue atorvastatin. (10) Cardiac pacemaker in situ Assessment & Plan: The device appears to be functioning normally and she is mo nitored by her remote pacemaker monitoring team in the office. ITZEL MARRERO DO October 24, 2021 06:10
[2021-10-24] MEDS: LEVOTHYROXINE 50 MCG (LEVOTHROID) TAB PO SCH (06:32)
[2021-10-24] MEDS: GABAPENTIN 100 MG (NEURONTIN) CAP PO SCH ×3 (06:32→20:37)
[2021-10-24] MEDS: KCL 10 MEQ TAB (MICRO K) PO SCH (06:32)
[2021-10-24 07:29] VITALS: BP 146/64
[2021-10-24] MEDS: CALCIUM CARB + VIT D 600 MG (CALCARB + D) TAB PO SCH (08:32)
[2021-10-24] MEDS: FUROSEMIDE 40 MG (LASIX) TAB PO SCH (08:33)
[2021-10-24] MEDS: AtorvaSTATin TABLET 10 MG TABLET PO SCH (08:33)
[2021-10-24] MEDS: CLOPIDOGREL 75 MG (PLAVIX) TABLET PO SCH (08:33)
[2021-10-24] MEDS: polyethylene glycoL POWDER 17 GM (MIRALAX) PACK PO SCH ×2 (08:33→20:31)
[2021-10-24] MEDS: SERTRALINE 50 MG (ZOLOFT) TABLET PO SCH (08:33)
[2021-10-24] MEDS: METHOCARBAMOL 750 MG (ROBAXIN) TAB PO SCH ×2 (08:33→20:31)
[2021-10-24] MEDS: DOCUSATE SODIUM 100 MG (COLACE) CAP PO SCH ×2 (08:34→20:31)
[2021-10-24] MEDS: ASPIRIN E.C. 81 MG (ECOTRIN) TAB PO SCH (08:34)
[2021-10-24] MEDS: doxAzosin 4 MG (CARDURA) TAB PO SCH ×2 (08:34→20:31)
[2021-10-24] MEDS: PANTOPRAZOLE 20 MG TABLET (PROTONIX) PO SCH (08:34)
[2021-10-24] MEDS: meTOprolol SUCCINATE 100 MG (TOPROL XL) TAB PO SCH ×2 (08:34→20:31)
[2021-10-24] MEDS: SENNA W/DOCUSATE (SENOKOT S) TABLET PO SCH ×2 (08:34→20:32)
--- NOTE | 2021-10-24 08:52 | Occupational Ther Daily Note ---
OT Current Status-Daily Note Subjective Pt denies pain. Pleasant and willing to try multiple techniques to find best method during adls. Appearance Pt returned to sitting in recliner, all needs within reach. RN in room. Mental Status/Objective Patient Orientation: Person, Place, Situation Attachments: Other-See Comments (HALO brace) ADL-Treatment Therapy Code Descriptions/Definitions Functional [place] Measure: 0=Not Assessed/NA 4=Minimal Assistance 1=Total Assistance 5=Supervision or Setup 2=Maximal Assistance 6=Modified [place] 3=Moderate Assistance 7=Complete IndependenceSCALE: Activities may be completed with or without assistive devices. 3-Ajsdwscdou-yywsayr completes the activity by him/herself with no assistance from a helper. 5-Set-up or Clean-up Assistance-helper sets up or cleans up; patient completes activity. [place] assists only prior to or following the activity. 4-Supervision or Touching Assistance-helper provides verbal cues and/or touching/steadying and/or contact guard assistance as patient completes activity . Assistance may be provided throughout the activity or intermittently. 3-Partial/Moderate Assistance-helper does LESS THAN HALF the effort. [place] lifts, holds or supports trunk or limbs, but provides less than half the effort. 2-Substantial/Maximal Assistance-helper does MORE THAN HALF the effort. [place] lifts or holds trunk or limbs and provides more than half the effort. 1-Kbqspifsf-eokqrq does ALL the effort. Patient does none of the effort to complete the activity. Or, the assistance of 2 or more helpers is required for the patient to complete the activity. If activity was not attempted, code reason: 7-Patient Refused. 9-Not Applicable-not attempted and the patient did not perform the activity before the current illness, exacerbation or injury. 10-Not Attempted due to Environmental Limitations-(lack of equipment, weather restraints, etc.). 88-Not Attempted due to Medical Conditions or Safety Concerns. Eating (QC): 6 Oral Hygiene (QC): 6 Shower/Bathe Self (QC): 6 Upper Body Dressing (QC): 6 Lower Body Dressing (QC): 4 On/Off Footwear: 4 Toileting Hygiene (QC): 6 Toilet Transfer (QC): 6 Pt retrieved clothing with use of walker. Cue to drape clothing over AD vs carrying. Sponge bath performed in shower, pt able to complete set up independently this date. Good recall on use of LHS to wash posterior shoulder and LE's. Post cue to sit, pt was able to don LB clothing by placing clothing onto floor, thread feet through, and then use moss bleacher to pull up to thighs. Supervision for safety as she stood to pull clothing up to waist. Extra time to don shirt over head/brace, but no physical assistance required. She stood to brush teeth, no unsteadiness or safety concerns observed. Education OT Patient Education: Correct positioning, Energy conservation, Modified ADL techniques, Progress toward Goal/Update tx plan, Purpose of tx/functional activities, Reviewed precautions Teaching Recipient: Patient Teaching Methods: Demonstration, Discussion Response to Teaching: Verbalize Understanding, Return Demonstration, Reinforcement Needed OT Short Term Goals Short Term Goals Time Frame: October 29, 2021 Eatin Oral hygiene: 5 Toileting hygiene: 4 Shower/bathe self: 4 Upper body dressin Lower body dressin Putting on/taking off footwear: 4 OT Care Home Goals Care Home Goals Time Frame: November 07, 2021 Eating (QC): 6 Oral Hygiene (QC): 6 Toileting Hygiene (QC): 6 Shower/Bathe Self (QC): 5 Upper Body Dressing (QC): 5 Lower Body Dressing (QC): 5 On/Off Footwear (QC): 6 1=Demonstrate adherence to instructed precautions during ADL tasks. 2=Patient will verbalize/demonstrate understanding of assistive devices/nigel fications for ADL. 3=Patient will improve strength/tolerance for activity to enable patient to perform ADL's. OT Education/Plan Problem List/Assessment Assessment: Decreased Activ Tolerance, Decreased UE Strength, Impaired Funct Balance, Impaired I ADL's, Impaired Self-Care Skills, Restricted Funct UE ROM Discharge Recommendations Plan/Recommendations: Continue POC Equpiment Recommendations-D/C: Web Analytics Specialist Treatment Plan/Plan of Care Treatment,Training & Education: Yes Patient would benefit from OT for education, treatment and training to promote independence in ADL's, mobility, safety and/or upper extremity function for ADL's. Plan of Care: ADL Retraining, Cognitive Retraining, Functional Mobility, Group Exercise/Act as Ind, Orthotic Fitting/Training, UE Funct Exercise/Act Treatment Duration: November 07, 2021 Frequency: At least 5 of 7 days/Wk (IRF) Estimated Hrs Per Day: 1.5 hours per day (75-90 min/day ) Agreement: Yes Rehab Potential: Fair Time/GCodes Start Time: 07:30 Stop Time: 09:00 Total Time Billed (hr/min): 90 Billed Treatment Time 1 visit ADL x6 Sulema Samson OT October 24, 2021 08:52
[2021-10-24] MEDS ORDERED: MONTELUKAST 10 MG (SINGULAIR) TAB PO NR (10:45)
[2021-10-24] MEDS: OXYMETAZOLINE (AFRIN) 0.05% NA 30 ML BTL SCH ×3 (12:03→20:32)
--- NOTE | 2021-10-24 12:48 | Physical Therapy Daily Note ---
PT Daily Note-Current Subjective Upon arrival, pt was seated in recliner, Pt agrees to PT. Pain Comment: Pt reports no pain. Mental Status Patient Orientation: Person, Place, Time, Situation Attachments: Other-See Comments (Halo brace) Transfers SCALE: Activities may be completed with or without assistive devices. 9-Wfpvbpehar-yisivuw completes the activity by him/herself with no assistance from a helper. 5-Set-up or Clean-up Assistance-helper sets up or cleans up; patient completes activity. [place] assists only prior to or following the activity. 4-Supervision or Touching Assistance-helper provides verbal cues and/or touching/steadying and/or contact guard assistance as patient completes activity. Assistance may be provided throughout the activity or intermittently. 3-Partial/Moderate Assistance-helper does LESS THAN HALF the effort. [place] lifts, holds or supports trunk or limbs, but provides less than half the effort. 2-Substantial/Maximal Assistance-helper does MORE THAN HALF the effort. [place] lifts or holds trunk or limbs and provides more than half the effort. 3-Eojerbgtd-vygxgv does ALL the effort. Patient does none of the effort to complete the activity. Or, the assistance of 2 or more helpers is required for the patient to complete the activity. If activity was not attempted, code reason: 7-Patient Refused. 9-Not Applicable-not attempted and the patient did not perform the activity before the current illness, exacerbation or injury. 10-Not Attempted due to Environmental Limitations-(lack of equipment, weather restraints, etc.). 88-Not Attempted due to Medical Conditions or Safety Concerns. Sit to Stand (QC): 4 Weight Bearing Right Lower Extremity: Right Full Weight Bearing Left Lower Extremity: Left Full Weight Bearing Patient NWB on left 3rd digit Gait Training Does the Patient Walk?: Yes Distance: 232' Walk 10 feet (QC): 4 Walk 50 ft with 2 Turns(QC): 4 Walk 150 ft (QC): 4 Gait Persons Needed: 1 Gait Assistive Device: FWW Pt ambulated with reciprocal, GT pattern. Pt demonstrates no LOB, but at times would get tripped up, by her R foot, but would safely self correct, and regain balance. Pt had anai wrap to keep R foot in dorsiflexion. Exercises Seated Therapy Exercises: Ankle pumps (2 20x), Long arc quads (2 20x), Hip flexion (2 20x), Hamstring Curls (20), Hip abd/add (20) Standing: Hip Abduction (20), 3 way Ex=Flex, Abd, Ext (20 just flexion), Marching (20) Treatments Pt performed and completed all Exs listed above. During tx session rock contractor, was present. Pt ambulated from room down to windows and around to lobby 2x. During tx session pt went to the rest room. Pts son was present during tx session, then exited. Once PT session was concluded, pt was seated in recliner with call light and tray in reach and all needs met. Assessment Current Status: Good Progress Pt would benefit from continued PT to improve on GT, activity tolerance and strength. PT Short Term Goals Short Term Goals Time Frame: October 26, 2021 Roll Left & Right: 3 (Jaxon) Sit to lyin (Jaoxn) Lying to sitting on side of be: 3 (Jaxon) Sit to stand: 4 (SBA) Chair/fxl-na-fjkpp transfer: 4 (SBA) Walk 10 feet: 4 (SBA) Walk 50 feet with two turns: 4 (SBA) Walk 150 feet: 4 (SBA) PT Game Operator Goals Game Operator Goals PT Fpc Goals Time Frame: November 09, 2021 Roll Left & Right (QC): 4 Sit to Lying (QC): 4 Lying-Sitting on Side/Bed(QC): 4 Sit to Stand (QC): 6 Chair/Wpl-cd-Cuubn Xfer(QC): 6 Toilet Transfer (QC): 6 Car Transfer (QC): 6 Does the Patient Walk: Yes Walk 10 feet (QC): 6 Walk 50ft with 2 Turns (QC): 6 Walk 150 ft (QC): 6 Walking 10ft on Uneven Surface: 6 1 Step (curb) (QC): 4 4 Steps (QC): 4 12 Steps (QC): 88 Picking up an Object (QC): 6 Wheel 50 feet with 2 turns (QC: 9 Wheel 150 feet: 9 PT Plan Problem List Problem List: Activity Tolerance, Functional Strength, Gait Treatment/Plan Treatment Plan: Continue Plan of Care Treatment Plan: Bed Mobility, Education, Functional Activity Wolfgang, Functional Strength, Group Therapy, Gait, Safety, Therapeutic Exercise, Transfers Treatment Duration: November 09, 2021 Frequency: At least 5 of 7 days/Wk (IRF) Estimated Hrs Per Day: 1.5 hours per day Patient and/or Family Agrees t: Yes Time/GCodes Time In: 900 Time Out: 1000 Total Billed Treatment Time: 60 Total Billed Treatment 900-1000 1, FA 3 (40), GT (20) [id number] 1, GT (10), EX (20) ODILON DONALD FISH CLEANER MACHINE TENDER October 24, 2021 12:48
[2021-10-24] MEDS: ENOXAPARIN 40 MG/0.4 ML (LOVENOX) SYR SC SCH (13:32)
[2021-10-24] MEDS ORDERED: CARB15DR OU (14:35)
[2021-10-24 20:00] VITALS: BP 160/69
--- NOTE | 2021-10-24 20:03 | CONSULTATION REPORT ---
DATE OF SERVICE: ENT CONSULT ROOM: 227, acute rehab unit. REFERRING PHYSICIAN: Dr. Alcala. REASON FOR CONSULTATION: Nasal obstruction. HISTORY OF PRESENT ILLNESS: The patient is a 76-year-old female who currently admitted to the rehab unit for rehabilitation following a severe fall, which resulted in a C1-C2 fracture. She fortunately did not have any paralysis, but is getting a headache in a halo for the upcoming 3 to 4 months. She is not able to use her CPAP currently because of the halo. Today, she complains of an inability to breathe out through her nose. She can breathe in through the nose, but then it is like a ball valve effect. She could not get the air out. She has tried Breathe Right strips, which really did not help at all. She does have a history of chronic nasal drainage and has been on ipratropium nasal spray with benefit. She has a return appointment at on Friday. She is not having any bleeding or drainage from the nose. When she fell, she did hit her forehead, but did not have any more trauma to the nose itself. PHYSICAL EXAMINATION: GENERAL: On physical exam today, she was alert and oriented x3. She has a halo in place. NOSE: Externally, the nasal bones were stable. There was no acute fracture seen. Intranasal septum was mildly twisted, but there is no acute injury present. The turbinates were hypertrophied. I was not able to see the nasopharynx today. Oral cavity was clear and without sign of infection. NECK: No mass or adenopathy palpable anterior within the neck. IMPRESSION: Nasal obstruction. RECOMMENDATIONS: There is no abnormal mass or acute injury of the nose seen today. I did start her on Flonase two squirts in each of the nose once per day; use over the upcoming three to four months to see if that will help. Quite likely, the nasal obstruction will improve as the swelling goes down from the fracture site. Even if it does not, we could not do anything further at this point given the cervical fracture. I will plan on seeing her back in the office in about 2 months. Hopefully, she will see slow and gradual improvement. Job ID: [id number] DocumentID: [id number] Dictated Date: 10/24/2021 19:42:05 Pharmacy Affairs Assistant Date: 10/24/2021 20:02:13 Dictated By: DALLAS ASIF MD
[2021-10-24] MEDS: ARTIFICAL TEARS 0.4 ML UNIT DOSE (REFRESH PLUS) OU SCH (20:31)
[2021-10-25] MEDS: KCL 10 MEQ TAB (MICRO K) PO SCH (06:27)
[2021-10-25] MEDS: GABAPENTIN 100 MG (NEURONTIN) CAP PO SCH ×3 (06:27→21:37)
[2021-10-25] MEDS: LEVOTHYROXINE 50 MCG (LEVOTHROID) TAB PO SCH (06:27)
--- NOTE | 2021-10-25 06:38 | PM&R Progress Note ---
Subjective HPI/CC On Admission Date Seen by Provider: October 25, 2021 Time Seen by Provider: 11:00 Subjective/Events-last exam 10/25/2021: Patient doing really Discharge planned on Friday Appreciate Dr. Biswas 10/24/21: Pt is doing pretty well Nasal congestion will be managed with Dr. Biswas will see her She has had a broken nose several times Discharged planned on Friday10/23/2021: Patient ambulating well Participating in all therapy No pain reported right now No falls 10/22/2021: Patient doing really well No concerns Pain is well controlled Checked meds and labs Right leg improved 10/21/2021: Patient doing well Pain is well controlled No falls Checked meds and labs 10/20/2021: Patient doing well Pain is controlled Labs reviewed Eating and drinking well Bowel function normal Will be in a halo for total of 4 months Review of Systems General: Fatigue, Malaise HEENT: Sinus Congestion Objective Exam Vital Signs Vital Signs Date Time Temp Pulse Resp B/P (MAP) Pulse Ox O2 Delivery O2 Flow Rate FiO2 10/25/21 21:00 Nasal Cannula 2.00 10/25/21 20:31 36.2 80 16 130/72 (91) 94 Capillary Refill : General Appearance: No Apparent Distress, WD/WN, Chronically ill HEENT: PERRL/EOMI, Normal ENT Inspection, Pharynx Normal Neck: Limited Range of Motion, Other (In halo neck brace) Respiratory: Chest Non Tender, Lungs Clear, Normal Breath Sounds, No Accessory Muscle Use, No Respiratory Distress Cardiovascular: Regular Rate, Rhythm, No Edema, No Gallop, No JVD, No Murmur, Normal Peripheral Pulses Gastrointestinal: Normal Bowel Sounds, No Organomegaly, No Pulsatile Mass, Non Tender, Soft Back: Normal Inspection, No CVA Tenderness, No Vertebral Tenderness Extremity: Normal Capillary Refill, Normal Inspection, Normal Range of Motion, Non Tender, No Calf Tenderness, No Pedal Edema Neurologic/Psychiatric: Alert, Oriented x3, No Motor/Sensory Deficits, Normal Mood/Affect, Abnormal Gait Skin: Normal Color, Warm/Dry Lymphatic: No Adenopathy Results/Procedures Lab Patient resulted labs reviewed. FIM Transfers Therapy Code Descriptions/Definitions Functional [place] Measure: 0=Not Assessed/NA 4=Minimal Assistance 1=Total Assistance 5=Supervision or Setup 2=Maximal Assistance 6=Modified [place] 3=Moderate Assistance 7=Complete IndependenceSCALE: Activities may be completed with or without assistive devices. 4-Dpxbimvqmz-otdorbo completes the activity by him/herself with no assistance from a helper. 5-Set-up or Clean-up Assistance-helper sets up or cleans up; patient completes activity. [place] assists only prior to or following the activity. 4-Supervision or Touching Assistance-helper provides verbal cues and/or touching/steadying and/or contact guard assistance as patient completes activity. Assistance may be provided throughout the activity or intermittently. 3-Partial/Moderate Assistance-helper does LESS THAN HALF the effort. [place] lifts, holds or supports trunk or limbs, but provides less than half the effort. 2-Substantial/Maximal Assistance-helper does MORE THAN HALF the effort. [place] lifts or holds trunk or limbs and provides more than half the effort. 8-Okvusqnab-sgwxpn does ALL the effort. Patient does none of the effort to complete the activity. Or, the assistance of 2 or more helpers is required for the patient to complete the activity. If activity was not attempted, code reason: 7-Patient Refused. 9-Not Applicable-not attempted and the patient did not perform the activity before the current illness, exacerbation or injury. 10-Not Attempted due to Environmental Limitations-(lack of equipment, weather restraints, etc.). 88-Not Attempted due to Medical Conditions or Safety Concerns. Roll Left to Right (QC): 3 Sit to Lying (QC): 3 Sit to Stand (QC): 4 Chair/Kgl-xr-Nwhra Xfer(QC): 4 Car Transfer (QC): 4 Gait Training Does the Patient Walk?: Yes Distance: 232' Walk 10 feet (QC): 4 Walk 50 ft with 2 Turns(QC): 4 Walk 150 ft (QC): 4 Walking 10ft/uneven surface-QC: 4 Gait Persons Needed: 1 Gait Assistive Device: FWW Wheelchair Training Does the Pt Use a Wheelchair?: No Wheel 50 ft with 2 turns (QC): 9 Wheel 150 ft (QC): 9 Type of Wheelchair: N/A Stair Training Stair Training: Handrails/: 2 handrails #of Steps: 8 1 Step (curb) (QC): 4 4 Steps (QC): 4 12 Steps (QC): 88 Stairs: Pattern: Step to Balance Picking up an Object (QC): 4 (CGA using hat lining paster) ADL-Treatment Eating (QC): 6 Oral Hygiene (QC): 6 Shower/Bathe Self (QC): 6 Upper Body Dressing (QC): 6 Lower Body Dressing (QC): 4 On/Off Footwear (QC): 4 Toileting Hygiene (QC): 6 Toilet Transfer (QC): 6 Assessment/Plan Assessment and Plan Assess & Plan/Chief Complaint Assessment: Closed C1-C2 fracture status post surgical stabilization now in halo neck brace Status post fall CAD PVD recent reperfusion ICD/pacemaker placement managed by Dr. Anthony Diabetes Hypothyroidism Hypertension B12 deficiency DAVID on CPAP GERD Emphysema Carotid stenosis Nasal congestion Plan: Pain control Home meds Rehab protocol Cardiology consultation 10/20/2021: Supportive care Pain control 10/21/2021: Supportive care Monitor closely 10/22/2021: Supportive care Pain control 10/23/2021: Supportive care Aggressive therapy 10/24/21: Monitor pain 10/25/2021: Appreciate Dr. Biswas Discharge home tomorrow (1) Spinal cord injury (2) Traumatic closed fracture of C1 vertebra with minimal displacement (3) Foot drop, right (4) Coronary artery disease without angina pectoris Assessment & Plan: She is not having any angina at this point in time. She should continue on aspirin, clopidogrel, beta-effie and statin medication. She is on extended duration dual antiplatelet therapy due to multiple previous coronary and peripheral interventions. (5) Chronic heart failure with preserved ejection fraction (HFpEF) Assessment & Plan: She seems to be euvolemic at this point in time. Continue oral furosemide. (6) Peripheral arterial disease Assessment & Plan: She had a recent peripheral intervention with balloon angioplasty to a subtotally occluded right superficial femoral artery. She is asymptomatic at this point in time although her mobility is somewhat limited due to her recent cervical fracture. (7) Complete heart block Assessment & Plan: She has a permanent pacemaker in place that appears to be functioning normally. She does not have a defibrillator. (8) Primary hypertension Assessment & Plan: Continue metoprolol and doxazosin. (9) Mixed hyperlipidemia Assessment & Plan: Continue atorvastatin. (10) Cardiac pacemaker in situ Assessment & Plan: The device appears to be functioning normally and she is monitored by her remote pacemaker monitoring team in the office. ITZEL MARRERO DO October 25, 2021 06:38
[2021-10-25 07:55] VITALS: BP 114/58
[2021-10-25] MEDS: FUROSEMIDE 40 MG (LASIX) TAB PO SCH (08:33)
[2021-10-25] MEDS: ASPIRIN E.C. 81 MG (ECOTRIN) TAB PO SCH (08:33)
[2021-10-25] MEDS: doxAzosin 4 MG (CARDURA) TAB PO SCH ×2 (08:33→21:37)
[2021-10-25] MEDS: METHOCARBAMOL 750 MG (ROBAXIN) TAB PO SCH ×2 (08:33→21:37)
[2021-10-25] MEDS: PANTOPRAZOLE 20 MG TABLET (PROTONIX) PO SCH (08:33)
[2021-10-25] MEDS: AtorvaSTATin TABLET 10 MG TABLET PO SCH (08:34)
[2021-10-25] MEDS: SERTRALINE 50 MG (ZOLOFT) TABLET PO SCH (08:34)
[2021-10-25] MEDS: meTOprolol SUCCINATE 100 MG (TOPROL XL) TAB PO SCH ×2 (08:34→21:37)
[2021-10-25] MEDS: CALCIUM CARB + VIT D 600 MG (CALCARB + D) TAB PO SCH (08:34)
[2021-10-25] MEDS: LORATADINE (CLARITIN) 10 MG TAB PO SCH (08:34)
[2021-10-25] MEDS: CLOPIDOGREL 75 MG (PLAVIX) TABLET PO SCH (08:34)
[2021-10-25] MEDS: MONTELUKAST 10 MG (SINGULAIR) TAB PO SCH (08:35)
[2021-10-25] MEDS: SENNA W/DOCUSATE (SENOKOT S) TABLET PO SCH ×2 (08:36→21:42)
[2021-10-25] MEDS: DOCUSATE SODIUM 100 MG (COLACE) CAP PO SCH ×2 (08:36→21:42)
[2021-10-25] MEDS: OXYMETAZOLINE (AFRIN) 0.05% NA 30 ML BTL SCH ×2 (08:37→21:37)
[2021-10-25] MEDS: FLUTICASONE NASAL SPRAY (FLONASE) 16 GM BTL NS SCH (08:46)
[2021-10-25] MEDS: polyethylene glycoL POWDER 17 GM (MIRALAX) PACK PO SCH ×2 (08:48→21:42)
--- NOTE | 2021-10-25 09:04 | Occupational Ther Daily Note ---
OT Current Status-Daily Note Subjective Pt reports she saw this therapist teaching another patient how to play a card game yesterday. Pt wanting to learn same game. Appearance Pt left sitting in recliner, spouse in room. Mental Status/Objective Patient Orientation: Person, Place, Situation Attachments: Other-See Comments (HALO brace) ADL-Treatment Therapy Code Descriptions/Definitions Functional [place] Measure: 0=Not Assessed/NA 4=Minimal Assistance 1=Total Assistance 5=Supervision or Setup 2=Maximal Assistance 6=Modified [place] 3=Moderate Assistance 7=Complete IndependenceSCALE: Activities may be completed with or without assistive devices. 3-Nkflfcvsyb-pmdmbtp completes the activity by him/herself with no assistance from a helper. 5-Set-up or Clean-up Assistance-helper sets up or cleans up; patient completes activity. [place] assists only prior to or following the activity. 4-Supervision or Touching Assistance-helper provides verbal cues and/or touching/steadying and/or contact guard assistance as patient completes activit y. Assistance may be provided throughout the activity or intermittently. 3-Partial/Moderate Assistance-helper does LESS THAN HALF the effort. [place] lifts, holds or supports trunk or limbs, but provides less than half the effort. 2-Substantial/Maximal Assistance-helper does MORE THAN HALF the effort. [place] lifts or holds trunk or limbs and provides more than half the effort. 0-Rafjhcjic-utlywm does ALL the effort. Patient does none of the effort to complete the activity. Or, the assistance of 2 or more helpers is required for the patient to complete the activity. If activity was not attempted, code reason: 7-Patient Refused. 9-Not Applicable-not attempted and the patient did not perform the activity before the current illness, exacerbation or injury. 10-Not Attempted due to Environmental Limitations-(lack of equipment, weather restraints, etc.). 88-Not Attempted due to Medical Conditions or Safety Concerns. Eating (QC): 6 Oral Hygiene (QC): 6 Shower/Bathe Self (QC): 6 Upper Body Dressing (QC): 4 Lower Body Dressing (QC): 6 On/Off Footwear: 6 Toileting Hygiene (QC): 6 Toilet Transfer (QC): 6 Pt retrieved clothing with use of walker. Good recall on cues given previous date. Sponge bath performed in shower, pt able to complete set up independently. Good use of LHS to wash posterior shoulder and LE's. LB clothing donned by patient placing clothing onto floor, threading feet through, and then using nuclear control operator to pull up to thighs. No LOB or unsteadiness observed when standing to pull up to waist. Usually pt does not require any assist with donning shirt over HALO, extra time only. Due to different style of shirt (button up) cues needed after multiple failed attempts to bring around back of torso. Post cue, pt able to button bottom button and then bring overhead without assist. Pt able to bring LE up onto side of shower bench in order to reach foot to don socks and shoes. She stood to brush teeth, no unsteadiness or safety concerns observed. Other Treatment Pt requesting to learn a card game that she saw this therapist teaching another patient on previous date. Game performed in standing to promote increased endurance and balance. Min a needed when reaching for cards slightly out of VADIM. No cues for problem solving or strategic game play. Pt tolerates well. Education OT Patient Education: Correct positioning, Energy conservation, Progress toward Goal/Update tx plan, Purpose of tx/functional activities, Rehab process, Safety issues Teaching Recipient: Patient, Family Teaching Methods: Demonstration, Discussion Response to Teaching: Verbalize Understanding, Return Demonstration OT Short Term Goals Short Term Goals Time Frame: October 29, 2021 Eatin Oral hygiene: 5 Toileting hygiene: 4 Shower/bathe self: 4 Upper body dressin Lower body dressin Putting on/taking off footwear: 4 OT Marketing Services Vice President Goals Marketing Services Vice President Goals Time Frame: November 07, 2021 Eating (QC): 6 Oral Hygiene (QC): 6 Toileting Hygiene (QC): 6 Shower/Bathe Self (QC): 5 Upper Body Dressing (QC): 5 Lower Body Dressing (QC): 5 On/Off Footwear (QC): 6 1=Demonstrate adherence to instructed precautions during ADL tasks. 2=Patient will verbalize/demonstrate understanding of assistive devices/modifications for ADL. 3=Patient will improve strength/tolerance for activity to enable patient to perform ADL's. OT Education/Plan Problem List/Assessment Assessment: Decreased Activ Tolerance, Decreased UE Strength, Impaired Funct Balance, Restricted Funct UE ROM Discharge Recommendations Plan/Recommendations: Continue POC Equpiment Recommendations-D/C: Recruiting Administrator, Dressing Stick Treatment Plan/Plan of Care Treatment,Training & Education: Yes Patient would benefit from OT for education, treatment and training to promote independence in ADL's, mobility, safety and/or upper extremity function for ADL's. Plan of Care: ADL Retraining, Cognitive Retraining, Functional Mobility, Group Exercise/Act as Ind, Orthotic Fitting/Training, UE Funct Exercise/Act Treatment Duration: November 07, 2021 Frequency: At least 5 of 7 days/Wk (IRF) Estimated Hrs Per Day: 1.5 hours per day (75-90 min/day ) Agreement: Yes Rehab Potential: Fair Time/GCodes Start Time: 07:30 Stop Time: 09:00 Total Time Billed (hr/min): 90 Billed Treatment Time 1 visit ADL x5 (75 min) FA (15 min) Sulema Samson OT October 25, 2021 09:04
--- NOTE | 2021-10-25 09:36 | Progress Note - Cardiology ---
Cardiology SOAP Progress Note Subjective: No cp or palp or syncope or shortness of breath Gen weakness and malaise present No n/v/d Objective: I&O/Vital Signs 10/25/21 07:55 Temp 36.6 Pulse 72 Resp 18 B/P (MAP) 114/58 (76) Pulse Ox 94 O2 Delivery Room Air Weight (Pounds): 182 Weight (Ounces): 0.0 Weight (Calculated Kilograms): 82.994053 Constitutional: AAO x 3, well-developed, well-nourished, other (head and neck fixed in a halo brade) Respiratory: chest expansion is symmetric, chest is bilaterally symmetric, lungs clear to auscultation Cardiovascular: regular rate-rhythm, S1 and S2 Gastrointestional: soft; No tenderness; audible bowel sounds Extremities: swelling (mild, bilat leg swelling); No clubbing, No cyanosis Neurologic/Psychiatric: other (moves all limbs equally) Skin: No rash on exposed areas, No ulcerations on exposed areas A/P: Assessment: S/P non-syncopal fall in late September 2021 resulting in C1, C2 cervical spine fra cture - S/P surgical intervention at [facility] currently in a cervical halo brace PAD - Segmental pressures of August 2020: severe PAD on the right and mild on the left - Multiple up to 90% stenosis of the right superficial femoral artery to which successful balloon angioplasty was carried out on 10-03-20 - Recurrent R leg claudication and seg pressure s of August 2021 showed considerable L lower limb disease - CTA with runoffs of 08-28-21 showed Severe disease with multiple segmental occlusions throughout the right SFA; however, widely patent three-vessel runoff to the right ankle is present. Partially obscured distal left SFA and popliteal with two-vessel runoff to the ankle. Diffuse aortic atherosclerosis without abdominopelvic hemodynamically significant stenosis, aneurysm, or mesenteric end organ ischemia. - Noninflamed diverticulosis, benign hepatic cyst, and supraumbilical fatty abdominal wall hernia - advised f/u with PCP - Peripheral angiogram of 09-04-21: Successful balloon angioplasty of the right superficial femoral artery with reduction of stenosis from 99% to less than 20% residual. Chronic, bilateral leg swelling likely related to venous insuff Ac diastolic CHF in Mar 2020 - currently controlled Labile hypertension Neurocardiogenic syncope - as determined by a positive tilt table study. - Rate drop response on her pacemaker did not prevent symptoms; it was turned off on 04/04/17 and base rate raised to 70 bpm - Symptoms of near syncope have returned in December 2020 Intermittent advanced atrio-ventricular block leading to syncope - treated with dual chamber pacemaker implantation with no subsequent recurrence of eda syncope - One brief episode of WCT on recent pacemaker interrogation of 03/25/17 that led to card cath of 04/08/17 (see below) - Pacemaker functioning normally on interrogation of - Coronary artery disease - history of right coronary stenting in 2004. - Card cath of 04/08/17 showed ,mod CAD and a widely patent stent in the mid RCA, LVEF 65%, mild to mod elev of LVEDP. - MPI of Mar 07, 2020 show no evidence of ischemia or infarction. Normal regional wall motion abnormality. LVEF 73% Carotid dz: - Less than 40% R ICA stenosis and approx 60% L ICA stenosis, per carotid u/s of 02/28/[address] Rocha in [place] and evaluation with a neurologist at [facility] and testing at [facility] at [place] did not indicate any significant neurologic issues Borderline diabetes mellitus, - diet controlled. Borderline hyperlipidemia - being treated with statin therapy.- followed by PCP Chronic idiopathic granulomatous hepatitis - on liver biopsy carried out at [facility] several years ago. - This has resulted in chronic intermittent mild liver enzyme elevation Sleep apnea syndrome - for which she has been on C-PAP therapy. Hypothyroidism - being treated with thyroid replacement therapy Chronic back pain - managed by PCP Orthopedic procedures: - L knee replacement and surgery x 3 in or around [address] Mansfield; - L tarsal bone fracture managed by Dr Betancourt L renal cyst - on renal u/s of 01/28/19, - followed by PCP Gastric procedures: - Endoscopy (Dr Calix in [place] of 01/09/18: gastic polyps (resected), normal duodenal bulb and 2nd part of duodenum, diverticulosis of the colon. - In Mar 2019, she underwent ERCP and biliary/pancreatic sphincterotomies (temporary stenting was removed a few days later) - Panendoscopy by Dr Yasmany Calix at [facility] in Jan 2019, details unavailable, pt states she was told she had gastroparesis Medication intolerance: - Intolerance to hydralazine Plan: Continue current cardiac regimen Monitor labs from time to time I discussed her CV issues with her (stable) ANA NEWBY MD FACP FAC CCDS October 25, 2021 09:36
--- NOTE | 2021-10-25 09:56 | Physical Therapy Daily Note ---
PT Daily Note-Current Subjective Patient was in chair and agreeable to PT with no new complaints Pain Location: No Pain Reported Mental Status Patient Orientation: Person, Place, Time, Situation HALO Transfers SCALE: Activities may be completed with or without assistive devices. 9-Dqayfispkc-wyjpgmc completes the activity by him/herself with no assistance from a helper. 5-Set-up or Clean-up Assistance-helper sets up or cleans up; patient completes activity. [place] assists only prior to or following the activity. 4-Supervision or Touching Assistance-helper provides verbal cues and/or touching/steadying and/or contact guard assistance as patient completes activity. Assistance may be provided throughout the activity or intermittently. 3-Partial/Moderate Assistance-helper does LESS THAN HALF the effort. [place] lifts, holds or supports trunk or limbs, but provides less than half the effort. 2-Substantial/Maximal Assistance-helper does MORE THAN HALF the effort. [place] lifts or holds trunk or limbs and provides more than half the effort. 3-Zyoobbdgn-aspmph does ALL the effort. Patient does none of the effort to complete the activity. Or, the assistance of 2 or more helpers is required for the patient to complete the activity. If activity was not attempted, code reason: 7-Patient Refused. 9-Not Applicable-not attempted and the patient did not perform the activity before the current illness, exacerbation or injury. 10-Not Attempted due to Environmental Limitations-(lack of equipment, weather restraints, etc.). 88-Not Attempted due to Medical Conditions or Safety Concerns. Roll Left & Right (QC): 6 Sit to Lying (QC): 5 Lying to Sitting/Side of Bed(Q: 5 Sit to Stand (QC): 4 (CGA) Chair/Imn-uz-Ywust Xfer(QC): 4 (SBA) Toilet Transfer (QC): 4 (SBA) Car Transfer (QC): 4 (SBA) Weight Bearing Right Lower Extremity: Right Full Weight Bearing Left Lower Extremity: Left Full Weight Bearing Patient NWB on left 3rd digit Gait Training Does the Patient Walk?: Yes Distance: 400', 100, 150' Walk 10 feet (QC): 4 (CGA) Walk 50 ft with 2 Turns(QC): 4 (CGA) Walk 150 ft (QC): 4 (CGA) Gait Assistive Device: FWW Wheelchair Training Does the Pt Use a Wheelchair?: No Stair Training Stair Training: Handrails/: 2 handrails #of Steps: 4 1 Step (curb) (QC): 4 (CGA) 4 Steps (QC): 4 (CGA) Stairs: Pattern: Step to Balance Picking up an Object (QC): 4 (CGA) Special Test Comments Had trouble seeing object on floor due to HALO collar, used analyst geochemical prospecting. Tinetti Balance Assessment Tool: Exercises NuStep Minutes: 15 NuStep Workload: 5 Treatments Ambulation. /ambulation with ankle weight 3lbs (150' total). LE strengthening, endurance Assessment Current Status: Good Progress Patient performed well today. Patient ambulated long distances as usual, but had many instances of tripping over R foot secondary to foot drop. She would benefit from an AFO that would help with foot drop and prevent inversion of ankle to better clear floor during gait. According to Andre, but is still at high risk for falls. The HALO collar makes it extra difficult to see where she is going, making it riskier to ambulate independently. She was left in chair with call light, tray, and all needs met. PT Short Term Goals Short Term Goals Time Frame: October 26, 2021 Roll Left & Right: 3 (Jaxon) Sit to lyin (Jaxon) Lying to sitting on side of be: 3 (Jaxon) Sit to stand: 4 (SBA) Chair/wen-qc-atxyr transfer: 4 (SBA) Walk 10 feet: 4 (SBA) Walk 50 feet with two turns: 4 (SBA) Walk 150 feet: 4 (SBA) PT Heading Repairer Goals Heading Repairer Goals PT Heading Repairer Goals Time Frame: November 09, 2021 Roll Left & Right (QC): 4 Sit to Lying (QC): 4 Lying-Sitting on Side/Bed(QC): 4 Sit to Stand (QC): 6 Chair/Jdt-mw-Jvfuu Xfer(QC): 6 Toilet Transfer (QC): 6 Car Transfer (QC): 6 Does the Patient Walk: Yes Walk 10 feet (QC): 6 Walk 50ft with 2 Turns (QC): 6 Walk 150 ft (QC): 6 Walking 10ft on Uneven Surface: 6 1 Step (curb) (QC): 4 4 Steps (QC): 4 12 Steps (QC): 88 Picking up an Object (QC): 6 Wheel 50 feet with 2 turns (QC: 9 Wheel 150 feet: 9 PT Plan Problem List Problem List: Activity Tolerance, Functional Strength, Safety, Balance, Gait, Transfer, Bed Mobility, ROM Treatment/Plan Treatment Plan: Continue Plan of Care Treatment Plan: Bed Mobility, Education, Functional Activity Wolfgang, Functional Strength, Group Therapy, Gait, Safety, Therapeutic Exercise, Transfers Treatment Duration: November 09, 2021 Frequency: At least 5 of 7 days/Wk (IRF) Estimated Hrs Per Day: 1.5 hours per day Patient and/or Family Agrees t: Yes Safety Risks/Education Patient Education: Gait Training, Transfer Techniques, Steps, Reviewed Precautions, Correct Positioning, Safety Issues Teaching Recipient: Patient Teaching Methods: Demonstration, Discussion Response to Teaching: Verbalize Understanding, Return Demonstration Discharge Recommendations Equpiment Recommendations-D/C: Other, Please Explain (AFO) Time/GCodes Time In: 0900 Time Out: 1000 Total Billed Treatment Time: 60 Total Billed Treatment 1 visit EX 15min FA 45min FLORIAN TOSCANO PT October 25, 2021 09:56
[2021-10-25] MEDS: ENOXAPARIN 40 MG/0.4 ML (LOVENOX) SYR SC SCH (12:03)
[2021-10-25] MEDS ORDERED: MONT-40 PO (12:05)
[2021-10-25] MEDS ORDERED: OX05NA15 (12:05)
[2021-10-25] MEDS ORDERED: OXC5T PO (12:05)
[2021-10-25] MEDS ORDERED: METH-732 PO (12:05)
[2021-10-25] MEDS ORDERED: FLUT16SP22 NS (12:05)
[2021-10-25] MEDS ORDERED: GABA-486 PO (12:05)
[2021-10-25] MEDS ORDERED: LORA10TA7 PO (12:05)
--- NOTE | 2021-10-25 12:07 | D/C HH Face to Face Order ---
D/C Face to Face Orders Reconcile Patient Problems Problems Reviewed?: Yes Instructions for Patient Via [facility], Patient Instructions/FollowUp: PCP 1 week Physician to follow Patient: Eder Discharge Diet for Home: No Restrictions Patient Problems: C1-C2 fracture Patient Data-Allergies,Ht & Wt Patient Allergies: Coded Allergies: levofloxacin (Verified Allergy, Unknown, 10/26/14) ramipril (Verified Allergy, Unknown, 09/04/21) Height (Feet): 5 Height (Inches): 3.00 Weight (Pounds): 182 Weight (Ounces): 0.0 Home Health Need/Face to Face Date of Face to Face: October 25, 2021 Clinical Findings: Generalized weakness and fatigue, Instability, Muscle weakness, Unsteady gait I have seen Pt lfik-ar-bllc: Yes Discharged To: Home Diagnosis/Conditions: Debility Patient is Homebound due to: Jennifer fall risk due to instabilty, Muscle weakness, Pain w/ambulation Homebound Status Due to the above stated illness, injury or surgical procedure (medical condition or diagnosis) and associated clinical findings, the patient is homebo und because of his/her inability to leave home except with aid of a supportive device and/or person AND leaving the home requires a considerable and taxing effort or is medically contraindicated. Pt req the following assistanc: Walker Home Health Nursing Orders Home Health Services Order: Nursing Services, Backpackers Manager-Evaluate & Treat, Physical Therapy-Evaluate & Treat Certify Stmt I certify that this patient is under my care and that I, a nurse practitioner or a physician; a curatorial assistant working with me, had a face to face encounter that - meets the physician face to face encounter requirements with this patient as dated. ITZEL MARRERO DO October 25, 2021 12:07
--- NOTE | 2021-10-25 15:01 | Physical Therapy Daily Note ---
PT Daily Note-Current Subjective Patient was in chair and agreeable to PT with no new complaints. Pain Numeric Pain Scale: 0-No Pain Mental Status Patient Orientation: Person, Place, Time, Situation HALO Transfers SCALE: Activities may be completed with or without assistive devices. 9-Pwszfsxkoh-hjbisxd completes the activity by him/herself with no assistance f rom a helper. 5-Set-up or Clean-up Assistance-helper sets up or cleans up; patient completes activity. [place] assists only prior to or following the activity. 4-Supervision or Touching Assistance-helper provides verbal cues and/or touching/steadying and/or contact guard assistance as patient completes activity. Assistance may be provided throughout the activity or intermittently. 3-Partial/Moderate Assistance-helper does LESS THAN HALF the effort. [place] lifts, holds or supports trunk or limbs, but provides less than half the effort. 2-Substantial/Maximal Assistance-helper does MORE THAN HALF the effort. [place] lifts or holds trunk or limbs and provides more than half the effort. 8-Lxojdolcf-gntobp does ALL the effort. Patient does none of the effort to complete the activity. Or, the assistance of 2 or more helpers is required for the patient to complete the activity. If activity was not attempted, code reason: 7-Patient Refused. 9-Not Applicable-not attempted and the patient did not perform the activity before the current illness, exacerbation or injury. 10-Not Attempted due to Environmental Limitations-(lack of equipment, weather restraints, etc.). 88-Not Attempted due to Medical Conditions or Safety Concerns. Sit to Stand (QC): 4 Chair/Zjv-wm-Uxdgn Xfer(QC): 4 Toilet Transfer (QC): 4 Weight Bearing Right Lower Extremity: Right Full Weight Bearing Left Lower Extremity: Left Full Weight Bearing Patient NWB on left 3rd digit Gait Training Distance: 400' Walk 10 feet (QC): 4 Walk 50 ft with 2 Turns(QC): 4 Walk 150 ft (QC): 4 Gait Assistive Device: FWW Less instances of dragging foot, but still unsteady at times. Ankle weight was placed on R ankle (3lbs) during ambulation to promote increase hip flexion and therefore better foot clearance Wheelchair Training Does the Pt Use a Wheelchair?: No Exercises Seated Therapy Exercises: Hip flexion (red band), Hip abd/add (ABD: red band) Treatments Ambulation, transfers, LE strengthening: (hip flexion with red band around top of foot to promote DF, Eversion with red band and DF with yellow band. Assessment Current Status: Good Progress Patient demonstrates good strength and endurance with ambulating and transfers. Patients R ankle DF and eversion appear very weak and lack ROM which still gives her trouble with foot clearance during gait. She needed to have a bladder movement during treatment and was transferred on toilet with SBA. Patient was left in chair with call light tray and all needs met. PT Short Term Goals Short Term Goals Time Frame: October 26, 2021 Roll Left & Right: 3 (Jaxon) Sit to lyin (Jaxon) Lying to sitting on side of be: 3 (Jaxon) Sit to stand: 4 (SBA) Chair/rlx-em-nfyzx transfer: 4 (SBA) Walk 10 feet: 4 (SBA) Walk 50 feet with two turns: 4 (SBA) Walk 150 feet: 4 (SBA) PT Half-Way Goals Half-Way Goals PT Flame Cutter Goals Time Frame: November 09, 2021 Roll Left & Right (QC): 4 Sit to Lying (QC): 4 Lying-Sitting on Side/Bed(QC): 4 Sit to Stand (QC): 6 Chair/Quz-lw-Urftf Xfer(QC): 6 Toilet Transfer (QC): 6 Car Transfer (QC): 6 Does the Patient Walk: Yes Walk 10 feet (QC): 6 Walk 50ft with 2 Turns (QC): 6 Walk 150 ft (QC): 6 Walking 10ft on Uneven Surface: 6 1 Step (curb) (QC): 4 4 Steps (QC): 4 12 Steps (QC): 88 Picking up an Object (QC): 6 Wheel 50 feet with 2 turns (QC: 9 Wheel 150 feet: 9 PT Plan Problem List Problem List: Activity Tolerance, Functional Strength, Safety, Balance, Gait, Bed Mobility, ROM Treatment/Plan Treatment Plan: Continue Plan of Care Treatment Plan: Bed Mobility, Education, Functional Activity Wolfgang, Functional Strength, Group Therapy, Gait, Safety, Therapeutic Exercise, Transfers Treatment Duration: November 09, 2021 Frequency: At least 5 of 7 days/Wk (IRF) Estimated Hrs Per Day: 1.5 hours per day Patient and/or Family Agrees t: Yes Safety Risks/Education Patient Education: Gait Training, Transfer Techniques, Reviewed Precautions, Correct Positioning, Safety Issues Teaching Recipient: Patient Teaching Methods: Demonstration, Discussion Response to Teaching: Verbalize Understanding, Return Demonstration Time/GCodes Time In: 1345 Time Out: 1415 Total Billed Treatment Time: 30 Total Billed Treatment 1 visit FA 15min EX 15min FLORIAN TOSCANO PT October 25, 2021 15:01
[2021-10-25 20:31] VITALS: BP 130/72
[2021-10-25] MEDS: ARTIFICAL TEARS 0.4 ML UNIT DOSE (REFRESH PLUS) OU SCH (21:37)
--- NOTE | 2021-10-26 05:59 | Discharge Summary ---
Diagnosis/Chief Complaint Date of Admission October 19, 2021 at 12:35 Date of Discharge Discharge Date: October 26, 2021 Discharge Diagnosis Assessment: Closed C1-C2 fracture status post surgical stabilization now in halo neck brace Status post fall CAD PVD recent reperfusion ICD/pacemaker placement managed by Dr. Anthony Diabetes Hypothyroidism Hypertension B12 deficiency DAVID on CPAP GERD Emphysema Carotid stenosis Nasal congestion Plan: Pain control Home meds Rehab protocol Cardiology consultation 10/20/2021: Supportive care Pain control 10/21/2021: Supportive care Monitor closely 10/22/2021: Supportive care Pain control 10/23/2021: Supportive care Aggressive therapy 10/24/21: Monitor pain 10/25/2021: Appreciate Dr. Biswas Discharge home tomorrow (1) Spinal cord injury (2) Traumatic closed fracture of C1 vertebra with minimal displacement (3) Foot drop, right (4) Coronary artery disease without angina pectoris Assessment & Plan: She is not having any angina at this point in time. She should continue on aspirin, clopidogrel, beta-effie and statin medication. She is on extended duration dual antiplatelet therapy due to multiple previous coronary and peripheral interventions. (5) Chronic heart failure with preserved ejection fraction (HFpEF) Assessment & Plan: She seems to be euvolemic at this point in time. Continue oral furosemide. (6) Peripheral arterial disease Assessment & Plan: She had a recent peripheral intervention with balloon angioplasty to a subtotally occluded right superficial femoral artery. She is asymptomatic at this point in time although her mobility is somewhat limited due to her recent cervical fracture. (7) Complete heart block Assessment & Plan: She has a permanent pacemaker in place that appears to be functioning normally. She does not have a defibrillator. (8) Primary hypertension Assessment & Plan: Continue metoprolol and doxazosin. (9) Mixed hyperlipidemia Assessment & Plan: Continue atorvastatin. (10) Cardiac pacemaker in situ Assessment & Plan: The device appears to be functioning normally and she is monitored by her remote pacemaker monitoring team in the office. Discharge Summary Discharge Physical Examination Allergies: Coded Allergies: levofloxacin (Verified Allergy, Unknown, 10/26/14) ramipril (Verified Allergy, Unknown, 09/04/21) Vitals & I&Os Vital Signs Date Time Temp Pulse Resp B/P (MAP) Pulse Ox O2 Delivery O2 Flow Rate FiO2 10/26/21 16:55 36.7 79 16 136/59 92 Room Air 2.00 General Appearance: Alert, Oriented X3, Cooperative Respiratory: Clear to Auscultation Cardiovascular: Regular Rate Neuro: Normal Gait, Normal Speech, Strength at 5/5 X4 Ext Psych/Mental Status: Mental Status NL Hospital Course Was the Problem List Reviewed?: Yes Pt had a lengthy hospital course for 8 days after she was admitted following a C1, C2 cervical spine fracture after a fall, status post repair at . She remains in a halo for 4 months. She was seen by cardiology. No changes remained. I sent all medications to the pharmacy and she was in improved condition. Labs (last 24 hrs) Laboratory Tests 10/20/21 05:45: White Blood Count 6.8, Red Blood Count 4.56, Hemoglobin 13.4, Hematocrit 42, Mean Corpuscular Volume 91, Mean Corpuscular Hemoglobin 29, Mean Corpuscular Hemoglobin Concent 32, Red Cell Distribution Width 12.9, Platelet Count 230, Mean Platelet Volume 10.0, Immature Granulocyte % (Auto) 0, Neutrophils (%) (Auto) 59, Lymphocytes (%) (Auto) 23, Monocytes (%) (Auto) 12, Eosinophils (%) (Auto) 5, Basophils (%) (Auto) 1, Neutrophils # (Auto) 4.0, Lymphocytes # (Auto) 1.6, Monocytes # (Auto) 0.8, Eosinophils # (Auto) 0.3, Basophils # (Auto) 0.1, Immature Granulocyte # (Auto) 0.0, Sodium Level 137, Potassium Level 4.0, Chloride Level 100, Carbon Dioxide Level 22, Anion Gap 15H, Blood Urea Nitrogen 16, Creatinine 1.03, Estimat Glomerular Filtration Rate 56, BUN/Creatinine Ratio 16, Glucose Level 109H, Calcium Level 9.4, Corrected Calcium 9.4, Total Bilirubin 0.5, Aspartate Amino Transf (AST/SGOT) 33, Alanine Aminotransferase (ALT/SGPT) 45, Alkaline Phosphatase 106, Total Protein 6.9, Albumin 4.0 Pending Labs Laboratory Tests 10/20/21 05:45: White Blood Count 6.8, Red Blood Count 4.56, Hemoglobin 13.4, Hematocrit 42, Mean Corpuscular Volume 91, Mean Corpuscular Hemoglobin 29, Mean Corpuscular Hemoglobin Concent 32, Red Cell Distribution Width 12.9, Platelet Count 230, Mean Platelet Volume 10.0, Immature Granulocyte % (Auto) 0, Neutrophils (%) (Auto) 59, Lymphocytes (%) (Auto) 23, Monocytes (%) (Auto) 12, Eosinophils (%) (Auto) 5, Basophils (%) (Auto) 1, Neutrophils # (Auto) 4.0, Lymphocytes # (Auto) 1.6, Monocytes # (Auto) 0.8, Eosinophils # (Auto) 0.3, Basophils # (Auto) 0.1, Immature Granulocyte # (Auto) 0.0, Sodium Level 137, Potassium Level 4.0, Chlori de Level 100, Carbon Dioxide Level 22, Anion Gap 15, Blood Urea Nitrogen 16, Creatinine 1.03, Estimat Glomerular Filtration Rate 56, BUN/Creatinine Ratio 16, Glucose Level 109, Calcium Level 9.4, Corrected Calcium 9.4, Total Bilirubin 0.5, Aspartate Amino Transf (AST/SGOT) 33, Alanine Aminotransferase (ALT/SGPT) 45, Alkaline Phosphatase 106, Total Protein 6.9, Albumin 4.0 Discharge Home Medications: Active Scripts Active Oxyir Tablet (Oxycodone HCl) 5 Mg Tab 5-10 Mg PO TID PRN Fluticasone Propionate 50 Mcg/Actuation [place].susp 0 [place] NS DAILY Nasal [place] (Oxymetazoline HCl) 0.05 % [place] 0 Ml NA Q12HR Montelukast Sodium 10 Mg Tablet 10 Mg PO DAILY@0900 Gabapentin 100 Mg Capsule 200 Mg PO TID Methocarbamol 750 Mg Tablet 750 Mg PO BID Loratadine 10 Mg Tablet 10 Mg PO DAILY Reported Refresh Tears (Carboxymethylcellulose Sodium) 0.5 % Drops 1-2 Ml OU UD PRN Systane Balance (Propylene Glycol) 0.6 % Drops 1 Drop OP HS Calcium 600 + Vit D 400 Softgl (Calcium Carbonate/Vitamin D3) 600 Mg Calcium-10 Mcg (400 Unit) Capsule 1 Each PO DAILY [[place] Eye Drops] 1 Drop OU DAILY Clopidogrel (Clopidogrel Bisulfate) 75 Mg Tablet 75 Mg PO DAILY Pantoprazole Sodium 20 Mg Tablet.dr 20 Mg PO DAILY Euthyrox (Levothyroxine Sodium) 50 Mcg Tablet 50 Mcg PO DAILY Furosemide 40 Mg Tablet 40 Mg PO DAILY Potassium Chloride 10 Meq Capsule.er 10 Meq PO DAILY Doxazosin Mesylate 4 Mg Tablet 4 Mg PO BID Ipratropium Eugene 30 Ml [place] 1-2 Sprays NS TID PRN Aspirin EC (Aspirin) 81 Mg Tablet.dr 81 Mg PO DAILY Metoprolol Succinate 100 Mg Tab.er.24h 100 Mg PO BID Sertraline HCl 50 Mg Tablet 50 Mg PO DAILY Cyanocobalamin Injection (Cyanocobalamin) 1,000 Mcg/Ml Inj 1,000 Mcg IJ EVERY 2 WEEKS TAKES EVERY OTHER WEEK ON SUNDAYS Alendronate Sodium 70 Mg Tablet 70 Mg PO JOHNSON Pravastatin Sodium 10 Mg Tablet 10 Mg PO DAILY Instructions to patient/family Please see electronic discharge instructions given to patient. Diagnosis/Problems Diagnosis/Problems (1) Spinal cord injury (2) Traumatic closed fracture of C1 vertebra with minimal displacement (3) Foot drop, right (4) Coronary artery disease without angina pectoris Assessment & Plan: She is not having any angina at this point in time. She should continue on aspirin, clopidogrel, beta-effie and statin medication. She is on extended duration dual antiplatelet therapy due to multiple previous coronary and peripheral interventions. (5) Chronic heart failure with preserved ejection fraction (HFpEF) Assessment & Plan: She seems to be euvolemic at this point in time. Continue oral furosemide. (6) Peripheral arterial disease Assessment & Plan: She had a recent peripheral intervention with balloon angioplasty to a subtotally occluded right superficial femoral artery. She is asymptomatic at this point in time although her mobility is somewhat limited due to her recent cervical fracture. (7) Complete heart block Assessment & Plan: She has a permanent pacemaker in place that appears to be functioning normally. She does not have a defibrillator. (8) Primary hypertension Assessment & Plan: Continue metoprolol and doxazosin. (9) Mixed hyperlipidemia Assessment & Plan: Continue atorvastatin. (10) Cardiac pacemaker in situ Assessment & Plan: The device appears to be functioning normally and she is monitored by her remote pacemaker monitoring team in the office. ITZEL MARRERO DO October 26, 2021 05:59
[2021-10-26] MEDS: GABAPENTIN 100 MG (NEURONTIN) CAP PO SCH ×2 (06:09→13:38)
[2021-10-26] MEDS: KCL 10 MEQ TAB (MICRO K) PO SCH (06:09)
[2021-10-26] MEDS: LEVOTHYROXINE 50 MCG (LEVOTHROID) TAB PO SCH (06:09)
[2021-10-26 07:39] VITALS: BP 136/59
--- NOTE | 2021-10-26 08:11 | Therapy Team Discharge Summary ---
Therapy Discharge Summary Discharge Recommendations Date of Discharge Physical Therapy Patient came to rehab following a cervical spine fx. Upon evaluation patient performs rolling and supine <-> sit with mod assist, sit <-> stand and transfers with CGA, car transfer CGA, ambulate 100' with a rolling walker with CGA (including 50' with at least 2 turns of 90 degrees and 10' over an uneven surface), went up an down 1 step using a rolling walker with CGA, and picked up an object from the floor using a plastic installer with CGA. Patient has been performing bed mobility and transfer training, balance and endurance training, functional strengthening, stair training, gait training, and education. 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 Now, patient performs rolling with independence, supine <-> sit with setup, sit <-> stand CGA, transfers and car transfer SBA, ambulated 400' with a rolling walker with CGA (including 50' with at least 2 turns of 90 degrees and 10' over an uneven surface), went up and down 4 steps using 2 handrails with CGA, and picked up an object from the floor using a plastic installer with CGA. Patient is being discharged from this facility today and will be discharged from PT at this time. Roll Left to Right (QC): 6 Sit to Lying (QC): 5 Lying to Sitting/Side of Bed(Q: 5 Sit to Stand (QC): 4 Chair/Jvw-hr-Ulgdc Xfer(QC): 4 Toilet Transfer (QC): 4 Car Transfer (QC): 4 (SBA) Does the Patient Walk: Yes Mode of Locomotion: Walk Anticipated Mode of Locomotion: Walk Walk 10 feet (QC): 4 Walk 50 ft with 2 Turns(QC): 4 Walk 150 ft (QC): 4 Walking 10ft on uneven surface: 4 Distance: 100'x2 Gait Assistive Device: FWW Does the Pt Use a Wheelchair: No Wheel 50 ft with 2 turns (QC): 9 Wheel 150 ft (QC): 9 Type of Wheelchair: N/A #of Steps: 4 1 Step (curb) (QC): 4 (CGA) 4 Steps (QC): 4 (CGA) 12 Steps (QC): 88 Walking Assistive Device: Walker Balance Sitting Static: Normal Balance Sitting Dynamic: Normal Balance-Standing Static: Good Picking up an Object (QC): 4 (CGA) Occupational Therapy Decreased Activ Tolerance, Decreased UE Strength, Impaired Funct Balance, Restricted Funct UE ROM Eating (QC): 6 Oral Hygiene (QC): 6 Shower/Bathe Self (QC): 6 Upper Body Dressing (QC): 4 Lower Body Dressing (QC): 6 On/Off Footwear (QC): 6 Toileting Hygiene (QC): 6 PT Care Home Goals Care Home Goals PT Care Home Goals Time Frame: November 09, 2021 Roll Left to Right (QC): 4 Sit to Lying (QC): 4 Lying-Sitting on Side/Bed(QC): 4 Sit to Stand (QC): 6 Chair/Kdc-cs-Hyrvr Xfer(QC): 6 Car Transfer (QC): 6 Does the Patient Walk: Yes Walk 10 feet (QC): 6 Walk 10ft-Uneven Surface(QC): 6 Walk 50ft with 2 Turns (QC): 6 Walk 150 ft (QC): 6 Wheel 50 feet with 2 turns (QC: 9 1 Step (curb) (QC): 4 4 Steps (QC): 4 12 Steps (QC): 88 Picking up an Object (QC): 6 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 2=Patient will verbalize/demonstrate understanding of assistive devices/modifications for ADL. 3=Patient will improve strength/tolerance for activity to enable patient to perform ADL's. FLORIAN TOSCANO PT October 26, 2021 08:11
[2021-10-26] MEDS: ASPIRIN E.C. 81 MG (ECOTRIN) TAB PO SCH (09:20)
[2021-10-26] MEDS: FUROSEMIDE 40 MG (LASIX) TAB PO SCH (09:21)
[2021-10-26] MEDS: SERTRALINE 50 MG (ZOLOFT) TABLET PO SCH (09:21)
[2021-10-26] MEDS: MONTELUKAST 10 MG (SINGULAIR) TAB PO SCH (09:21)
[2021-10-26] MEDS: LORATADINE (CLARITIN) 10 MG TAB PO SCH (09:21)
[2021-10-26] MEDS: doxAzosin 4 MG (CARDURA) TAB PO SCH (09:21)
[2021-10-26] MEDS: METHOCARBAMOL 750 MG (ROBAXIN) TAB PO SCH (09:21)
[2021-10-26] MEDS: CALCIUM CARB + VIT D 600 MG (CALCARB + D) TAB PO SCH (09:22)
[2021-10-26] MEDS: AtorvaSTATin TABLET 10 MG TABLET PO SCH (09:22)
[2021-10-26] MEDS: meTOprolol SUCCINATE 100 MG (TOPROL XL) TAB PO SCH (09:22)
[2021-10-26] MEDS: PANTOPRAZOLE 20 MG TABLET (PROTONIX) PO SCH (09:22)
[2021-10-26] MEDS: CLOPIDOGREL 75 MG (PLAVIX) TABLET PO SCH (09:22)
[2021-10-26] MEDS: polyethylene glycoL POWDER 17 GM (MIRALAX) PACK PO SCH (09:22)
[2021-10-26] MEDS: SENNA W/DOCUSATE (SENOKOT S) TABLET PO SCH (09:25)
[2021-10-26] MEDS: DOCUSATE SODIUM 100 MG (COLACE) CAP PO SCH (09:25)
[2021-10-26] MEDS: OXYMETAZOLINE (AFRIN) 0.05% NA 30 ML BTL SCH (09:26)
[2021-10-26] MEDS: FLUTICASONE NASAL SPRAY (FLONASE) 16 GM BTL NS SCH (09:26)
--- NOTE | 2021-10-26 09:36 | Progress Note - Cardiology ---
Cardiology SOAP Progress Note Subjective: Sitting up in recliner at the bedside States she feels good and is ready to go home Objective: I&O/Vital Signs 10/26/21 07:39 Temp 36.7 Pulse 79 Resp 16 B/P (MAP) 136/59 (84) Pulse Ox 92 O2 Delivery Room Air Weight (Pounds): 182 Weight (Ounces): 0.0 Weight (Calculated Kilograms): 82.365697 Constitutional: AAO x 3, well-developed, well-nourished, other (head and neck fixed in a halo brade) Respiratory: chest expansion is symmetric, chest is bilaterally symmetric, lungs clear to auscultation Cardiovascular: regular rate-rhythm, S1 and S2 Gastrointestional: soft; No tenderness; audible bowel sounds Extremities: swelling (mild, bilat leg swelling); No clubbing, No cyanosis Neurologic/Psychiatric: other (moves all limbs equally) Skin: No rash on exposed areas, No ulcerations on exposed areas A/P: Assessment: S/P non-syncopal fall in late September 2021 resulting in C1, C2 cervical spine fracture - S/P surgical intervention at [facility] currently in a cervical halo brace PAD - Segmental pressures of August 2020: severe PAD on the right and mild on the left - Multiple up to 90% stenosis of the right superficial femoral artery to which successful balloon angioplasty was carried out on 10-03-20 - Recurrent R leg claudication and seg pressure s of August 2021 showed considerable L lower limb disease - CTA with runoffs of 08-28-21 showed Severe disease with multiple segmental occlusions throughout the right SFA; however, widely patent three-vessel runoff to the right ankle is present. Partially obscured distal left SFA and popliteal with two-vessel runoff to the ankle. Diffuse aortic atherosclerosis without abdominopelvic hemodynamically significant stenosis, aneurysm, or mesenteric end organ ischemia. - Noninflamed diverticulosis, benign hepatic cyst, and supraumbilical fatty abdominal wall hernia - advised f/u with PCP - Peripheral angiogram of 09-04-21: Successful balloon angioplasty of the right superficial femoral artery with reduction of stenosis from 99% to less than 20% residual. Chronic, bilateral leg swelling likely related to venous insuff Ac diastolic CHF in Mar 2020 - currently controlled Labile hypertension Neurocardiogenic syncope - as determined by a positive tilt table study. - Rate drop response on her pacemaker did not prevent symptoms; it was turned off on 04/04/17 and base rate raised to 70 bpm - Symptoms of near syncope have returned in December 2020 Intermittent advanced atrio-ventricular block leading to syncope - treated with dual chamber pacemaker implantation with no subsequent recurrence of eda syncope - One brief episode of WCT on recent pacemaker interrogation of 03/25/17 that led to card cath of 04/08/17 (see below) - Pacemaker functioning normally on interrogation of 08-31-21 Coronary artery disease - history of right coronary stenting in 2004. - Card cath of 04/08/17 showed ,mod CAD and a widely patent stent in the mid RCA, LVEF 65%, mild to mod elev of LVEDP. - MPI of Mar 07, 2020 show no evidence of ischemia or infarction. Normal regional wall motion abnormality. LVEF 73% Carotid dz: - Less than 40% R ICA stenosis and approx 60% L ICA stenosis, per carotid u/s of 02/28/[address] Rocha in [place] and evaluation with a neurologist at [facility] and testing at [facility] at [place] did not indicate any significant neurologic issues Borderline diabetes mellitus, - diet controlled. Borderline hyperlipidemia - being treated with statin therapy.- followed by PCP Chronic idiopathic granulomatous hepatitis - on liver biopsy carried out at [facility] several years ago. - This has resulted in chronic intermittent mild liver enzyme elevation Sleep apnea syndrome - for which she has been on C-PAP therapy. Hypothyroidism - being treated with thyroid replacement therapy Chronic back pain - managed by PCP Orthopedic procedures: - L knee replacement and surgery x 3 in or around [address] Mansfield; - L tarsal bone fracture managed by Dr Betancourt L renal cyst - on renal u/s of 01/28/19, - followed by PCP Gastric procedures: - Endoscopy (Dr Calix in [place], [place]) of 01/09/18: gastic polyps (resected), normal duodenal bulb and 2nd part of duodenum, diverticulosis of the colon. - In Mar 2019, she underwent ERCP and biliary/pancreatic sphincterotomies (temporary stenting was removed a few days later) - Panendoscopy by Dr Yasmany Calix at [facility] in Jan 2019, details unavailable, pt states she was told she had gastroparesis Medication intolerance: - Intolerance to hydralazine Plan: Continue current cardiac regimen I discussed her CV issues with her (stable) OK to discharge home from cardiac stand point ALIE REYES October 26, 2021 09:36
--- NOTE | 2021-10-26 11:34 | Therapy Team Discharge Summary ---
Therapy Discharge Summary Discharge Recommendations Date of Discharge Therapy D/C Recommendations: Home w/ Family Support, Occupational Therapy Home Care Physical Therapy Roll Left to Right (QC): 6 Sit to Lying (QC): 5 Lying to Sitting/Side of Bed(Q: 5 Sit to Stand (QC): 4 Chair/Sog-qe-Vmink Xfer(QC): 4 Toilet Transfer (QC): 4 Car Transfer (QC): 4 (SBA) Does the Patient Walk: Yes Mode of Locomotion: Walk Anticipated Mode of Locomotion: Walk Walk 10 feet (QC): 4 Walk 50 ft with 2 Turns(QC): 4 Walk 150 ft (QC): 4 Walking 10ft on uneven surface: 4 Distance: 100'x2 Gait Assistive Device: FWW Does the Pt Use a Wheelchair: No Wheel 50 ft with 2 turns (QC): 9 Wheel 150 ft (QC): 9 Type of Wheelchair: N/A #of Steps: 4 1 Step (curb) (QC): 4 (CGA) 4 Steps (QC): 4 (CGA) 12 Steps (QC): 88 Walking Assistive Device: Walker Balance Sitting Static: Normal Balance Sitting Dynamic: Normal Balance-Standing Static: Good Picking up an Object (QC): 4 (CGA) Occupational Therapy Pt arrived to [facility] s/p cervical spine fracture and HALO placement. At time of evaluation, she was mod a for toileting, footwear, lower body dressing, and bathing, max a for upper body dressing, and set up for eating. During her rehab stay, OT focused on adaptive equipment, compensatory strategies, endurance, strength, balance, and energy conservation strategies in order to promote increased independence and safety with adls and functional mobility. 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 See below for current levels of assistance. Pt will be discharging from this facility today and will be discharged from OT at this time. Decreased Activ Tolerance, Decreased UE Strength, Impaired Funct Balance, Restricted Funct UE ROM Eating (QC): 6 Oral Hygiene (QC): 6 Shower/Bathe Self (QC): 6 Upper Body Dressing (QC): 4 Lower Body Dressing (QC): 6 On/Off Footwear (QC): 6 Toileting Hygiene (QC): 6 PT Group Home Goals Accounts Payable Administrator Goals PT Accounts Payable Administrator Goals Time Frame: November 09, 2021 Roll Left to Right (QC): 4 Sit to Lying (QC): 4 Lying-Sitting on Side/Bed(QC): 4 Sit to Stand (QC): 6 Chair/Hki-aa-Rvohh Xfer(QC): 6 Car Transfer (QC): 6 Does the Patient Walk: Yes Walk 10 feet (QC): 6 Walk 10ft-Uneven Surface(QC): 6 Walk 50ft with 2 Turns (QC): 6 Walk 150 ft (QC): 6 Wheel 50 feet with 2 turns (QC: 9 1 Step (curb) (QC): 4 4 Steps (QC): 4 12 Steps (QC): 88 Picking up an Object (QC): 6 OT Group Home Goals Group Home Goals Time Frame: November 07, 2021 Eating (QC): 6 (met) Oral Hygiene (QC): 6 (met) Shower/Bathe Self (QC): 5 (met) Upper Body Dressing (QC): 5 (not met, sba, cues for problem solving) Lower Body Dressing (QC): 5 (met) On/Off Footwear (QC): 6 (met) Toileting Hygiene (QC): 6 (met) Toilet/Commode Transfer (QC): 6 (met) 1=Demonstrate adherence to instructed precautions during ADL tasks. 2=Patient will verbalize/demonstrate understanding of assistive devices/modifications for ADL. 3=Patient will improve strength/tolerance for activity to enable patient to perform ADL's. Sulema Samson OT October 26, 2021 11:34
[2021-10-26] MEDS: ENOXAPARIN 40 MG/0.4 ML (LOVENOX) SYR SC SCH (12:01)
--- NOTE | 2021-10-26 14:42 | Progress Note - Cardiology ---
Cardiology SOAP Progress Note Subjective: No cp or palp or syncope or shortness of breath No n/v/d Gen weakness No focal weakness Objective: I&O/Vital Signs 10/26/21 10/26/21 07:39 09:00 Temp 36.7 Pulse 79 Resp 16 B/P (MAP) 136/59 (84) Pulse Ox 92 O2 Delivery Room Air Room Air Weight (Pounds): 182 Weight (Ounces): 0.0 Weight (Calculated Kilograms): 82.220695 Constitutional: AAO x 3, well-developed, well-nourished, other (head and neck fixed in a halo brade) Respiratory: chest expansion is symmetric, chest is bilaterally symmetric, lungs clear to auscultation Cardiovascular: regular rate-rhythm, S1 and S2 Gastrointestional: soft; No tenderness; audible bowel sounds Extremities: swelling (mild, bilat leg swelling); No clubbing, No cyanosis Neurologic/Psychiatric: other (moves all limbs equally) Skin: No rash on exposed areas, No ulcerations on exposed areas A/P: Assessment: S/P non-syncopal fall in late September 2021 resulting in C1, C2 cervical spine fracture - S/P surgical intervention at [facility] currently in a cervical halo brace PAD - Segmental pressures of August 2020: severe PAD on the right and mild on the left - Multiple up to 90% stenosis of the right superficial femoral artery to which successful balloon angioplasty was carried out on 10-03-20 - Recurrent R leg claudication and seg pressure s of August 2021 showed considerable L lower limb disease - CTA with runoffs of 08-28-21 showed Severe disease with multiple segmental occl usions throughout the right SFA; however, widely patent three-vessel runoff to the right ankle is present. Partially obscured distal left SFA and popliteal with two-vessel runoff to the ankle. Diffuse aortic atherosclerosis without abdominopelvic hemodynam ically significant stenosis, aneurysm, or mesenteric end organ ischemia. - Noninflamed diverticulosis, benign hepatic cyst, and supraumbilical fatty abdominal wall hernia - advised f/u with PCP - Peripheral angiogram of 09-04-21: Successful balloon angioplasty of the right superficial femoral artery with reduction of stenosis from 99% to less than 20% residual. Chronic, bilateral leg swelling likely related to venous insuff Ac diastolic CHF in Mar 2020 - currently controlled Labile hypertension Neurocardiogenic syncope - as determined by a positive tilt table study. - Rate drop response on her pacemaker did not prevent symptoms; it was turned off on 04/04/17 and base rate raised to 70 bpm - Symptoms of near syncope have returned in December 2020 Intermittent advanced atrio-ventricular block leading to syncope - treated with dual chamber pacemaker implantation with no subsequent recurrence of eda syncope - One brief episode of WCT on recent pacemaker interrogation of 03/25/17 that led to card cath of 04/08/17 (see below) - Pacemaker functioning normally on interrogation of 08-31-21 Coronary artery disease - history of right coronary stenting in 2004. - Card cath of 04/08/17 showed ,mod CAD and a widely patent stent in the mid RCA, LVEF 65%, mild to mod elev of LVEDP. - MPI of Mar 07, 2020 show no evidence of ischemia or infarction. Normal regional wall motion abnormality. LVEF 73% Carotid dz: - Less than 40% R ICA stenosis and approx 60% L ICA stenosis, per carotid u/s of 02/28/[address] Rocha in [place] and evaluation with a neurologist at [facility] and testing at [facility] at [place] did not indicate any significant neurologic issues Borderline diabetes mellitus, - diet controlled. Borderline hyperlipidemia - being treated with statin therapy.- followed by PCP Chronic idiopathic granulomatous hepatitis - on liver biopsy carried out at [facility] several years ago. - This has resulted in chronic intermittent mild liver enzyme elevation Sleep apnea syndrome - for which she has been on C-PAP therapy. Hypothyroidism - being treated with thyroid replacement therapy Chronic back pain - managed by PCP Orthopedic procedures: - L knee replacement and surgery x 3 in or around [address] Mansfield; - L tarsal bone fracture managed by Dr Betancourt L renal cyst - on renal u/s of 01/28/19, - followed by PCP Gastric procedures: - Endoscopy (Dr Calix in [place], [place]) of 01/09/18: gastic polyps (resected), normal duodenal bulb and 2nd part of duodenum, diverticulosis of the colon. - In Mar 2019, she underwent ERCP and biliary/pancreatic sphincterotomies (temporary stenting was removed a few days later) - Panendoscopy by Dr Yasmany Calix at [facility] in Jan 2019, details unavailable, pt states she was told she had gastroparesis Medication intolerance: - Intolerance to hydralazine Plan: Continue current cardiac regimen I discussed her CV issues with her (stable) OK to discharge home from cardiac stand point. Outpt f/u advised ANA NEWBY MD FACP FAC CCDS October 26, 2021 14:42
[2021-10-26 16:55] VITALS: BP 136/59
== END 2021-10-26 16:30 | disposition home health service (06) | DRG 560 ==
PROVIDERS: ADMIT Internal Medicine; ATTEND Internal Medicine
DX: S12.01XD Stable burst fracture of first cervical vertebra, subsequent encounter for fracture with routine healing (principal); I50.32 Chronic diastolic (congestive) heart failure; I44.2 Atrioventricular block, complete; S12.110D Anterior displaced Type II dens fracture, subsequent encounter for fracture with routine healing; I11.0 Hypertensive heart disease with heart failure; I73.9 Peripheral vascular disease, unspecified; I25.10 Atherosclerotic heart disease of native coronary artery without angina pectoris; G47.33 Obstructive sleep apnea (adult) (pediatric); E78.00 Pure hypercholesterolemia, unspecified; E78.2 Mixed hyperlipidemia; K21.9 Gastro-esophageal reflux disease without esophagitis; J43.9 Emphysema, unspecified; E53.8 Deficiency of other specified B group vitamins; E11.9 Type 2 diabetes mellitus without complications; I49.5 Sick sinus syndrome; E03.9 Hypothyroidism, unspecified; M19.91 Primary osteoarthritis, unspecified site; M54.9 Dorsalgia, unspecified; R09.81 Nasal congestion; Z87.891 Personal history of nicotine dependence; Z95.0 Presence of cardiac pacemaker; Z79.02 Long term (current) use of antithrombotics/antiplatelets; Z79.82 Long term (current) use of aspirin; Z88.1 Allergy status to other antibiotic agents; Z88.8 Allergy status to other drugs, medicaments and biological substances; W19.XXXD Unspecified fall, subsequent encounter
CPT/HCPCS: 36415; 80053; 85025

== ENCOUNTER 2022-01-21 12:08 | Emergency (ER) | payer MEDICARE, OTHER ==
[~2022-01-21] VITALS: Ht 160 cm; Wt 79.0 kg
[~2022-01-21 12:08] MED LIST changes: -ACETAMINOPHEN 325 MG TABLET PO PRN; -ALPRAZolam 0.25 MG (XANAX) TAB PO PRN; -BISACODYL 10 MG SUPP (DULCOLAX) PR PRN; -BISACODYL 10 MG SUPP (DULCOLAX) RC PRN; -CALCIUM CARBONATE 500 MG (TUMS) TAB.CHEW PO PRN; +CARB15DR OU; -DOCUSATE SODIUM 100 MG (COLACE) CAP PO PRN; -FLEET ENEMA ADULT 1 EA BTL PR PRN; +FLUT16SP22 NS; -LACTULOSE SYRUP 10GM/15ML (ENULOSE) 30ML UDC PO PRN; -LOPERAMIDE 2 MG (IMODIUM) TABLET PO PRN; +LORA10TA7 PO; -MAGNESIUM HYDROXIDE PO PRN; -MELATONIN 3 MG TABLET PO PRN; +MONT-40 PO; -NALOXONE HCL 4 MG NS PRN; -NON-FORMULARY MEDICATION 1 EA EA (Cyclosporine (Restasis) 1 EACH) OU PRN; -NON-FORMULARY MEDICATION 1 EA EA (Ipratropium Bromide 2 SPRAYS) NS PRN; -ONDANSETRON 4 MG (ZOFRAN) ORAL DISSOLVE TAB PO PRN; +OX05NA15; +OXC5T PO; -SENNA W/DOCUSATE (SENOKOT S) TABLET PO PRN; -diphenhydrAMINE 25 MG TAB (BENADRYL) PO PRN; -guaiFENesin/CODEINE (ROBITUSSIN AC) 10ML UDC PO PRN
--- NOTE | 2022-01-21 12:45 | ED Lower Extremity ---
General Chief Complaint: Lower Extremity Stated Complaint: R LEG SWELLING Nursing Triage Note: PT HERE FOR RT LOWER LEG PAIN AND SWELLING, STARTED LAST FRIDAY, DR. ANTHONY OPENED VESSELS ON RT LEG IN SEPTEMBER OF THIS YR FOR THE SECOND TIME, NO HX OF BLOOD CLOTS Source: patient Exam Limitations: no limitations History of Present Illness Date Seen by Provider: Jan 21, 2022 Time Seen by Provider: 12:12 Initial Comments 76-year-old female with past medical history of CAD with stenting and recent cervical spine fracture with currently halo device in place after a fall s everal months ago coming in due to right lower extremity swelling and pain. Noticed it 3 days ago. Denies any history of DVT or PE. Does take Plavix but no blood thinners. Denies any chest pain, SOB, fever, abd pain, n/v/d, weakness, numbness, or any other concerns. She is otherwise denying any other acute complaints. Allergies and Home Medications Allergies Coded Allergies: levofloxacin (Verified Allergy, Unknown, 10/26/14) ramipril (Verified Allergy, Unknown, 09/04/21) Patient Home Medication List Home Medication List Reviewed: Yes Alendronate Sodium (Alendronate Sodium) 70 Mg Tablet, 70 MG PO [place], (Reported) Entered as Reported by: ELLIS FLORES on 04/08/17 0832 Aspirin (Aspirin EC) 81 Mg Tablet.dr, 81 MG PO DAILY, (Reported) Entered as Reported by: ELLIS FLORES on 04/08/17 0841 Calcium Carbonate/Vitamin D3 (Calcium 600 + Vit D 400 Softgl) 600 Mg Calcium-10 Mcg (400 Unit) Capsule, 1 EACH PO DAILY, (Reported) Entered as Reported by: DENISE TORREZ on 10/19/21 1151 Carboxymethylcellulose Sodium (Refresh Tears) 0.5 % Drops, 1-2 ML OU UD PRN for DRY EYES, (Reported) Entered as Reported by: DENISE TORREZ on 10/24/21 1435 Clopidogrel Bisulfate (Clopidogrel) 75 Mg Tablet, 75 MG PO DAILY, (Reported) Entered as Reported by: SHAY KING on 09/04/21 0843 Cyanocobalamin (Cyanocobalamin Injection) 1,000 Mcg/Ml Inj, 1,000 MCG IJ EVERY 2 WEEKS, (Reported) Entered as Reported by: ELLIS FLORES on 04/08/17 0832 Doxazosin Mesylate (Doxazosin Mesylate) 4 Mg Tablet, 4 MG PO BID, (Reported) Entered as Reported by: SHAY KING on 07/05/20 1223 Fluticasone Propionate (Fluticasone Propionate) 50 Mcg/Actuation [place].susp, 0 SPRAY NS DAILY Prescribed by: ITZEL MARRERO on 10/25/21 1205 Furosemide (Furosemide) 40 Mg Tablet, 40 MG PO DAILY, (Reported) Entered as Reported by: SHAY KING on 07/05/20 1223 Gabapentin (Gabapentin) 100 Mg Capsule, 200 MG PO TID Prescribed by: ITZEL MARRERO on 10/25/21 1205 Ipratropium [place] (Ipratropium [place]) 30 Ml [place], 1-2 SPRAYS NS TID PRN for CONGESTION, (Reported) Entered as Reported by: ELLIS FLORES on 04/08/17 0859 Levothyroxine Sodium (Euthyrox) 50 Mcg Tablet, 50 MCG PO DAILY, (Reported) Entered as Reported by: SHAY KING on 07/05/20 1223 Loratadine (Loratadine) 10 Mg Tablet, 10 MG PO DAILY Prescribed by: ITZEL MARRERO on 10/25/21 1205 Methocarbamol (Methocarbamol) 750 Mg Tablet, 750 MG PO BID Prescribed by: ITZEL MARRERO on 10/25/21 1205 Metoprolol Succinate (Metoprolol Succinate) 100 Mg Tab.er.24h, 100 MG PO BID, (Reported) Entered as Reported by: ELLIS FLORES on 04/08/17 0841 Montelukast Sodium (Montelukast Sodium) 10 Mg Tablet, 10 MG PO DAILY@0900 Prescribed by: ITZEL MARRERO on 10/25/21 1205 Oxycodone Hcl (Oxyir Tablet) 5 Mg Tab, 5-10 MG PO TID PRN for PAIN-SEVERE (8-10) Prescribed by: ITZEL MARRERO on 10/25/21 1205 Oxymetazoline HCl (Nasal [place]) 0.05 % [place], 0 ML NA Q12HR Prescribed by: ITZEL MARRERO on 10/25/21 1205 Pantoprazole Sodium (Pantoprazole Sodium) 20 Mg Tablet.dr, 20 MG PO DAILY, (Reported) Entered as Reported by: SHAY KING on 09/04/21 0843 Potassium Chloride (Potassium Chloride) 10 Meq Capsule.er, 10 MEQ PO DAILY, (Reported) Entered as Reported by: SHAY KING on 07/05/20 1223 Pravastatin Sodium (Pravastatin Sodium) 10 Mg Tablet, 10 MG PO DAILY, (Reported) Entered as Reported by: ELLIS FLORES on 04/08/17 0832 Propylene Glycol (Systane Balance) 0.6 % Drops, 1 DROP OP HS, (Reported) Entered as Reported by: DENISE TORREZ on 10/19/21 1151 Sertraline HCl (Sertraline HCl) 50 Mg Tablet, 50 MG PO DAILY, (Reported) Entered as Reported by: ELLIS FLORES on 04/08/17 0832 [[place] Eye Drops] , 1 DROP OU DAILY, (Reported) Entered as Reported by: SHAY KING on 09/04/21 0843 Review of Systems Constitutional: No fever EENTM: No blurred vision Respiratory: No cough Cardiovascular: No chest pain Gastrointestinal: No abdominal pain Genitourinary: no symptoms reported Musculoskeletal: see HPI Skin: no symptoms reported Psychiatric/Neurological: No Symptoms Reported All Other Systems Reviewed Negative Unless Noted: Yes Past Nriounf-Sjbtvy-Rhlvjr Hx Patient Social History Tobacco Use?: Yes Smoking Status: Former Smoker Substance use?: No Alcohol Use?: No Immunizations Up To Date Tetanus Booster (TDap): Unknown First/Initial COVID19 Vaccinat: UNKNOWN DATE BUT DID RECEIVE VACCINE Second COVID19 Vaccination Ruben: UNKNOWN DATE BUT DID RECEIVE VACCINE Third COVID19 Vaccination Date: UNKNOWN DATE BUT DID RECEIVE BOOSTER Seasonal Allergies Seasonal Allergies: No Past Medical History Surgery/Hospitalization HX: FX C1-2 IN A HALO, VESSELS IN RT LEG OPENED 2 TIMES, PACEMAKER, CAD WITH 1 STENT Surgeries: Yes (HEMORRHOID SURGERY, LEFT KNEE REPLACEMENT) Gallbladder, Hysterectomy, Orthopedic, Pacemaker Respiratory: Yes (SOA) Sleep Apnea Currently Using CPAP: Yes Currently Using BIPAP: No Cardiac: Yes Coronary Artery Disease, High Cholesterol, Hypertension, Irregular Heartbeat, Peripheral Vascular, Syncope Neurological: No 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 Disorders: No Female 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 Disorders: Endometriosis 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 0.0oz. 82.555215hp; 30.00 BMI Method:Stated General Appearance: WD/WN, no apparent distress HEENT: PERRL/EOMI, normal ENT inspection, pharynx normal Neck: non-tender, full range of motion, supple, normal inspection Cardiovascular: regular rate, rhythm, no edema, no murmur Respiratory: chest non-tender, lungs clear, normal breath sounds, no respiratory distress, no accessory muscle use Gastrointestinal: normal bowel sounds, non tender, soft; No distended, No guarding, No rebound Back: normal inspection, no CVA tenderness Legs: right leg other (Right leg swelling and mild erythema compared to the left, equal edema bilaterally, normal DP and PT pulses bilaterally, capillary refill 2 seconds in bilateral feet) Neurologic/Tendon: normal sensation, normal motor functions, normal tendon functions Neurologic/Psychiatric: no motor/sensory deficits, alert, normal mood/affect Skin: normal color, warm/dry Lymphatic: no adenopathy Progress/Results/Core Measures Results/Orders Vital Signs/I&O 01/21/22 12:28 Temp 36.5 Pulse 80 Resp 18 B/P (MAP) 105/91 (96) O2 Delivery Room Air Blood Pressure Mean: 96 Progress Progress Note : Progress Note 76-year-old female with above history coming in due to right lower extremity redness and swelling with pain. ABCs were intact and vitals were stable on presentation. Physical exam with a red and swollen lower extremity. She has normal distal pulses and capillary refill. I reviewed the chart and she does have arterial disease in her peripheral vasculature, but given her exam, she does not have an acute occlusion and she has good distal flow achiness and not emergent for any type of arterial disease. Ultrasound was performed and was negative for DVT, but does have some cobblestoning which would be concerning for cellulitic changes. We will start her on antibiotics and have her follow-up as an outpatient with her primary physician. Departure Impression Primary Impression: Cellulitis Qualified Codes: L03.115 - Cellulitis of right lower limb Disposition: 01 HOME, SELF-CARE Condition: Stable Departure-Patient Inst. Decision time for Depature: 13:23 Referrals: LANIE JACKSON MD (PCP/Family) Primary Care Physician Patient Instructions: Cellulitis (Skin Infection), Adult ED Add. Discharge Instructions: It does not look like there is any type of blood clot in your leg, and you had good pulses as well meaning the arterial flow is good enough. You can still have pain from blockages that you do have. It does appear like your skin is infected and causing the pain and swelling. You will be on antibiotics for the next 10 days. Follow-up with your regular doctor if things are not improving after that. You may need to follow-up with Dr. Anthony again to discuss your peripheral arterial disease that you do have as well. Scripts Cephalexin (Cephalexin) 500 Mg Tablet 500 MG PO QID for 10 Days, #40 TAB Prov: FLAVIA STERN MD 01/21/22 FLAVIA STERN MD Jan 21, 2022 12:45
[2022-01-21] MEDS ORDERED: CEPH500T PO (13:24)
[2022-01-21 13:42] VITALS: BP 105/91
--- NOTE | 2022-01-21 14:02 | Diagnostic Imaging Report ---
PROCEDURE: US right lower extremity venous. TECHNIQUE: Multiple real-time grayscale images were obtained over the right lower extremity in various projections. Additional spectral analysis and color Doppler duplex images were also obtained. INDICATION: Right leg swelling. FINDINGS: There is no evidence of right lower extremity DVT. Right lower extremity deep venous system shows normal compressibility with normal response to augmentation and Valsalva. No fluid collection or mass is detected. IMPRESSION: No evidence of right lower extremity DVT. Dictated by: Dictated on workstation # [id number]
== END 2022-01-21 13:42 | disposition home or self-care (01) ==
LOC: EDUNIT# 12:08 → ER 12:09
DX: L03.115 Cellulitis of right lower limb (principal); G47.30 Sleep apnea, unspecified; I25.10 Atherosclerotic heart disease of native coronary artery without angina pectoris; Z87.891 Personal history of nicotine dependence; Z99.89 Dependence on other enabling machines and devices; Z79.02 Long term (current) use of antithrombotics/antiplatelets

== ENCOUNTER → 2022-06-11 | Outpatient (CLI) | payer MEDICARE, OTHER ==
[~2022-06-11] MED LIST changes: +CEPH500T PO; +CLOP-31 PO; -CLOP75TA69 PO
--- NOTE | 2022-06-11 15:21 | Diagnostic Imaging Report ---
Indication: Routine screening. Comparison is made with prior mammograms 06/05/2021 and 05/25/2020. 2-D and 3-D bilateral screening mammography was performed with CAD. Both breasts are heterogeneously dense, limiting the sensitivity of mammography. There are scattered benign-appearing parenchymal and vascular calcifications bilaterally. Fibronodular parenchymal pattern is stable. No spiculated mass or malignant-appearing microcalcifications are seen. Axillae are unremarkable. IMPRESSION: BI-RADS Category 2 No mammographic features suspicious for malignancy are identified. ACR BI-RADS Category 2: Benign findings. Result letter will be mailed to the patient. Note: At least 10% of breast cancer is not imaged by mammography. Dictated by: Dictated on workstation # [id number]
== END ==
LOC: RAD 09:20
PROVIDERS: ATTEND Nurse Practitioner Family
DX: Z12.31 Encounter for screening mammogram for malignant neoplasm of breast (principal)
CPT/HCPCS: 77063; 77067

== ENCOUNTER 2022-08-12 13:44 | Outpatient (RCR) | payer MEDICARE, OTHER ==
[~2022-08-12 13:44] MED LIST changes: -POTA10CA43 PO; +POTA10CA44 PO
== END 2022-08-13 | disposition home or self-care (01) ==
PROVIDERS: ATTEND Podiatrist Foot & Ankle Surgery
DX: M21.371 Foot drop, right foot (principal); I10 Essential (primary) hypertension

== ENCOUNTER → 2022-08-13 | Outpatient (CLI) | payer MEDICARE, OTHER ==
--- NOTE | 2022-08-13 16:57 | Diagnostic Imaging Report ---
PROCEDURE: CT lumbar spine without contrast. TECHNIQUE: Multiple contiguous axial images were obtained through the lumbar spine without the use of intravenous contrast. Sagittal and coronal reformations were then performed. Auto Exposure Controls were utilized during the CT exam to meet ALARA standards for radiation dose reduction. INDICATION: Chronic low back pain radiating down the right leg. COMPARISON: Radiographs from 07/25/2020. FINDINGS: No acute fracture is seen in the lumbar spine. There is trace anterolisthesis at L3-L4. Vertebral body heights are preserved. There is multilevel disc height loss, most pronounced at L3-L4. There is vacuum disc phenomenon at L3-L4 and L5-S1. There is multilevel facet arthropathy, particularly at L4-L5. Soft tissue contents of the spinal canal are suboptimally evaluated on CT but there is spinal canal stenosis at L4-L5 and L3-L4. There is right foraminal stenosis at L3-L4, L4-L5 and L5-S1. There is left foraminal stenosis at L3-L4 and L4-L5. There is calcific atherosclerosis in the aorta. Soft tissues about the lumbar spine demonstrate no acute abnormality. IMPRESSION: 1. No acute osseous abnormality is seen in the lumbar spine. 2. Multiple level degenerative changes, causing spinal canal stenosis, most notable at L3-L4 and L4-L5. There is also multilevel foraminal stenosis. Dictated by: Dictated on workstation # [id number]
== END ==
LOC: RAD 09:13
PROVIDERS: ATTEND Registered Nurse
DX: M47.26 Other spondylosis with radiculopathy, lumbar region (principal); M51.16 Intervertebral disc disorders with radiculopathy, lumbar region; M48.061 Spinal stenosis, lumbar region without neurogenic claudication
CPT/HCPCS: 72131

== ENCOUNTER → 2022-09-02 | Outpatient (CLI) | payer MEDICARE, OTHER ==
--- NOTE | 2022-09-02 10:28 | Diagnostic Imaging Report ---
INDICATION: Low back pain Lumbar spine AP, lateral and oblique views of lumbar spine were obtained. Lateral flexion and extension views were also obtained. There is very slight spondylolisthesis of L3 on L4 which is not changed between flexion and extension positions compared to neutral. The L3-L4 disc space is slightly narrowed. L4-L5 is also minimally narrowed. There are some degenerative changes of the facet joints at L3-L4, L4-L5 and L5-S1. There are no pars defects. IMPRESSION: Degenerative disc changes at L3-L4 and L4-L5 with grade 1 spondylolisthesis at L3-L4 but no evidence of ligamentous instability. Dictated by: Dictated on workstation # [id number]
--- NOTE | 2022-09-02 16:52 | Diagnostic Imaging Report ---
HISTORY: Lumbosacral radiculopathy COMPARISON: 07/25/2020 TECHNIQUE: Frontal view of the pelvis. Frontal and lateral views of the bilateral hips FINDINGS: No acute fracture or dislocation is seen in the pelvis or bilateral hips. Alignment is normal. There is mild degenerative change in the hip joints and sacroiliac joints. There is soft tissue calcification in the left thigh, likely from prior trauma. IMPRESSION: 1. Mild degenerative changes in the bilateral hip joints with no acute osseous abnormalities seen. Dictated by: Dictated on workstation # [id number]
== END ==
LOC: RAD 09:05
PROVIDERS: ATTEND Registered Nurse
DX: M16.0 Bilateral primary osteoarthritis of hip (principal); M51.16 Intervertebral disc disorders with radiculopathy, lumbar region; M43.16 Spondylolisthesis, lumbar region; M46.1 Sacroiliitis, not elsewhere classified
CPT/HCPCS: 72114; 73523

== ENCOUNTER 2022-09-10 09:04 | Outpatient (RCR) | payer MEDICARE, OTHER | END 2022-09-13 | disposition home or self-care (01) | PROVIDERS: ATTEND Podiatrist Foot & Ankle Surgery | DX: M21.371 Foot drop, right foot (principal); I10 Essential (primary) hypertension; R53.1 Weakness; R26.89 Other abnormalities of gait and mobility ==

== ENCOUNTER 2022-09-17 09:30 | Day surgery (SDC) | payer MEDICARE, OTHER ==
[~2022-09-17] VITALS: Ht 160 cm; Wt 88.0 kg
[2022-09-17] VITALS (17 sets, daily range): BP systolic 92–161; BP diastolic 50–103
[2022-09-17] MEDS ORDERED: LIDOCAINE 1% INJ 20 ML VIAL ONE (10:06)
[2022-09-17] MEDS ORDERED: HEParin (CATH LAB) 2,000 ML IV ONE (10:06)
[2022-09-17] MEDS ORDERED: NS IV 1000 ML 1,000 ML ONE (10:06)
[2022-09-17] MEDS ORDERED: NS IV 1000 ML 1,000 ML IV SCH ×2 (10:15→14:15)
[2022-09-17 10:55] LABS: HEMATOCRIT 40 % (35-52); HEMOGLOBIN 13.4 g/dL (11.5-16.0); MEAN CORPUSCULAR HEMOGLOBIN 30 pg (25-34); MEAN CORPUSCULAR HGB CONC 34 g/dL (32-36); MEAN CORPUSCULAR VOLUME 89 fL (80-99); MEAN PLATELET VOLUME 10.1 fL (9.0-12.2); PLATELET COUNT 220 10^3/uL (130-400); WHITE BLOOD COUNT 6.8 10^3/uL (4.3-11.0)
[2022-09-17 11:06] LABS: INR 0.9 (0.8-1.4); PROTHROMBIN TIME PATIENT 13.1 SEC (12.2-14.7)
[2022-09-17] MEDS ORDERED: PREG150C46 PO (11:07)
[2022-09-17 11:13] LABS: ALBUMIN 4.3 GM/DL (3.2-4.5); BILIRUBIN,TOTAL 0.7 MG/DL (0.1-1.0); CALCIUM 9.5 MG/DL (8.5-10.1); CREATININE SERUM 1.26 MG/DL (0.60-1.30); POTASSIUM 3.8 MMOL/L (3.6-5.0); TOTAL PROTEIN 7.3 GM/DL (6.4-8.2)
[2022-09-17] MEDS ORDERED: fentaNYL INJ 100 MCG/2 ML AMP ONE (12:55)
[2022-09-17] MEDS ORDERED: MIDAZOLAM 5 MG/5 ML (VERSED) VIAL ONE (12:55)
[2022-09-17] MEDS ORDERED: HEParin 1000 UNIT/ML (10ML VIAL) FOR BOLUS ONE (13:30)
--- NOTE | 2022-09-17 14:02 | Cardiac Procedure Note-CS/ASA ---
Pre-Procedure Note Pre-Op Procedure Note Date of Available H&P: Sep 12, 2022 Date H&P Reviewed: Sep 17, 2022 Time H&P Reviewed: 12:30 History & Physical: H&P Reviewed Moderate Sedation PreProcedure ASA Score 3 Airway Lungs Heart ASA score ASA 1: a normal healthy patient ASA 2: a patient with a mild systemic disease (mid diabetes, controlled hypertension, obesity ASA 3: a patient with a severe systemic disease that limits activity (angina, COPD, prior Myocardial infarction) ASA 4: a patient with an incapacitating disease that is a constant threat to life (CHF, renal failure) ASA 5: a moribund patient not expected to survive 24 hrs. (ruptured aneurysm) ASA 6: a declared brain- patient whose organs are being harvested. For emergent operations, add the letter E after the classification Mallampati Classification Grade 2 Sedation Plan Analgesia, Amnesia, Plan communicated to team members The patient is an appropriate candidate to undergo the planned procedure, sedation, and anesthesia. The patient immediately re-assessed prior to indication. ANA NEWBY MD FACP FAC CCDS Sep 17, 2022 14:02
--- NOTE | 2022-09-17 14:08 | Discharge Inst-Cardiology ---
Discharge Inst-Cardiac Discharge Medications Continued Medications: Alendronate Sodium (Alendronate Sodium) 70 Mg Tablet 70 MG PO Landin, TAB Aspirin (Aspirin EC) 81 Mg Tablet.dr 81 MG PO DAILY, TAB Calcium Carbonate/Vitamin D3 (Calcium 600 + Vit D 400 Softgl) 600 Mg Calcium-10 Mcg (400 Unit) Capsule 1 EACH PO DAILY, CAP Clopidogrel Bisulfate (Clopidogrel) 75 Mg Tablet 75 MG PO DAILY, TAB Cyanocobalamin (Cyanocobalamin Injection) 1,000 Mcg/Ml Inj 1000 MCG IJ EVERY 2 WEEKS, VIAL TAKES EVERY OTHER WEEK ON SUNDAYS Doxazosin Mesylate (Doxazosin Mesylate) 4 Mg Tablet 4 MG PO BID, TAB Furosemide (Furosemide) 40 Mg Tablet 40 MG PO DAILY, TAB Ipratropium [place] (Ipratropium [place]) 30 Ml [place] 1-2 SPRAYS NS TID PRN for CONGESTION, SPRAY Metoprolol Succinate (Metoprolol Succinate) 100 Mg Tab.er.24h 100 MG PO BID, TAB Pantoprazole Sodium (Pantoprazole Sodium) 20 Mg Tablet.dr 20 MG PO DAILY, TAB Potassium Chloride (Potassium Chloride) 10 Meq Capsule.er 10 MEQ PO DAILY, CAP Pravastatin Sodium (Pravastatin Sodium) 10 Mg Tablet 10 MG PO DAILY, TAB Pregabalin (Pregabalin) 150 Mg Capsule 150 MG PO HS, CAP Propylene Glycol (Systane Balance) 0.6 % Drops 1 DROP OP HS, DROPS [[place] Eye Drops] () 1 DROP OU DAILY Sertraline HCl (Sertraline HCl) 50 Mg Tablet 50 MG PO DAILY, TAB [facility]NA NEWBY MD [facility] CCDS Sep 17, 2022 14:08
--- NOTE | 2022-09-17 14:12 | Discharge Inst-Post CATH ---
Discharge Inst-CATH/EP Post Cardiac Cath/EP D/C Inst Follow Up/Plan F/u with Dr Anthony in 2 weeks ACTIVITY * Go Home directly and rest. * Limit activity of the leg (or wrist if it was used) for 7 days including aerobics, swimming, jogging, bicycling, etc. * Restrict stair-climbing for 7 days if possible, if not, climb up with your n on-cath leg, then bring together on the same step. * Avoid lifting, pushing, pulling or excessive movement of the affected ex tremity for 7 days. * Customary sexual activity may be resumed after 2 days-use caution not to use a position that strains or causes pain to the affected extremity. * No driving for 24 hours. * NO SMOKING. * Avoid straining for bowel movements for 7 days. * Gentle walking on level ground is allowed. * Returning to work will depend on the type of procedure and the results. Your doctor will discuss this with you. CALL YOUR DOCTOR FOR ANY OF THE FOLLOWING: *If bleeding from the puncture site occurs- Apply gentle pressure to site with clean cloth and call your doctor or EMS. * If a knot or lump forms under the skin, increases in size, or causes pain. * If bruising appears to be worsening or moving further down your leg instead of disappearing. * Temperature above 101 F. CARE OF YOUR GROIN INCISION; * Bruising or purple discoloration of the skin near the puncture site is common. * You may shower only, no bathtub bathing for 5 days. Be careful to avoid slipping as your leg may feel stiff. * If a closure device was used on your femoral artery, please see the attached guide regarding care of the device and your leg. * Leave dressing on FOR 24 hours. CARE OF YOUR WRIST INCISION; * Bruising or purple discoloration of the skin near the puncture site is common. * You may shower. * DO NOT submerge wrist. * Leave dressing on FOR 24 hours. ANA ANTHONY MD FACP FAC CCDS Sep 17, 2022 14:12
[2022-09-17] MEDS ORDERED: PATIENT MAY USE OWN MEDS, ALL PO SCH (14:15)
--- NOTE | 2022-09-17 14:30 | Cardiac Cath Report ---
CARDIAC CATHETERIZATION DATE OF PROCEDURE: 09-17-22 INDICATION: Increasing shortness of breath in the setting of known CAD and PAD HISTORY: The patient is a 76 year old female with increasing shortness of breath similar to what she had prior to RCA stenting several years ago PROCEDURES PERFORMED: 1. Cor angio 2. LHC 3. iFR of mid LAD PROCEDURE DESCRIPTION: After informed consent and in the fasting state, left heart catheterization was performed through the R femoral artery utilizing a 5 Occitan system by percutaneous approach. JL4 for L cor angio, JR4 for R cor angio, pigtail for LHC. HEMODYNAMICS: LVEDP 20 mmHg. No significant pressure gradient on pullback CORONARY ANGIOGRAPHY: Mod cor calcification in the L cors; mod to severe cor calcification in the R cor Left main coronary artery: Ok Left anterior descending coronary artery: 60-70% mid vessel Left circumflex coronary artery: Ok Right coronary artery: Dominant, diffuse mod plaque, patent mid-vessel stent iFR OF THE MID LAD Guide 6F JL4 (after sheath changed to 6F and 5000 iv heparin given) Wire: pressure wire iFR: 0.9 R femoral artery angio to evaluate for closure device: Sheath in R common fem at a site of mod narrowing and calcification Incidentally noted to have proximal occlusion of R SFA (has chronic h/o R SFA occlusion to which PCI has been carried out in the past but has re-occluded) Sheath sutured in place and patient sent to floor for manual sheath removal IMPRESSION: 1) CAD as follows -> Left main coronary artery: Ok; Left anterior descending coronary artery: 60-70% mid vessel with iFR 0.9 (indicating hemodynamic nonsignificance); Left circumflex coronary artery: Ok; Right coronary artery: Dominant, diffuse mod plaque, patent mid-vessel stent 2) LVEDP 20 mmHg ANA NEWBY MD FACP FAC CCDS Sep 17, 2022 14:30
== END 2022-09-17 20:07 | disposition home or self-care (01) ==
LOC: CATH 09:30 → ICU 14:29 → CATH 20:07
PROVIDERS: ATTEND Internal Medicine Cardiovascular Disease
DX: I25.10 Atherosclerotic heart disease of native coronary artery without angina pectoris (principal); E66.9 Obesity, unspecified; I50.32 Chronic diastolic (congestive) heart failure; I11.0 Hypertensive heart disease with heart failure; R55 Syncope and collapse; I65.23 Occlusion and stenosis of bilateral carotid arteries; E78.2 Mixed hyperlipidemia; G47.33 Obstructive sleep apnea (adult) (pediatric); Z79.82 Long term (current) use of aspirin; Z79.02 Long term (current) use of antithrombotics/antiplatelets; Z95.0 Presence of cardiac pacemaker; Z68.34 Body mass index [BMI] 34.0-34.9, adult; Z87.891 Personal history of nicotine dependence; I70.211 Atherosclerosis of native arteries of extremities with intermittent claudication, right leg; Z79.899 Other long term (current) drug therapy
CPT/HCPCS: 80053; 80061; 85027; 85610; 85730; 87081; 93005; 93458; 93571; C1769; C1887; C1894 ×2; 36415

== ENCOUNTER → 2023-01-14 | Day surgery (SDC) | payer MEDICARE, OTHER ==
[~2023-01-14] MED LIST changes: -POTA10CA44 PO; +POTA10CA84 PO; +PREG150C46 PO
== END | disposition home or self-care (01) ==
LOC: CATH 06:59
PROVIDERS: ATTEND Internal Medicine Cardiovascular Disease
DX: I11.0 Hypertensive heart disease with heart failure (principal); I50.32 Chronic diastolic (congestive) heart failure; R55 Syncope and collapse; I25.10 Atherosclerotic heart disease of native coronary artery without angina pectoris; I65.23 Occlusion and stenosis of bilateral carotid arteries; E78.2 Mixed hyperlipidemia; G47.33 Obstructive sleep apnea (adult) (pediatric); R42 Dizziness and giddiness; I70.211 Atherosclerosis of native arteries of extremities with intermittent claudication, right leg; Z95.0 Presence of cardiac pacemaker; Z53.9 Procedure and treatment not carried out, unspecified reason

== ENCOUNTER 2023-01-21 07:01 | Day surgery (SDC) | payer MEDICARE, OTHER ==
[~2023-01-21] VITALS: Ht 160 cm; Wt 87.7 kg
[2023-01-21] MEDS ORDERED: NS IV 1000 ML 1,000 ML ONE (07:05)
[2023-01-21] MEDS ORDERED: HEParin (CATH LAB) 2,000 ML IV ONE (07:05)
[2023-01-21] MEDS ORDERED: LIDOCAINE 1% INJ 20 ML VIAL ONE (07:05)
[2023-01-21] MEDS ORDERED: NS IV 1000 ML 1,000 ML IV SCH ×2 (07:15→10:30)
[2023-01-21 07:33] VITALS: BP 153/69
[2023-01-21 07:35] LABS: HEMATOCRIT 41 % (35-52); HEMOGLOBIN 13.2 g/dL (11.5-16.0); MEAN CORPUSCULAR HEMOGLOBIN 29 pg (25-34); MEAN CORPUSCULAR HGB CONC 33 g/dL (32-36); MEAN CORPUSCULAR VOLUME 88 fL (80-99); MEAN PLATELET VOLUME 10.4 fL (9.0-12.2); PLATELET COUNT 235 10^3/uL (130-400); WHITE BLOOD COUNT 7.5 10^3/uL (4.3-11.0)
[2023-01-21] MEDS ORDERED: DOXA8TAB73 PO (07:40)
[2023-01-21 07:47] LABS: INR 0.9 (0.8-1.4); PROTHROMBIN TIME PATIENT 12.5 SEC (12.2-14.7)
[2023-01-21 07:55] LABS: ALBUMIN 4.2 GM/DL (3.2-4.5); BILIRUBIN,TOTAL 0.7 MG/DL (0.1-1.0); CREATININE SERUM 1.14 MG/DL (0.60-1.30); POTASSIUM 4.2 MMOL/L (3.6-5.0); TOTAL PROTEIN 7.1 GM/DL (6.4-8.2)
[2023-01-21] MEDS ORDERED: fentaNYL INJECTION 100 MCG/2 ML VIAL ONE (08:16)
[2023-01-21] MEDS ORDERED: MIDAZOLAM 5 MG/5 ML (VERSED) VIAL ONE (08:16)
[2023-01-21] MEDS ORDERED: NITRO DRIP 25000 MCG/D5W 250 ML IV ONE (09:22)
[2023-01-21] MEDS ORDERED: HEParin 1000 UNIT/ML (10ML VIAL) FOR BOLUS ONE (09:22)
[2023-01-21] MEDS ORDERED: ASPIRIN 81 MG CHEWABLE TABLET ONE (10:21)
[2023-01-21] MEDS ORDERED: CLOPIDOGREL 75 MG TABLET ONE (10:21)
[2023-01-21] MEDS ORDERED: PATIENT MAY USE OWN MEDS, ALL PO SCH (10:30)
--- NOTE | 2023-01-21 10:35 | Discharge Inst-Cardiology ---
Discharge Inst-Cardiac Discharge Medications Continued Medications: Alendronate Sodium (Alendronate Sodium) 70 Mg Tablet 70 MG PO [place], TAB Aspirin (Aspirin EC) 81 Mg Tablet.dr 81 MG PO DAILY, TAB Calcium Carbonate/Vitamin D3 (Calcium 600 + Vit D 400 Softgl) 600 Mg Calcium-10 Mcg (400 Unit) Capsule 1 EACH PO DAILY, CAP Clopidogrel Bisulfate (Clopidogrel) 75 Mg Tablet 75 MG PO DAILY, TAB Cyanocobalamin (Cyanocobalamin Injection) 1,000 Mcg/Ml Inj 1000 MCG IJ EVERY 2 WEEKS, VIAL TAKES EVERY OTHER WEEK ON SUNDAYS Doxazosin Mesylate (Doxazosin Mesylate) 4 Mg Tablet 4 MG PO BID, TAB Doxazosin Mesylate (Doxazosin Mesylate) 8 Mg Tablet 8 MG PO AM, TAB Furosemide (Furosemide) 40 Mg Tablet 40 MG PO DAILY, TAB Ipratropium [place] (Ipratropium [place]) 30 Ml [place] 1-2 SPRAYS NS TID PRN for CONGESTION, SPRAY Metoprolol Succinate (Metoprolol Succinate) 100 Mg Tab.er.24h 100 MG PO BID, TAB Pantoprazole Sodium (Pantoprazole Sodium) 20 Mg Tablet.dr 20 MG PO DAILY, TAB Potassium Chloride (Potassium Chloride) 10 Meq Capsule.er 10 MEQ PO DAILY, CAP Pravastatin Sodium (Pravastatin Sodium) 10 Mg Tablet 10 MG PO DAILY, TAB Propylene Glycol (Systane Balance) 0.6 % Drops 1 DROP OP HS, DROPS [[place] Eye Drops] () 1 DROP OU DAILY Sertraline HCl (Sertraline HCl) 50 Mg Tablet 50 MG PO DAILY, TAB ANA NEWBY MD [facility] CCDS Jan 21, 2023 10:35
--- NOTE | 2023-01-21 10:36 | Discharge Inst-Post CATH ---
Discharge Inst-CATH/EP Post Cardiac Cath/EP D/C Inst Follow Up/Plan F/u with Dr Anthony next week ACTIVITY * Go Home directly and rest. * Limit activity of the leg (or wrist if it was used) for 7 days including aerobics, swimming, jogging, bicycling, etc. * Restrict stair-climbing for 7 days if possible, if not, climb up with your non -cath leg, then bring together on the same step. * Avoid lifting, pushing, pulling or excessive movement of the affected extr emity for 7 days. * Customary sexual activity may be resumed after 2 days-use caution not to use a position that strains or causes pain to the affected extremity. * No driving for 24 hours. * NO SMOKING. * Avoid straining for bowel movements for 7 days. * Gentle walking on level ground is allowed. * Returning to work will depend on the type of procedure and the results. Your doctor will discuss this with you. CALL YOUR DOCTOR FOR ANY OF THE FOLLOWING: *If bleeding from the puncture site occurs- Apply gentle pressure to site with clean cloth and call your doctor or EMS. * If a knot or lump forms under the skin, increases in size, or causes pain. * If bruising appears to be worsening or moving further down your leg instead of disappearing. * Temperature above 101 F. CARE OF YOUR GROIN INCISION; * Bruising or purple discoloration of the skin near the puncture site is common. * You may shower only, no bathtub bathing for 5 days. Be careful to avoid slipping as your leg may feel stiff. * If a closure device was used on your femoral artery, please see the attached guide regarding care of the device and your leg. * Leave dressing on FOR 24 hours. CARE OF YOUR WRIST INCISION; * Bruising or purple discoloration of the skin near the puncture site is common. * You may shower. * DO NOT submerge wrist. * Leave dressing on FOR 24 hours. ANA ANTHONY MD [facility] CCDS Jan 21, 2023 10:36
--- NOTE | 2023-01-21 11:23 | Cardiac Procedure Note-CS/ASA ---
Pre-Procedure Note Pre-Op Procedure Note Date of Available H&P: Dec 25, 2022 Date H&P Reviewed: Jan 21, 2023 Time H&P Reviewed: 08:45 History & Physical: H&P Reviewed, No changes noted Moderate Sedation PreProcedure ASA Score 3 Airway Lungs Heart ASA score ASA 1: a normal healthy patient ASA 2: a patient with a mild systemic disease (mid diabetes, controlled hypertension, obesity ASA 3: a patient with a severe systemic disease that limits activity (angina, COPD, prior Myocardial infarction) ASA 4: a patient with an incapacitating disease that is a constant threat to life (CHF, renal failure) ASA 5: a moribund patient not expected to survive 24 hrs. (ruptured aneurysm) ASA 6: a declared brain- patient whose organs are being harvested. For emergent operations, add the letter E after the classification Mallampati Classification Grade 2 Sedation Plan Analgesia, Amnesia, Plan communicated to team members The patient is an appropriate candidate to undergo the planned procedure, sedation, and anesthesia. The patient immediately re-assessed prior to indication. ANA NEWBY MD FACP FAC CCDS Jan 21, 2023 11:23
[2023-01-21] MEDS ORDERED: ATROPINE 1 MG/10 ML EMERGENCY SYRINGE ONE (13:12)
--- NOTE | 2023-01-21 15:25 | OPERATIVE REPORT ---
DATE OF SERVICE: 01/21/2023 PERIPHERAL ANGIOGRAPHY AND INTERVENTION REPORT INDICATIONS: The patient is a 77-year-old lady who has right leg claudication. Peripheral angiography with possible intervention was recommended and informed consent was obtained. Her claudication is severe and has limited her lifestyle and ability to ambulate significantly. DESCRIPTION OF PROCEDURE: She was brought to the cardiac catheterization laboratory in a fasting state. Left groin was prepped and draped in the usual sterile fashion. 1% lidocaine was used for local anesthesia. Modified Seldinger technique was used to advance a 5-Salvadorean sheath into the left femoral artery. We used a 5-Salvadorean pigtail catheter to carry out bilateral leg artery angiography with runoff. We then used a crossover catheter to advance a Storq wire into the right common femoral artery and over this wire, we removed the crossover catheter and the 5-Salvadorean sheath and advanced a long 6-Salvadorean sheath, the tip of which was placed in the right femoral artery and angiography was performed selectively of the right leg. The patient has a long occlusion of the right superficial femoral artery and this was intervened on. We were not able to advance a Storq wire across the occlusion, but we were able to advance a 0.018-inch Command ST wire across the lesion and the tip of this wire was placed in the right popliteal artery. Subsequently, we carried out balloon inflations throughout the extent of the right superficial femoral artery with [id number] balloon that was 4 x 250 mm in balloon dimensions. Following multiple balloon angioplasties, the stenosis was reduced to less than 10%. Flow throughout the vessel was normal. Contained, small dissections were seen, which are not of any obstructive or hemodynamic significance. Flow throughout the vessel is brisk and normal. SHEILA flow has improved from 0 to SHEILA 3. The patient tolerated the procedure well. CONCLUSIONS: 1. Long occlusion of the right superficial femoral artery to which successful balloon angioplasty was carried out that reduced the stenosis from 100% to 0% and improved flow from SHEILA 0 to SHEILA 3. 2. Patent iliac and femoral arteries on the right side. Job ID: [id number] DocumentID: [id number] Dictated Date: 01/21/2023 10:29:29 Inspector [employer] Date: 01/21/2023 15:23:00 Dictated By: ANA NEWBY MD; MA; FACP; FACC;
[2023-01-21] MEDS ORDERED: oxyCODONE/ACETAMINOPHEN 5/325MG TABLET PO NR (16:30)
[2023-01-21] MEDS ORDERED: oxyCODONE/ACETAMINOPHEN 5/325MG TABLET ONE (16:41)
== END 2023-01-21 19:05 | disposition home or self-care (01) ==
LOC: CATH 07:01 → ICU 10:45 → CATH 19:05
PROVIDERS: ATTEND Internal Medicine Cardiovascular Disease
DX: I77.1 Stricture of artery (principal); I70.211 Atherosclerosis of native arteries of extremities with intermittent claudication, right leg; R55 Syncope and collapse; I44.30 Unspecified atrioventricular block; I25.10 Atherosclerotic heart disease of native coronary artery without angina pectoris; N18.4 Chronic kidney disease, stage 4 (severe); I13.0 Hypertensive heart and chronic kidney disease with heart failure and stage 1 through stage 4 chronic kidney disease, or unspecified chronic kidney disease; I50.31 Acute diastolic (congestive) heart failure; I65.23 Occlusion and stenosis of bilateral carotid arteries; R73.03 Prediabetes; E78.5 Hyperlipidemia, unspecified; K75.3 Granulomatous hepatitis, not elsewhere classified; E03.9 Hypothyroidism, unspecified; E66.9 Obesity, unspecified; M54.41 Lumbago with sciatica, right side; M21.371 Foot drop, right foot; N28.1 Cyst of kidney, acquired; E78.2 Mixed hyperlipidemia; G47.33 Obstructive sleep apnea (adult) (pediatric); M79.89 Other specified soft tissue disorders; Z95.0 Presence of cardiac pacemaker; Z68.34 Body mass index [BMI] 34.0-34.9, adult; Z87.891 Personal history of nicotine dependence; Z95.5 Presence of coronary angioplasty implant and graft; Z99.81 Dependence on supplemental oxygen; Z79.890 Hormone replacement therapy
CPT/HCPCS: 37224; 80053; 80061; 85027; 85610; 85730; 87081; 93005; C1725; C1769 ×2; C1887; C1894 ×3; 36415

== ENCOUNTER → 2023-01-27 | Outpatient (CLI) | payer MEDICARE, OTHER ==
[~2023-01-27] MED LIST changes: +DOXA8TAB73 PO
--- NOTE | 2023-01-27 17:29 | Diagnostic Imaging Report ---
TECHNIQUE: Live grayscale and color Doppler ultrasound was performed of the left groin. REASON FOR EXAM: Recent groin access for angiogram. Groin bruising. Pain. Evaluate for pseudoaneurysm. COMPARISON: None. FINDINGS: No evidence of pseudoaneurysm or AV fistula in the left groin. The left common femoral artery and common femoral vein are patent and have a normal appearance. Mildly prominent lymph nodes are seen in the left groin, with the largest measuring 1.1 x 1.4 x 0.9 cm. This lymph node is noted to be painful on the exam. IMPRESSION: 1. No pseudoaneurysm or AV fistula in the left groin. 2. Mildly prominent lymph nodes in the left inguinal region which are painful during the exam. Recommend continued follow-up as indicated. Dictated by: Dictated on workstation # [id number]
== END ==
LOC: RAD 14:30
PROVIDERS: ATTEND Internal Medicine Cardiovascular Disease
DX: R10.2 Pelvic and perineal pain (principal); R59.9 Enlarged lymph nodes, unspecified
CPT/HCPCS: 93926

== ENCOUNTER 2023-02-07 10:06 | Emergency (ER) | payer MEDICARE, OTHER ==
[~2023-02-07] VITALS: Ht 160 cm; Wt 87.0 kg
[2023-02-07 10:37] LABS: BASOPHILS % (AUTO) 1 % (0-10); EOSINOPHILS # (AUTO) 0.3 10^3/uL (0.0-0.3); EOSINOPHILS % (AUTO) 5 % (0-10); HEMATOCRIT 37 % (35-52); HEMOGLOBIN 11.8 g/dL (11.5-16.0); LYMPHOCYTES # (AUTO) 1.4 10^3/uL (1.0-4.0); LYMPHOCYTES % (AUTO) 20 % (12-44); MEAN CORPUSCULAR HEMOGLOBIN 29 pg (25-34); MEAN CORPUSCULAR HGB CONC 32 g/dL (32-36); MEAN CORPUSCULAR VOLUME 92 fL (80-99); MEAN PLATELET VOLUME 9.6 fL (9.0-12.2); MONOCYTES # (AUTO) 0.7 10^3/uL (0.0-1.0); MONOCYTES % (AUTO) 10 % (0-12); NEUTROPHILS # (AUTO) 4.4 10^3/uL (1.8-7.8); NEUTROPHILS % (AUTO) 64 % (42-75); PLATELET COUNT 298 10^3/uL (130-400); WHITE BLOOD COUNT 6.8 10^3/uL (4.3-11.0)
[2023-02-07 10:48] LABS: INR 0.9 (0.8-1.4); PROTHROMBIN TIME PATIENT 12.7 SEC (12.2-14.7)
[2023-02-07 11:03] LABS: ALBUMIN 4.1 GM/DL (3.2-4.5); POTASSIUM 3.9 MMOL/L (3.6-5.0)
[2023-02-07 11:05] LABS: CALCIUM 9.1 MG/DL (8.5-10.1)
[2023-02-07 11:06] LABS: TOTAL PROTEIN 7.1 GM/DL (6.4-8.2)
[2023-02-07 11:08] LABS: BILIRUBIN,TOTAL 0.7 MG/DL (0.1-1.0)
[2023-02-07 11:09] LABS: CREATININE SERUM 1.13 MG/DL (0.60-1.30)
[2023-02-07 11:13] LABS: MAGNESIUM 2.2 MG/DL (1.6-2.4)
--- NOTE | 2023-02-07 11:32 | Diagnostic Imaging Report ---
PROCEDURE: US right lower extremity venous. TECHNIQUE: Multiple real-time grayscale images were obtained over the right lower extremity in various projections. Additional spectral analysis and color Doppler duplex images were also obtained. INDICATION: Right leg swelling. There is no evidence of right lower extremity DVT. Right lower extremity deep venous system shows normal compressibility with normal response to augmentation and Valsalva. No fluid collection or mass is detected. IMPRESSION: No evidence of right lower extremity DVT. Dictated by: Dictated on workstation # [id number]
--- NOTE | 2023-02-07 11:36 | ED Lower Extremity ---
General Chief Complaint: Lower Extremity Stated Complaint: RT LEG PAIN | Nursing Triage Note: PT AMB TO [facility] 2 WITH CC OF RIGHT CALF SWELLING AND REDNESS THAT STARTED 3-4 DAYS AGO. PT WAS SENT FROM ODIN'S OFFICE TO RULE OUT BLOOD CLOTS. STENT PLACED 1 MONTH AGO. Source: patient History of Present Illness Date Seen by Provider: Feb 07, 2023 Time Seen by Provider: 10:12 Initial Comments PT ARRIVES VIA POV FROM HOME, WITH . AMBULATES IN WITH A CANE C/O SWELLING TO RIGHT LOWER LEG AND ANKLE FOR AT LEAST 4 DAYS. NO PAIN TO THE AREA NO INJURY NO PARESTHESIAS OR MOTOR DEFICITS NO CHEST PAIN NO SHORTNESS OF BREATH NO PALPITATIONS SHE STATES SHE WAS SENT HERE BY HER DR'S OFFICE TO CHECK FOR BLOOD CLOT IN HER LEG. PT HAD A PERIPHERAL ANGIOGRAM ON 01/21/23 TO RIGHT LEG--PT HAD 100% OCCLUSION OF LONG SEGMENT OF RIGHT SUPERFICIAL FEMORAL ARTERY AND HAD SUCCESSFUL BALLOON ANGIOPLASTY DONE--NO STENTING. ACCESS WAS TO LEFT GROIN SHE HAS NOT HAD ANY PAIN TO THE LEFT GROIN SHE HAS HAD BRUISING TO HER BELLY BUTTON SINCE THE CATH SHE HAS ALSO HAD RIGHT SIDED ABDOMINAL DISCOMFORT AND SWELLING TO RIGHT SIDE OF ABDOMEN SINCE THE PROCEDURE, WORSE AFTER EATING. SHE HAS NOT HAD NAUSEA/VOMITING/DIARRHEA/CONSTIPATION SHE IS URINATING NORMALLY. PT IS ON ASPIRIN + PLAVIX SHE HAS SEEN DR. NEWBY SINCE PROCEDURE AND NO CHANGES IN TREATMENT SHE SAW HER PCP, DR. OTTO, FOR THE ABDOMINAL COMPLAINTS AND HAD AN OUTPATIENT CT SCAN OF ABDOMEN/PELVIS DONE AT [facility] [place] ON 02/03/23 A COPY OF THE REPORT WAS FAXED HERE FROM HER DR'S OFFICE. IT SHOWED A LEFT RETROPERITONEAL HEMATOMA FO 6 X 4 X 10 CM --NOTHING WAS DONE ABOUT IT AT THE TIME. PCP: DR. OTTO Allergies and Home Medications Allergies Coded Allergies: levofloxacin (Verified Allergy, Unknown, 10/26/14) ramipril (Verified Allergy, Unknown, 09/04/21) Patient Home Medication List Home Medication List Reviewed: Yes Alendronate Sodium (Alendronate Sodium) 70 Mg Tablet, 70 MG PO [place], (Reported) Entered as Reported by: ELLIS FLORES on 04/08/17 0832 Aspirin (Aspirin EC) 81 Mg Tablet.dr, 81 MG PO DAILY, (Reported) Entered as Reported by: ELLIS FLORES on 04/08/17 0841 Calcium Carbonate/Vitamin D3 (Calcium 600 + Vit D 400 Softgl) 600 Mg Calcium-10 Mcg (400 Unit) Capsule, 1 EACH PO DAILY, (Reported) Entered as Reported by: DENISE TORREZ on 10/19/21 1151 Clopidogrel Bisulfate (Clopidogrel) 75 Mg Tablet, 75 MG PO DAILY, (Reported) Entered as Reported by: SHAY KING on 09/04/21 0843 Cyanocobalamin (Cyanocobalamin Injection) 1,000 Mcg/Ml Inj, 1,000 MCG IJ EVERY 2 WEEKS, (Reported) Entered as Reported by: ELLIS FLORES on 04/08/17 0832 Doxazosin Mesylate (Doxazosin Mesylate) 4 Mg Tablet, 4 MG PO BID, (Reported) Entered as Reported by: SHAY KING on 07/05/20 1223 Doxazosin Mesylate (Doxazosin Mesylate) 8 Mg Tablet, 8 MG PO AM, (Reported) Entered as Reported by: TRISO VENTURA on 01/21/23 0740 Furosemide (Furosemide) 40 Mg Tablet, 40 MG PO DAILY, (Reported) Entered as Reported by: SHAY KING on 07/05/20 1223 Ipratropium Silver (Ipratropium Silver) 30 Ml [place], 1-2 SPRAYS NS TID PRN for CONGESTION, (Reported) Entered as Reported by: ELLIS FLORES on 04/08/17 0859 Metoprolol Succinate (Metoprolol Succinate) 100 Mg Tab.er.24h, 100 MG PO BID, (Reported) Entered as Reported by: ELLIS FLORES on 04/08/17 0841 Pantoprazole Sodium (Pantoprazole Sodium) 20 Mg Tablet.dr, 20 MG PO DAILY, (Reported) Entered as Reported by: SHAY KING on 09/04/21 0843 Potassium Chloride (Potassium Chloride) 10 Meq Capsule.er, 10 MEQ PO DAILY, (Reported) Entered as Reported by: SHAY KING on 07/05/20 1223 Pravastatin Sodium (Pravastatin Sodium) 10 Mg Tablet, 10 MG PO DAILY, (Reported) Entered as Reported by: ELLIS FLORES on 04/08/17 0832 Propylene Glycol (Systane Balance) 0.6 % Drops, 1 DROP OP HS, (Reported) Entered as Reported by: DENISE TORREZ on 10/19/21 1151 Sertraline HCl (Sertraline HCl) 50 Mg Tablet, 50 MG PO DAILY, (Reported) Entered as Reported by: ELLIS FLORES on 04/08/17 0832 [Ro[place]o Eye Drops] , 1 DROP OU DAILY, (Reported) Entered as Reported by: SHAY KING on 09/04/21 0843 Review of Systems Constitutional: no symptoms reported Respiratory: no symptoms reported; No short of breath Cardiovascular: no symptoms reported; No chest pain Gastrointestinal: no symptoms reported Genitourinary: no symptoms reported Musculoskeletal: see HPI Skin: see HPI Psychiatric/Neurological: No Symptoms Reported Past Ajbkelm-Xhqolp-Npqmnz Hx Patient Social History Tobacco Use?: No Substance use?: No Alcohol Use?: No Immunizations Up To Date Tetanus Booster (TDap): Unknown First/Initial COVID19 Vaccinat: UNKNOWN DATE BUT DID RECEIVE VACCINE Second COVID19 Vaccination Ruben: UNKNOWN DATE BUT DID RECEIVE VACCINE Third COVID19 Vaccination Date: UNKNOWN DATE BUT DID RECEIVE BOOSTER Seasonal Allergies Seasonal Allergies: No Past Medical History Surgery/Hospitalization HX: FX C1-2 IN A [facility], VESSELS IN RT LEG OPENED 2 TIMES, PACEMAKER, CAD WITH 1 STENT RIGHT SFA BALLOON ANGIOPLASTY 01/21/[address] 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 History: Hysterectomy Genitourinary: Yes Kidney Infection Gastrointestinal: Yes Diverticulosis, Hiatal Hernia Musculoskeletal: Yes (dropped foot; C-SPINE FX C1-C2 IN [facility]) Degenerate Disk Disease, Osteoporosis, Arthritis, Foot Drop, Chronic Back Pain Endocrine: Yes Hypothyroidsim, Diabetes, Non-Insulin dep HEENT: No Cancer: No Psychosocial: No Integumentary: No Blood Disorders: Yes (ANEMIA) Adverse Reaction/Blood Tranf: No Physical Exam Vital Signs Vital Signs - First Documented 02/07/23 10:25 Temp 36.9 Pulse 87 B/P (MAP) 171/77 (108) Pulse Ox 96 O2 Delivery Room Air Capillary Refill : Height, Weight, BMI Height: 5'3.00" Weight: 182lbs. 0.0oz. 82.659149xc; 33.00 BMI Method:Stated General Appearance: WD/WN, no apparent distress HEENT: PERRL/EOMI; No pale conjunctivae (R), No pale conjunctivae (L) Neck: normal inspection Cardiovascular: regular rate, rhythm, no murmur Respiratory: normal breath sounds Gastrointestinal: normal bowel sounds, non tender, soft, no pulsatile mass; No distended, No tenderness; other (THERE IS UMBILICAL ECCHYMOSIS--APPEARS OLD) Back: no CVA tenderness, no vertebral tenderness Legs: right leg other (1+ SWELLING TO RIGHT LOWER LEG FROM KNEE TO ANKLE, MORE AROUND THE ANKLE, WITH MILD OLD APPEARING BRUISING AROUND THE ANKLE. CHRONIC VENOUS STASIS CHANGES BILATERAL LOWER LEGS. NO TENDERNESS. FULL ROM, SENSORY/VASCULAR INTACT. NO SIGNS OF INFECTION. HAS APPEARANCE OF DEPENDENT EDEMA; CATH SITE TO LEFT GROIN APPEARS NORMAL. 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, no motor/sensory deficits, alert, normal mood/affect, oriented x 3 Skin: normal color, warm/dry Progress/Results/Core Measures Results/Orders Lab Results Laboratory Tests Test 02/07/23 10:30 Range/Units White Blood Count 6.8 4.3-11.0 10^3/uL Red Blood Count 4.03 3.80-5.11 10^6/uL Hemoglobin 11.8 11.5-16.0 g/dL Hematocrit 37 35-52 % Mean Corpuscular Volume 92 80-99 fL Mean Corpuscular Hemoglobin 29 25-34 pg Mean Corpuscular Hemoglobin Concent 32 32-36 g/dL Red Cell Distribution Width 13.7 10.0-14.5 % Platelet Count 298 130-400 10^3/uL Mean Platelet Volume 9.6 9.0-12.2 fL Immature Granulocyte % (Auto) 0 % Neutrophils (%) (Auto) 64 42-75 % Lymphocytes (%) (Auto) 20 12-44 % Monocytes (%) (Auto) 10 0-12 % Eosinophils (%) (Auto) 5 0-10 % Basophils (%) (Auto) 1 0-10 % Neutrophils # (Auto) 4.4 1.8-7.8 10^3/uL Lymphocytes # (Auto) 1.4 1.0-4.0 10^3/uL Monocytes # (Auto) 0.7 0.0-1.0 10^3/uL Eosinophils # (Auto) 0.3 0.0-0.3 10^3/uL Basophils # (Auto) 0.0 0.0-0.1 10^3/uL Immature Granulocyte # (Auto) 0.0 0.0-0.1 10^3/uL Prothrombin Time 12.7 12.2-14.7 SEC INR Comment 0.9 0.8-1.4 Activated Partial Thromboplast Time 31 24-35 SEC Sodium Level 141 135-145 MMOL/L Potassium Level 3.9 3.6-5.0 MMOL/L Chloride Level 104 98-107 MMOL/L Carbon Dioxide Level 25 21-32 MMOL/L Anion Gap 12 5-14 MMOL/L Blood Urea Nitrogen 16 7-18 MG/DL Creatinine 1.13 0.60-1.30 MG/DL Estimat Glomerular Filtration Rate 50 BUN/Creatinine Ratio 14 Glucose Level 123 H 70-105 MG/DL Calcium Level 9.1 8.5-10.1 MG/DL Corrected Calcium 9.0 8.5-10.1 MG/DL Magnesium Level 2.2 1.6-2.4 MG/DL Total Bilirubin 0.7 0.1-1.0 MG/DL Aspartate Amino Transf (AST/SGOT) 21 5-34 U/L Alanine Aminotransferase (ALT/SGPT) 21 0-55 U/L Alkaline Phosphatase 111 40-136 U/L Total Protein 7.1 6.4-8.2 GM/DL Albumin 4.1 3.2-4.5 GM/DL My Orders Orders - TELLY VAIL DO Ed Iv/Invasive Line Start (02/07/23 10:24) Monitor-Rhythm Ecg Trace Only (02/07/23 10:24) Cbc With Automated Diff (02/07/23 10:24) Comprehensive Metabolic Panel (02/07/23 10:24) Magnesium (02/07/23 10:24) Protime With Inr (02/07/23 10:24) Partial Thromboplastin Time (02/07/23 10:24) Us Venous Lower Ext Rt (02/07/23 10:24) Ct Abdomen/Pelvis W (02/07/23 11:36) Iohexol Injection (Omnipaque 350 Mg/Ml 1 (02/07/23 12:00) Received Contrast (Hold Metformin- Contr (02/07/23 12:00) Ns (Ivpb) 100 Ml (Sodium Chloride 0.9% 1 (02/07/23 12:00) Vital Signs/I&O 02/07/23 02/07/23 10:25 13:45 Temp 36.9 Pulse 87 B/P (MAP) 171/77 (108) 127/78 Pulse Ox 96 O2 Delivery Room Air Blood Pressure Mean: 108 Progress Progress Note : Progress Note VITALS STABLE UNEVENTFUL ER STAY ULTRASOUND--NO DVT OR FLUID COLLECTION CT ABDOMEN/PELVIS--LEFT RETROPERITONEAL HEMATOMA IS MEASURING 11.4 X 5.3. X 4.1 TODAY HGB 11.8 TODAY, DOWN SLIGHTLY FROM 13.2 ON 01/21/23 VITALS STABLE, NO HYPOTENSION, NO TACHYCARDIA PT HAD NO SYMPTOMS OF ANY KIND DURING ER STAY DISCUSSED TEST RESULTS, ANTICIPATED COURSE, NEED FOR FOLLOW UP AND RETURN PRECAUTIONS WILL HAVE PT FOLLOW UP WITH DR. ABDALLA, DR. NEWBY WELL DR. OTTO. Diagnostic Imaging Comments ULTRASOUND RIGHT LEG--PER RADIOLOGIST REPORT AT 1134 There is no evidence of right lower extremity DVT. Right lower extremity deep venous system shows normal compressibility with normal response to augmentation and Valsalva. No fluid collection or mass is detected. IMPRESSION: No evidence of right lower extremity DVT. CT ABDOMEN/PELVIS--PER RADIOLOGIST REPORT AT 1247 direct comparison. FINDINGS: The lung bases are clear. No discrete liver mass is detected. Gallbladder is surgically absent. There is no biliary duct dilatation. Pancreas and spleen are unremarkable. No adrenal mass is detected. There is a hyperdense exophytic lesion extending laterally from the left kidney. This measures 2.3 cm. This was present on a prior CT scan from 2014 with measurement of 16 mm. At that time, the lesion was more lower density and appear to represent a cyst. This could represent a hemorrhagic cyst on today's study. No calculi are seen. There is no hydronephrosis. Aorta is calcified but nonaneurysmal. There is small amount of retroperitoneal hemorrhage on the left side. This extends from approximately the level of the iliac crest into the pelvis adjacent to urinary bladder. Cephalocaudal extents approximately 11.4 cm. Transverse dimension is 4.1 cm. AP dimension approximately 5.3 cm. No definite active arterial extravasation is seen. Bowel loops are not obstructed. Diverticulosis of the sigmoid but no evidence of acute diverticulitis. No free fluid is seen. Bladder is decompressed. Uterus is surgically absent. IMPRESSION: 1. Left-sided retroperitoneal hemorrhage, as described. No active extravasation is seen at this time. 2. Uncomplicated diverticulosis. Reviewed: Reviewed by Me Departure Communication (Admissions) 1249--PAGED DR. NEWBY 1256--CALLED DR. NEWBY'S OFFICE. HE IS NOT IN THE OFFICE TODAY 1257--SPOKE WITH DR. FOWLER, PHYSICAL THERAPY AIDE [employer] OPERATOR. HE ADVISES TO HOLD PLAVIX AND ASPIRIN. I WILL CONTACT [facility] FOR NEW FAX OF THE CT FINDINGS THE COPY THAT WAS SENT HERE IS OF POOR QUALITY AND SIZE OF THE RETROPERITONEAL HEMATOMA ARE TOO BLURRY TO READ. 1303--CALLED DR. OTTO'S OFFICE. THEY ARE CLOSED FOR THE DAY/WEEKEND 1304--CALLED [facility]. THE WILL CALL BACK 1312--SPOKE WITH [facility]. THE WILL FAX A NEW COPY OF THE CT REPORT FROM 02/03/23 1319--SPOKE WITH DR. ABDALLA, SURGEON, HE WILL SEE PT IN OFFICE AND REPEAT CT SCAN AT THAT TIME, PT IS STABLE, AND THE PROCEDURE WAS DONE 01/21/23 1322--SPOKE WITH DR. FOWLER AND UPDATED HIM ON MEASUREMENTS OF RETROPERITONEAL HEMATOMA, AND HE AGREES WITH PLAN. Impression Primary Impression: RETROPERITONEAL BLEEDING ON LEFT Additional Impressions: S/P PERIPHERAL ANGIOPLASTY RIGHT LEG DEPENDENT RIGHT LEG EDEMA AND BRUISING Disposition: 01 HOME, SELF-CARE Condition: Stable Departure-Patient Inst. Decision time for Depature: 13:35 Referrals: ANA NEWBY MD FACP FAC CCDS DEUCE ABDALLA MD, RYAN C MD (PCP) Primary Care Physician Patient Instructions: Bleeding After Surgery, Dependent Edema (DC) Add. Discharge Instructions: HOLD YOUR ASPIRIN AND PLAVIX CONTINUE YOUR OTHER MEDICATIONS PRESCRIBED FOLLOW UP WITH DR. ABDALLA'S OFFICE ( GENERAL SURGEON) NEXT WEEK--CALL HIS OFFICE ON FRIDAY MORNING TO SCHEDULE AN APPOINTMENT FOLLOW UP WITH DR. NEWBY'S OFFICE NEXT WEEK--CALL ON FRIDAY TO SCHEDULE AN APPOINTMENT FOLLOW UP WITH DR. RODRIGUEZ'S OFFICE NEXT WEEK--CALL ON FRIDAY TO SCHEDULE AN APPOINTMENT RETURN TO ER IF ANY OF YOUR SYMPTOMS WORSENS OR IF YOU BEGIN TO HAVE DIZZINESS, PASS OUT, OR INCREASING ABDOMINAL PAIN OR BACK PAIN All discharge instructions reviewed with patient and/or family. Voiced understanding. TELLY VAIL DO Feb 07, 2023 11:36
[2023-02-07] MEDS ORDERED: IOHEXOL 350 MG/ML 100 ML (OMNIPAQUE 350) VIAL IV ONE (12:00)
[2023-02-07] MEDS ORDERED: HOLD METFORMIN - RECEIVED CONTRAST 20 ML VIAL IV SCH (12:00)
[2023-02-07] MEDS ORDERED: NS 100 ML (IVPB) BAG IV ONE (12:00)
--- NOTE | 2023-02-07 12:38 | Diagnostic Imaging Report ---
PROCEDURE: CT abdomen and pelvis with contrast. TECHNIQUE: Multiple contiguous axial images were obtained through the abdomen and pelvis after administration of intravenous contrast. Auto Exposure Controls were utilized during the CT exam to meet ALARA standards for radiation dose reduction. All CT scans use one or more of the following dose optimizing techniques: automated exposure control, MA and/or KvP adjustment based on patient size and exam type or iterative reconstruction. INDICATION: Recent cardiac catheterization with retroperitoneal hematoma noted on outside CT scan. Recent CT scan from an outside facility is not available for direct comparison. FINDINGS: The lung bases are clear. No discrete liver mass is detected. Gallbladder is surgically absent. There is no biliary duct dilatation. Pancreas and spleen are unremarkable. No adrenal mass is detected. There is a hyperdense exophytic lesion extending laterally from the left kidney. This measures 2.3 cm. This was present on a prior CT scan from 2014 with measurement of 16 mm. At that time, the lesion was more lower density and appear to represent a cyst. This could represent a hemorrhagic cyst on today's study. No calculi are seen. There is no hydronephrosis. Aorta is calcified but nonaneurysmal. There is small amount of retroperitoneal hemorrhage on the left side. This extends from approximately the level of the iliac crest into the pelvis adjacent to urinary bladder. Cephalocaudal extents approximately 11.4 cm. Transverse dimension is 4.1 cm. AP dimension approximately 5.3 cm. No definite active arterial extravasation is seen. Bowel loops are not obstructed. Diverticulosis of the sigmoid but no evidence of acute diverticulitis. No free fluid is seen. Bladder is decompressed. Uterus is surgically absent. IMPRESSION: 1. Left-sided retroperitoneal hemorrhage, as described. No active extravasation is seen at this time. 2. Uncomplicated diverticulosis. Dictated by: Dictated on workstation # [id number]
[2023-02-07 13:45] VITALS: BP 127/78
== END 2023-02-07 13:45 | disposition home or self-care (01) ==
LOC: EDUNIT# 10:06 → ER 10:08
DX: S90.01XA Contusion of right ankle, initial encounter (principal); R58 Hemorrhage, not elsewhere classified; G47.30 Sleep apnea, unspecified; Z98.62 Peripheral vascular angioplasty status; Z99.89 Dependence on other enabling machines and devices; X58.XXXA Exposure to other specified factors, initial encounter
CPT/HCPCS: 36415; 74177; 80053; 83735; 85025; 85610; 85730; 93041

== ENCOUNTER 2023-04-26 09:35 | Emergency (ER) | payer MEDICARE, OTHER ==
[~2023-04-26 09:35] MED LIST changes: -PREG150C46 PO; +PREG150C47 PO
--- NOTE | 2023-04-26 10:14 | ED Lower Extremity ---
General Chief Complaint: Lower Extremity Stated Complaint: FALL/RIGHT ANKLE INJURY Nursing Triage Note: PT TO RM 7 BY WC WITH COMPLAINT OF RIGHT ANKLE INJURY. STATES HAD LEG UP ON A STOOL LAST NIGHT WHEN SHE LOST HER BALANCE AND FELL. INJURING RIGHT ANKLE. DENIES OTHER INJURY. Source: patient Exam Limitations: no limitations History of Present Illness Date Seen by Provider: Apr 26, 2023 Time Seen by Provider: 10:02 Initial Comments Here with report of right ankle pain after falling last night at about 8 PM. She had her foot up on a stool and was put lotion on her leg. When she put her foot down, she lost her balance and fell to her right side twisting her right ankle. She did not hit her head and denies other injury. Does complain of lateral right ankle pain with swelling. She does have history of 2 previous fractures. She typically follows with Dr. Mansfield. No loss of consciousness. Pain is isolated to the right ankle and upper foot with swelling noted. No abrasions. Onset: yesterday Severity: moderate Pain/Injury Location: right ankle Method of Injury: fell, twisted Modifying Factors: Improves With Immobilization; Worse With Movement Allergies and Home Medications Allergies Coded Allergies: levofloxacin (Verified Allergy, Unknown, 10/26/14) ramipril (Verified Allergy, Unknown, 09/04/21) Patient Home Medication List Home Medication List Reviewed: Yes Alendronate Sodium (Alendronate Sodium) 70 Mg Tablet, 70 MG PO [place], (Reported) Entered as Reported by: ELLIS FLORES on 04/08/17 0832 Aspirin (Aspirin EC) 81 Mg Tablet.dr, 81 MG PO DAILY, (Reported) Entered as Reported by: ELLIS FLORES on 04/08/17 0841 Calcium Carbonate/Vitamin D3 (Calcium 600 + Vit D 400 Softgl) 600 Mg Calcium-10 Mcg (400 Unit) Capsule, 1 EACH PO DAILY, (Reported) Entered as Reported by: DENISE TORREZ on 10/19/21 1151 Clopidogrel Bisulfate (Clopidogrel) 75 Mg Tablet, 75 MG PO DAILY, (Reported) Entered as Reported by: SHAY KING on 09/04/21 0843 Cyanocobalamin (Cyanocobalamin Injection) 1,000 Mcg/Ml Inj, 1,000 MCG IJ EVERY 2 WEEKS, (Reported) Entered as Reported by: ELLIS FLORES on 04/08/17 0832 Doxazosin Mesylate (Doxazosin Mesylate) 4 Mg Tablet, 4 MG PO BID, (Reported) Entered as Reported by: SHAY KING on 07/05/20 1223 Doxazosin Mesylate (Doxazosin Mesylate) 8 Mg Tablet, 8 MG PO AM, (Reported) Entered as Reported by: TIRSO VENTURA on 01/21/23 0740 Furosemide (Furosemide) 40 Mg Tablet, 40 MG PO DAILY, (Reported) Entered as Reported by: SHAY KING on 07/05/20 1223 Ipratropium [place] (Ipratropium [place]) 30 Ml [place], 1-2 SPRAYS NS TID PRN for CONGESTION, (Reported) Entered as Reported by: ELLIS FLORES on 04/08/17 0859 Metoprolol Succinate (Metoprolol Succinate) 100 Mg Tab.er.24h, 100 MG PO BID, (Reported) Entered as Reported by: ELLIS FLORES on 04/08/17 0841 Pantoprazole Sodium (Pantoprazole Sodium) 20 Mg Tablet.dr, 20 MG PO DAILY, (Reported) Entered as Reported by: SHAY KING on 09/04/21 0843 Potassium Chloride (Potassium Chloride) 10 Meq Capsule.er, 10 MEQ PO DAILY, (Reported) Entered as Reported by: SHAY KING on 07/05/20 1223 Pravastatin Sodium (Pravastatin Sodium) 10 Mg Tablet, 10 MG PO DAILY, (Reported) Entered as Reported by: ELLIS FLORES on 04/08/17 0832 Propylene Glycol (Systane Balance) 0.6 % Drops, 1 DROP OP HS, (Reported) Entered as Reported by: DENISE TORREZ on 10/19/21 1151 Sertraline HCl (Sertraline HCl) 50 Mg Tablet, 50 MG PO DAILY, (Reported) Entered as Reported by: ELLIS FLORES on 04/08/17 0832 [[place] Eye Drops] , 1 DROP OU DAILY, (Reported) Entered as Reported by: SHAY KING on 09/04/21 0843 Review of Systems Constitutional: no symptoms reported Respiratory: no symptoms reported Cardiovascular: no symptoms reported Musculoskeletal: joint pain, joint swelling Psychiatric/Neurological: Denies Headache, Denies Weakness Past Tsvlfuu-Nvngxb-Dptihp Hx Patient Social History Tobacco Use?: No Use of E-Cig and/or Vaping dev: No Substance use?: No Alcohol Use?: No Pt feels they are or have been: No Immunizations Up To Date Tetanus Booster (TDap): Unknown First/Initial COVID19 Vaccinat: UNKNOWN DATE BUT DID RECEIVE VACCINE Second COVID19 Vaccination Ruben: UNKNOWN DATE BUT DID RECEIVE VACCINE Third COVID19 Vaccination Date: UNKNOWN DATE BUT DID RECEIVE BOOSTER Seasonal Allergies Seasonal Allergies: No Past Medical History Surgery/Hospitalization HX: FX C1-2 IN A HALO, VESSELS IN RT LEG OPENED 2 TIMES, PACEMAKER, CAD WITH 1 STENT RIGHT SFA BALLOON ANGIOPLASTY 01/21/[address] 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 History: Hysterectomy Genitourinary: Yes Kidney Infection Gastrointestinal: Yes Diverticulosis, Hiatal Hernia Musculoskeletal: Yes (dropped foot; C-SPINE FX C1-C2 IN [facility]) Degenerate Disk Disease, Osteoporosis, Arthritis, Foot Drop, Chronic Back Pain Endocrine: Yes Hypothyroidsim, Diabetes, Non-Insulin dep HEENT: No Cancer: No Psychosocial: No Integumentary: No Blood Disorders: Yes (ANEMIA) Adverse Reaction/Blood Tranf: No Family Medical History No Pertinent Family Hx Physical Exam Vital Signs Vital Signs - First Documented 04/26/23 10:04 Pulse 73 Resp 16 B/P (MAP) 138/62 (87) Pulse Ox 96 O2 Delivery Room Air Capillary Refill : Less Than 3 Seconds Height, Weight, BMI Height: 5'3.00" Weight: 182lbs. 0.0oz. 82.610521ls; 33.00 BMI Method:Stated General Appearance: WD/WN, no apparent distress Cardiovascular: regular rate, rhythm, no murmur Respiratory: lungs clear, normal breath sounds Ankles: right ankle limited range of motion, right ankle pain, right ankle soft tissue tenderness, right ankle swelling, right ankle other (To the right lateral ankle greater than right medial with swelling noted at the right lateral aspect and just distal to the ankle. No difficulty with moving toes and retains sensation and circulation distally.) Neurologic/Psychiatric: alert, oriented x 3 Skin: normal color, warm/dry Progress/Results/Core Measures Results/Orders My Orders Orders - BRIDEGT ARMAS MD Ankle, Right, 3 Views (04/26/23 10:08) Vital Signs/I&O 04/26/23 10:04 Pulse 73 Resp 16 B/P (MAP) 138/62 (87) Pulse Ox 96 O2 Delivery Room Air Blood Pressure Mean: 87 Progress Progress Note : Progress Note Seen and evaluated. X-ray right ankle ordered. Patient declined pain medicine. Monitor patient. Differential diagnosis includes right ankle fracture and right ankle strain 1100: I have reviewed the ankle x-ray for the right ankle. There is a medial malleoli or distal lucency that I believe is probably old fracture especially given her history of previous fracture. There is no lateral lucencies noted. Main tenderness is in the lateral aspect of distal to the fibula. This is most likely ankle sprain but we will go ahead and place boot. She follows with Dr. Anton and I will have her follow-up with him and he does both primary care and sports medicine and can further evaluate this as well. She has a walker and crutches at home. She is here with her caregiver. They are comfortable with the boot use and plan as discussed. Patient still declines pain medicine. Discharged home with return precautions. Patient verbalized understanding of instructions and agreement with plan. Departure Impression Primary Impression: Right ankle sprain Qualified Codes: S93.401A - Sprain of unspecified ligament of right ankle, initial encounter Disposition: HOME, SELF-CARE Condition: Stable Departure-Patient Inst. Decision time for Depature: 11:05 Referrals: ANDREWS RODRIGUEZ MD (PCP/Family) Primary Care Physician Patient Instructions: Ankle Sprain (DC) Add. Discharge Instructions: All discharge instructions reviewed with patient and/or family. Voiced understanding. Continue home medications as previously prescribed. You may take Tylenol/acetaminophen 1000 mg every 6-8 hours as needed for pain. Follow-up with your doctor for recheck and further evaluation. Use boot over the next several days anytime you are moving around and use walker or crutches as well. return for worse pain, swelling, weakness, numbness or other concerns as needed. You may use ice packs to area of concern 20 minutes/h over the next 1 to 2 days to reduce swelling and pain. You should elevate the foot and leg several times a day to reduce swelling and pain. Copy Copies To 1: ROCKY RAMIREZ TIMOTHY D MD Apr 26, 2023 10:14
--- NOTE | 2023-04-26 10:30 | Diagnostic Imaging Report ---
INDICATION: Right ankle pain. COMPARISON: None. DISCUSSION: Three views of the right ankle were obtained. There is a linear lucency through the tip of the medial malleolus though this appears well-corticated and likely represents an old fracture. If there is point tenderness, an acute fracture is not excluded. Ankle mortise is symmetric. Mild soft tissue swelling. Alignment is anatomic. IMPRESSION: Linear lucency through the medial malleolus, consistent with an age-indeterminate fracture. The margins appear corticated suggesting this is an old finding. Recommend clinical correlation for point tenderness in this region. Dictated by: Dictated on workstation # [id number]
[2023-04-26 11:34] VITALS: BP 138/62
== END 2023-04-26 11:34 | disposition home or self-care (01) ==
LOC: EDUNIT# 09:35 → ER 09:37
DX: S93.401A Sprain of unspecified ligament of right ankle, initial encounter (principal); G47.30 Sleep apnea, unspecified; Z99.89 Dependence on other enabling machines and devices; W01.0XXA Fall on same level from slipping, tripping and stumbling without subsequent striking against object, initial encounter; X50.1XXA Overexertion from prolonged static or awkward postures, initial encounter
CPT/HCPCS: 73610; 99282; L2114